=== PATIENT | female | born 1950 ===

== ENCOUNTER 2022-05-21 11:36 | Outpatient (REF) | payer MEDICARE, MEDICAID, SELFPAY ==
[2022-05-21 13:59] LABS: Hematocrit 40.6 % (37.0-47.0); Hemoglobin 12.7 g/dl (12.0-16.0); Mean Corpuscular HGB Conc 31.3 g/dl (31.0-35.0); Mean Corpuscular Hemoglobin 27.7 pg (27.0-33.0); Mean Corpuscular Volume 88.6 fL (80.0-98.0); Mean Platelet Volume 10.8 fL (9.4-12.3); Platelet Count 347 X10*3/uL (160-400); Red Blood Count 4.58 X10*6/uL (4.20-5.50); Red Cell Distribution Width 13.6 % (11.0-16.0); White Blood Count 7.1 X10*3/uL (4.8-10.8)
[2022-05-21 14:21] LABS: Alanine Aminotransferase 19 U/L (0-31); Albumin Level 4.3 g/dL (3.5-5.0); Alkaline Phosphatase 106 U/L (39-117); Anion Gap 14 (12-20); Aspartate Amino Transferase 17 U/L (5-31); Bilirubin Total 0.2 mg/dL (0.0-1.0); Blood Urea Nitrogen 18 mg/dL (9-16); Calcium 9.8 mg/dL (8.4-10.2); Carbon Dioxide 28 mmol/L (22-29); Chloride 101 mmol/L (96-108); Cholesterol 122 mg/dL; Estimated Glomerular Filt Rate > 60; Glucose Random 153 mg/dL (60-115); HDL Cholesterol 39 mg/dL; LDL Cholesterol Calculated 63 mg/dl; Potassium 4.6 mmol/L (3.3-5.1); Sodium 138 mmol/L (135-145); Total Protein 7.4 g/dL (6.5-8.0); Triglycerides 100 mg/dL
[2022-05-21 14:43] LABS: TSH reflex Free T4 3.26 uIU/mL (0.32-4.0)
== END 2022-05-21 11:37 | disposition home or self-care (01) ==
LOC: HO.WFDLDS 11:36
PROVIDERS: Visit Provider Hospitalist
DX: Z00.00 Encounter for general adult medical examination without abnormal findings (principal)
CPT/HCPCS: 36415; 80053; 80061; 84443; 85027

== ENCOUNTER 2022-10-10 23:08 | Emergency (ER) | payer MEDICARE, MEDICAID, SELFPAY ==
[2022-10-10 23:18] VITALS: BP 128/55; PULSE 103; RESP 20; TEMP 36.4; O2SAT 99; BMI 58.5
[2022-10-11 03:41] VITALS: BP 138/79; PULSE 100; RESP 16; TEMP 36.6; O2SAT 95
--- NOTE | 2022-10-11 03:42 | ED_ITS ---
HPI - Skin/Abscess/Foreign Bdy General Chief complaint: Skin/Abscess/Foreign Body Stated complaint: lump on vaginal area Time Seen by Provider: 10/11/22 02:49 Source: patient and family (Daughter) Mode of arrival: ambulatory History of Present Illness HPI narrative: 72-year-old female who is a diabetic and is brought in by her daughter for worsening abscess noted at left inner thigh, it is draining although the daughter has noted increased redness around the area and was concerned given her mother's underlying diabetes. She denies any associated fever or chills. Related Data Previous Rx's Medication Instructions Recorded albuterol sulfate 90 mcg/actuation 2 puff inhalation Q4-6H PRN 05/21/22 aerosol inhaler shortness of breath or wheezing #8.5 grams amlodipine 10 mg tablet 10 mg PO DAILY #90 tabs 07/16/22 aripiprazole 20 mg tablet 20 mg PO BEDTIME #90 tabs 07/16/22 ferrous sulfate 325 mg (65 mg 325 mg PO DAILY #90 tabs 07/16/22 iron) tablet insulin glargine 100 unit/mL (3 50 unit (0.5 mL) subcut DAILY 3 07/16/22 mL) subcutaneous pen (agl months #45 mL KwikPen U-100 Insulin) lisinopril 40 mg tablet 40 mg PO DAILY 3 months #90 tabs 07/16/22 metformin 500 mg tablet 500 mg PO BID 3 months #180 tabs 07/16/22 montelukast 10 mg tablet 10 mg PO DAILY #90 tabs 07/16/22 nitroglycerin 0.4 mg sublingual 0.4 mg sublingual Q5M PRN chest 07/16/22 tablet pain 3 months #20 tabs paroxetine HCl 40 mg tablet 40 mg PO DAILY #90 tabs 07/16/22 sennosides 8.6 mg capsule (senna) 8.6 mg PO DAILY #90 caps 07/16/22 topiramate 100 mg tablet 100 mg PO DAILY #90 tabs 07/16/22 topiramate 50 mg tablet 50 mg PO DAILY #90 tabs 07/16/22 trazodone 50 mg tablet 50 mg PO BEDTIME 3 months #90 tabs 07/16/22 cephalexin 500 mg capsule 500 mg PO BID 5 days #10 caps 10/11/22 doxycycline hyclate 100 mg capsule 100 mg PO BID 5 days #10 caps 10/11/22 Allergies Allergy/AdvReac Type Severity Reaction Status Date / Time No Known Allergies Allergy Verified 10/10/22 23:23 Review of Systems Review of Systems: Pertinent positives and negatives as stated in [facility] Past Medical History Source: nursing notes reviewed Medical History Arthritis Asthma Diabetes High blood pressure High cholesterol Social History Social History Housing: Apartment Patient Tobacco Use Status: Never used Tobacco e-Cigarette/Vaping Use: Never Used Second Hand Smoke Exposure: No Advance Directives: No Advance Directives Information Provided: Yes service: No Current occupational status: disabled Current occupational exposures/hazards: No Physical Exam Vital Signs: Vital Signs: Last Vital Signs Temp 97.9 F 10/11/22 03:41 Pulse 100 10/11/22 03:41 Resp 16 10/11/22 03:41 BP 138/79 10/11/22 03:41 Pulse Ox 95 10/11/22 03:41 O2 Del Method 10/11/22 03:41 BMI result Body Mass Index 58.5 VITAL SIGNS: Reviewed. GENERAL: Elderly, elevated BMI,, in no acute distress. HEAD: Normocephalic/atraumatic EYES: PERRLA, EOMI EARS: Ext canals without abnormality OROPHARYNX: no oral lesions noted, posterior pharynx clear LUNGS: Normal breath sounds. No adventitious sounds or accessory muscle use. SpO2<95> CARDIOVASCULAR: Regular rate and rhythm without noted murmurs ABDOMEN: Soft, non-tender, non-distended with bowel sounds. LEFT LOWER EXTREMITY: There is a noted 3.5 cm abscess with some superficial fluctuance as well as a small area above NEUROLOGIC: Alert and oriented x 4. Strength and sensation to light touch were grossly intact x 4. Medical Decision Making Medical Decision Making MDM Narrative: 72-year-old female with minor abscess, incision was made after lidocaine was placed minimal amounts of material were expressed, may need more time for additional development, irrigated extensively. Patient will be placed on antibiotics given underlying diabetes, there are no systemic symptoms at this time, a referral to follow-up with general surgery has also been provided. The patient is otherwise stable for discharge after receiving initial antibiotics here in the emergency room. Differential Diagnosis Differential Diagnoses: The differential diagnosis associated with the presentation includes Please see the discussion above Chronic Conditions Patient?s care impacted by: Diabetes Procedures Abscess I/D Site: lower extremity Side (if applicable): left Local Anesthetic: lidocaine 1% Amount of anesthesia used (mL): 5 Technique: incised with blade Amount of fluid expressed (mL): 2 Sent for culture/gram staining?: No Irrigation: Yes Packing used?: none Complications: pain Discharge Plan Discharge Clinical Impression: Abscess of skin or subcutaneous tissue, Cellulitis, Diabetes Patient Disposition: Home, Self-Care Instructions: Cellulitis (ED), Abscess (ED), Diabetes and Your Skin (ED), Warm Compress or Soak (ED) Additional Instructions: 1. Complete todo el ciclo de antibi?ticos seg?n lo indicado. 2. Contin?e con compresas tibias, 2 a 3 veces al d?a. 3. Se le george proporcionado saji derivaci?n para cirug?a general si el drenaje no contin?a mejorando. 4. Paula un seguimiento con el proveedor de atenci?n primaria. Regrese a la cameron de emergencias si los s?ntomas empeoran. 1. Complete the entire course of antibiotics as ordered. 2. Continue with warm compresses, 2 to 3 times a day. 3. A referral for General surgery has been provided to you if the drainage does not continue to improve. 4. Please follow-up with primary care provider. Return to the ER for any worsening symptoms. Prescriptions: New doxycycline hyclate 100 mg capsule 100 mg PO BID 5 Days Qty: 10 0RF cephalexin 500 mg capsule 500 mg PO BID 5 Days Qty: 10 0RF No Action amlodipine 10 mg tablet 10 mg PO DAILY Qty: 90 3RF aripiprazole 20 mg tablet 20 mg PO BEDTIME Qty: 90 3RF ferrous sulfate 325 mg (65 mg iron) tablet 325 mg PO DAILY Qty: 90 3RF insulin glargine [Basaglar KwikPen U-100 Insulin] 100 unit/mL (3 mL) insulin pen 50 unit subcut DAILY 90 Days Qty: 45 3RF lisinopril 40 mg tablet 40 mg PO DAILY 90 Days Qty: 90 3RF metformin 500 mg tablet 500 mg PO BID 90 Days Qty: 180 3RF montelukast 10 mg tablet 10 mg PO DAILY Qty: 90 3RF nitroglycerin 0.4 mg tablet, sublingual 0.4 mg sublingual Q5M PRN (Reason: chest pain) 90 Days Qty: 20 3RF Rx Instructions: do not exceed 3 doses per episode paroxetine HCl 40 mg tablet 40 mg PO DAILY Qty: 90 3RF senna 8.6 mg capsule 8.6 mg PO DAILY Qty: 90 3RF topiramate 100 mg tablet 100 mg PO DAILY Qty: 90 3RF topiramate 50 mg tablet 50 mg PO DAILY Qty: 90 3RF trazodone 50 mg tablet 50 mg PO BEDTIME 90 Days Qty: 90 3RF albuterol sulfate 90 mcg/actuation HFA aerosol inhaler 2 puff inhalation Q4-6H PRN (Reason: shortness of breath or wheezing) Qty: 8.5 0RF Referrals: Consuelo Iniguez NP [Primary Care Provider] - Olaf Brand MD [Physician] - Print Language: [place]
[2022-10-11] MEDS: Doxycycline Monohydrate 100 MG CAPSULE PO (03:52)
[2022-10-11] MEDS: cephALEXin 500 MG CAPSULE PO (03:52)
[2022-10-11] MEDS: Lidocaine HCl 1 % 20 ML VIAL INFILTRATI (04:02)
== END 2022-10-11 04:04 | disposition home or self-care (01) ==
PROVIDERS: Emergency Provider Student in an Organized Health Care Education/Training Program; PCP Hospitalist
DX: L02.416 Cutaneous abscess of left lower limb (principal); L03.116 Cellulitis of left lower limb; E11.9 Type 2 diabetes mellitus without complications; Z79.899 Other long term (current) drug therapy
CPT/HCPCS: 10060; 99284

== ENCOUNTER 2022-10-21 12:17 | Outpatient (REF) | payer MEDICARE, MEDICAID, SELFPAY ==
[2022-10-21 14:14] LABS: Appearance Urine Clear; Color Urine Yellow; Glucose Urine UA Negative (Negative); Leukocyte Esterase Urine Negative (Negative); Nitrite Urine Negative (Negative); PH 6.5 (5.0-9.0); Urine Blood Negative (Negative); Urine Ketones Negative (Negative); Urine Protein Negative (Neg-Trace)
[2022-10-21 14:40] LABS: Erythrocyte Sedimentation Rate 29 MM/HR (0-20)
[2022-10-22 13:18] LABS: CRP High Sensitivity 3.9 mg/L
== END 2022-10-21 12:18 | disposition home or self-care (01) ==
LOC: HO.WFDLDS 12:17
PROVIDERS: Visit Provider Hospitalist
DX: M19.90 Unspecified osteoarthritis, unspecified site (principal); R32 Unspecified urinary incontinence
CPT/HCPCS: 36415; 81003; 85652; 86141

== ENCOUNTER → 2022-10-23 15:35 | Outpatient (BNVA) | payer MEDICARE, MEDICAID, SELFPAY | PROVIDERS: PCP Hospitalist; Visit Provider Surgery | DX: L02.416 Cutaneous abscess of left lower limb (principal); G89.29 Other chronic pain; M25.559 Pain in unspecified hip; E66.01 Morbid (severe) obesity due to excess calories; Z68.43 Body mass index [BMI] 50.0-59.9, adult; Z99.3 Dependence on wheelchair | CPT/HCPCS: 99202 ==

== ENCOUNTER → 2022-11-13 11:42 | Outpatient (BNVA) | payer MEDICARE, MEDICAID, SELFPAY | PROVIDERS: PCP Hospitalist; Visit Provider Surgery | DX: L02.416 Cutaneous abscess of left lower limb (principal) | CPT/HCPCS: 99212 ==

== ENCOUNTER → 2022-11-27 11:10 | Outpatient (BNVA) | payer MEDICARE, MEDICAID, SELFPAY | PROVIDERS: PCP Hospitalist; Visit Provider Urology | DX: R32 Unspecified urinary incontinence (principal); E11.9 Type 2 diabetes mellitus without complications; E66.01 Morbid (severe) obesity due to excess calories | CPT/HCPCS: 51798; 99202 ==

== ENCOUNTER 2022-12-20 10:41 | Outpatient (REF) | payer MEDICARE, MEDICAID, SELFPAY ==
--- NOTE | ~2022-12-20 | US_ITS ---
EXAMINATION: US RETROPERITONEAL LIMITED (RENAL ONLY) CLINICAL INFORMATION: Unspecified urinary incontinence. COMPARISON: None available. TECHNIQUE: Real-time imaging of the kidneys. Technically limited study secondary to body habitus. FINDINGS: RIGHT KIDNEY: 10.4 x 4.9 x 4.7 cm (SAG x AP x TRV). The kidney is normal in size, contour, and echogenicity. Renal cortical thickness is normal. No calculi or focal parenchymal lesions. No hydronephrosis. LEFT KIDNEY: 11.2 x 5.5 x 4.2 cm (SAG x AP x TRV). The kidney is normal in size, contour, and echogenicity. Renal cortical thickness is normal. No calculi or focal parenchymal lesions. No hydronephrosis. US/US renal BI IMPRESSION: Unremarkable examination.
== END 2022-12-20 10:42 | disposition home or self-care (01) ==
LOC: HO.US 10:41
PROVIDERS: PCP Hospitalist; Visit Provider Nurse Practitioner Family
DX: R32 Unspecified urinary incontinence (principal)
CPT/HCPCS: 76775

== ENCOUNTER 2022-12-30 08:27 | Outpatient (REF) | payer MEDICARE, MEDICAID, SELFPAY ==
--- NOTE | ~2022-12-30 | XR_ITS ---
EXAMINATION: XR PELVIS CLINICAL INFORMATION: Pain. COMPARISON: None available. TECHNIQUE: AP view of the pelvis. FINDINGS: There is a normal bilateral hip joint space. No bony erosive changes. No fracture or dislocation. SI joints are symmetrical. No acute fracture or dislocation seen. XR/XR pelvis 1-2V IMPRESSION: Unremarkable AP pelvis exam.
== END 2022-12-30 08:28 | disposition home or self-care (01) ==
LOC: HO.HOSX 08:27
PROVIDERS: Visit Provider Orthopaedic Surgery
DX: M25.552 Pain in left hip (principal); R20.0 Anesthesia of skin; E11.9 Type 2 diabetes mellitus without complications; E66.01 Morbid (severe) obesity due to excess calories
CPT/HCPCS: 72170; 99202

== ENCOUNTER 2023-01-07 10:42 | Outpatient (REF) | payer MEDICARE, MEDICAID, SELFPAY ==
[2023-01-07 13:16] LABS: Alanine Aminotransferase 15 U/L (0-31); Albumin Level 4.2 g/dL (3.5-5.0); Alkaline Phosphatase 85 U/L (39-117); Aspartate Amino Transferase 12 U/L (5-31); Bilirubin Direct < 0.2 mg/dL (0.0-0.5); Bilirubin Total 0.2 mg/dL (0.0-1.0); Lipase 27 U/L (8-78); Total Protein 7.3 g/dL (6.5-8.0)
[2023-01-07 13:44] LABS: Folate 5.2 ng/mL (> or = 4.0); TSH reflex Free T4 4.11 uIU/mL (0.32-4.0); Vitamin B12 528 pg/mL (200-900)
[2023-01-07 14:30] LABS: Free T4 (Free Thyroxine) 0.85 ng/dL (0.71-1.85)
[2023-01-12 15:43] LABS: Vitamin D 25-OH, D2 <4 ng/mL; Vitamin D 25-OH, D3 37 ng/mL; Vitamin D 25-OH, Total 37 ng/mL (30-100)
== END 2023-01-07 10:43 | disposition home or self-care (01) ==
LOC: HO.LAB 10:42
PROVIDERS: PCP Hospitalist; Visit Provider Nurse Practitioner Family
DX: R10.9 Unspecified abdominal pain (principal); K59.00 Constipation, unspecified; R19.7 Diarrhea, unspecified; E55.9 Vitamin D deficiency, unspecified
CPT/HCPCS: 36415; 80076; 82306; 82607; 82746; 83690; 84439; 84443; 99202

== ENCOUNTER 2023-02-28 06:04 | Inpatient (IN) | payer MEDICARE, MEDICAID, SELFPAY ==
[2023-02-28] VITALS (10 sets, daily range): BP systolic 90–127; BP diastolic 45–88; PULSE 91–110; RESP 17–28; TEMP 37–38.2; O2SAT 94–98; BMI 44.0; BMI 44.9
--- NOTE | ~2023-02-28 | CT_ITS ---
EXAMINATION: CT CHEST, ABDOMEN AND PELVIS WITHOUT CONTRAST CLINICAL INFORMATION: Status post fall. COMPARISON: None. TECHNIQUE: Multidetector volumetric imaging was performed of the chest, abdomen and pelvis without oral or intravenous contrast. Sagittal and coronal reformatted images were obtained on the technologist's workstation. This CT examination was performed using dose optimization techniques as appropriate, variously including the following: *Automated exposure control *Adjustment of mA and/or kV according to patient size (this includes techniques or standardized protocols for targeted exams where dose is matched to indication/reason for exam; i.e. extremities or head) *Use of iterative reconstruction technique DLP: 2770 mGy-cm FINDINGS: Motion artifact technically degrades image quality. CHEST: CHEST WALL: No acute abnormality. MEDIASTINUM: Few subcentimeter mediastinal lymph nodes are appreciated. Great vessels are of normal caliber. Heart is enlarged. Trace pericardial effusion. CORONARY ARTERY CALCIFICATION: Mild. PLEURA: No pleural effusion. LUNGS: No suspicious pulmonary nodule. No focal consolidation. Central airways are patent. ABDOMEN AND PELVIS: ABDOMINAL AND PELVIC WALL: No acute abnormality. LIVER AND BILIARY TREE: The noncontrast liver is normal in contour. No biliary ductal dilatation. GALLBLADDER: Unremarkable. PANCREAS: Unremarkable. SPLEEN: Unremarkable. ADRENAL GLANDS: Unremarkable. KIDNEYS AND URETERS: Symmetric in size. Nonspecific perinephric stranding. 4 mm nonobstructing calculus lower pole left kidney. GASTROINTESTINAL TRACT: Small and large bowel loops are of normal caliber. No small bowel obstruction. Appendix is within normal limits. VASCULAR: Normal caliber abdominal aorta. LYMPH NODES: No bulky abdominal or pelvic lymphadenopathy. FREE FLUID: No free fluid. BLADDER: Unremarkable. PELVIC VISCERA: Unremarkable. OSSEOUS STRUCTURES: Severe osteoarthritis of bilateral shoulders. No displaced rib fractures. CT/CT abdomen pelvis wo IV con IMPRESSION: Limited by motion artifact and noncontrast technique. No acute abnormality in the chest, abdomen or pelvis. Nonspecific bilateral perinephric stranding. 4 mm nonobstructing left renal calculus.
--- NOTE | ~2023-02-28 | CT_ITS ---
EXAMINATION: CT HEAD W/O IV CONTRAST CT CERVICAL SPINE W/O IV CONTRAST CLINICAL INFORMATION: History of fall. COMPARISON: None TECHNIQUE: Head - Contiguous axial imaging of the head was performed from the skull base to the vertex without the administration of intravenous contrast, and axial images are reconstructed at 2 mm and 5 mm slice thickness. Cervical spine - A volumetric, helical CT acquisition of the cervical spine was obtained without contrast; in addition to the standard set of axial images, multiplanar reformatted images were provided in the coronal and sagittal imaging planes. This CT examination was performed using dose optimization techniques as appropriate, variously including the following: *Automated exposure control *Adjustment of mA and/or kV according to patient size (this includes techniques or standardized protocols for targeted exams where dose is matched to indication/reason for exam; i.e. extremities or head) *Use of iterative reconstruction technique DLP: 619.7 mGy-cm for the head and 571.8 mGy-cm for the cervical spine FINDINGS: HEAD: No acute intracranial findings. Gilbert to white matter differentiation is preserved. No evidence of intracranial hemorrhage, major vascular territory infarction, focal mass effect or midline shift. The ventricles have normal size and configuration. No hydrocephalus or extra-axial fluid collections. The calvarium is intact. Incidentally noted is mild mucosal thickening of the superolateral wall of the right maxillary sinus; no air-fluid levels within paranasal sinuses. There is opacification of some of the bilateral mastoid air cells. The temporomandibular joints are intact. The orbits and globes are unremarkable. CERVICAL SPINE: The craniocervical junction is normal. The occipital condyles, dens and atlantodental articulation are intact. There is calcium deposition (likely calcium pyrophosphate dihydrate crystal deposition) along the transverse ligament posterior to the dens. The vertebral body heights and alignment are maintained. No fractures in the anterior or posterior elements. No prevertebral soft tissue edema or paraspinal hematoma. Mild discovertebral degenerative changes at C4-C5, C5-C6 and C6-C7. No stenosis of the central spinal canal. Thyroid gland is normal. Incidentally noted are emphysematous changes at visualized lung apices. No apical pneumothorax. CT/CT cervical spine wo IV con IMPRESSION: * No acute intracranial pathology. * No fracture or malalignment in the mildly degenerated cervical spine.
--- NOTE | 2023-02-28 06:21 | ECG_ITS ---
Test Reason : FALL Blood Pressure : / mmHG Vent. Rate : 105 BPM Atrial Rate : 105 BPM P-R Int : 198 ms QRS Dur : 122 ms QT Int : 340 ms P-R-T Axes : 055 -30 077 degrees QTc Int : 449 ms Sinus tachycardia Left axis deviation Minimal voltage criteria for LVH, may be normal variant ( Ramsey product ) Anterior infarct , age undetermined Abnormal ECG No previous ECGs available Referred By: Generic ED Physician Electronically Signed By:FABRICIO ANGEL
[2023-02-28 06:22] LABS: Glucose, Whole Blood 145 mg/dL (60-115)
[2023-02-28 06:52] LABS: Hematocrit 30.6 % (37.0-47.0); Hemoglobin 9.9 g/dl (12.0-16.0); Mean Corpuscular HGB Conc 32.4 g/dl (31.0-35.0); Mean Corpuscular Volume 86.7 fL (80.0-98.0); Mean Platelet Volume 11.8 fL (9.4-12.3); Platelet Count 181 X10*3/uL (160-400); Red Blood Count 3.53 X10*6/uL (4.20-5.50); Red Cell Distribution Width 13.8 % (11.0-16.0); White Blood Count 19.2 X10*3/uL (4.8-10.8)
[2023-02-28 06:57] LABS: INTERNATIONAL NORM RATIO 1.1 (0.9-1.1); Prothrombin Time 12.9 SEC (10.0-13.1)
[2023-02-28 07:00] LABS: Partial Thromboplastin Time 31.1 SEC (26.0-36.4)
[2023-02-28] MEDS: Albuterol/Iprat 2.5/0.5MG 3 ML AMPUL.NEB INHALE (07:02)
[2023-02-28 07:11] LABS: Lactic Acid 1.4 mmol/L (0.5-2.0)
[2023-02-28 07:18] LABS: Band Neutrophils Percent 9 % (3-5); Basophils Abs Manual 0.2 X10*3/uL (0.0-0.2); Basophils Percent Manual 1 % (0-2); Eosinophils Absolute Manual 0.2 X10*3/uL (0.0-0.4); Eosinophils Percent Manual 1 % (0-4); Lymphocytes Absolute Manual 1.5 X10*3/uL (1.2-4.9); Lymphocytes Percent Manual 8 % (20-40); Monocytes Percent Manual 5 % (2-11); Neutrophils Absolute Manual 16.3 X10*3/uL (2.0-8.3); Neutrophils Percent Manual 76 % (45-73)
[2023-02-28 07:20] LABS: B Type Natriuretic Peptide 47 pg/mL (<100)
--- NOTE | 2023-02-28 07:21 | ED.GENADULT ---
HPI - General Adult General Chief complaint: Fall Stated complaint: fall Time Seen by Provider: 02/28/23 06:30 Source: patient Mode of arrival: ambulatory Limitations: no limitations History of Present Illness HPI narrative: 72-year-old female with past medical history diabetes, hypertension, and asthma brought to the ED for 2 episodes of fall and 1 episode of hypoxemia. For the past 2 days patient has been coughing, fever and feeling weak. Daughter states patient lives alone and saw on the Camera patient fell twice off the bed. EMS found patient O2 sat on room air 88%. Patient is not oxygen dependent. Patient was placed on 2 L cannula. Patient states she had pneumonia last year. Patient never intubated for asthma. Related Data Home Medications Medication Instructions Recorded Confirmed insulin glargine 100 unit/mL (3 30 unit subcut DAILY 02/28/23 02/28/23 mL) subcutaneous pen (Basaglar KwikPen U-100 Insulin) Previous Rx's Medication Instructions Recorded albuterol sulfate 90 mcg/actuation 2 puff inhalation Q4-6H PRN 05/21/22 aerosol inhaler shortness of breath or wheezing #8.5 grams amlodipine 10 mg tablet 10 mg PO DAILY #90 tabs 07/16/22 aripiprazole 20 mg tablet 20 mg PO BEDTIME #90 tabs 07/16/22 ferrous sulfate 325 mg (65 mg 325 mg PO DAILY #90 tabs 07/16/22 iron) tablet lisinopril 40 mg tablet 40 mg PO DAILY 3 months #90 tabs 07/16/22 metformin 500 mg tablet 500 mg PO BID 3 months #180 tabs 07/16/22 montelukast 10 mg tablet 10 mg PO DAILY #90 tabs 07/16/22 paroxetine HCl 40 mg tablet 40 mg PO DAILY #90 tabs 07/16/22 topiramate 100 mg tablet 100 mg PO DAILY #90 tabs 07/16/22 topiramate 50 mg tablet 50 mg PO DAILY #90 tabs 07/16/22 trazodone 50 mg tablet 50 mg PO BEDTIME 3 months #90 tabs 07/16/22 ibuprofen 600 mg tablet 600 mg PO Q8H PRN pain #90 tabs 10/23/22 miscellaneous medical supply #2 ea 10/24/22 miscellaneous medical supply #270 ea 10/24/22 miscellaneous medical supply #4 ea 10/24/22 oxybutynin chloride 10 mg 10 mg PO DAILY #90 tabs 11/27/22 tablet,extended release 24 hr FreeStyle Lite Strips (blood sugar #100 ea 12/16/22 diagnostic) blood-glucose meter (FreeStyle #1 ea 12/16/22 Lite Meter kit) lancets 28 gauge (FreeStyle #100 ea 12/16/22 Lancets) sennosides 8.6 mg capsule (senna) 17.2 mg PO DAILY #180 caps 01/07/23 Allergies Allergy/AdvReac Type Severity Reaction Status Date / Time No Known Allergies Allergy Verified 01/07/23 11:05 Review of Systems Review of Systems: Cough, weakness, fever, 2 episodes of fall Yes all other systems are reviewed and are negative [facility] Past Medical History Medical History Abscess of left thigh Arthritis Asthma Diabetes High blood pressure High cholesterol Morbid obesity Social History Social History Housing: Apartment Patient Tobacco Use Status: Former Tobacco user e-Cigarette/Vaping Use: Never Used Second Hand Smoke Exposure: No Advance Directives: No Advance Directives Information Provided: Yes service: No Current occupational status: disabled Current occupational exposures/hazards: No Cognitive needs: No Hearing needs: No Vision needs: Yes Physical Exam ED Vital Signs: Vital Signs - 24 hr 02/28/23 06:12 02/28/23 07:03 02/28/23 07:31 Temperature 100.8 F H Pulse Rate 110 H 103 H 101 H Respiratory Rate 28 H 20 17 Blood Pressure 113/55 L 97/45 L Pulse Oximetry 97 97 Oxygen Delivery Method Nasal Cannula Room Air Oxygen Flow Rate 02/28/23 10:16 02/28/23 10:23 02/28/23 10:53 Temperature Pulse Rate 96 93 Respiratory Rate 23 H 21 H Blood Pressure 90/47 L 96/46 L 105/45 L Pulse Oximetry 95 98 Oxygen Delivery Method Nasal Cannula Nasal Cannula Oxygen Flow Rate 2 1.5 02/28/23 11:57 02/28/23 11:41 Temperature Pulse Rate 93 91 Respiratory Rate 21 H 20 Blood Pressure 115/78 107/51 L Pulse Oximetry 94 95 Oxygen Delivery Method Nasal Cannula Nasal Cannula Oxygen Flow Rate 2 2 BMI result Body Mass Index 44.0 Const General: cooperative, healthy appearing, comfortable, no acute distress, well developed, alert, awake and Physically active Orientation/consciousness: oriented to person and oriented to place [facility] Head: Yes normal to inspection, Yes No palpable skull fracture present, Yes normocephalic, Yes atraumatic and No abrasion Eyes General: appearance normal, both eyes and all related structures Neck Neck: Yes normal visual inspection, Yes full ROM, Yes no lymphadenopathy, Yes no meningeal signs, Yes trachea midline, Yes supple, No anterior neck swelling and No tender Chest Chest palpation & inspection: normal inspection of the chest and normal palpation of entire chest wall Resp Effort & Inspection: normal respiratory effort and able to speak in complete sentences Auscultation: diminished lung sounds Cardio Jugular venous distension: no JVD Heart sounds: S1 normal heart sound present and S2 normal heart sound present GI Inspection: Yes normal to inspection and No abdominal wall ecchymosis Palpation (GI): Soft to palpation, not firm, nontender, no guarding and not rigid General: No CVA tenderness and Yes no CVA tenderness Back/Spine/Pelvis Back: no CVA tenderness, No CVA tenderness and No back tenderness Skin General skin exam: no rashes or lesions noted and elasticity normal Neuro Other: Patient answering questions. Patient lethargic. Patient usually walks on her own but due to fever lethargy to fatigue to walk. General: oriented to person, oriented to place, tone normal, moves all extremities, Normal light touch and pain sensation, no meningeal signs, no focal motor deficits and CN's II-XI intact bilaterally Extrem General: Yes normal to inspection and Yes full ROM Psych Appearance: grossly normal, well kempt and not disheveled Course Reevaluation(s) Reevaluation #1: Patient having labs drawn by nurse. Lactic blood culture was added. Antibiotics ordered. Fluids ordered. Nebulizer and steroids ordered. Patient will be treated as pneumonia. Lungs positive for diminished sounds. No neuro deficits. No tenderness or ecchymosis on evaluation of all body. EKG shows sinus tach. Time: 06:30 Reevaluation #2: Lactic acid negative. White count 42529. Images of chest abdomen or dry due to kidney function not yet being available. Head CT cervical spine CT ordered due to fall. UA pending. Time: 19:32 Reevaluation #3: Patient head CT cervical spine CT chest CT abdominal CT came back normal. Chest CT negative for pneumonia. Abdominal CT scan shows bilateral perinephric stranding is left renal calculus. Patient given UA to check for UTI. Patient is in a KI Time: 09:00 Medications Administered Discontinued Medications Generic Name Dose Route Start Last Admin Trade Name Freq PRN Reason Stop Dose Admin Acetaminophen 975 mg 02/28/23 06:37 02/28/23 07:36 Acetaminophen 325 Mg Tablet PO 02/28/23 06:38 975 mg ONCE ONE Administration Albuterol/Ipratropium 3 ml 02/28/23 06:39 02/28/23 07:02 Albuterol/Iprat 2.5/0.5mg 3 Ml Ampul.Neb INHALE 02/28/23 06:40 3 ml ONCE ONE Administration Ceftriaxone Sodium 1 gm/ 50 mls @ 100 mls/hr 02/28/23 06:38 02/28/23 09:46 Sodium Chloride IV 02/28/23 07:07 Infused ONCE ONE Infusion Azithromycin 500 mg/ Sodium 250 mls @ 125 mls/hr 02/28/23 06:38 02/28/23 10:07 Chloride IV 02/28/23 08:37 Infused ONCE ONE Infusion Sodium Chloride 1,000 mls @ 999 mls/hr 02/28/23 06:38 02/28/23 10:06 Ns IV 02/28/23 07:38 Infused .Q1H1M STA Infusion Sodium Chloride 1,000 mls @ 999 mls/hr 02/28/23 08:07 02/28/23 10:47 Ns IV 02/28/23 09:07 Infused .Q1H1M STA Infusion Sodium Chloride 1,000 mls @ 999 mls/hr 02/28/23 08:41 02/28/23 10:47 Ns IV 02/28/23 09:41 Infused .Q1H1M STA Infusion Sodium Chloride 1,000 mls @ 999 mls/hr 02/28/23 10:24 02/28/23 11:55 Ns IV 02/28/23 11:24 Infused .Q1H1M STA Infusion Methylprednisolone Sodium Succinate 125 mg 02/28/23 06:56 02/28/23 07:37 Methylprednisolone Sod Succ 125 Mg/2 Ml Vial IVPUSH 02/28/23 06:57 125 mg ONCE ONE Administration Medical Decision Making Medical Decision Making MDM Narrative: 72 yold female with history of asthma, diabetes, obesity, presents to ED for fall, hypoxia, fever, and generalized weakness. Initial presentation was of pneumonia patient treated as pneumonia. Patient was given antibiotics. Patient placed on 2 L nasal cannula. Patient was febrile tachycardic during ED visit. Lactic acid negative. Trauma scan negative for any injuries. Negative for pneumonia on chest CT. UA shows UTI. Blood pressure improved after fluids. Patient on blood thinner. Differential Diagnosis Differential Diagnoses: The differential diagnosis associated with the presentation includes (Brain bleed, cervical spine fracture, pneumothorax, hemothorax, pneumonia, hip dislocation, hip fracture, UTI, sepsis) Admission/Observation Consideration of admission/observation: Escalation of care including admission/observation considered Consult Healthcare Provider Management of the patient was discussed with: Hospitalist Ean) Lab Data [facility] Lab Attestation statement: I reviewed the patient's lab results. 02/28/23 06:44 02/28/23 06:44 Labs: Lab Results 02/28/23 02/28/23 02/28/23 Range/Units 06:18 06:36 06:44 WBC 19.2 H (4.8-10.8) X10*3/uL RBC 3.53 L D (4.20-5.50) X10*6/uL Hgb 9.9 L D (12.0-16.0) g/dl Hct 30.6 L D (37.0-47.0) % MCV 86.7 (80.0-98.0) fL MCH 28.0 (27.0-33.0) pg MCHC 32.4 (31.0-35.0) g/dl RDW 13.8 (11.0-16.0) % Plt Count 181 D (160-400) X10*3/uL MPV 11.8 (9.4-12.3) fL Immature Gran % (Auto) Cancelled Neut % (Auto) Cancelled Lymph % (Auto) Cancelled [place] % (Auto) Cancelled Eos % (Auto) Cancelled Baso % (Auto) Cancelled Lymph # (Auto) Cancelled [place] # (Auto) Cancelled Eos # (Auto) Cancelled Baso # (Auto) Cancelled Abs Immat Gran (auto) Cancelled Absolute Neuts (auto) Cancelled Absolute Nucleated RBC 0.000 (0.0-0.012) X10*3/uL Nucleated RBC % (auto) 0.0 (0.0-0.2) /100WBC Neutrophils % (Manual) 76 H (45-73) % Band Neutrophils % 9 H (3-5) % Lymphocytes % (Manual) 8 L (20-40) % Monocytes % (Manual) 5 (2-11) % Eosinophils % (Manual) 1 (0-4) % Basophils % (Manual) 1 (0-2) % Abs Neuts (Manual) 16.3 H (2.0-8.3) X10*3/uL Lymphocytes # (Manual) 1.5 (1.2-4.9) X10*3/uL Monocytes # (Manual) 1.0 (0.1-1.2) X10*3/uL Eosinophils # (Manual) 0.2 (0.0-0.4) X10*3/uL Basophils # (Manual) 0.2 (0.0-0.2) X10*3/uL Platelet Estimate NORMAL (NORMAL) Plt Morphology Comment NORMAL RBC Morphology NORMAL PT (10.0-13.1) SEC INR (0.9-1.1) APTT (26.0-36.4) SEC Sodium (135-145) mmol/L Potassium (3.3-5.1) mmol/L Chloride (96-108) mmol/L Carbon Dioxide (22-29) mmol/L Anion Gap (12-20) BUN (9-16) mg/dL Creatinine (0.5-1.4) mg/dL Estim Creat Clear Calc Estimated GFR POC Glucose 145 H (60-115) mg/dL Random Glucose (60-115) mg/dL Lactic Acid (0.5-2.0) mmol/L Calcium (8.4-10.2) mg/dL Total Bilirubin (0.0-1.0) mg/dL AST (5-31) U/L ALT (0-31) U/L Alkaline Phosphatase (39-117) U/L Troponin I High Sens (<3.5-17.0) ng/L B-Natriuretic Peptide (<100) pg/mL Total Protein (6.5-8.0) g/dL Albumin (3.5-5.0) g/dL Urine Color Urine Appearance Urine pH (5.0-9.0) Ur Specific [place] (1.005-1.025) Urine Protein (Neg-Trace) mg/dL Urine Glucose (UA) (Negative) mg/dL Urine Ketones (Negative) mg/dL Urine Blood (Negative) Urine Nitrite (Negative) Ur Leukocyte Esterase (Negative) Urine RBC (0-2) /HPF Urine WBC (0-5) /HPF Ur Squamous Epith Cells (0-2) /HPF Urine Bacteria (None Seen) Hyaline Casts (0-2) /LPF COVID-19 (LEONARDO) Negative (Negative) COVID-19 Clin Com See Note Influenza Type A (PCR) (Negative) Influenza Type B (PCR) (Negative) RSV RNA Qual (PCR) (Negative) SARS-CoV-2 RNA (RT-PCR) (Negative) 02/28/23 02/28/23 02/28/23 Range/Units 06:44 06:44 06:44 WBC (4.8-10.8) X10*3/uL RBC (4.20-5.50) X10*6/uL Hgb (12.0-16.0) g/dl Hct (37.0-47.0) % MCV (80.0-98.0) fL MCH (27.0-33.0) pg MCHC (31.0-35.0) g/dl RDW (11.0-16.0) % Plt Count (160-400) X10*3/uL MPV (9.4-12.3) fL Immature Gran % (Auto) Neut % (Auto) Lymph % (Auto) [place] % (Auto) Eos % (Auto) Baso % (Auto) Lymph # (Auto) [place] # (Auto) Eos # (Auto) Baso # (Auto) Abs Immat Gran (auto) Absolute Neuts (auto) Absolute Nucleated RBC (0.0-0.012) X10*3/uL Nucleated RBC % (auto) (0.0-0.2) /100WBC Neutrophils % (Manual) (45-73) % Band Neutrophils % (3-5) % Lymphocytes % (Manual) (20-40) % Monocytes % (Manual) (2-11) % Eosinophils % (Manual) (0-4) % Basophils % (Manual) (0-2) % Abs Neuts (Manual) (2.0-8.3) X10*3/uL Lymphocytes # (Manual) (1.2-4.9) X10*3/uL Monocytes # (Manual) (0.1-1.2) X10*3/uL Eosinophils # (Manual) (0.0-0.4) X10*3/uL Basophils # (Manual) (0.0-0.2) X10*3/uL Platelet Estimate (NORMAL) Plt Morphology Comment RBC Morphology PT 12.9 (10.0-13.1) SEC INR 1.1 (0.9-1.1) APTT 31.1 (26.0-36.4) SEC Sodium (135-145) mmol/L Potassium (3.3-5.1) mmol/L Chloride (96-108) mmol/L Carbon Dioxide (22-29) mmol/L Anion Gap (12-20) BUN (9-16) mg/dL Creatinine (0.5-1.4) mg/dL Estim Creat Clear Calc Estimated GFR POC Glucose (60-115) mg/dL Random Glucose (60-115) mg/dL Lactic Acid 1.4 (0.5-2.0) mmol/L Calcium (8.4-10.2) mg/dL Total Bilirubin (0.0-1.0) mg/dL AST (5-31) U/L ALT (0-31) U/L Alkaline Phosphatase (39-117) U/L Troponin I High Sens (<3.5-17.0) ng/L B-Natriuretic Peptide 47 (<100) pg/mL Total Protein (6.5-8.0) g/dL Albumin (3.5-5.0) g/dL Urine Color Urine Appearance Urine pH (5.0-9.0) Ur Specific [place] (1.005-1.025) Urine Protein (Neg-Trace) mg/dL Urine Glucose (UA) (Negative) mg/dL Urine Ketones (Negative) mg/dL Urine Blood (Negative) Urine Nitrite (Negative) Ur Leukocyte Esterase (Negative) Urine RBC (0-2) /HPF Urine WBC (0-5) /HPF Ur Squamous Epith Cells (0-2) /HPF Urine Bacteria (None Seen) Hyaline Casts (0-2) /LPF COVID-19 (LEONARDO) (Negative) COVID-19 Clin Com Influenza Type A (PCR) (Negative) Influenza Type B (PCR) (Negative) RSV RNA Qual (PCR) (Negative) SARS-CoV-2 RNA (RT-PCR) (Negative) 02/28/23 02/28/23 02/28/23 Range/Units 06:51 07:29 07:29 WBC (4.8-10.8) X10*3/uL RBC (4.20-5.50) X10*6/uL Hgb (12.0-16.0) g/dl Hct (37.0-47.0) % MCV (80.0-98.0) fL MCH (27.0-33.0) pg MCHC (31.0-35.0) g/dl RDW (11.0-16.0) % Plt Count (160-400) X10*3/uL MPV (9.4-12.3) fL Immature Gran % (Auto) Neut % (Auto) Lymph % (Auto) [place] % (Auto) Eos % (Auto) Baso % (Auto) Lymph # (Auto) [place] # (Auto) Eos # (Auto) Baso # (Auto) Abs Immat Gran (auto) Absolute Neuts (auto) Absolute Nucleated RBC (0.0-0.012) X10*3/uL Nucleated RBC % (auto) (0.0-0.2) /100WBC Neutrophils % (Manual) (45-73) % Band Neutrophils % (3-5) % Lymphocytes % (Manual) (20-40) % Monocytes % (Manual) (2-11) % Eosinophils % (Manual) (0-4) % Basophils % (Manual) (0-2) % Abs Neuts (Manual) (2.0-8.3) X10*3/uL Lymphocytes # (Manual) (1.2-4.9) X10*3/uL Monocytes # (Manual) (0.1-1.2) X10*3/uL Eosinophils # (Manual) (0.0-0.4) X10*3/uL Basophils # (Manual) (0.0-0.2) X10*3/uL Platelet Estimate (NORMAL) Plt Morphology Comment RBC Morphology PT (10.0-13.1) SEC INR (0.9-1.1) APTT (26.0-36.4) SEC Sodium 136 (135-145) mmol/L Potassium 3.7 (3.3-5.1) mmol/L Chloride 101 (96-108) mmol/L Carbon Dioxide 23 (22-29) mmol/L Anion Gap 16 (12-20) BUN 51 H (9-16) mg/dL Creatinine 3.16 H (0.5-1.4) mg/dL Estim Creat Clear Calc 15.6 Estimated GFR 14 POC Glucose (60-115) mg/dL Random Glucose 141 H (60-115) mg/dL Lactic Acid (0.5-2.0) mmol/L Calcium 8.8 D (8.4-10.2) mg/dL Total Bilirubin 0.7 (0.0-1.0) mg/dL AST 16 (5-31) U/L ALT 15 (0-31) U/L Alkaline Phosphatase 124 H (39-117) U/L Troponin I High Sens 11.8 (<3.5-17.0) ng/L B-Natriuretic Peptide (<100) pg/mL Total Protein 6.4 L (6.5-8.0) g/dL Albumin 3.0 L (3.5-5.0) g/dL Urine Color Urine Appearance Urine pH (5.0-9.0) Ur Specific [place] (1.005-1.025) Urine Protein (Neg-Trace) mg/dL Urine Glucose (UA) (Negative) mg/dL Urine Ketones (Negative) mg/dL Urine Blood (Negative) Urine Nitrite (Negative) Ur Leukocyte Esterase (Negative) Urine RBC (0-2) /HPF Urine WBC (0-5) /HPF Ur Squamous Epith Cells (0-2) /HPF Urine Bacteria (None Seen) Hyaline Casts (0-2) /LPF COVID-19 (LEONARDO) (Negative) COVID-19 Clin Com Influenza Type A (PCR) NEGATIVE (Negative) Influenza Type B (PCR) NEGATIVE (Negative) RSV RNA Qual (PCR) NEGATIVE (Negative) SARS-CoV-2 RNA (RT-PCR) NEGATIVE (Negative) 02/28/23 Range/Units 09:48 WBC (4.8-10.8) X10*3/uL RBC (4.20-5.50) X10*6/uL Hgb (12.0-16.0) g/dl Hct (37.0-47.0) % MCV (80.0-98.0) fL MCH (27.0-33.0) pg MCHC (31.0-35.0) g/dl RDW (11.0-16.0) % Plt Count (160-400) X10*3/uL MPV (9.4-12.3) fL Immature Gran % (Auto) Neut % (Auto) Lymph % (Auto) [place] % (Auto) Eos % (Auto) Baso % (Auto) Lymph # (Auto) [place] # (Auto) Eos # (Auto) Baso # (Auto) Abs Immat Gran (auto) Absolute Neuts (auto) Absolute Nucleated RBC (0.0-0.012) X10*3/uL Nucleated RBC % (auto) (0.0-0.2) /100WBC Neutrophils % (Manual) (45-73) % Band Neutrophils % (3-5) % Lymphocytes % (Manual) (20-40) % Monocytes % (Manual) (2-11) % Eosinophils % (Manual) (0-4) % Basophils % (Manual) (0-2) % Abs Neuts (Manual) (2.0-8.3) X10*3/uL Lymphocytes # (Manual) (1.2-4.9) X10*3/uL Monocytes # (Manual) (0.1-1.2) X10*3/uL Eosinophils # (Manual) (0.0-0.4) X10*3/uL Basophils # (Manual) (0.0-0.2) X10*3/uL Platelet Estimate (NORMAL) Plt Morphology Comment RBC Morphology PT (10.0-13.1) SEC INR (0.9-1.1) APTT (26.0-36.4) SEC Sodium (135-145) mmol/L Potassium (3.3-5.1) mmol/L Chloride (96-108) mmol/L Carbon Dioxide (22-29) mmol/L Anion Gap (12-20) BUN (9-16) mg/dL Creatinine (0.5-1.4) mg/dL Estim Creat Clear Calc Estimated GFR POC Glucose (60-115) mg/dL Random Glucose (60-115) mg/dL Lactic Acid (0.5-2.0) mmol/L Calcium (8.4-10.2) mg/dL Total Bilirubin (0.0-1.0) mg/dL AST (5-31) U/L ALT (0-31) U/L Alkaline Phosphatase (39-117) U/L Troponin I High Sens (<3.5-17.0) ng/L B-Natriuretic Peptide (<100) pg/mL Total Protein (6.5-8.0) g/dL Albumin (3.5-5.0) g/dL Urine Color Dark Yellow Urine Appearance Turbid Urine pH 5.5 (5.0-9.0) Ur Specific [place] 1.015 (1.005-1.025) Urine Protein 300 (3+) H (Neg-Trace) mg/dL Urine Glucose (UA) Negative (Negative) mg/dL Urine Ketones Trace (Negative) mg/dL Urine Blood Moderate (2+) H (Negative) Urine Nitrite Positive H (Negative) Ur Leukocyte Esterase Large (3+) H (Negative) Urine RBC 6-10 H (0-2) /HPF Urine WBC >50 H (0-5) /HPF Ur Squamous Epith Cells >20 (0-2) /HPF Urine Bacteria 4+ (None Seen) Hyaline Casts 3-5 (0-2) /LPF COVID-19 (LEONARDO) (Negative) COVID-19 Clin Com Influenza Type A (PCR) (Negative) Influenza Type B (PCR) (Negative) RSV RNA Qual (PCR) (Negative) SARS-CoV-2 RNA (RT-PCR) (Negative) Independent Interpretation I performed an independent interpretation of an: EKG (Sinus tachycardia. Retrograde wanted 2. MN interval 198. QRS 122. QTC 449. Negative strep) and CT Scan Radiology Impression Discussion of test interpretation with radiology: I have reviewed the radiologist's reading. Independent Historian Clinical information obtained from an independent historian. History obtained from or confirmed by: EMS and Other (Daughter) Critical Care Time Critical Care Time Critical Care Time: Yes Total Critical Care Time: 60 Attestation: Patient given fluids. Antibiotic started. Patient given Tylenol. Lactate blood culture ordered. Discharge Plan Discharge Clinical Impression: Acute UTI, KESHIA (acute kidney injury) Patient Disposition: Admitted As Inpatient
[2023-02-28] MEDS: 0.9 % Sodium Chloride 1,000 ML 999 ML IV ×4 (07:22→11:03)
[2023-02-28 07:26] LABS: Platelet Estimate NORMAL (NORMAL); Platelet Morphology Comment NORMAL; RBC Morphology NORMAL
[2023-02-28] MEDS: Acetaminophen 325 MG TABLET 975 MG PO (07:36)
[2023-02-28] MEDS: methylPREDNISolone Sod Succ 125 MG/2 ML VIAL IVPUSH (07:37)
[2023-02-28] MEDS: cefTRIAXone sodium 1 GM in 0.9 % Sodium Chloride 50 ML IV (07:37)
[2023-02-28] MEDS: Azithromycin 500 MG in 0.9 % Sodium Chloride 250 ML 125 MG IV (07:50)
[2023-02-28 07:55] LABS: Alanine Aminotransferase 15 U/L (0-31); Alkaline Phosphatase 124 U/L (39-117); Anion Gap 16 (12-20); Aspartate Amino Transferase 16 U/L (5-31); Bilirubin Total 0.7 mg/dL (0.0-1.0); Blood Urea Nitrogen 51 mg/dL (9-16); Calcium 8.8 mg/dL (8.4-10.2); Carbon Dioxide 23 mmol/L (22-29); Chloride 101 mmol/L (96-108); Creatinine Clr Calc Pharmacy 15.6; Estimated Glomerular Filt Rate 14; Glucose Random 141 mg/dL (60-115); Potassium 3.7 mmol/L (3.3-5.1); Sodium 136 mmol/L (135-145); Total Protein 6.4 g/dL (6.5-8.0)
[2023-02-28 08:02] LABS: Troponin-I High Sensitivity 11.8 ng/L (<3.5-17.0)
[2023-02-28 09:09] LABS: COVID-19 Test Negative (Negative); IDNOW Serial# 6674DD1D
[2023-02-28 09:32] LABS: Influenza A PCR NEGATIVE (Negative); Influenza B PCR NEGATIVE (Negative); Resp Syncy Virus RNA Qual PCR NEGATIVE (Negative); SARS COV2 PCR INHOUSE NEGATIVE (Negative)
[2023-02-28 10:00] LABS: Appearance Urine Turbid; Color Urine Dark Yellow; Glucose Urine UA Negative (Negative); Leukocyte Esterase Urine Large (3+) (Negative); Nitrite Urine Positive (Negative); PH 5.5 (5.0-9.0); Specific Gravity - Urine 1.015 (1.005-1.025); UMIC TRIGGER UACC YES; Urine Blood Moderate (2+) (Negative); Urine Ketones Trace mg/dL (Negative); Urine Protein 300 (3+) mg/dL (Neg-Trace)
[2023-02-28 10:13] LABS: Bacteria Urine 4+ (None Seen); Squamous Epithelial Cell Urine >20 /HPF (0-2); UACC Culture Trigger YES; WBC Urine >50 /HPF (0-5)
--- NOTE | 2023-02-28 13:07 | PHA.MEDREC ---
Pharmacy Consult ? Medication Reconciliation Pharmacy has completed the medication reconciliation. Patient gets [facility] from [facility]. Confirmed insulin dose with patient's daughter. Patient suppose to be getting 50 units of lantus but they have been giving her 30 units because of low blood sugars. Kelsey Orozco, PharmD
--- NOTE | 2023-02-28 16:23 | PM.IMHP ---
History of Present Illness Date of Service: 02/28/23 Chief Complaint: falls 72-year-old female with past medical history diabetes, hypertension, and asthma brought to the ED for 2 episodes of fall and 1 episode of hypoxemia.? For the past 2 days patient has been coughing, fever and feeling weak.? Daughter states patient lives alone and saw on the Camera patient fell twice off the bed.? EMS found patient O2 sat on room air 88%.? Patient is not oxygen dependent.? Patient was placed on 2 L cannula.? Patient states she had pneumonia last year.? Patient never intubated for asthma. ER Course Workup in ER consistent with UTI. Patient started on antibiotics and will be admitted for same Review of Systems Review of Systems: Denies chest pain Denies shortness of breath Denies nausea vomiting diarrhea Denies fever chills PMF Medical History Abscess of left thigh Arthritis Asthma Diabetes High blood pressure High cholesterol Morbid obesity Social History Housing: Apartment Patient Tobacco Use Status: Former Tobacco user e-Cigarette/Vaping Use: Never Used Second Hand Smoke Exposure: No Advance Directives: No Advance Directives Information Provided: Yes service: No Current occupational status: disabled Current occupational exposures/hazards: No Cognitive needs: No Hearing needs: No Vision needs: Yes Meds Allergies Allergy/AdvReac Type Severity Reaction Status Date / Time No Known Allergies Allergy Verified 01/07/23 11:05 Active Medications: Current Medications Albuterol Sulfate (Albuterol Sulfate 90 Mcg 8 Gm Inhaler) 2 puff INHALE Q4-6H PRN PRN Reason: shortness of breath or wheezing Amlodipine Besylate (Amlodipine Besylate 10 Mg Tablet) 10 mg PO DAILY [facility]; Protocol Aripiprazole (Aripiprazole 20 Mg Tablet) 20 mg PO BEDTIME [facility] Dextrose (Dextrose 50 % 25 Gm/50 Ml Syringe) 25 gm IVPUSH Q15M PRN; Protocol PRN Reason: per Hypoglycemia Standing Ord. Glucose (Glucose Gel 15 Gm Gel..Gram.) 15 gm PO Q15M PRN; Protocol PRN Reason: per Hypoglycemia Standing Ord. Heparin Sodium (Porcine) (Heparin Sodium,Porcine 5,000 Unit/Ml Vial) 5,000 unit SUBCUT Q12H [facility] Ceftriaxone Sodium 1 gm/ (Sodium Chloride) 50 mls @ 100 mls/hr IV Q12H [facility] Insulin Human Lispro (Insulin Lispro 100 Unit/Ml 3 Ml Vial) 0 unit SUBCUT QIDACHS [facility]; Protocol Lisinopril (Lisinopril 40 Mg Tablet) 40 mg PO DAILY [facility]; Protocol Metformin HCl (Metformin Hcl 500 Mg Tablet) 500 mg PO BID [facility] Montelukast Sodium (Montelukast Sodium 10 Mg Tablet) 10 mg PO DAILY [facility] Oxybutynin Chloride (Oxybutynin Chloride Er 5 Mg Tab.Er.24) 10 mg PO DAILY [facility] Paroxetine HCl (Paroxetine Hcl 40 Mg Tablet) 40 mg PO DAILY [facility] Pharmacy Consult (Consult Rx Perform Med Rec) 1 each MISCELLANE ONCE PRN PRN Reason: Consult order Sodium Chloride (0.9 % Sodium Chloride Flush 3 Ml Syringe) 3 ml IVFLUSH QSHIFT [facility] Topiramate (Topiramate 25 Mg Tablet) 50 mg PO DAILY [facility] Topiramate (Topiramate 100 Mg Tablet) 100 mg PO DAILY [facility] Trazodone HCl (Trazodone Hcl 50 Mg Tablet) 50 mg PO BEDTIME [facility] Home Medications Medication Instructions Recorded Confirmed Last Taken Type insulin glargine 100 unit/mL (3 30 unit subcut DAILY 02/28/23 02/28/23 Unknown History mL) subcutaneous pen (Basaglar KwikPen U-100 Insulin) Physical Exam Vital Signs and Narrative: Vital Signs: Last Vital Signs Temp 98.6 F 02/28/23 15:24 Pulse 92 02/28/23 15:24 Resp 24 H 02/28/23 15:24 BP 114/57 L 02/28/23 15:24 Pulse Ox 95 02/28/23 15:24 O2 Del Method Room Air 02/28/23 15:24 O2 Flow Rate 2 02/28/23 11:57 Oxygen Flow Rate 2 02/28/23 06:12 BMI result Body Mass Index 44.0 Const: Other: Awake alert no acute distress Resp: Other: Clear to auscultation bilaterally no rales rhonchi or wheezes Cardio: Other: No S4; positive S1-S2; no S3 murmurs rubs or gallops GI: Other: Soft nontender nondistended normoactive bowel sounds Extrem: Other: Bilateral edema Results Labs 02/28/23 06:44 02/28/23 07:29 Labs: Laboratory Results - last 24 hr 02/28/23 02/28/23 02/28/23 06:18 06:36 06:44 MCV 86.7 MCH 28.0 MCHC 32.4 RDW 13.8 Plt Count 181 D MPV 11.8 Immature Gran % (Auto) Cancelled Neut % (Auto) Cancelled Lymph % (Auto) Cancelled [place] % (Auto) Cancelled Eos % (Auto) Cancelled Baso % (Auto) Cancelled Lymph # (Auto) Cancelled [place] # (Auto) Cancelled Eos # (Auto) Cancelled Baso # (Auto) Cancelled Abs Immat Gran (auto) Cancelled Absolute Neuts (auto) Cancelled Absolute Nucleated RBC 0.000 Nucleated RBC % (auto) 0.0 Neutrophils % (Manual) 76 H Band Neutrophils % 9 H Lymphocytes % (Manual) 8 L Monocytes % (Manual) 5 Eosinophils % (Manual) 1 Basophils % (Manual) 1 Abs Neuts (Manual) 16.3 H Lymphocytes # (Manual) 1.5 Monocytes # (Manual) 1.0 Eosinophils # (Manual) 0.2 Basophils # (Manual) 0.2 Platelet Estimate NORMAL Plt Morphology Comment NORMAL RBC Morphology NORMAL PT INR APTT Anion Gap Estim Creat Clear Calc Estimated GFR POC Glucose 145 H Random Glucose Lactic Acid Calcium Total Bilirubin AST ALT Alkaline Phosphatase Troponin I High Sens B-Natriuretic Peptide Total Protein Albumin Urine Color Urine Appearance Urine pH Ur Specific [place] Urine Protein Urine Glucose (UA) Urine Ketones Urine Blood Urine Nitrite Ur Leukocyte Esterase Urine RBC Urine WBC Ur Squamous Epith Cells Urine Bacteria Hyaline Casts COVID-19 ([facility]) Negative COVID-19 Clin Com See Note Influenza Type A (PCR) Influenza Type B (PCR) RSV RNA Qual (PCR) SARS-CoV-2 RNA (RT-PCR) 02/28/23 02/28/23 02/28/23 06:44 06:44 06:44 MCV MCH MCHC RDW Plt Count MPV Immature Gran % (Auto) Neut % (Auto) Lymph % (Auto) [place] % (Auto) Eos % (Auto) Baso % (Auto) Lymph # (Auto) [place] # (Auto) Eos # (Auto) Baso # (Auto) Abs Immat Gran (auto) Absolute Neuts (auto) Absolute Nucleated RBC Nucleated RBC % (auto) Neutrophils % (Manual) Band Neutrophils % Lymphocytes % (Manual) Monocytes % (Manual) Eosinophils % (Manual) Basophils % (Manual) Abs Neuts (Manual) Lymphocytes # (Manual) Monocytes # (Manual) Eosinophils # (Manual) Basophils # (Manual) Platelet Estimate Plt Morphology Comment RBC Morphology PT 12.9 INR 1.1 APTT 31.1 Anion Gap Estim Creat Clear Calc Estimated GFR POC Glucose Random Glucose Lactic Acid 1.4 Calcium Total Bilirubin AST ALT Alkaline Phosphatase Troponin I High Sens B-Natriuretic Peptide 47 Total Protein Albumin Urine Color Urine Appearance Urine pH Ur Specific [place] Urine Protein Urine Glucose (UA) Urine Ketones Urine Blood Urine Nitrite Ur Leukocyte Esterase Urine RBC Urine WBC Ur Squamous Epith Cells Urine Bacteria Hyaline Casts COVID-19 ([facility]) COVID-19 Clin Com Influenza Type A (PCR) Influenza Type B (PCR) RSV RNA Qual (PCR) SARS-CoV-2 RNA (RT-PCR) 02/28/23 02/28/23 02/28/23 06:51 07:29 07:29 MCV MCH MCHC RDW Plt Count MPV Immature Gran % (Auto) Neut % (Auto) Lymph % (Auto) [place] % (Auto) Eos % (Auto) Baso % (Auto) Lymph # (Auto) [place] # (Auto) Eos # (Auto) Baso # (Auto) Abs Immat Gran (auto) Absolute Neuts (auto) Absolute Nucleated RBC Nucleated RBC % (auto) Neutrophils % (Manual) Band Neutrophils % Lymphocytes % (Manual) Monocytes % (Manual) Eosinophils % (Manual) Basophils % (Manual) Abs Neuts (Manual) Lymphocytes # (Manual) Monocytes # (Manual) Eosinophils # (Manual) Basophils # (Manual) Platelet Estimate Plt Morphology Comment RBC Morphology PT INR APTT Anion Gap 16 Estim Creat Clear Calc 15.6 Estimated GFR 14 POC Glucose Random Glucose 141 H Lactic Acid Calcium 8.8 D Total Bilirubin 0.7 AST 16 ALT 15 Alkaline Phosphatase 124 H Troponin I High Sens 11.8 B-Natriuretic Peptide Total Protein 6.4 L Albumin 3.0 L Urine Color Urine Appearance Urine pH Ur Specific [place] Urine Protein Urine Glucose (UA) Urine Ketones Urine Blood Urine Nitrite Ur Leukocyte Esterase Urine RBC Urine WBC Ur Squamous Epith Cells Urine Bacteria Hyaline Casts COVID-19 ([facility]) COVID-19 Clin Com Influenza Type A (PCR) NEGATIVE Influenza Type B (PCR) NEGATIVE RSV RNA Qual (PCR) NEGATIVE SARS-CoV-2 RNA (RT-PCR) NEGATIVE 02/28/23 09:48 MCV MCH MCHC RDW Plt Count MPV Immature Gran % (Auto) Neut % (Auto) Lymph % (Auto) [place] % (Auto) Eos % (Auto) Baso % (Auto) Lymph # (Auto) [place] # (Auto) Eos # (Auto) Baso # (Auto) Abs Immat Gran (auto) Absolute Neuts (auto) Absolute Nucleated RBC Nucleated RBC % (auto) Neutrophils % (Manual) Band Neutrophils % Lymphocytes % (Manual) Monocytes % (Manual) Eosinophils % (Manual) Basophils % (Manual) Abs Neuts (Manual) Lymphocytes # (Manual) Monocytes # (Manual) Eosinophils # (Manual) Basophils # (Manual) Platelet Estimate Plt Morphology Comment RBC Morphology PT INR APTT Anion Gap Estim Creat Clear Calc Estimated GFR POC Glucose Random Glucose Lactic Acid Calcium Total Bilirubin AST ALT Alkaline Phosphatase Troponin I High Sens B-Natriuretic Peptide Total Protein Albumin Urine Color Dark Yellow Urine Appearance Turbid Urine pH 5.5 Ur Specific [place] 1.015 Urine Protein 300 (3+) H Urine Glucose (UA) Negative Urine Ketones Trace Urine Blood Moderate (2+) H Urine Nitrite Positive H Ur Leukocyte Esterase Large (3+) H Urine RBC 6-10 H Urine WBC >50 H Ur Squamous Epith Cells >20 Urine Bacteria 4+ Hyaline Casts 3-5 COVID-19 ([facility]) COVID-19 Clin Com Influenza Type A (PCR) Influenza Type B (PCR) RSV RNA Qual (PCR) SARS-CoV-2 RNA (RT-PCR) Imaging Radiologist's Impressions: Impressions Abdomen/Pelvis CT 02/28/23 08:03 IMPRESSION: Limited by motion artifact and noncontrast technique. No acute abnormality in the chest, abdomen or pelvis. Nonspecific bilateral perinephric stranding. 4 mm nonobstructing left renal calculus. Cervical Spine CT 02/28/23 08:03 IMPRESSION: * No acute intracranial pathology. * No fracture or malalignment in the mildly degenerated cervical spine. Chest CT 02/28/23 08:03 IMPRESSION: Limited by motion artifact and noncontrast technique. No acute abnormality in the chest, abdomen or pelvis. Nonspecific bilateral perinephric stranding. 4 mm nonobstructing left renal calculus. Head CT 02/28/23 08:03 IMPRESSION: * No acute intracranial pathology. * No fracture or malalignment in the mildly degenerated cervical spine. Assessment and Plan (1) Acute UTI: Status: Acute (2) KESHIA (acute kidney injury): Status: Acute (3) Asthma: Status: Acute (4) Diabetes type 2, controlled: Status: Acute Plan 72-year-old female with a history of diabetes asthma hypertension was found on the floor by daughter. Was noted to have an O2 requirement although not on O2 at home. In the emergency room, workup consistent with active urine sediment suggestive of UTI. CT of chest negative; question desats secondary to asthma exacerbation 1. Acute UTI -ceftriaxone(1) -adjust as per culture 2. KESHIA(last creatinine 05/30 normal) -received a total of 4 L of saline in the ER. . . -follow renals/divalents renal consult 3. Asthma with likely exacerbation -DuoNebs q.4 hours p.r.n. while awake -pulse dose steroids 4.DMII -continue outpatient therapies -add back basal insulin -lispro correctional scale -hold metformin Heparin Full code Will require at least 2 nights inpatient stay going forward for IV antibiotics to treat urinary tract infection. This cannot be achieved a lesser acute setting Time Spent With Patient Time: Total time managing care of this patient today ____ minutes. Quality Stroke Does the patient have a stroke diagnosis?: No VTE Prior VTE?: No VTE Risk Level:: Medical - moderate - high VTE Device Contraindication: Treatment Not Indicated VTE Drug Contraindication: N/A - Med Ordered
[2023-02-28 16:37] LABS: Glucose, Whole Blood 328 mg/dL (60-115)
[2023-02-28] MEDS: 0.9 % Sodium Chloride Flush 3 ML SYRINGE IVFLUSH (20:00)
[2023-02-28] MEDS: methylPREDNISolone Sod Succ 125 MG/2 ML VIAL 60 MG IVPUSH (20:00)
[2023-02-28] MEDS: Heparin Sodium,Porcine 5,000 UNIT/ML VIAL 5000 UNIT SUBCUT (20:00)
[2023-02-28 20:35] LABS: Glucose, Whole Blood 359 mg/dL (60-115)
[2023-02-28] MEDS: traZODone HCL 50 MG TABLET PO (20:54)
[2023-02-28] MEDS: ARIPiprazole 20 MG TABLET PO (20:54)
[2023-02-28] MEDS: Insulin Lispro 100 UNIT/ML 3 ML VIAL SUBCUT (20:54)
[2023-03-01] MEDS: methylPREDNISolone Sod Succ 125 MG/2 ML VIAL 60 MG IVPUSH ×4 (01:35→21:30)
[2023-03-01 02:50] VITALS: BP 137/65; PULSE 73; RESP 17; TEMP 36.2; O2SAT 97
[2023-03-01 06:30] LABS: Hematocrit 30.8 % (37.0-47.0); Hemoglobin 10.1 g/dl (12.0-16.0); Mean Corpuscular HGB Conc 32.8 g/dl (31.0-35.0); Mean Corpuscular Hemoglobin 28.5 pg (27.0-33.0); Mean Platelet Volume 12.7 fL (9.4-12.3); Platelet Count 204 X10*3/uL (160-400); Red Blood Count 3.54 X10*6/uL (4.20-5.50); Red Cell Distribution Width 14.5 % (11.0-16.0)
[2023-03-01 06:34] LABS: WBC ABN SCTR FOR CBC 1; White Blood Count 22.8 X10*3/uL (4.8-10.8)
[2023-03-01 06:39] LABS: Alanine Aminotransferase 17 U/L (0-31); Albumin Level 3.1 g/dL (3.5-5.0); Alkaline Phosphatase 160 U/L (39-117); Anion Gap 16 (12-20); Aspartate Amino Transferase 16 U/L (5-31); Bilirubin Total 0.3 mg/dL (0.0-1.0); Blood Urea Nitrogen 59 mg/dL (9-16); Calcium 8.9 mg/dL (8.4-10.2); Carbon Dioxide 19 mmol/L (22-29); Chloride 107 mmol/L (96-108); Creatinine Clr Calc Pharmacy 19.3; Estimated Glomerular Filt Rate 18; Glucose Fasting 274 mg/dL (60-99); Potassium 4.2 mmol/L (3.3-5.1); Sodium 138 mmol/L (135-145); Total Protein 6.9 g/dL (6.5-8.0)
[2023-03-01 07:40] LABS: Band Neutrophils Percent 8 % (3-5); Lymphocytes Absolute Manual 0.2 X10*3/uL (1.2-4.9); Lymphocytes Percent Manual 1 % (20-40); Monocytes Absolute Manual 0.7 X10*3/uL (0.1-1.2); Monocytes Percent Manual 3 % (2-11); Neutrophils Absolute Manual 21.9 X10*3/uL (2.0-8.3); Neutrophils Percent Manual 88 % (45-73)
[2023-03-01 07:42] LABS: Burr Cells 3+ (>5) /OIF; Hypochromasia 1+ (5-14) /OIF; Platelet Estimate NORMAL (NORMAL); Platelet Morphology Comment NORMAL; Polychromasia 1+ (0-2) /OIF; RBC Morphology NOTED
[2023-03-01 07:43] LABS: Glucose, Whole Blood 238 mg/dL (60-115)
[2023-03-01 08:00] VITALS: BP 127/60; PULSE 86; RESP 17; TEMP 36.4; O2SAT 98
[2023-03-01] MEDS: Insulin Lispro 100 UNIT/ML 3 ML VIAL SUBCUT ×4 (08:45→21:27)
[2023-03-01] MEDS: Topiramate 25 MG TABLET 50 MG PO (08:46)
[2023-03-01] MEDS: amLODIPine Besylate 10 MG TABLET PO (08:46)
[2023-03-01] MEDS: Montelukast Sodium 10 MG TABLET PO (08:46)
[2023-03-01] MEDS: Topiramate 100 MG TABLET PO (08:46)
[2023-03-01] MEDS: lisinopriL 40 MG TABLET PO (08:46)
[2023-03-01] MEDS: PARoxetine HCL 40 MG TABLET PO (08:46)
[2023-03-01] MEDS: oxyBUTYnin chloride ER 5 MG TAB.ER.24 10 MG PO (08:46)
[2023-03-01] MEDS: 0.9 % Sodium Chloride Flush 3 ML SYRINGE IVFLUSH ×3 (08:47→21:24)
[2023-03-01] MEDS: Heparin Sodium,Porcine 5,000 UNIT/ML VIAL 5000 UNIT SUBCUT ×2 (08:56→21:28)
--- NOTE | 2023-03-01 10:39 | HO.PM.IMPN ---
Subjective Subjective Date of Service: 03/01/23 Interval History: Much brighter this a.m. daughter states more talkative Review of Systems Denies chest pain Denies shortness of breath Denies nausea vomiting diarrhea Denies fever chills Physical Exam Vital Signs: Vital Signs: Last Vital Signs Temp 97.5 F 03/01/23 08:00 Pulse 86 03/01/23 08:00 Resp 17 03/01/23 08:00 BP 127/60 03/01/23 08:00 Pulse Ox 98 03/01/23 08:00 O2 Del Method Nasal Cannula 03/01/23 08:00 O2 Flow Rate 2.0 03/01/23 08:00 Oxygen Flow Rate 2 02/28/23 06:12 BMI result Body Mass Index 44.9 Const: Other: Awake alert no acute distress Resp: Other: Clear to auscultation bilaterally no rales rhonchi or wheezes Cardio: Other: No S4; positive S1-S2; no S3 murmurs rubs or gallops GI: Other: Soft nontender nondistended normoactive bowel sounds Extrem: Other: Bilateral edema Objective Data Active Medications Albuterol Sulfate (Albuterol Sulfate 90 Mcg 8 Gm Inhaler) 2 puff INHALE Q4H PRN PRN Reason: shortness of breath or wheezing Albuterol/Ipratropium (Albuterol/Iprat 2.5/0.5mg 3 Ml Ampul.Neb) 3 ml INHALE RQ6H WHILE AWAKE PRN PRN Reason: wheezing Amlodipine Besylate (Amlodipine Besylate 10 Mg Tablet) 10 mg PO DAILY [facility]; Protocol Last Admin: 03/01/23 08:46 Dose: 10 mg Documented By: RADHA Aripiprazole (Aripiprazole 20 Mg Tablet) 20 mg PO BEDTIME [facility] Last Admin: 02/28/23 20:54 Dose: 20 mg Documented By: JENNIFER Dextrose (Dextrose 50 % 25 Gm/50 Ml Syringe) 25 gm IVPUSH Q15M PRN; Protocol PRN Reason: per Hypoglycemia Standing Ord. Glucose (Glucose Gel 15 Gm Gel..Gram.) 15 gm PO Q15M PRN; Protocol PRN Reason: per Hypoglycemia Standing Ord. Heparin Sodium (Porcine) (Heparin Sodium,Porcine 5,000 Unit/Ml Vial) 5,000 unit SUBCUT Q12H [facility] Last Admin: 03/01/23 08:56 Dose: 5,000 unit Documented By: RADHA Meropenem 500 mg/ Sodium (Chloride) 50 mls @ 100 mls/hr IV Q12H [facility] Last Admin: 03/01/23 09:46 Dose: 100 mls/hr Documented By: RADHA Insulin Human Lispro (Insulin Lispro 100 Unit/Ml 3 Ml Vial) 0 unit SUBCUT QIDACHS [facility]; Protocol Last Admin: 03/01/23 08:45 Dose: 4 unit Documented By: RADHA Lisinopril (Lisinopril 40 Mg Tablet) 40 mg PO DAILY [facility]; Protocol Last Admin: 03/01/23 08:46 Dose: 40 mg Documented By: RADHA Methylprednisolone Sodium Succinate (Methylprednisolone Sod Succ 125 Mg/2 Ml Vial) 60 mg IVPUSH Q6H [facility] Last Admin: 03/01/23 08:47 Dose: 60 mg Documented By: RADHA Montelukast Sodium (Montelukast Sodium 10 Mg Tablet) 10 mg PO DAILY [facility] Last Admin: 03/01/23 08:46 Dose: 10 mg Documented By: RADHA Oxybutynin Chloride (Oxybutynin Chloride Er 5 Mg Tab.Er.24) 10 mg PO DAILY [facility] Last Admin: 03/01/23 08:46 Dose: 10 mg Documented By: RADHA Paroxetine HCl (Paroxetine Hcl 40 Mg Tablet) 40 mg PO DAILY [facility] Last Admin: 03/01/23 08:46 Dose: 40 mg Documented By: RADHA Pharmacy Consult (Consult Rx Perform Med Rec) 1 each MISCELLANE ONCE PRN PRN Reason: Consult order Sodium Chloride (0.9 % Sodium Chloride Flush 3 Ml Syringe) 3 ml IVFLUSH QSHIFT [facility] Last Admin: 03/01/23 08:47 Dose: 3 ml Documented By: RADHA Topiramate (Topiramate 25 Mg Tablet) 50 mg PO DAILY [facility] Last Admin: 03/01/23 08:46 Dose: 50 mg Documented By: RADHA Topiramate (Topiramate 100 Mg Tablet) 100 mg PO DAILY [facility] Last Admin: 03/01/23 08:46 Dose: 100 mg Documented By: RADHA Trazodone HCl (Trazodone Hcl 50 Mg Tablet) 50 mg PO BEDTIME [facility] Last Admin: 02/28/23 20:54 Dose: 50 mg Documented By: JENNIFER Labs 03/01/23 05:35 03/01/23 05:35 Labs: Laboratory Results - last 24 hr 02/28/23 02/28/23 03/01/23 16:31 20:24 05:35 MCV 87.0 MCH 28.5 MCHC 32.8 RDW 14.5 Plt Count 204 MPV 12.7 H Immature Gran % (Auto) Cancelled Neut % (Auto) Cancelled Lymph % (Auto) Cancelled [place] % (Auto) Cancelled Eos % (Auto) Cancelled Baso % (Auto) Cancelled Lymph # (Auto) Cancelled [place] # (Auto) Cancelled Eos # (Auto) Cancelled Baso # (Auto) Cancelled Abs Immat Gran (auto) Cancelled Absolute Neuts (auto) Cancelled Absolute Nucleated RBC 0.000 Nucleated RBC % (auto) 0.0 Neutrophils % (Manual) 88 H Band Neutrophils % 8 H Lymphocytes % (Manual) 1 L Monocytes % (Manual) 3 Abs Neuts (Manual) 21.9 H Lymphocytes # (Manual) 0.2 L Monocytes # (Manual) 0.7 Platelet Estimate NORMAL Plt Morphology Comment NORMAL RBC Morphology NOTED Polychromasia 1+ (0-2) Hypochromasia 1+ (5-14) Sarthak Cells 3+ (>5) Anion Gap Estim Creat Clear Calc Estimated GFR POC Glucose 328 H 359 H* Fasting Glucose Calcium Total Bilirubin AST ALT Alkaline Phosphatase Total Protein Albumin 03/01/23 03/01/23 05:35 07:33 MCV MCH MCHC RDW Plt Count MPV Immature Gran % (Auto) Neut % (Auto) Lymph % (Auto) [place] % (Auto) Eos % (Auto) Baso % (Auto) Lymph # (Auto) [place] # (Auto) Eos # (Auto) Baso # (Auto) Abs Immat Gran (auto) Absolute Neuts (auto) Absolute Nucleated RBC Nucleated RBC % (auto) Neutrophils % (Manual) Band Neutrophils % Lymphocytes % (Manual) Monocytes % (Manual) Abs Neuts (Manual) Lymphocytes # (Manual) Monocytes # (Manual) Platelet Estimate Plt Morphology Comment RBC Morphology Polychromasia Hypochromasia Sarthak Cells Anion Gap 16 Estim Creat Clear Calc 19.3 Estimated GFR 18 POC Glucose 238 H Fasting Glucose 274 H Calcium 8.9 Total Bilirubin 0.3 AST 16 ALT 17 Alkaline Phosphatase 160 H Total Protein 6.9 Albumin 3.1 L Microbiology Microbiology Results: Microbiology 02/28/23 06:51 Blood Culture - Preliminary Blood - Venous Gram negative jose 02/28/23 06:44 Blood Culture - Preliminary Blood - Venous Gram negative jose Assessment and Plan (1) Acute UTI: Status: Acute (2) Bacteremia: Status: Acute (3) KESHIA (acute kidney injury): Status: Acute Plan 72-year-old female with a history of diabetes asthma hypertension was found on the floor by daughter. Was noted to have an O2 requirement although not on O2 at home. In the emergency room, workup consistent with active urine sediment suggestive of UTI. CT of chest negative; question desats secondary to asthma exacerbation 1. Acute UTI with GNR bacteremia. White count increasing despite ceftriaxone -switch to meropenem 1 g q.12 hours awaiting culture -adjust as per culture 2. KESHIA(last creatinine 05/30 normal) -improved with volume -follow renals/divalents renal consult 3. Asthma with likely exacerbation -DuoNebs q.4 hours p.r.n. while awake -pulse dose steroids 4.DMII -continue outpatient therapies -add back basal insulin -lispro correctional scale -hold metformin Heparin Full code Will need ongoing hospitalization for IV antibiotics to identify organism responsible for bacteremia Time Spent With Patient Time: Total time managing care of this patient today ____ minutes. Quality Stroke Does the patient have a stroke diagnosis?: No VTE Prior VTE?: No VTE Risk Level:: Medical - moderate - high VTE Device Contraindication: Treatment Not Indicated VTE Drug Contraindication: N/A - Med Ordered
--- NOTE | 2023-03-01 11:17 | MHC.CM.PN ---
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
[2023-03-01 11:21] LABS: Glucose, Whole Blood 275 mg/dL (60-115)
--- NOTE | 2023-03-01 13:29 | W.PM.IDCN ---
History of Present Illness Data of Consult Service Date: 03/01/23 Requesting physician: Lj Bianchi Primary Care Provider: Consuelo Iniguez NP HPI Reason for consult: sepsis,bacteremia gram negative jose She presents after fall at home and weakness for two days. She has oxygen saturation on 88% at home. She had reported pneumonia last year. She has pyuria. She has gram negative rods in blood. WBC increased from 19,000 to 22,000. She has diabetes,hypertension and asthma. Review of Systems Review of Systems: Yes Unobtainable due to mental condition and Unobtainable due to mental status [facility] Past Medical History Medical History (Updated 03/01/23 @ 13:32 by Monica Burt MD) Abscess of left thigh Arthritis Asthma Diabetes High blood pressure High cholesterol Morbid obesity Sepsis Family History Family history: reviewed and not pertinent Social History Social History Household Members: None Household Members Other:: 0 Housing: Apartment Do you presently have visiting nurse or other home services: Yes Patient Tobacco Use Status: Former Tobacco user Quit Date: a few years ago Tobacco use type: Cigarette Cigarettes Per Day: 10 Years Smoked: 4 e-Cigarette/Vaping Use: Never Used Second Hand Smoke Exposure: No service: No Current occupational status: disabled Current occupational exposures/hazards: No Cognitive needs: No Hearing needs: No Vision needs: Yes Meds Allergies Allergy/AdvReac Type Severity Reaction Status Date / Time No Known Allergies Allergy Verified 01/07/23 11:05 Active Medications: Current Medications Albuterol Sulfate (Albuterol Sulfate 90 Mcg 8 Gm Inhaler) 2 puff INHALE Q4H PRN PRN Reason: shortness of breath or wheezing Albuterol/Ipratropium (Albuterol/Iprat 2.5/0.5mg 3 Ml Ampul.Neb) 3 ml INHALE RQ6H WHILE AWAKE PRN PRN Reason: wheezing Amlodipine Besylate (Amlodipine Besylate 10 Mg Tablet) 10 mg PO DAILY [facility]; Protocol Last Admin: 03/01/23 08:46 Dose: 10 mg Aripiprazole (Aripiprazole 20 Mg Tablet) 20 mg PO BEDTIME [facility] Last Admin: 02/28/23 20:54 Dose: 20 mg Dextrose (Dextrose 50 % 25 Gm/50 Ml Syringe) 25 gm IVPUSH Q15M PRN; Protocol PRN Reason: per Hypoglycemia Standing Ord. Glucose (Glucose Gel 15 Gm Gel..Gram.) 15 gm PO Q15M PRN; Protocol PRN Reason: per Hypoglycemia Standing Ord. Heparin Sodium (Porcine) (Heparin Sodium,Porcine 5,000 Unit/Ml Vial) 5,000 unit SUBCUT Q12H [facility] Last Admin: 03/01/23 08:56 Dose: 5,000 unit Meropenem 500 mg/ Sodium (Chloride) 50 mls @ 100 mls/hr IV Q12H [facility] Last Infusion: 03/01/23 10:44 Dose: Infused Insulin Human Lispro (Insulin Lispro 100 Unit/Ml 3 Ml Vial) 0 unit SUBCUT QIDACHS [facility]; Protocol Last Admin: 03/01/23 12:01 Dose: 6 unit Lisinopril (Lisinopril 40 Mg Tablet) 40 mg PO DAILY [facility]; Protocol Last Admin: 03/01/23 08:46 Dose: 40 mg Methylprednisolone Sodium Succinate (Methylprednisolone Sod Succ 125 Mg/2 Ml Vial) 60 mg IVPUSH Q6H [facility] Last Admin: 03/01/23 08:47 Dose: 60 mg Montelukast Sodium (Montelukast Sodium 10 Mg Tablet) 10 mg PO DAILY [facility] Last Admin: 03/01/23 08:46 Dose: 10 mg Oxybutynin Chloride (Oxybutynin Chloride Er 5 Mg Tab.Er.24) 10 mg PO DAILY [facility] Last Admin: 03/01/23 08:46 Dose: 10 mg Paroxetine HCl (Paroxetine Hcl 40 Mg Tablet) 40 mg PO DAILY [facility] Last Admin: 03/01/23 08:46 Dose: 40 mg Pharmacy Consult (Consult Rx Perform Med Rec) 1 each MISCELLANE ONCE PRN PRN Reason: Consult order Sodium Chloride (0.9 % Sodium Chloride Flush 3 Ml Syringe) 3 ml IVFLUSH QSHIFT [facility] Last Admin: 03/01/23 08:47 Dose: 3 ml Topiramate (Topiramate 25 Mg Tablet) 50 mg PO DAILY [facility] Last Admin: 03/01/23 08:46 Dose: 50 mg Topiramate (Topiramate 100 Mg Tablet) 100 mg PO DAILY [facility] Last Admin: 03/01/23 08:46 Dose: 100 mg Trazodone HCl (Trazodone Hcl 50 Mg Tablet) 50 mg PO BEDTIME [facility] Last Admin: 02/28/23 20:54 Dose: 50 mg Home Medications Medication Instructions Recorded Confirmed Last Taken Type insulin glargine 100 unit/mL (3 30 unit subcut DAILY 02/28/23 02/28/23 Unknown History mL) subcutaneous pen (Basaglar KwikPen U-100 Insulin) Physical Exam Vital Signs: Vital Signs: Last Vital Signs Temp 97.5 F 03/01/23 08:00 Pulse 86 03/01/23 08:00 Resp 17 03/01/23 08:00 BP 127/60 03/01/23 08:00 Pulse Ox 98 03/01/23 08:00 O2 Del Method Nasal Cannula 03/01/23 08:00 O2 Flow Rate 2.0 03/01/23 08:00 Oxygen Flow Rate 2 02/28/23 06:12 BMI result Body Mass Index 44.9 Const: General: cooperative HEENT: Head: Yes normal to inspection Face and sinus: Yes normal facial exam Mouth: Normal oral and palatal mucosa present Teeth and gingiva: dentition normal Eyes: General: appearance normal, both eyes and all related structures Pupils: Equal, round and reactive pupils present Resp: Effort & Inspection: normal respiratory effort Cardio: Rate: regular rate Rhythm: regular rhythm GI: Palpation (GI): Soft to palpation and nontender : General: Yes no CVA tenderness Back/Spine/Pelvis: Back: no CVA tenderness Skin: General skin exam: no rashes or lesions noted Neuro: General: moves all extremities Cranial nerves: Yes Equal, round and reactive pupils present Extrem: General: Yes normal to inspection Psych: Other: not clear historian Results Labs 03/01/23 05:35 03/01/23 05:35 Labs: Short CBC 03/01/23 Range/Units 05:35 WBC 22.8 H (4.8-10.8) X10*3/uL Hgb 10.1 L (12.0-16.0) g/dl Hct 30.8 L (37.0-47.0) % Plt Count 204 (160-400) X10*3/uL BMP 03/01/23 05:35 Sodium 138 Potassium 4.2 Chloride 107 Carbon Dioxide 19 L BUN 59 H Creatinine 2.60 H Calcium 8.9 Liver Function 03/01/23 Range/Units 05:35 Total Bilirubin 0.3 (0.0-1.0) mg/dL AST 16 (5-31) U/L ALT 17 (0-31) U/L Alkaline Phosphatase 160 H (39-117) U/L Albumin 3.1 L (3.5-5.0) g/dL Microbiology Microbiology Results: Microbiology 02/28/23 Unknown Urine clean catch - Urine harris top Urine Culture - Preliminary Gram negative jose 02/28/23 06:51 Blood - Venous Blood Culture - Preliminary Gram negative jose 02/28/23 06:44 Blood - Venous Blood Culture - Preliminary Gram negative jose Assessment and Plan (1) Bacteremia: Status: Acute (2) Diabetes type 2, controlled: Status: Acute (3) Acute UTI: Status: Acute (4) Sepsis: Status: Acute She has sepsis with gram negative bacteria with enteric organism likely from urine such as E coli or Klebsiella. She has possible resistant organisms causing increased leukocytosis but stress leukemoid response,steroids received yesterday also could cause this. There is no obstruction mentioned in CT abdomen, just bilateral perinephric stranding. Plan Would agree change to Merem in case resistant organism. Would switch back to Ceftriaxone if sensitive. Hopefully po course to complete 14 days when better. Time Spent With Patient Time: Total time managing care of this patient today ____ minutes.
[2023-03-01 15:28] VITALS: BP 112/53; PULSE 89; RESP 18; TEMP 36.3; O2SAT 95
[2023-03-01 16:33] LABS: Glucose, Whole Blood 317 mg/dL (60-115)
[2023-03-01 19:40] VITALS: BP 143/63; PULSE 99; RESP 17; TEMP 36.4; O2SAT 96
[2023-03-01 21:02] LABS: Glucose, Whole Blood 363 mg/dL (60-115)
[2023-03-01] MEDS: ARIPiprazole 20 MG TABLET PO (21:22)
[2023-03-01] MEDS: traZODone HCL 50 MG TABLET PO (21:22)
[2023-03-02] MEDS: methylPREDNISolone Sod Succ 125 MG/2 ML VIAL 60 MG IVPUSH ×4 (02:17→21:04)
[2023-03-02 02:49] VITALS: BP 145/69; PULSE 80; RESP 17; TEMP 36.3; O2SAT 98
[2023-03-02] MEDS: Acetaminophen 325 MG TABLET 650 MG PO (06:05)
[2023-03-02 06:24] LABS: MANUAL DIFF FLAG NO
[2023-03-02 06:26] LABS: Basophils Absolute Auto 0.1 X10*3/uL (0.0-0.2); Basophils Percent Auto 0.4 % (0-2); Eosinophils Percent Auto 0.1 % (0-4); Hemoglobin 10.4 g/dl (12.0-16.0); Imm Gran Abs Auto 0.82 X10*3/uL (0.00-0.03); Imm Gran Pct Auto 3.8 % (0.0-0.4); Lymphocytes Absolute Auto 0.9 X10*3/uL (1.2-4.9); Lymphocytes Percent Auto 4.2 % (20-40); Mean Corpuscular HGB Conc 32.5 g/dl (31.0-35.0); Mean Corpuscular Hemoglobin 27.9 pg (27.0-33.0); Mean Corpuscular Volume 85.8 fL (80.0-98.0); Mean Platelet Volume 11.9 fL (9.4-12.3); Monocytes Absolute Auto 0.9 X10*3/uL (0.1-1.2); Neutrophils Absolute Auto 18.8 x10*3/uL (2.0-8.3); Neutrophils Percent Auto 87.5 % (45-73); Platelet Count 218 X10*3/uL (160-400); Red Blood Count 3.73 X10*6/uL (4.20-5.50); Red Cell Distribution Width 14.5 % (11.0-16.0); White Blood Count 21.5 X10*3/uL (4.8-10.8)
[2023-03-02 06:46] LABS: Alanine Aminotransferase 17 U/L (0-31); Albumin Level 3.2 g/dL (3.5-5.0); Alkaline Phosphatase 139 U/L (39-117); Anion Gap 13 (12-20); Aspartate Amino Transferase 10 U/L (5-31); Bilirubin Total 0.2 mg/dL (0.0-1.0); Blood Urea Nitrogen 68 mg/dL (9-16); Calcium 9.1 mg/dL (8.4-10.2); Carbon Dioxide 23 mmol/L (22-29); Chloride 107 mmol/L (96-108); Estimated Glomerular Filt Rate 23; Glucose Fasting 323 mg/dL (60-99); Potassium 4.2 mmol/L (3.3-5.1); Sodium 139 mmol/L (135-145)
[2023-03-02 07:34] LABS: Glucose, Whole Blood 316 mg/dL (60-115)
[2023-03-02 07:36] VITALS: BP 132/63; PULSE 77; RESP 18; TEMP 36.1; O2SAT 96
[2023-03-02] MEDS: Insulin Lispro 100 UNIT/ML 3 ML VIAL SUBCUT ×4 (07:50→21:05)
[2023-03-02] MEDS: 0.9 % Sodium Chloride Flush 3 ML SYRINGE IVFLUSH ×3 (07:51→21:06)
[2023-03-02] MEDS: Heparin Sodium,Porcine 5,000 UNIT/ML VIAL 5000 UNIT SUBCUT ×2 (07:58→21:04)
[2023-03-02] MEDS: oxyBUTYnin chloride ER 5 MG TAB.ER.24 10 MG PO (08:06)
[2023-03-02] MEDS: Topiramate 25 MG TABLET 50 MG PO (08:06)
[2023-03-02] MEDS: Montelukast Sodium 10 MG TABLET PO (08:06)
[2023-03-02] MEDS: Topiramate 100 MG TABLET PO (08:07)
[2023-03-02] MEDS: PARoxetine HCL 40 MG TABLET PO (08:07)
[2023-03-02] MEDS: amLODIPine Besylate 10 MG TABLET PO (08:07)
[2023-03-02] MEDS: lisinopriL 40 MG TABLET PO (08:07)
[2023-03-02] MEDS: cefTRIAXone sodium 2 GM in 0.9 % Sodium Chloride 50 ML IV (10:11)
[2023-03-02 11:11] LABS: Creatinine Urine 72.12 mg/dL; Sodium Urine Random < 20.0 mmol/L; Total Protein Urine Random 16 mg/dL (<12)
[2023-03-02 11:21] LABS: Glucose, Whole Blood 247 mg/dL (60-115)
--- NOTE | 2023-03-02 11:22 | HO.PM.IMPN ---
Subjective Subjective Date of Service: 03/02/23 Interval History: No acute issues overnight Review of Systems Denies chest pain Denies shortness of breath Denies nausea vomiting diarrhea Denies fever chills Physical Exam Vital Signs: Vital Signs: Last Vital Signs Temp 97.0 F 03/02/23 07:36 Pulse 77 03/02/23 07:36 Resp 18 03/02/23 07:36 BP 132/63 03/02/23 07:36 Pulse Ox 96 03/02/23 07:36 O2 Del Method Nasal Cannula 03/02/23 07:36 O2 Flow Rate 2.0 03/02/23 07:36 Oxygen Flow Rate 2 02/28/23 06:12 BMI result Body Mass Index 44.9 Const: Other: Awake alert no acute distress Resp: Other: Clear to auscultation bilaterally no rales rhonchi or wheezes Cardio: Other: No S4; positive S1-S2; no S3 murmurs rubs or gallops GI: Other: Soft nontender nondistended normoactive bowel sounds Extrem: Other: Bilateral edema Objective Data Active Medications Acetaminophen (Acetaminophen 325 Mg Tablet) 650 mg PO Q6H PRN PRN Reason: Pain, Mild (Pain Scale 1-3) Last Admin: 03/02/23 06:05 Dose: 650 mg Documented By: RAHEL Albuterol Sulfate (Albuterol Sulfate 90 Mcg 8 Gm Inhaler) 2 puff INHALE Q4H PRN PRN Reason: shortness of breath or wheezing Albuterol/Ipratropium (Albuterol/Iprat 2.5/0.5mg 3 Ml Ampul.Neb) 3 ml INHALE RQ6H WHILE AWAKE PRN PRN Reason: wheezing Amlodipine Besylate (Amlodipine Besylate 10 Mg Tablet) 10 mg PO DAILY [facility]; Protocol Last Admin: 03/02/23 08:07 Dose: 10 mg Documented By: RADHA Aripiprazole (Aripiprazole 20 Mg Tablet) 20 mg PO BEDTIME [facility] Last Admin: 03/01/23 21:22 Dose: 20 mg Documented By: RAHEL Dextrose (Dextrose 50 % 25 Gm/50 Ml Syringe) 25 gm IVPUSH Q15M PRN; Protocol PRN Reason: per Hypoglycemia Standing Ord. Glucose (Glucose Gel 15 Gm Gel..Gram.) 15 gm PO Q15M PRN; Protocol PRN Reason: per Hypoglycemia Standing Ord. Heparin Sodium (Porcine) (Heparin Sodium,Porcine 5,000 Unit/Ml Vial) 5,000 unit SUBCUT Q12H [facility] Last Admin: 03/02/23 07:58 Dose: 5,000 unit Documented By: RADHA Ceftriaxone Sodium 2 gm/ (Sodium Chloride) 50 mls @ 100 mls/hr IV Q24H [facility] Last Infusion: 03/02/23 11:03 Dose: 0 mls/hr Documented By: RADHA Insulin Human Lispro (Insulin Lispro 100 Unit/Ml 3 Ml Vial) 0 unit SUBCUT QIDACHS [facility]; Protocol Last Admin: 03/02/23 07:50 Dose: 8 unit Documented By: RADHA Lisinopril (Lisinopril 40 Mg Tablet) 40 mg PO DAILY [facility]; Protocol Last Admin: 03/02/23 08:07 Dose: 40 mg Documented By: RADHA Methylprednisolone Sodium Succinate (Methylprednisolone Sod Succ 125 Mg/2 Ml Vial) 60 mg IVPUSH Q6H [facility] Last Admin: 03/02/23 07:53 Dose: 60 mg Documented By: RADHA Montelukast Sodium (Montelukast Sodium 10 Mg Tablet) 10 mg PO DAILY [facility] Last Admin: 03/02/23 08:06 Dose: 10 mg Documented By: RADHA Oxybutynin Chloride (Oxybutynin Chloride Er 5 Mg Tab.Er.24) 10 mg PO DAILY [facility] Last Admin: 03/02/23 08:06 Dose: 10 mg Documented By: RADHA Paroxetine HCl (Paroxetine Hcl 40 Mg Tablet) 40 mg PO DAILY [facility] Last Admin: 03/02/23 08:07 Dose: 40 mg Documented By: RADHA Pharmacy Consult (Consult Rx Perform Med Rec) 1 each MISCELLANE ONCE PRN PRN Reason: Consult order Sodium Chloride (0.9 % Sodium Chloride Flush 3 Ml Syringe) 3 ml IVFLUSH QSHIFT [facility] Last Admin: 03/02/23 07:51 Dose: 3 ml Documented By: RADHA Topiramate (Topiramate 25 Mg Tablet) 50 mg PO DAILY [facility] Last Admin: 03/02/23 08:06 Dose: 50 mg Documented By: RADHA Topiramate (Topiramate 100 Mg Tablet) 100 mg PO DAILY [facility] Last Admin: 03/02/23 08:07 Dose: 100 mg Documented By: RADHA Trazodone HCl (Trazodone Hcl 50 Mg Tablet) 50 mg PO BEDTIME [facility] Last Admin: 03/01/23 21:22 Dose: 50 mg Documented By: RAHEL Labs 03/02/23 06:18 03/02/23 06:18 Labs: Laboratory Results - last 24 hr 03/01/23 03/01/23 03/02/23 16:28 20:51 06:18 MCV 85.8 MCH 27.9 MCHC 32.5 RDW 14.5 Plt Count 218 MPV 11.9 Immature Gran % (Auto) 3.8 H Neut % (Auto) 87.5 H Lymph % (Auto) 4.2 L [place] % (Auto) 4.0 Eos % (Auto) 0.1 Baso % (Auto) 0.4 Lymph # (Auto) 0.9 L [place] # (Auto) 0.9 Eos # (Auto) 0.0 Baso # (Auto) 0.1 Abs Immat Gran (auto) 0.82 H Absolute Neuts (auto) 18.8 H Absolute Nucleated RBC 0.000 Nucleated RBC % (auto) 0.0 Anion Gap Estim Creat Clear Calc Estimated GFR POC Glucose 317 H 363 H* Fasting Glucose Calcium Total Bilirubin AST ALT Alkaline Phosphatase Total Protein Albumin U Random Total Protein Ur Random Sodium Urine Creatinine 03/02/23 03/02/23 03/02/23 06:18 07:29 10:28 MCV MCH MCHC RDW Plt Count MPV Immature Gran % (Auto) Neut % (Auto) Lymph % (Auto) [place] % (Auto) Eos % (Auto) Baso % (Auto) Lymph # (Auto) [place] # (Auto) Eos # (Auto) Baso # (Auto) Abs Immat Gran (auto) Absolute Neuts (auto) Absolute Nucleated RBC Nucleated RBC % (auto) Anion Gap 13 Estim Creat Clear Calc 24.0 Estimated GFR 23 POC Glucose 316 H Fasting Glucose 323 H Calcium 9.1 Total Bilirubin 0.2 AST 10 ALT 17 Alkaline Phosphatase 139 H Total Protein 7.0 Albumin 3.2 L U Random Total Protein 16 H Ur Random Sodium < 20.0 Urine Creatinine 72.12 03/02/23 11:11 MCV MCH MCHC RDW Plt Count MPV Immature Gran % (Auto) Neut % (Auto) Lymph % (Auto) [place] % (Auto) Eos % (Auto) Baso % (Auto) Lymph # (Auto) [place] # (Auto) Eos # (Auto) Baso # (Auto) Abs Immat Gran (auto) Absolute Neuts (auto) Absolute Nucleated RBC Nucleated RBC % (auto) Anion Gap Estim Creat Clear Calc Estimated GFR POC Glucose 247 H Fasting Glucose Calcium Total Bilirubin AST ALT Alkaline Phosphatase Total Protein Albumin U Random Total Protein Ur Random Sodium Urine Creatinine Microbiology Microbiology Results: Microbiology 02/28/23 06:51 Blood Culture - Final Blood - Venous Escherichia coli 02/28/23 06:44 Blood Culture - Final Blood - Venous Escherichia coli 02/28/23 Unknown Urine Culture - Final Urine clean catch - Urine harris top Escherichia coli Assessment and Plan (1) Sepsis: Status: Acute (2) Acute UTI: Status: Acute (3) Bacteremia: Status: Acute (4) Diabetes type 2, controlled: Status: Acute Plan 72-year-old female with a history of diabetes asthma hypertension was found on the floor by daughter. Was noted to have an O2 requirement although not on O2 at home. In the emergency room, workup consistent with active urine sediment suggestive of UTI. CT of chest negative; question desats secondary to asthma exacerbation 1. Acute UTI with GNR bacteremia. -E coli sensitive to ceftriaxone -switch to Ceftin upon discharge 2. KESHIA(last creatinine 05/30 normal) -improved with volume -follow renals/divalents renal consult 3. Asthma with likely exacerbation -DuoNebs q.4 hours p.r.n. while awake -pulse dose steroids 4.DMII -continue outpatient therapies -add back basal insulin -lispro correctional scale -hold metformin Heparin Full code Will need ongoing hospitalization for IV antibiotics to identify organism responsible for bacteremia. Daughter requesting short-term rehab; will obtain PT consult in a.m. Time Spent With Patient Time: Total time managing care of this patient today ____ minutes. Quality Stroke Does the patient have a stroke diagnosis?: No VTE Prior VTE?: No VTE Risk Level:: Medical - moderate - high VTE Device Contraindication: Treatment Not Indicated VTE Drug Contraindication: N/A - Med Ordered
[2023-03-02 15:54] VITALS: BP 126/59; PULSE 88; RESP 17; TEMP 36.6; O2SAT 94
[2023-03-02 16:26] LABS: Glucose, Whole Blood 362 mg/dL (60-115)
--- NOTE | 2023-03-02 17:49 | PM.PNNEP ---
Subjective Subjective Date of Service: 03/02/23 Interval history: Seen and examied, events noted Physical Exam Vital Signs: Vital Signs: Last Vital Signs Temp 97.9 F 03/02/23 15:54 Pulse 88 03/02/23 15:54 Resp 17 03/02/23 15:54 BP 126/59 L 03/02/23 15:54 Pulse Ox 94 03/02/23 15:54 O2 Del Method Nasal Cannula 03/02/23 15:54 O2 Flow Rate 1.0 03/02/23 15:54 Oxygen Flow Rate 2 02/28/23 06:12 BMI result Body Mass Index 44.9 Const: Other: Awake alert no acute distress General: cooperative, healthy appearing, comfortable, no acute distress, well developed, alert, awake and Physically active Orientation/consciousness: oriented to person and oriented to place HEENT: Head: Yes normal to inspection, Yes No palpable skull fracture present, Yes normocephalic, Yes atraumatic and No abrasion Face and sinus: Yes normal facial exam Mouth: Normal oral and palatal mucosa present Teeth and gingiva: dentition normal Eyes: General: appearance normal, both eyes and all related structures Pupils: Equal, round and reactive pupils present Neck: Neck: Yes normal visual inspection, Yes full ROM, Yes no lymphadenopathy, Yes no meningeal signs, Yes trachea midline, Yes supple, No anterior neck swelling and No tender Chest: Chest palpation & inspection: normal inspection of the chest and normal palpation of entire chest wall Resp: Other: Clear to auscultation bilaterally no rales rhonchi or wheezes Effort & Inspection: normal respiratory effort and able to speak in complete sentences Auscultation: diminished lung sounds Cardio: Other: No S4; positive S1-S2; no S3 murmurs rubs or gallops Jugular venous distension: no JVD Rate: regular rate Rhythm: regular rhythm Heart sounds: S1 normal heart sound present and S2 normal heart sound present GI: Other: Soft nontender nondistended normoactive bowel sounds Inspection: Yes normal to inspection and No abdominal wall ecchymosis Palpation (GI): Soft to palpation, not firm, nontender, no guarding and not rigid : General: No CVA tenderness and Yes no CVA tenderness Back/Spine/Pelvis: Back: no CVA tenderness, No CVA tenderness and No back tenderness Skin: General skin exam: no rashes or lesions noted and elasticity normal Neuro: Other: Patient answering questions. Patient lethargic. Patient usually walks on her own but due to fever lethargy to fatigue to walk. General: oriented to person, oriented to place, tone normal, moves all extremities, Normal light touch and pain sensation, no meningeal signs, no focal motor deficits and CN's II-XI intact bilaterally Cranial nerves: Yes Equal, round and reactive pupils present Extrem: Other: Bilateral edema General: Yes normal to inspection and Yes full ROM Psych: Other: not clear historian Appearance: grossly normal, well kempt and not disheveled Objective Data Labs 03/02/23 06:18 03/02/23 06:18 Labs: Laboratory Results - last 24 hr 03/01/23 03/02/23 03/02/23 20:51 06:18 06:18 WBC 21.5 H RBC 3.73 L Hgb 10.4 L Hct 32.0 L MCV 85.8 MCH 27.9 MCHC 32.5 RDW 14.5 Plt Count 218 MPV 11.9 Immature Gran % (Auto) 3.8 H Neut % (Auto) 87.5 H Lymph % (Auto) 4.2 L [place] % (Auto) 4.0 Eos % (Auto) 0.1 Baso % (Auto) 0.4 Lymph # (Auto) 0.9 L [place] # (Auto) 0.9 Eos # (Auto) 0.0 Baso # (Auto) 0.1 Abs Immat Gran (auto) 0.82 H Absolute Neuts (auto) 18.8 H Absolute Nucleated RBC 0.000 Nucleated RBC % (auto) 0.0 Sodium 139 Potassium 4.2 Chloride 107 Carbon Dioxide 23 Anion Gap 13 BUN 68 H Creatinine 2.09 H Estim Creat Clear Calc 24.0 Estimated GFR 23 POC Glucose 363 H* Fasting Glucose 323 H Calcium 9.1 Total Bilirubin 0.2 AST 10 ALT 17 Alkaline Phosphatase 139 H Total Protein 7.0 Albumin 3.2 L U Random Total Protein Ur Random Sodium Urine Creatinine 03/02/23 03/02/23 03/02/23 07:29 10:28 11:11 WBC RBC Hgb Hct MCV MCH MCHC RDW Plt Count MPV Immature Gran % (Auto) Neut % (Auto) Lymph % (Auto) [place] % (Auto) Eos % (Auto) Baso % (Auto) Lymph # (Auto) [place] # (Auto) Eos # (Auto) Baso # (Auto) Abs Immat Gran (auto) Absolute Neuts (auto) Absolute Nucleated RBC Nucleated RBC % (auto) Sodium Potassium Chloride Carbon Dioxide Anion Gap BUN Creatinine Estim Creat Clear Calc Estimated GFR POC Glucose 316 H 247 H Fasting Glucose Calcium Total Bilirubin AST ALT Alkaline Phosphatase Total Protein Albumin U Random Total Protein 16 H Ur Random Sodium < 20.0 Urine Creatinine 72.12 03/02/23 16:22 WBC RBC Hgb Hct MCV MCH MCHC RDW Plt Count MPV Immature Gran % (Auto) Neut % (Auto) Lymph % (Auto) [place] % (Auto) Eos % (Auto) Baso % (Auto) Lymph # (Auto) [place] # (Auto) Eos # (Auto) Baso # (Auto) Abs Immat Gran (auto) Absolute Neuts (auto) Absolute Nucleated RBC Nucleated RBC % (auto) Sodium Potassium Chloride Carbon Dioxide Anion Gap BUN Creatinine Estim Creat Clear Calc Estimated GFR POC Glucose 362 H* Fasting Glucose Calcium Total Bilirubin AST ALT Alkaline Phosphatase Total Protein Albumin U Random Total Protein Ur Random Sodium Urine Creatinine Microbiology Microbiology Results: Microbiology 02/28/23 06:51 Blood - Venous Blood Culture - Final Escherichia coli 02/28/23 06:44 Blood - Venous Blood Culture - Final Escherichia coli 02/28/23 Unknown Urine clean catch - Urine harris top Urine Culture - Final Escherichia coli Procedures Date of Service Date of Service: 03/02/23 Assessment & Plan Assessment and plan (1) Sepsis: Status: Acute (2) Acute UTI: Status: Acute (3) Bacteremia: Status: Acute (4) Diabetes type 2, controlled: Status: Acute Plan 1. KESHIA: grad improving c/w combo of royal=bular injury ( Sepsis) and decr IV vol ( Low FENa); good news SCr rad decr REC: cont to track UOP/renal func; avoid NSAIDs Time Spent With Patient Time: Total time managing care of this patient today ____ minutes. Progress Note: Quality Stroke Does the patient have a stroke diagnosis?: No
[2023-03-02 19:56] VITALS: BP 156/73; PULSE 84; RESP 18; TEMP 36.5; O2SAT 95
[2023-03-02 20:36] LABS: Glucose, Whole Blood 304 mg/dL (60-115)
[2023-03-02] MEDS: ARIPiprazole 20 MG TABLET PO (21:05)
[2023-03-02] MEDS: traZODone HCL 50 MG TABLET PO (21:05)
[2023-03-03] MEDS: methylPREDNISolone Sod Succ 125 MG/2 ML VIAL 60 MG IVPUSH ×2 (01:59→08:02)
[2023-03-03 03:48] VITALS: BP 143/79; PULSE 88; RESP 18; TEMP 36.6; O2SAT 96
[2023-03-03 07:02] LABS: Hematocrit 33.2 % (37.0-47.0); Mean Corpuscular HGB Conc 33.1 g/dl (31.0-35.0); Mean Corpuscular Volume 84.5 fL (80.0-98.0); Mean Platelet Volume 12.2 fL (9.4-12.3); Platelet Count 276 X10*3/uL (160-400); Red Blood Count 3.93 X10*6/uL (4.20-5.50); Red Cell Distribution Width 14.4 % (11.0-16.0); White Blood Count 16.7 X10*3/uL (4.8-10.8)
[2023-03-03 07:18] LABS: Alanine Aminotransferase 17 U/L (0-31); Albumin Level 3.1 g/dL (3.5-5.0); Alkaline Phosphatase 124 U/L (39-117); Anion Gap 14 (12-20); Aspartate Amino Transferase 10 U/L (5-31); Bilirubin Total 0.3 mg/dL (0.0-1.0); Blood Urea Nitrogen 61 mg/dL (9-16); Carbon Dioxide 24 mmol/L (22-29); Chloride 106 mmol/L (96-108); Creatinine Clr Calc Pharmacy 30.9; Estimated Glomerular Filt Rate 31; Glucose Fasting 339 mg/dL (60-99); Potassium 4.5 mmol/L (3.3-5.1); Sodium 139 mmol/L (135-145); Total Protein 6.6 g/dL (6.5-8.0)
[2023-03-03 07:23] VITALS: BP 128/59; PULSE 74; RESP 18; TEMP 37.2; O2SAT 95
[2023-03-03 07:24] LABS: Glucose, Whole Blood 309 mg/dL (60-115)
[2023-03-03 07:39] LABS: Atypical Lymph Absolute Manual 0.2 x10*3/uL; Atypical Lymphs Percent Manual 1 % (0-6); Band Neutrophils Percent 4 % (3-5); Eosinophils Absolute Manual 0.2 X10*3/uL (0.0-0.4); Eosinophils Percent Manual 1 % (0-4); Lymphocytes Absolute Manual 1.2 X10*3/uL (1.2-4.9); Lymphocytes Percent Manual 7 % (20-40); Metamyelocytes Absolute 0.7 X10*3/uL; Metamyelocytes Percent 4 %; Monocytes Absolute Manual 0.3 X10*3/uL (0.1-1.2); Monocytes Percent Manual 2 % (2-11); Neutrophils Absolute Manual 14.2 X10*3/uL (2.0-8.3); Neutrophils Percent Manual 81 % (45-73)
[2023-03-03 07:41] LABS: Platelet Estimate NORMAL (NORMAL); Platelet Morphology Comment NORMAL; RBC Morphology NORMAL
--- NOTE | 2023-03-03 07:59 | CONS_ITS ---
DATE OF SERVICE: 03/01/2023 REASON FOR CONSULTATION: I was asked to see patient to assist in evaluation and management of patient's acute kidney injury as reflected by a creatinine of 3.16 on admission yesterday, whereas back in May, creatinine was 0.8. HISTORY OF PRESENT ILLNESS: In summary, the patient is a 72-year-old with a history of diabetes, hypertension, asthma, who was brought to emergency room with falling episodes x2, was noted to be hypoxemic. She has a several-day history of cough, fever, and generalized weakness. The patient is a poor historian. Information was obtained from electronic medical record. PAST MEDICAL HISTORY: As noted above. Diabetes, degenerative joint disease, asthma, high blood pressure, morbid obesity are all listed. MEDICATIONS: Medications on admission are noted in the admitting notes. Current medications are in the MAR. ALLERGIES: SHE HAS NO KNOWN DRUG ALLERGIES. SOCIAL HISTORY: Nonsmoker. Nondrinker. No illicit drug use. REVIEW OF SYSTEMS: As noted above. FAMILY HISTORY: Noncontributory. PHYSICAL EXAMINATION: VITAL SIGNS: Blood pressure 140/60 with heart rate in the 90s. She is afebrile. HEENT: Head is atraumatic and normocephalic. Mucous membranes are dry. There is no JVD. LUNGS: Breath sounds bilaterally. CARDIAC: Regular rate and rhythm. ABDOMEN: Soft, obese, and nontender. No CVA tenderness. EXTREMITIES: Show trace edema. LABORATORY DATA: Showed hemoglobin 10.1, hematocrit 30.8, white blood cell count 22.8, but she is on steroids. Sodium 138, potassium 4.2, chloride 107, bicarb 19, BUN 59, creatinine 2.6. As mentioned on admission, creatinine was 3.1 and back in May, creatinine was 0.8. Calcium 8.9, albumin 3.1. Urine showed 3+ protein. Red cells and white cells noted in the urine as well. IMPRESSION: ACUTE KIDNEY INJURY IN HYPERTENSIVE, OBESE PATIENT, DIABETIC WITH HYPOXEMIA AND FALLING EPISODES. 1. Acute kidney injury. Renal function is improving with IV fluids and holding her NAINA inhibitor. We need to obtain some urine studies. She is to get sodium consistent with renal hypoperfusion. Her urinalysis is quite abnormal and depending on clinical course, she may need further evaluation for possible acute interstitial nephritis or acute glomerulonephritis. 2. Falling episodes. 3. Hypoxemia, presumably chronic obstructive pulmonary disease exacerbation, now on steroids. RECOMMENDATIONS: At this time include, 1. Obtain spot urine studies to calculate fractional excretion of sodium. 2. Continue to hold on her NAINA inhibitor. Check renal function and urine output. Depending on her clinical course, she may need further renal evaluation. I have taken liberty of ordering some additional serologies as we evaluate her acute kidney injury. We will follow the patient with the team. MD BRIANDA Guerrero/NOREEN / [id number]
[2023-03-03] MEDS: cefTRIAXone sodium 2 GM in 0.9 % Sodium Chloride 50 ML IV (08:00)
[2023-03-03] MEDS: Topiramate 25 MG TABLET 50 MG PO (08:01)
[2023-03-03] MEDS: oxyBUTYnin chloride ER 5 MG TAB.ER.24 10 MG PO (08:01)
[2023-03-03] MEDS: Topiramate 100 MG TABLET PO (08:01)
[2023-03-03] MEDS: amLODIPine Besylate 10 MG TABLET PO (08:01)
[2023-03-03] MEDS: PARoxetine HCL 40 MG TABLET PO (08:01)
[2023-03-03] MEDS: Montelukast Sodium 10 MG TABLET PO (08:01)
[2023-03-03] MEDS: lisinopriL 40 MG TABLET PO (08:02)
[2023-03-03] MEDS: Heparin Sodium,Porcine 5,000 UNIT/ML VIAL 5000 UNIT SUBCUT ×2 (08:02→19:59)
[2023-03-03] MEDS: Insulin Lispro 100 UNIT/ML 3 ML VIAL SUBCUT ×4 (08:02→22:20)
[2023-03-03] MEDS: 0.9 % Sodium Chloride Flush 3 ML SYRINGE IVFLUSH ×3 (08:02→19:58)
[2023-03-03 08:07] LABS: Baso%MD 0.3 %; IG%MD 5.5 %; Lymph%MD 5.6 %; Mono%MD 3.6 %
[2023-03-03] MEDS: Insulin Glargine,Hum.rec.anlog 100 UNIT/ML 10 ML VIAL 20 UNIT SUBCUT (08:53)
--- NOTE | 2023-03-03 11:20 | P.PNNP_ITS ---
Subjective Subjective Date of Service: 03/04/23 Interval history: Seen and examied, events noted Feeling better. Serum creatinine Physical Exam Vital Signs: Vital Signs: Last Vital Signs Temp 98.9 F 03/03/23 07:23 Pulse 74 03/03/23 07:23 Resp 18 03/03/23 07:23 BP 128/59 L 03/03/23 07:23 Pulse Ox 95 03/03/23 07:23 O2 Del Method Nasal Cannula 03/03/23 07:23 O2 Flow Rate 2.0 03/03/23 07:23 Oxygen Flow Rate 2 02/28/23 06:12 BMI result Body Mass Index 44.9 Comfortable Neck is supple Lung: Air entry equal Heart: S1,S2, normal. No rub Abd: Soft. BS + NS : Alert.No asterexis Ext: No edema Objective Data Labs 03/03/23 06:07 03/03/23 06:07 Labs: Laboratory Results - last 24 hr 03/02/23 03/02/23 03/02/23 11:11 16:22 20:32 WBC RBC Hgb Hct MCV MCH MCHC RDW Plt Count MPV Immature Gran % (Auto) Neut % (Auto) Lymph % (Auto) [place] % (Auto) Eos % (Auto) Baso % (Auto) Lymph # (Auto) [place] # (Auto) Eos # (Auto) Baso # (Auto) Abs Immat Gran (auto) Absolute Neuts (auto) Absolute Nucleated RBC Nucleated RBC % (auto) Neutrophils % (Manual) Band Neutrophils % Lymphocytes % (Manual) Atypical Lymphs % (Man) Monocytes % (Manual) Eosinophils % (Manual) Metamyelocytes % Abs Neuts (Manual) Lymphocytes # (Manual) Atyp Lymphs # (Manual) Monocytes # (Manual) Eosinophils # (Manual) Metamyelocytes # Platelet Estimate Plt Morphology Comment RBC Morphology Sodium Potassium Chloride Carbon Dioxide Anion Gap BUN Creatinine Estim Creat Clear Calc Estimated GFR POC Glucose 247 H 362 H* 304 H Fasting Glucose Calcium Total Bilirubin AST ALT Alkaline Phosphatase Total Protein Albumin 03/03/23 03/03/23 03/03/23 06:07 06:07 07:10 WBC 16.7 H RBC 3.93 L Hgb 11.0 L Hct 33.2 L MCV 84.5 MCH 28.0 MCHC 33.1 RDW 14.4 Plt Count 276 D MPV 12.2 Immature Gran % (Auto) Cancelled Neut % (Auto) Cancelled Lymph % (Auto) Cancelled [place] % (Auto) Cancelled Eos % (Auto) Cancelled Baso % (Auto) Cancelled Lymph # (Auto) Cancelled [place] # (Auto) Cancelled Eos # (Auto) Cancelled Baso # (Auto) Cancelled Abs Immat Gran (auto) Cancelled Absolute Neuts (auto) Cancelled Absolute Nucleated RBC 0.000 Nucleated RBC % (auto) 0.0 Neutrophils % (Manual) 81 H Band Neutrophils % 4 Lymphocytes % (Manual) 7 L Atypical Lymphs % (Man) 1 Monocytes % (Manual) 2 Eosinophils % (Manual) 1 Metamyelocytes % 4 Abs Neuts (Manual) 14.2 H Lymphocytes # (Manual) 1.2 Atyp Lymphs # (Manual) 0.2 Monocytes # (Manual) 0.3 Eosinophils # (Manual) 0.2 Metamyelocytes # 0.7 Platelet Estimate NORMAL Plt Morphology Comment NORMAL RBC Morphology NORMAL Sodium 139 Potassium 4.5 Chloride 106 Carbon Dioxide 24 Anion Gap 14 BUN 61 H Creatinine 1.62 H Estim Creat Clear Calc 30.9 Estimated GFR 31 POC Glucose 309 H Fasting Glucose 339 H Calcium 9.0 Total Bilirubin 0.3 AST 10 ALT 17 Alkaline Phosphatase 124 H Total Protein 6.6 Albumin 3.1 L Microbiology Microbiology Results: Microbiology 02/28/23 06:51 Blood - Venous Blood Culture - Final Escherichia coli 02/28/23 06:44 Blood - Venous Blood Culture - Final Escherichia coli 02/28/23 Unknown Urine clean catch - Urine harris top Urine Culture - Final Escherichia coli Procedures Date of Service Date of Service: 03/04/23 Assessment & Plan Assessment and plan (1) RYLAND (acute kidney injury): Status: Acute Plan Ryland due to hypoperfusion/tubular injury. Renal function is improving. Keep intake more than the output. Continue to avoid nephrotoxic agents. She needs outpatient follow-up when discharged. She has significant proteinuria. Mostly due to diabetic kidney disease. She needs NAINA inhibitor when renal function stabilizes. He would also benefit from Farxiga and this can be started as an outpatient. Anemia. Multifactorial. Time Spent With Patient Time: Total time managing care of this patient today ____ minutes. Progress Note: Quality Stroke Does the patient have a stroke diagnosis?: No
[2023-03-03 11:24] LABS: Glucose, Whole Blood 328 mg/dL (60-115)
--- NOTE | 2023-03-03 12:02 | P.PNIM_ITS ---
Subjective Subjective Date of Service: 03/03/23 Interval History: breathing improved though still wheezing weaned off O2 no fever Cr improving This history was taken in [place] from the patient. Review of Systems Review of Systems: Yes all other systems are reviewed and are negative Physical Exam Vital Signs: Vital Signs: Last Vital Signs Temp 98.9 F 03/03/23 07:23 Pulse 74 03/03/23 07:23 Resp 18 03/03/23 07:23 BP 128/59 L 03/03/23 07:23 Pulse Ox 95 03/03/23 07:23 O2 Del Method Nasal Cannula 03/03/23 07:23 O2 Flow Rate 2.0 03/03/23 07:23 Oxygen Flow Rate 2 02/28/23 06:12 BMI result Body Mass Index 44.9 Gen: in no acute distress HEENT: sclera anicteric, moist mucus membranes Neck: supple Lungs: scattered exp wheezing Heart: regular rate and rhythm, no murmurs Abd: soft, non-tender, non-distended, morbidly obese Ext: no edema Skin: warm/well-perfused Neuro: alert and oriented x3, no focal findings Psych: appropriate affect Objective Data Active Medications Acetaminophen (Acetaminophen 325 Mg Tablet) 650 mg PO Q6H PRN PRN Reason: Pain, Mild (Pain Scale 1-3) Last Admin: 03/02/23 06:05 Dose: 650 mg Documented By: RAHEL Albuterol Sulfate (Albuterol Sulfate 90 Mcg 8 Gm Inhaler) 2 puff INHALE Q4H PRN PRN Reason: shortness of breath or wheezing Albuterol/Ipratropium (Albuterol/Iprat 2.5/0.5mg 3 Ml Ampul.Neb) 3 ml INHALE RQ6H WHILE AWAKE PRN PRN Reason: wheezing Amlodipine Besylate (Amlodipine Besylate 10 Mg Tablet) 10 mg PO DAILY BELKIS; Protocol Last Admin: 03/03/23 08:01 Dose: 10 mg Documented By: MIS Aripiprazole (Aripiprazole 20 Mg Tablet) 20 mg PO BEDTIME BELKIS Last Admin: 03/02/23 21:05 Dose: 20 mg Documented By: FRANCISCO Dextrose (Dextrose 50 % 25 Gm/50 Ml Syringe) 25 gm IVPUSH Q15M PRN; Protocol PRN Reason: per Hypoglycemia Standing Ord. Glucose (Glucose Gel 15 Gm Gel..Gram.) 15 gm PO Q15M PRN; Protocol PRN Reason: per Hypoglycemia Standing Ord. Heparin Sodium (Porcine) (Heparin Sodium,Porcine 5,000 Unit/Ml Vial) 5,000 unit SUBCUT Q12H [facility] Last Admin: 03/03/23 08:02 Dose: 5,000 unit Documented By: MIS Ceftriaxone Sodium 2 gm/ (Sodium Chloride) 50 mls @ 100 mls/hr IV Q24H [facility] Last Infusion: 03/03/23 08:54 Dose: 0 mls/hr Documented By: MIS Insulin Glargine (Insulin Glargine,Hum.Rec.Anlog 100 Unit/Ml 10 Ml Vial) 20 unit SUBCUT DAILY [facility] Last Admin: 03/03/23 08:53 Dose: 20 unit Documented By: MIS Insulin Human Lispro (Insulin Lispro 100 Unit/Ml 3 Ml Vial) 0 unit SUBCUT QIDACHS [facility]; Protocol Last Admin: 03/03/23 11:46 Dose: 8 unit Documented By: MIS Lisinopril (Lisinopril 40 Mg Tablet) 40 mg PO DAILY [facility]; Protocol Last Admin: 03/03/23 08:02 Dose: 40 mg Documented By: MIS Methylprednisolone Sodium Succinate (Methylprednisolone Sod Succ 125 Mg/2 Ml Vial) 40 mg IVPUSH Q12H [facility] Last Admin: 03/03/23 08:31 Dose: Not Given Documented By: MIS Non-Admin Reason: Previously Administered Montelukast Sodium (Montelukast Sodium 10 Mg Tablet) 10 mg PO DAILY [facility] Last Admin: 03/03/23 08:01 Dose: 10 mg Documented By: MIS Oxybutynin Chloride (Oxybutynin Chloride Er 5 Mg Tab.Er.24) 10 mg PO DAILY [facility] Last Admin: 03/03/23 08:01 Dose: 10 mg Documented By: MIS Paroxetine HCl (Paroxetine Hcl 40 Mg Tablet) 40 mg PO DAILY [facility] Last Admin: 03/03/23 08:01 Dose: 40 mg Documented By: MIS Pharmacy Consult (Consult Rx Perform Med Rec) 1 each MISCELLANE ONCE PRN PRN Reason: Consult order Sodium Chloride (0.9 % Sodium Chloride Flush 3 Ml Syringe) 3 ml IVFLUSH QSHIFT [facility] Last Admin: 03/03/23 08:02 Dose: 3 ml Documented By: MIS Topiramate (Topiramate 25 Mg Tablet) 50 mg PO DAILY [facility] Last Admin: 03/03/23 08:01 Dose: 50 mg Documented By: MIS Topiramate (Topiramate 100 Mg Tablet) 100 mg PO DAILY [facility] Last Admin: 03/03/23 08:01 Dose: 100 mg Documented By: MIS Trazodone HCl (Trazodone Hcl 50 Mg Tablet) 50 mg PO BEDTIME [facility] Last Admin: 03/02/23 21:05 Dose: 50 mg Documented By: FRANCISCO Labs 03/03/23 06:07 03/03/23 06:07 Labs: Laboratory Results - last 24 hr 03/02/23 03/02/23 03/03/23 16:22 20:32 06:07 MCV 84.5 MCH 28.0 MCHC 33.1 RDW 14.4 Plt Count 276 D MPV 12.2 Immature Gran % (Auto) Cancelled Neut % (Auto) Cancelled Lymph % (Auto) Cancelled [place] % (Auto) Cancelled Eos % (Auto) Cancelled Baso % (Auto) Cancelled Lymph # (Auto) Cancelled [place] # (Auto) Cancelled Eos # (Auto) Cancelled Baso # (Auto) Cancelled Abs Immat Gran (auto) Cancelled Absolute Neuts (auto) Cancelled Absolute Nucleated RBC 0.000 Nucleated RBC % (auto) 0.0 Neutrophils % (Manual) 81 H Band Neutrophils % 4 Lymphocytes % (Manual) 7 L Atypical Lymphs % (Man) 1 Monocytes % (Manual) 2 Eosinophils % (Manual) 1 Metamyelocytes % 4 Abs Neuts (Manual) 14.2 H Lymphocytes # (Manual) 1.2 Atyp Lymphs # (Manual) 0.2 Monocytes # (Manual) 0.3 Eosinophils # (Manual) 0.2 Metamyelocytes # 0.7 Platelet Estimate NORMAL Plt Morphology Comment NORMAL RBC Morphology NORMAL Anion Gap Estim Creat Clear Calc Estimated GFR POC Glucose 362 H* 304 H Fasting Glucose Calcium Total Bilirubin AST ALT Alkaline Phosphatase Total Protein Albumin 03/03/23 03/03/23 03/03/23 06:07 07:10 11:20 MCV MCH MCHC RDW Plt Count MPV Immature Gran % (Auto) Neut % (Auto) Lymph % (Auto) [place] % (Auto) Eos % (Auto) Baso % (Auto) Lymph # (Auto) [place] # (Auto) Eos # (Auto) Baso # (Auto) Abs Immat Gran (auto) Absolute Neuts (auto) Absolute Nucleated RBC Nucleated RBC % (auto) Neutrophils % (Manual) Band Neutrophils % Lymphocytes % (Manual) Atypical Lymphs % (Man) Monocytes % (Manual) Eosinophils % (Manual) Metamyelocytes % Abs Neuts (Manual) Lymphocytes # (Manual) Atyp Lymphs # (Manual) Monocytes # (Manual) Eosinophils # (Manual) Metamyelocytes # Platelet Estimate Plt Morphology Comment RBC Morphology Anion Gap 14 Estim Creat Clear Calc 30.9 Estimated GFR 31 POC Glucose 309 H 328 H Fasting Glucose 339 H Calcium 9.0 Total Bilirubin 0.3 AST 10 ALT 17 Alkaline Phosphatase 124 H Total Protein 6.6 Albumin 3.1 L Microbiology Microbiology Results: Microbiology 02/28/23 06:51 Blood Culture - Final Blood - Venous Escherichia coli 02/28/23 06:44 Blood Culture - Final Blood - Venous Escherichia coli Assessment and Plan (1) Sepsis: Status: Acute (2) Acute UTI: Status: Acute (3) Bacteremia: Status: Acute (4) Diabetes type 2, controlled: Status: Acute Plan d#4 72yo F with DM2, HTN, asthma Found down on floor by daughter Hypoxic upon presentation, urinary findings concerning for UTI Found to be bacteremic # E coli bacteremia/UTI - ceftriaxone d#10/22, change to cefuroxime upon discharge, ID consulted # KESHIA - resolving with volume repletion, NAINA-I continued # asthma exacerbation - taper steroids, continue neb treatments + montelukast # acute hypoxic resp failure - resolved # DM2 - resume basal insulin, continue correction-dose prandial insulin # HTN - continue amlodipine, lisinopril # mood disorder - continue aripiprazole, paroxetine, trazodone, topiramate # morbid obesity - diet/exercise counseling # VTE ppx: LMWH # dispo: STR planned In my clinical judgment, the patient requires continued inpatient hospitalization for the following reasons: IV ABX, placement Time Spent With Patient Time: Total time managing care of this patient today ___40_ minutes. Quality Stroke Does the patient have a stroke diagnosis?: No VTE Prior VTE?: No VTE Risk Level:: Medical - moderate - high VTE Device Contraindication: Treatment Not Indicated VTE Drug Contraindication: N/A - Med Ordered
--- NOTE | 2023-03-03 13:59 | MHC.CM.PN ---
Deborah [facility] UPLOADED TO SNF REFERRALS. POSSIBLE DC FRIDAY [facility] ([facility]ILY CHO[facility]) ARE FOLLOWING
--- NOTE | 2023-03-03 14:34 | P.CDIM_ITS ---
PROVIDER RESPONSE TEXT: To clarify, the appropriate diagnosis supported by the clinical indicators: Clinically unable to determine (explain): unknown history QUERY TEXT: PHYSICIAN'S DOCUMENTATION REQUEST Date of Query: 03/03/2023 01:25 PM EDT Patient Name: Margy Haney Admit Date: 02/28/2023 Dear Dell Brown, A review of the medical record indicates additional documentation may be needed. Please review below and update the documentation accordingly. The diagnosis of asthma was documented in the record on 03/03/23. Additional clinical indicators from the record include: asthma exacerbation - taper steroids, continue neb treatments + Montelukast Based on the above, please clarify in the Progress Notes further specificity regarding the type and a cuity of the asthma: Mild intermittent Please specify if with or without acute exacerbation or status asthmaticus Mild persistent Please specify if with or without acute exacerbation or status asthmaticus Moderate persistent Please specify if with or without acute exacerbation or status asthmaticus Severe persistent Please specify if with or without acute exacerbation or status asthmaticus Exercise induced Please specify if with or without acute exacerbation or status asthmaticus Chronic obstructive asthma and indicate if with acute lower respiratory infection Please specify if with or without acute exacerbation or status asthmaticus Asthma with underlying COPD and indicate if with acute lower respiratory infection Please specify if with or without acute exacerbation or status asthmaticus Other (explain)Clinically unable to determine (explain)Thank you, Libra Stovall RN Use of terms such as suspected, likely, concern for, or probable (associated with a specific diagnosi s that is being evaluated, monitored, or treated as if it exists) are acceptable and can be coded in the inpatient se tting, when documented at the time of discharge. Please use your independent medical judgment in providing your response. THIS QUERY IS PART OF THE PERMANENT MEDICAL RECORD
--- NOTE | 2023-03-03 14:34 | P.CDIM_ITS ---
PROVIDER RESPONSE TEXT: To clarify, the appropriate diagnosis supported by the clinical indicators: Sepsis is/was present on admission and is a clinical diagnosis based on QUERY TEXT: PHYSICIAN'S DOCUMENTATION REQUEST Date of Query: 03/03/2023 01:15 PM EDT Patient Name: Margy Haney Admit Date: 02/28/2023 Dear Dell Brown, A review of the medical record indicates additional documentation may be needed. Please review below and update the documentation accordingly. Documentation on progress note dated 03/01/23 by Infectious Disease included the diagnosis of Sepsis. The patient's infectious clinical indicators include: WBC 19.2 Temperature 100.8 Heart rate 110 Based on the above information and the recognized standard for sepsis, could you please clarify if th is diagnoses is still accurate and reflective of the patient's condition to ensure quality of the medical record. Sepsis is/was present on admission and is a clinical diagnosis based on After study Sepsis has been ruled out Other (explain)Clinically unable to determine (explain)Thank you, Libra Stovall RN Use of terms such as suspected, likely, concern for, or probable (associated with a specific diagnosi s that is being evaluated, monitored, or treated as if it exists) are acceptable and can be coded in the inpatient se tting, when documented at the time of discharge. Please use your independent medical judgment in providing your response. THIS QUERY IS PART OF THE PERMANENT MEDICAL RECORD
[2023-03-03 16:00] VITALS: BP 153/69; PULSE 84; RESP 20; TEMP 36.6; O2SAT 97
[2023-03-03 16:22] LABS: Glucose, Whole Blood 354 mg/dL (60-115)
[2023-03-03] MEDS: polyethylene glycoL 3350 17 GM POWD.PACK PO (16:40)
[2023-03-03] MEDS: Sennosides/Docusate Sodium TABLET 2 TAB PO ×2 (16:40→20:00)
[2023-03-03] MEDS: methylPREDNISolone Sod Succ 125 MG/2 ML VIAL 40 MG IVPUSH (19:59)
[2023-03-03 20:00] VITALS: BP 162/70; PULSE 80; RESP 20; TEMP 36; O2SAT 98
[2023-03-03] MEDS: traZODone HCL 50 MG TABLET PO (20:00)
[2023-03-03] MEDS: ARIPiprazole 20 MG TABLET PO (20:00)
[2023-03-03 21:07] LABS: Glucose, Whole Blood 244 mg/dL (60-115)
[2023-03-04 03:20] VITALS: BP 160/63; PULSE 88; RESP 20; TEMP 36.4; O2SAT 98
[2023-03-04] MEDS: Acetaminophen 325 MG TABLET 650 MG PO (06:05)
[2023-03-04 06:15] LABS: Hemoglobin 11.7 g/dl (12.0-16.0); Mean Corpuscular HGB Conc 32.5 g/dl (31.0-35.0); Mean Corpuscular Hemoglobin 27.9 pg (27.0-33.0); Mean Corpuscular Volume 85.7 fL (80.0-98.0); Mean Platelet Volume 12.1 fL (9.4-12.3); Platelet Count 289 X10*3/uL (160-400); Red Cell Distribution Width 14.4 % (11.0-16.0); White Blood Count 18.7 X10*3/uL (4.8-10.8)
[2023-03-04 06:32] LABS: Anion Gap 14 (12-20); Blood Urea Nitrogen 51 mg/dL (9-16); Carbon Dioxide 23 mmol/L (22-29); Chloride 107 mmol/L (96-108); Creatinine Clr Calc Pharmacy 32.8; Estimated Glomerular Filt Rate 33; Glucose Random 275 mg/dL (60-115); Potassium 5.4 mmol/L (3.3-5.1); Sodium 139 mmol/L (135-145)
[2023-03-04 07:01] VITALS: BP 150/71; PULSE 79; RESP 20; TEMP 36.4; O2SAT 98
[2023-03-04 07:24] LABS: Glucose, Whole Blood 251 mg/dL (60-115)
[2023-03-04] MEDS: Heparin Sodium,Porcine 5,000 UNIT/ML VIAL 5000 UNIT SUBCUT ×2 (08:18→21:45)
[2023-03-04] MEDS: 0.9 % Sodium Chloride Flush 3 ML SYRINGE IVFLUSH ×3 (08:18→21:51)
[2023-03-04] MEDS: cefTRIAXone sodium 2 GM in 0.9 % Sodium Chloride 50 ML IV (08:18)
[2023-03-04] MEDS: polyethylene glycoL 3350 17 GM POWD.PACK PO (08:18)
[2023-03-04] MEDS: methylPREDNISolone Sod Succ 125 MG/2 ML VIAL 40 MG IVPUSH ×2 (08:18→21:44)
[2023-03-04] MEDS: Insulin Glargine,Hum.rec.anlog 100 UNIT/ML 10 ML VIAL 20 UNIT SUBCUT (08:19)
[2023-03-04] MEDS: amLODIPine Besylate 10 MG TABLET PO (08:19)
[2023-03-04] MEDS: oxyBUTYnin chloride ER 5 MG TAB.ER.24 10 MG PO (08:19)
[2023-03-04] MEDS: Insulin Lispro 100 UNIT/ML 3 ML VIAL SUBCUT ×4 (08:19→21:45)
[2023-03-04] MEDS: Topiramate 100 MG TABLET PO (08:20)
[2023-03-04] MEDS: Montelukast Sodium 10 MG TABLET PO (08:20)
[2023-03-04] MEDS: Topiramate 25 MG TABLET 50 MG PO (08:20)
[2023-03-04] MEDS: Sennosides/Docusate Sodium TABLET 2 TAB PO ×2 (08:20→21:45)
[2023-03-04] MEDS: PARoxetine HCL 40 MG TABLET PO (08:20)
[2023-03-04] MEDS: lisinopriL 40 MG TABLET PO (08:20)
[2023-03-04] MEDS: Sodium Zirconium Cyclosilicate 10 GM POWD.PACK PO (08:32)
--- NOTE | 2023-03-04 09:57 | PM.PNNEP ---
Subjective Subjective Date of Service: 03/05/23 Physical Exam Vital Signs: Vital Signs: Last Vital Signs Temp 97.6 F 03/04/23 07:01 Pulse 79 03/04/23 07:01 Resp 20 03/04/23 07:01 BP 150/71 H 03/04/23 07:01 Pulse Ox 98 03/04/23 07:01 O2 Del Method Nasal Cannula 03/04/23 07:01 O2 Flow Rate 2 03/04/23 07:01 Oxygen Flow Rate 2 02/28/23 06:12 BMI result Body Mass Index 44.9 No headache. No nausea vomiting. No abdominal pain. No cough. No dysuria urgency or hematuria. No edema. No rash. Objective Data Labs 03/04/23 05:32 03/04/23 05:32 Labs: Laboratory Results - last 24 hr 03/03/23 03/03/23 03/03/23 11:20 16:18 21:02 WBC RBC Hgb Hct MCV MCH MCHC RDW Plt Count MPV Absolute Nucleated RBC Nucleated RBC % (auto) Sodium Potassium Chloride Carbon Dioxide Anion Gap BUN Creatinine Estim Creat Clear Calc Estimated GFR POC Glucose 328 H 354 H* 244 H Random Glucose Calcium 03/04/23 03/04/23 03/04/23 05:32 05:32 07:03 WBC 18.7 H RBC 4.20 Hgb 11.7 L Hct 36.0 L MCV 85.7 MCH 27.9 MCHC 32.5 RDW 14.4 Plt Count 289 MPV 12.1 Absolute Nucleated RBC 0.000 Nucleated RBC % (auto) 0.0 Sodium 139 Potassium 5.4 H Chloride 107 Carbon Dioxide 23 Anion Gap 14 BUN 51 H Creatinine 1.53 H Estim Creat Clear Calc 32.8 Estimated GFR 33 POC Glucose 251 H Random Glucose 275 H Calcium 9.0 Microbiology Microbiology Results: Microbiology 02/28/23 06:51 Blood - Venous Blood Culture - Final Escherichia coli 02/28/23 06:44 Blood - Venous Blood Culture - Final Escherichia coli 02/28/23 Unknown Urine clean catch - Urine harris top Urine Culture - Final Escherichia coli Procedures Date of Service Date of Service: 03/05/23 Assessment & Plan Assessment and plan (1) RYLAND (acute kidney injury): Status: Acute Plan Ryland due to hypoperfusion/tubular injury. Renal function is improving. Keep intake more than the output. Continue to avoid nephrotoxic agents. She needs outpatient follow-up when discharged. She has significant proteinuria. Mostly due to diabetic kidney disease. She needs NAINA inhibitor when renal function stabilizes. He would also benefit from Farxiga and this can be started as an outpatient. Anemia. Multifactorial. Hyperkalemia. Keep on low-potassium diet. Hold NAINA inhibitors. Giuseppe murry. Time Spent With Patient Time: Total time managing care of this patient today ____ minutes. Progress Note: Quality Stroke Does the patient have a stroke diagnosis?: No
--- NOTE | 2023-03-04 10:15 | HO.PM.IMPN ---
Subjective Subjective Date of Service: 03/04/23 Interval History: This history was taken in Bulgarian from the patient. Dyspnea improved, still wheezing a little Afebrile Review of Systems Review of Systems: Yes all other systems are reviewed and are negative Physical Exam Vital Signs: Vital Signs: Last Vital Signs Temp 97.6 F 03/04/23 07:01 Pulse 79 03/04/23 07:01 Resp 20 03/04/23 07:01 BP 150/71 H 03/04/23 07:01 Pulse Ox 98 03/04/23 07:01 O2 Del Method Nasal Cannula 03/04/23 07:01 O2 Flow Rate 2 03/04/23 07:01 Oxygen Flow Rate 2 02/28/23 06:12 BMI result Body Mass Index 44.9 Gen: in no acute distress HEENT: sclera anicteric, moist mucus membranes Neck: supple Lungs: scattered exp wheezing Heart: regular rate and rhythm, no murmurs Abd: soft, non-tender, non-distended, morbidly obese Ext: no edema Skin: warm/well-perfused Neuro: alert and oriented x3, no focal findings Psych: appropriate affect Objective Data Active Medications Acetaminophen (Acetaminophen 325 Mg Tablet) 650 mg PO Q6H PRN PRN Reason: Pain, Mild (Pain Scale 1-3) Last Admin: 03/04/23 06:05 Dose: 650 mg Documented By: FRANCISCO Albuterol Sulfate (Albuterol Sulfate 90 Mcg 8 Gm Inhaler) 2 puff INHALE Q4H PRN PRN Reason: shortness of breath or wheezing Albuterol/Ipratropium (Albuterol/Iprat 2.5/0.5mg 3 Ml Ampul.Neb) 3 ml INHALE RQ6H WHILE AWAKE PRN PRN Reason: wheezing Amlodipine Besylate (Amlodipine Besylate 10 Mg Tablet) 10 mg PO DAILY BELKIS; Protocol Last Admin: 03/04/23 08:19 Dose: 10 mg Documented By: MIS Aripiprazole (Aripiprazole 20 Mg Tablet) 20 mg PO BEDTIME [facility] [place] Last Admin: 03/03/23 20:00 Dose: 20 mg Documented By: FRANCISCO Dextrose (Dextrose 50 % 25 Gm/50 Ml Syringe) 25 gm IVPUSH Q15M PRN; Protocol PRN Reason: per Hypoglycemia Standing Ord. Glucose (Glucose Gel 15 Gm Gel..Gram.) 15 gm PO Q15M PRN; Protocol PRN Reason: per Hypoglycemia Standing Ord. Heparin Sodium (Porcine) (Heparin Sodium,Porcine 5,000 Unit/Ml Vial) 5,000 unit SUBCUT Q12H [facility] [place] Last Admin: 03/04/23 08:18 Dose: 5,000 unit Documented By: MIS Ceftriaxone Sodium 2 gm/ (Sodium Chloride) 50 mls @ 100 mls/hr IV Q24H [facility] [place] Last Infusion: 03/04/23 08:53 Dose: 0 mls/hr Documented By: MIS Insulin Glargine (Insulin Glargine,Hum.Rec.Anlog 100 Unit/Ml 10 Ml Vial) 20 unit SUBCUT DAILY [facility] [place] Last Admin: 03/04/23 08:19 Dose: 20 unit Documented By: MIS Insulin Human Lispro (Insulin Lispro 100 Unit/Ml 3 Ml Vial) 0 unit SUBCUT QIDACHS [facility] [place]; Protocol Last Admin: 03/04/23 08:19 Dose: 6 unit Documented By: MIS Lisinopril (Lisinopril 40 Mg Tablet) 40 mg PO DAILY [facility] [place]; Protocol Last Admin: 03/04/23 08:20 Dose: 40 mg Documented By: MIS Methylprednisolone Sodium Succinate (Methylprednisolone Sod Succ 125 Mg/2 Ml Vial) 40 mg IVPUSH Q12H [facility] [place] Last Admin: 03/04/23 08:18 Dose: 40 mg Documented By: MIS Montelukast Sodium (Montelukast Sodium 10 Mg Tablet) 10 mg PO DAILY [facility] [place] Last Admin: 03/04/23 08:20 Dose: 10 mg Documented By: MIS Oxybutynin Chloride (Oxybutynin Chloride Er 5 Mg Tab.Er.24) 10 mg PO DAILY [facility] [place] Last Admin: 03/04/23 08:19 Dose: 10 mg Documented By: MIS Paroxetine HCl (Paroxetine Hcl 40 Mg Tablet) 40 mg PO DAILY [facility] [place] Last Admin: 03/04/23 08:20 Dose: 40 mg Documented By: MIS Pharmacy Consult (Consult Rx Perform Med Rec) 1 each MISCELLANE ONCE PRN PRN Reason: Consult order Polyethylene Glycol (Polyethylene Glycol 3350 17 Gm Powd.Pack) 17 gm PO DAILY [facility] [place] Last Admin: 03/04/23 08:18 Dose: 17 gm Documented By: HO.PRESTOS Senna/Docusate Sodium (Sennosides/Docusate Sodium Tablet) 2 tab PO BID [facility] [place] Last Admin: 03/04/23 08:20 Dose: 2 tab Documented By: MIS Sodium Chloride (0.9 % Sodium Chloride Flush 3 Ml Syringe) 3 ml IVFLUSH QSHIFT [facility] [place] Last Admin: 03/04/23 08:18 Dose: 3 ml Documented By: MIS Topiramate (Topiramate 25 Mg Tablet) 50 mg PO DAILY [facility] [place] Last Admin: 03/04/23 08:20 Dose: 50 mg Documented By: MIS Topiramate (Topiramate 100 Mg Tablet) 100 mg PO DAILY [facility] [place] Last Admin: 03/04/23 08:20 Dose: 100 mg Documented By: MIS Trazodone HCl (Trazodone Hcl 50 Mg Tablet) 50 mg PO BEDTIME [facility] [place] Last Admin: 03/03/23 20:00 Dose: 50 mg Documented By: MARIJAG Labs 03/04/23 05:32 03/04/23 05:32 Labs: Laboratory Results - last 24 hr 03/03/23 03/03/23 03/03/23 11:20 16:18 21:02 MCV MCH MCHC RDW Plt Count MPV Absolute Nucleated RBC Nucleated RBC % (auto) Anion Gap Estim Creat Clear Calc Estimated GFR POC Glucose 328 H 354 H* 244 H Random Glucose Calcium 03/04/23 03/04/23 03/04/23 05:32 05:32 07:03 MCV 85.7 MCH 27.9 MCHC 32.5 RDW 14.4 Plt Count 289 MPV 12.1 Absolute Nucleated RBC 0.000 Nucleated RBC % (auto) 0.0 Anion Gap 14 Estim Creat Clear Calc 32.8 Estimated GFR 33 POC Glucose 251 H Random Glucose 275 H Calcium 9.0 Assessment and Plan (1) Sepsis: Status: Acute (2) Acute UTI: Status: Acute (3) Bacteremia: Status: Acute (4) Diabetes type 2, controlled: Status: Acute Plan d#5 72yo F with DM2, HTN, asthma Found down on floor by daughter Hypoxic upon presentation, urinary findings concerning for UTI Found to be bacteremic # E coli bacteremia/UTI - ceftriaxone d32/14, change to cefuroxime upon discharge, ID consulted # KESHIA - resolving with volume repletion, NAINA-I never discontinued so continue for now # hyperK, mild - 1 dose SZC, recheck BMP in AM, if persists will hold NAINA-I # asthma exacerbation - taper steroids, continue neb treatments + montelukast # acute hypoxic resp failure - resolved # DM2 - resume basal insulin, continue correction-dose prandial insulin # HTN - continue amlodipine, lisinopril # mood disorder - continue aripiprazole, paroxetine, trazodone, topiramate # morbid obesity - diet/exercise counseling # VTE ppx: LMWH # dispo: STR planned In my clinical judgment, the patient requires continued inpatient hospitalization for the following reasons: IV ABX, placement Time Spent With Patient Time: Total time managing care of this patient today __35__ minutes. Quality Stroke Does the patient have a stroke diagnosis?: No VTE Prior VTE?: No VTE Risk Level:: Medical - moderate - high VTE Device Contraindication: Treatment Not Indicated VTE Drug Contraindication: N/A - Med Ordered
[2023-03-04 11:17] LABS: Glucose, Whole Blood 262 mg/dL (60-115)
[2023-03-04 14:19] VITALS: RESP 18; O2SAT 96
[2023-03-04 16:00] VITALS: BP 158/70; PULSE 87; RESP 20; TEMP 36.5; O2SAT 92
[2023-03-04 16:26] LABS: Glucose, Whole Blood 296 mg/dL (60-115)
[2023-03-04 19:59] VITALS: BP 154/65; PULSE 86; RESP 20; TEMP 36.8; O2SAT 96
[2023-03-04 20:51] LABS: Glucose, Whole Blood 209 mg/dL (60-115)
[2023-03-04] MEDS: traZODone HCL 50 MG TABLET PO (21:45)
[2023-03-04] MEDS: ARIPiprazole 20 MG TABLET PO (21:45)
[2023-03-05 04:00] VITALS: BP 144/69; PULSE 77; RESP 16; TEMP 36.5; O2SAT 96
[2023-03-05 06:44] LABS: Hematocrit 34.7 % (37.0-47.0); Hemoglobin 11.4 g/dl (12.0-16.0); Mean Corpuscular HGB Conc 32.9 g/dl (31.0-35.0); Mean Corpuscular Hemoglobin 28.4 pg (27.0-33.0); Mean Corpuscular Volume 86.3 fL (80.0-98.0); Mean Platelet Volume 11.5 fL (9.4-12.3); Platelet Count 332 X10*3/uL (160-400); Red Blood Count 4.02 X10*6/uL (4.20-5.50); Red Cell Distribution Width 14.2 % (11.0-16.0); White Blood Count 19.7 X10*3/uL (4.8-10.8)
[2023-03-05 07:03] LABS: Anion Gap 14 (12-20); Blood Urea Nitrogen 42 mg/dL (9-16); Calcium 9.3 mg/dL (8.4-10.2); Carbon Dioxide 25 mmol/L (22-29); Chloride 107 mmol/L (96-108); Creatinine Clr Calc Pharmacy 37.1; Estimated Glomerular Filt Rate 38; Glucose Random 241 mg/dL (60-115); Potassium 4.9 mmol/L (3.3-5.1); Sodium 141 mmol/L (135-145)
[2023-03-05 07:25] LABS: Glucose, Whole Blood 226 mg/dL (60-115)
[2023-03-05 07:33] VITALS: BP 153/76; PULSE 105; RESP 18; TEMP 37.1; O2SAT 98
[2023-03-05] MEDS: Insulin Glargine,Hum.rec.anlog 100 UNIT/ML 10 ML VIAL 20 UNIT SUBCUT (09:16)
[2023-03-05] MEDS: Heparin Sodium,Porcine 5,000 UNIT/ML VIAL 5000 UNIT SUBCUT (09:17)
[2023-03-05] MEDS: Topiramate 25 MG TABLET 50 MG PO (09:18)
[2023-03-05] MEDS: Montelukast Sodium 10 MG TABLET PO (09:19)
[2023-03-05] MEDS: PARoxetine HCL 40 MG TABLET PO (09:19)
[2023-03-05] MEDS: lisinopriL 40 MG TABLET PO (09:19)
[2023-03-05] MEDS: Topiramate 100 MG TABLET PO (09:19)
[2023-03-05] MEDS: Sennosides/Docusate Sodium TABLET 2 TAB PO (09:19)
[2023-03-05] MEDS: amLODIPine Besylate 10 MG TABLET PO (09:19)
[2023-03-05] MEDS: oxyBUTYnin chloride ER 5 MG TAB.ER.24 10 MG PO (09:19)
[2023-03-05] MEDS: 0.9 % Sodium Chloride Flush 3 ML SYRINGE IVFLUSH (09:20)
[2023-03-05] MEDS: polyethylene glycoL 3350 17 GM POWD.PACK PO (09:20)
[2023-03-05] MEDS: cefTRIAXone sodium 2 GM in 0.9 % Sodium Chloride 50 ML IV (09:23)
[2023-03-05] MEDS: Insulin Lispro 100 UNIT/ML 3 ML VIAL SUBCUT ×2 (09:28→12:11)
[2023-03-05] MEDS: methylPREDNISolone Sod Succ 125 MG/2 ML VIAL 40 MG IVPUSH (09:31)
--- NOTE | 2023-03-05 10:56 | PM.PNNEP ---
Subjective Subjective Date of Service: 03/05/23 Interval history: Events noted. No new complaints today. Physical Exam Vital Signs: Vital Signs: Last Vital Signs Temp 98.7 F 03/05/23 07:33 Pulse 105 H 03/05/23 07:33 Resp 18 03/05/23 07:33 BP 153/76 H 03/05/23 07:33 Pulse Ox 98 03/05/23 07:33 O2 Del Method Nasal Cannula 03/05/23 07:33 O2 Flow Rate 2.0 03/05/23 07:33 Oxygen Flow Rate 2 02/28/23 06:12 BMI result Body Mass Index 44.9 No headache. No nausea vomiting. No abdominal pain. No shortness of breath. No cough. No dysuria urgency or hematuria. No edema. No rash. Objective Data Labs 03/05/23 05:19 03/05/23 05:19 Labs: Laboratory Results - last 24 hr 03/04/23 03/04/23 03/04/23 11:04 16:22 20:47 WBC RBC Hgb Hct MCV MCH MCHC RDW Plt Count MPV Absolute Nucleated RBC Nucleated RBC % (auto) Sodium Potassium Chloride Carbon Dioxide Anion Gap BUN Creatinine Estim Creat Clear Calc Estimated GFR POC Glucose 262 H 296 H 209 H Random Glucose Calcium 03/05/23 03/05/23 03/05/23 05:19 05:19 07:09 WBC 19.7 H RBC 4.02 L Hgb 11.4 L Hct 34.7 L MCV 86.3 MCH 28.4 MCHC 32.9 RDW 14.2 Plt Count 332 MPV 11.5 Absolute Nucleated RBC 0.000 Nucleated RBC % (auto) 0.0 Sodium 141 Potassium 4.9 Chloride 107 Carbon Dioxide 25 Anion Gap 14 BUN 42 H Creatinine 1.35 Estim Creat Clear Calc 37.1 Estimated GFR 38 POC Glucose 226 H Random Glucose 241 H Calcium 9.3 Microbiology Microbiology Results: Microbiology 02/28/23 06:51 Blood - Venous Blood Culture - Final Escherichia coli 02/28/23 06:44 Blood - Venous Blood Culture - Final Escherichia coli 02/28/23 Unknown Urine clean catch - Urine harris top Urine Culture - Final Escherichia coli Procedures Date of Service Date of Service: 03/05/23 Assessment & Plan Assessment and plan (1) RYLAND (acute kidney injury): Status: Acute Plan Ryland due to hypoperfusion/tubular injury. Renal function is improving. Keep intake more than the output. Continue to avoid nephrotoxic agents. She needs outpatient follow-up when discharged. She has significant proteinuria. Mostly due to diabetic kidney disease. She needs NAINA inhibitor when renal function stabilizes. He would also benefit from Farxiga and this can be started as an outpatient. Anemia. Multifactorial. Hyperkalemia. Keep on low-potassium diet. Hold NAINA inhibitors. Giuseppe murry. Time Spent With Patient Time: Total time managing care of this patient today ____ minutes. Progress Note: Quality Stroke Does the patient have a stroke diagnosis?: No
[2023-03-05 11:20] LABS: Glucose, Whole Blood 228 mg/dL (60-115)
--- NOTE | 2023-03-05 13:00 | MHC.CM.PN ---
DAUGHTER (IN ROOM) AGREES TO [facility] (PRIVATE ROOM) IMM 03/04 IN CHART 3-4 PM TRANSPORT TO BE ARRANGED
--- NOTE | 2023-03-05 13:39 | PM.DS ---
DS: Providers Provider Date of Service: 03/05/23 Date of admission: 02/28/23 12:02 Date of discharge: 03/05/23 Primary care physician: Consuelo Iniguez NP Consults: 02/28/23 12:05 Consult to Nephrology Routine Consulting Provider: Sawyer Cervantes Reason for consultation: TODD Has provider been notified: No 03/01/23 07:52 Consult to Infectious Diseases Routine Consulting Provider: Mnoica Burt Reason for consultation: GNR bacteremia Has provider been notified: Yes DS: Diagnosis Discharge Diagnosis (1) KESHIA (acute kidney injury): Status: Acute (2) Sepsis: Status: Acute (3) Bacteremia: Status: Acute (4) Asthma exacerbation: Status: Acute (5) Acute respiratory failure with hypoxia: Status: Acute (6) Morbid obesity: Status: Acute DS: Summary Hospital Course Hospital Course: from admission H+P by hospitalist Lj Bianchi DO, 02/28/23: 72-year-old female with past medical history diabetes, hypertension, and asthma brought to the ED for 2 episodes of fall and 1 episode of hypoxemia.? For the past 2 days patient has been coughing, fever and feeling weak.? Daughter states patient lives alone and saw on the Camera patient fell twice off the bed.? EMS found patient O2 sat on room air 88%.? Patient is not oxygen dependent.? Patient was placed on 2 L cannula.? Patient states she had pneumonia last year.? Patient never intubated for asthma. ER Course Workup in ER consistent with UTI.? Patient started on antibiotics and will be admitted for same 72yo F with DM2, HTN, and asthma who was found down on floor by daughter. She was hypoxic upon presentation to the ED, and had urinary findings concerning for UTI. She was admitted to the medical-surgical floor and actually found to be bacteremic. She also had prerenal KESHIA. Hospital course by problem: # E coli bacteremia/UTI - ID consulted. Treated with ceftriaxone for 4 days and changed to cefuroxime for 10 days upon discharge. # KESHIA - Resolving with volume repletion. NAINA-I never discontinued and creatinine improved. Avoid NSAIDs. # acute hypoxic resp failure due to asthma exacerbation - Treated with steroid taper and nebulized bronchodilators. - Weaned off oxygen. She was discharged to [facility] for short-term rehabilitation. Time Spent with Patient Time attestation: Total time managing care of this patient today ____45 minutes. Discharge coordination time: Greater than 30 minutes Quality: Safe Use of Opioids Does Pt have an Active Cancer Diagnosis on the Problem List?: No Quality: Stroke Does the patient have a stroke diagnosis?: No Physical Exam Vital Signs: Vital Signs: Last Vital Signs Temp 98.7 F 03/05/23 07:33 Pulse 105 H 03/05/23 07:33 Resp 18 03/05/23 07:33 BP 153/76 H 03/05/23 07:33 Pulse Ox 98 03/05/23 07:33 O2 Del Method Nasal Cannula 03/05/23 07:33 O2 Flow Rate 2.0 03/05/23 07:33 Oxygen Flow Rate 2 02/28/23 06:12 BMI result Body Mass Index 44.9 Gen: in no acute distress HEENT: sclera anicteric, moist mucus membranes Neck: supple Lungs: clear to auscultation bilaterally Heart: regular rate and rhythm, no murmurs Abd: soft, non-tender, non-distended, morbid obesity Ext: no edema Skin: warm/well-perfused Neuro: alert and oriented x3, no focal findings Psych: appropriate affect DS: Data Data Completed and Pending Completed studies during hospitalization [Text1]: Laboratory Results WBC 19.7 X10*3/uL (4.8-10.8) H 03/05/23 05:19 RBC 4.02 X10*6/uL (4.20-5.50) L 03/05/23 05:19 Hgb 11.4 g/dl (12.0-16.0) L 03/05/23 05:19 Hct 34.7 % (37.0-47.0) L 03/05/23 05:19 MCV 86.3 fL (80.0-98.0) 03/05/23 05:19 MCH 28.4 pg (27.0-33.0) 03/05/23 05:19 MCHC 32.9 g/dl (31.0-35.0) 03/05/23 05:19 RDW 14.2 % (11.0-16.0) 03/05/23 05:19 Plt Count 332 X10*3/uL (160-400) 03/05/23 05:19 MPV 11.5 fL (9.4-12.3) 03/05/23 05:19 Immature Gran % (Auto) Cancelled 03/03/23 06:07 Neut % (Auto) Cancelled 03/03/23 06:07 Lymph % (Auto) Cancelled 03/03/23 06:07 Laurens % (Auto) Cancelled 03/03/23 06:07 Eos % (Auto) Cancelled 03/03/23 06:07 Baso % (Auto) Cancelled 03/03/23 06:07 Lymph # (Auto) Cancelled 03/03/23 06:07 Laurens # (Auto) Cancelled 03/03/23 06:07 Eos # (Auto) Cancelled 03/03/23 06:07 Baso # (Auto) Cancelled 03/03/23 06:07 Abs Immat Gran (auto) Cancelled 03/03/23 06:07 Absolute Neuts (auto) Cancelled 03/03/23 06:07 Absolute Nucleated RBC 0.000 X10*3/uL (0.0-0.012) 03/05/23 05:19 Nucleated RBC % (auto) 0.0 /100WBC (0.0-0.2) 03/05/23 05:19 Neutrophils % (Manual) 81 % (45-73) H 03/03/23 06:07 Band Neutrophils % 4 % (3-5) 03/03/23 06:07 Lymphocytes % (Manual) 7 % (20-40) L 03/03/23 06:07 Atypical Lymphs % (Man) 1 % (0-6) 03/03/23 06:07 Monocytes % (Manual) 2 % (2-11) 03/03/23 06:07 Eosinophils % (Manual) 1 % (0-4) 03/03/23 06:07 Basophils % (Manual) 1 % (0-2) 02/28/23 06:44 Metamyelocytes % 4 % 03/03/23 06:07 Abs Neuts (Manual) 14.2 X10*3/uL (2.0-8.3) H 03/03/23 06:07 Lymphocytes # (Manual) 1.2 X10*3/uL (1.2-4.9) 03/03/23 06:07 Atyp Lymphs # (Manual) 0.2 x10*3/uL 03/03/23 06:07 Monocytes # (Manual) 0.3 X10*3/uL (0.1-1.2) 03/03/23 06:07 Eosinophils # (Manual) 0.2 X10*3/uL (0.0-0.4) 03/03/23 06:07 Basophils # (Manual) 0.2 X10*3/uL (0.0-0.2) 02/28/23 06:44 Metamyelocytes # 0.7 X10*3/uL 03/03/23 06:07 Platelet Estimate NORMAL (NORMAL) 03/03/23 06:07 Plt Morphology Comment NORMAL 03/03/23 06:07 RBC Morphology NORMAL 03/03/23 06:07 Polychromasia 1+ (0-2) /OIF 03/01/23 05:35 Hypochromasia 1+ (5-14) /OIF 03/01/23 05:35 [place] Cells 3+ (>5) /OIF 03/01/23 05:35 PT 12.9 SEC (10.0-13.1) 02/28/23 06:44 INR 1.1 (0.9-1.1) 02/28/23 06:44 APTT 31.1 SEC (26.0-36.4) 02/28/23 06:44 Sodium 141 mmol/L (135-145) 03/05/23 05:19 Potassium 4.9 mmol/L (3.3-5.1) 03/05/23 05:19 Chloride 107 mmol/L (96-108) 03/05/23 05:19 Carbon Dioxide 25 mmol/L (22-29) 03/05/23 05:19 Anion Gap 14 (12-20) 03/05/23 05:19 BUN 42 mg/dL (9-16) H 03/05/23 05:19 Creatinine 1.35 mg/dL (0.5-1.4) 03/05/23 05:19 Estim Creat Clear Calc 37.1 03/05/23 05:19 Estimated GFR 38 03/05/23 05:19 POC Glucose 228 mg/dL (60-115) H 03/05/23 11:15 Random Glucose 241 mg/dL (60-115) H 03/05/23 05:19 Fasting Glucose 339 mg/dL (60-99) H 03/03/23 06:07 Lactic Acid 1.4 mmol/L (0.5-2.0) 02/28/23 06:44 Calcium 9.3 mg/dL (8.4-10.2) 03/05/23 05:19 Total Bilirubin 0.3 mg/dL (0.0-1.0) 03/03/23 06:07 AST 10 U/L (5-31) 03/03/23 06:07 ALT 17 U/L (0-31) 03/03/23 06:07 Alkaline Phosphatase 124 U/L (39-117) H 03/03/23 06:07 Troponin I High Sens 11.8 ng/L (<3.5-17.0) 02/28/23 07:29 B-Natriuretic Peptide 47 pg/mL (<100) 02/28/23 06:44 Total Protein 6.6 g/dL (6.5-8.0) 03/03/23 06:07 Albumin 3.1 g/dL (3.5-5.0) L 03/03/23 06:07 Urine Color Dark Yellow 02/28/23 09:48 Urine Appearance Turbid 02/28/23 09:48 Urine pH 5.5 (5.0-9.0) 02/28/23 09:48 Ur Specific Jakin 1.015 (1.005-1.025) 02/28/23 09:48 Urine Protein 300 (3+) mg/dL (Neg-Trace) H 02/28/23 09:48 Urine Glucose (UA) Negative mg/dL (Negative) 02/28/23 09:48 Urine Ketones Trace mg/dL (Negative) 02/28/23 09:48 Urine Blood Moderate (2+) (Negative) H 02/28/23 09:48 Urine Nitrite Positive (Negative) H 02/28/23 09:48 Ur Leukocyte Esterase Large (3+) (Negative) H 02/28/23 09:48 Urine RBC 6-10 /HPF (0-2) H 02/28/23 09:48 Urine WBC >50 /HPF (0-5) H 02/28/23 09:48 Ur Squamous Epith Cells >20 /HPF (0-2) 02/28/23 09:48 Urine Bacteria 4+ (None Seen) 02/28/23 09:48 Hyaline Casts 3-5 /LPF (0-2) 02/28/23 09:48 U Random Total Protein 16 mg/dL (<12) H 03/02/23 10:28 Ur Random Sodium < 20.0 mmol/L 03/02/23 10:28 Urine Creatinine 72.12 mg/dL 03/02/23 10:28 COVID-19 (LEONARDO) Negative (Negative) 02/28/23 06:36 COVID-19 Clin Com See Note 02/28/23 06:36 Influenza Type A (PCR) NEGATIVE (Negative) 02/28/23 06:51 Influenza Type B (PCR) NEGATIVE (Negative) 02/28/23 06:51 RSV RNA Qual (PCR) NEGATIVE (Negative) 02/28/23 06:51 SARS-CoV-2 RNA (RT-PCR) NEGATIVE (Negative) 02/28/23 06:51 Impressions Abdomen/Pelvis CT 02/28/23 08:03 IMPRESSION: Limited by motion artifact and noncontrast technique. No acute abnormality in the chest, abdomen or pelvis. Nonspecific bilateral perinephric stranding. 4 mm nonobstructing left renal calculus. Cervical Spine CT 02/28/23 08:03 IMPRESSION: * No acute intracranial pathology. * No fracture or malalignment in the mildly degenerated cervical spine. Chest CT 02/28/23 08:03 IMPRESSION: Limited by motion artifact and noncontrast technique. No acute abnormality in the chest, abdomen or pelvis. Nonspecific bilateral perinephric stranding. 4 mm nonobstructing left renal calculus. Head CT 02/28/23 08:03 IMPRESSION: * No acute intracranial pathology. * No fracture or malalignment in the mildly degenerated cervical spine. Discharge Plan Discharge Anticipated Discharge Date/Time: 03/01/23 10:42 Patient Disposition: [facility] Discharge Diagnosis: sepsis due to E coli bacteremia/UTI acute kidney injury asthma exacerbation Referrals: Consuelo Iniguez NP [Primary Care Provider] - 1 Week Discharge Medications: New cefuroxime axetil 500 mg tablet 500 mg PO BID Qty: 20 0RF prednisone 10 mg tablet 10 mg PO DIRECTED Qty: 30 0RF Rx Instructions: 40 mg daily x 3 days, then 30 mg daily x 3 days, then 20 mg daily x 3 days, then 10 mg daily x 3 days, then stop Continued amlodipine 10 mg tablet 10 mg PO DAILY Qty: 90 3RF aripiprazole 20 mg tablet 20 mg PO BEDTIME Qty: 90 3RF ferrous sulfate 325 mg (65 mg iron) tablet 325 mg PO DAILY Qty: 90 3RF lisinopril 40 mg tablet 40 mg PO DAILY 90 Days Qty: 90 3RF metformin 500 mg tablet 500 mg PO BID 90 Days Qty: 180 3RF montelukast 10 mg tablet 10 mg PO DAILY Qty: 90 3RF paroxetine HCl 40 mg tablet 40 mg PO DAILY Qty: 90 3RF topiramate 100 mg tablet 100 mg PO DAILY Qty: 90 3RF topiramate 50 mg tablet 50 mg PO DAILY Qty: 90 3RF trazodone 50 mg tablet 50 mg PO BEDTIME 90 Days Qty: 90 3RF (DME) [facility] See [facility] Instructions .ROUTE .MEDSUPPLY Qty: 270 3RF Rx Instructions: Pampers Adult Diapers XL, 3 times a day, As directed, 90 days (DME) [facility] See Rx Instructions .ROUTE .MEDSUPPLY Qty: 2 3RF Rx Instructions: Nitrile Gloves, Medium, 2 boxes per month, As directed, 30 days (DME) [place]ellaneous [place] [facility] [place] Instructions .ROUTE .MEDSUPPLY Qty: 4 3RF Rx Instructions: Sanitary Wipes, As directed, 30 days insulin glargine [Basaglar KwikPen U-100 Insulin] 100 unit/mL (3 mL) insulin pen 30 unit subcut DAILY albuterol sulfate 90 mcg/actuation HFA aerosol inhaler 2 puff inhalation Q4-6H PRN (Reason: shortness of breath or wheezing) Qty: 8.5 0RF (DME) blood-glucose meter [FreeStyle Lite Meter] Kit See Rx Instructions .ROUTE .MEDSUPPLY Qty: 1 0RF Rx Instructions: As directed (DME) FreeStyle Lite Strips Strip See Rx Instructions .ROUTE .MEDSUPPLY Qty: 100 12RF Rx Instructions: As directed 2-3 times daily (DME) lancets [FreeStyle Lancets] 28 gauge misc See Rx Instructions .ROUTE .MEDSUPPLY Qty: 100 12RF Rx Instructions: As directed bs checks 2-3 times daily oxybutynin chloride 10 mg tablet extended release 24hr 10 mg PO DAILY Qty: 90 1RF senna 8.6 mg capsule 17.2 mg PO DAILY Qty: 180 3RF Discontinued ibuprofen 600 mg tablet 600 mg PO Q8H PRN (Reason: pain) Qty: 90 2RF Discharge Orders: Discharge Order (Routine); Ordered 03/05/23 Ordered By: Dell Brown Diet: Advance to usual diet Activity on Discharge: As tolerated Stand Alone Forms: Patient Portal Discharge page Care Plan Goals: cure of infection renal health pulmonary health Health Concerns: sepsis due to E coli bacteremia/UTI acute kidney injury asthma exacerbation Plan of Treatment: SNF for short-term rehab cefuroxime 500 mg 2x a day x 10 days prednisone taper: 40 mg daily x 3 days, then 30 mg daily x 3 days, then 20 mg daily x 3 days, then 10 mg daily x 3 days avoid nSAIDs Please follow up with your primary care doctor within 1 week of discharge from SNF. Return to the hospital if you experience recurrent or worsening symptoms. Assessment: See Discharge Summary.
--- NOTE | 2023-03-05 14:06 | MHC.CM.PN ---
PATIENT TO TRANSFER TO [facility] FOR [facility]. RN AND UNIT AWARE OF PLAN
[2023-03-05 16:00] VITALS: BP 154/60; PULSE 85; RESP 20; TEMP 36.6; O2SAT 96
== END 2023-03-05 17:15 | disposition skilled nursing facility (03) | DRG 871 ==
LOC: HO.ED 08:21 → HO.EDOVER 12:30 → HO.S3 17:28
PROVIDERS: Internal Medicine Nephrology; Physician Assistant; Admitting Provider Hospitalist; Emergency Provider Emergency Medicine; PCP Hospitalist; Visit Provider Family Medicine
DX: A41.9 Sepsis, unspecified organism (principal); N17.0 Acute kidney failure with tubular necrosis; N39.0 Urinary tract infection, site not specified; Z68.41 Body mass index [BMI] 40.0-44.9, adult; J45.901 Unspecified asthma with (acute) exacerbation; E11.9 Type 2 diabetes mellitus without complications; E78.00 Pure hypercholesterolemia, unspecified; E66.01 Morbid (severe) obesity due to excess calories; R29.6 Repeated falls; Z91.81 History of falling; E87.5 Hyperkalemia; D64.9 Anemia, unspecified; B96.20 Unspecified Escherichia coli [E. coli] as the cause of diseases classified elsewhere; Z20.822 Contact with and (suspected) exposure to COVID-19; Z87.891 Personal history of nicotine dependence; Z79.4 Long term (current) use of insulin; Z79.84 Long term (current) use of oral hypoglycemic drugs; Z79.899 Other long term (current) drug therapy
CPT/HCPCS: 0241U; 36415; 70450; 71250; 72125; 74176; 80048; 80053; 81001; 82947; 83605; 83880; 84156; 84300; 84484; 85007; 85025; 85027; 85610; 85730; 87040; 87077; 87086; 87088; 87186; 87205; 87635; 93005; 94640; 97162; 97530; 99285; J0456; J0696; J1643; J2185; J2930

== ENCOUNTER 2023-04-10 14:37 | Outpatient (AMB) | payer MEDICARE, MEDICAID, SELFPAY ==
--- NOTE | 2023-04-10 14:40 | A.OFFPC_ITS ---
Vital Signs 04/10/23 14:51 04/10/23 15:21 BMI Reason not done Patient refused/unable BP 140/78 H 138/80 Blood Pressure Location Lt brachial Lt brachial Position Sitting Sitting Pulse 107 H 96 Pulse Source Pulse Oximeter Palpation Pulse Oximetry (%) 99 Intake Visit Reasons: 03/31 [facility], UTI with bacteria Intake Note: pt is here for f/u from [facility] due to having UTI Commodity Director Required: No Accompanied by: Self / Same As Patient Allergies No Known Allergies Allergy (Verified 04/10/23 14:41) Tobacco use date assessed: 12/16/22 Fall risk assessment: 1 Fall in past year Last assessed Fall Risk: 04/10/23 Dental Screening Dental Screen Date: 04/10/23 Did you have a dental visit in the last 12 months?: No Did you have a dental problem in the last 6 months where you did not have access to dental care?: No Was dental information given to patient?: Yes HPI HPI Comments History of Present Illness Details 72-year-old female presents for a follow-up visit. Her daughter notes that the pt received a month of PT at [facility] after a fall. No injury. She was found to have UTI the day she was discharged on 03/31/2023. She was prescribed antibiotics which she notes she took as prescribed and completed the course. She reports moderate swelling to both lower legs and feet for the past 3 days. No pain or discomfort. She reports chronic pain to her shoulders and knees. She has been taking Tylenol with minimal improvement. Her sister notes that the patient has recently been consuming significant amount of rice, bread, pasta, and potatoes. Her sister states that a nurse goes to the patient home and monitors her blood pressure. [facility] Medical History Abscess of left thigh Arthritis Asthma Diabetes High blood pressure High cholesterol Morbid obesity Sepsis Social History Household Members: None Household Members Other:: 0 Housing: Apartment Do you presently have visiting nurse or other home services: Yes Patient Tobacco Use Status: Former Tobacco user Quit Date: a few years ago Tobacco use type: Cigarette Cigarettes Per Day: 10 Years Smoked: 4 e-Cigarette/Vaping Use: Never Used Second Hand Smoke Exposure: No service: No Current occupational status: disabled Current occupational exposures/hazards: No Cognitive needs: No Hearing needs: No Vision needs: Yes Questionnaire Thrive Questionnaire Date Thrive assessed: 03/01/23 Review of Systems Const Details: Const Denies chills, Denies fatigue, Denies fever(s), Denies headache(s) and Denies weakness ENT Denies dizziness and Denies headache(s) Card Denies chest pain, Denies lightheadedness, Denies dyspnea and Denies other (Palpitations) Resp Denies cough, Denies dyspnea, Denies wheezing and Denies other ( shortness of breath) GI Denies abdominal pain, Denies melena, Denies hematochezia, Denies change in bowel habits, Denies dyspepsia and Denies nausea Denies hematuria and Denies dysuria Musc Reports chronic shoulders and bilateral knee pain, reports bilateral lower extremity edema, Denies abnormal gait, Denies numbness and Denies tingling Skin/Breast Denies rash, Denies unusual bruising and Denies wounds Neuro Denies abnormal gait, Denies dizziness, Denies headache(s), Denies memory loss, Denies numbness, Denies Sensory deficit (Neuro), Denies tingling and Denies weakness Psych Denies anxiety and Denies depression Endo Denies fatigue Aller/Immun Denies wheezing Physical exam (Primary Care) Vital Signs: Last Vital Signs Pulse 96 04/10/23 15:21 BP 138/80 04/10/23 15:21 Pulse Ox 99 04/10/23 14:51 Tobacco/Smoking Status: Tobacco use Status Tobacco use date assessed 12/16/22 04/10/23 14:44 Patient Tobacco Use Status Former Tobacco user 04/10/23 14:44 Tobacco use type Cigarette 04/10/23 14:44 e-Cigarette/Vaping Use Never Used 04/10/23 14:44 Thrive Assessment: Date of Thrive Assessment Date Thrive assessed 03/01/23 04/10/23 14:44 Const Other: General: no acute distress and well developed Nutritional Appearance: well nourished Orientation/consciousness: patient oriented x3 HENMT Head: Yes normocephalic and Yes atraumatic Eyes General: appearance normal, both eyes and all related structures Pupils: Equal, round and reactive pupils present EOM: EOMs intact bilaterally Resp Effort & Inspection: normal respiratory effort Auscultation: clear to auscultation bilaterally Cardio Rate: regular rate Rhythm: regular rhythm Heart sounds: S1 normal heart sound present, S2 normal heart sound present, no gallops, no murmurs and no rubs GI Palpation (GI): No Abdominal aortic bruit present, Soft to palpation, nontender, No hepatosplenomegaly present and No Rebound tenderness present Auscultation: normal bowel sounds General: Yes no CVA tenderness Back/Spine/Pelvis Back: no CVA tenderness Cervical Spine: cervical ROM normal and No Cervical spine tenderness Thoracic/Lumbar Spine: thoraco-lumbar ROM normal, No pain with thoraco-lumbar ROM, No thoracic spinal tenderness and No lumbar spinal tenderness Extrem General: Yes normal to inspection, No calf tenderness Moderate nonpitting edema to bilateral lower legs and feet. No edema or overt injury or trauma noted Limited ROM of both shoulders Skin General: warm and dry. Normal skin color. Normal skin turgor Lesions: no lesions Rashes: no rashes Trauma: no lacerations or abrasions Wounds: no wounds Nails: normal Neuro General: patient oriented x3, gait normal and no focal neuro deficit Cranial nerves: Yes Equal, round and reactive pupils present Cognition (Neuro): normal cognition Gait exam (Neuro): Normal gait present Motor exam (neuro): 5/5 motor strength present throughout Sensory Exam: No Sensory deficit (Neuro) Psych Affect: normal affect Results AMB Hemoglobin A1c AMB Hemoglobin A1c 8.5 % Last Edit by Krzysztof Penaloza CMA on 04/10/23 15: 40 Results Reviewed Results Reviewed: Laboratory Last Values Hgb A1c (Clinic) 8.5 % (4.0-6.0) H 04/10/23 15:39 Assessment and Plan Assessment & Plan (1) Iron deficiency anemia: Code(s): D50.9 - Iron deficiency anemia, unspecified Plan: Recent blood work reviewed with the patient RBC was low, 3.42, H&H was low, 9.5/31.1 Continue to take ferrous sulfate as prescribed Will repeat CBC Will check iron profile and ferritin level Encouraged to get blood work done Follow-up with concerns or symptoms Verbalized understanding and agreed with treatment plan. (2) Type 2 diabetes mellitus: Code(s): E11.9 - Type 2 diabetes mellitus without complications Plan: A1c today is 8.5%, above goal of less than 7.0% Previous A1c on 10/2022 was 7.0% Metformin and glargine as prescribed ADA diet encouraged. Advised to avoid rice, pasta, bread, and potato Will check lipid level. Will also check TSH/T4 level due to history of elevated TSH Follow-up with PCP in 2 months or return sooner with concerns or symptoms Verbalized understanding and agreed with treatment plan. (3) High blood pressure: Code(s): I10 - Essential (primary) hypertension Plan: Blood pressure is elevated, 138/80, above goal of less than 130/80 Amlodipine discontinued due to possible adverse reaction of bilateral lower extremity edema Metoprolol ordered. Take as prescribed Continue take amlodipine as prescribed Low-sodium diet encouraged Advised to have the nurse monitor her BP frequently and report BP consistently above 140/90 Follow-up with PCP in 2 months Verbalized understanding and agreed with treatment plan. (4) Bilateral lower extremity edema: Code(s): R60.0 - Localized edema Plan: Moderate nonpitting edema to bilateral lower legs and feet. No edema or overt injury or trauma noted Likely due to adverse reaction of amlodipine Amlodipine discontinued Elevated bilateral lower extremity with sitting or lying Follow-up with worsening or new signs and symptoms Verbalized understanding and agreed with treatment plan. (5) Pain in joints: Code(s): M25.50 - Pain in unspecified joint Plan: She reports chronic pain to her shoulders and knees Limited ROM of both shoulders Likely arthritis May take ibuprofen or Tylenol for pain or discomfort Warm/cold compresses encouraged Follow-up with worsening or new symptoms Verbalized understanding and agreed with treatment plan. Orders: Orders Basic Metabolic Panel Today D50.9 - Iron deficiency anemia, unspecified Ferritin Today D50.9 - Iron deficiency anemia, unspecified IRON PROFILE Today D50.9 - Iron deficiency anemia, unspecified Complete Blood Count no Diff Today D50.9 - Iron deficiency anemia, unspecified Lipid Panel Today E11.9 - Type 2 diabetes mellitus without complications Microalbumin, Random (w Creat) Today E11.9 - Type 2 diabetes mellitus without complications TSH reflex Free T4 Today E11.9 - Type 2 diabetes mellitus without complications AMB Hemoglobin A1c Today E11.9 - Type 2 diabetes mellitus without complications Medications: New metoprolol tartrate 50 mg PO DAILY 30 days 30 tabs 2RF pen needle, diabetic (BD Ultra-Fine Micro Pen Needle) Use with glargine pen 100 ea 4RF Discontinued insulin glargine 50 units (0.5 mL) subcut DAILY 3 months 45 mL 3RF E11.9 - Type 2 diabetes mellitus without complications amlodipine Discontinued Reason: Doctor's Order 10 mg PO DAILY 90 tabs 3RF Coding Level of Care Code Est Pt Level 4 (88504) Diagnoses Iron deficiency anemia D50.9 Type 2 diabetes mellitus E11.9 High blood pressure I10 Bilateral lower extremity edema R60.0 Pain in joints M25.50 Time Spent (min) 35
[2023-04-10 14:51] VITALS: BP 140/78; PULSE 107; O2SAT 99
[2023-04-10 15:21] VITALS: BP 138/80; PULSE 96
== END 2023-04-10 15:51 | disposition home or self-care (01) ==
PROVIDERS: PCP Hospitalist; Visit Provider Nurse Practitioner Family
DX: D50.9 Iron deficiency anemia, unspecified (principal); E11.9 Type 2 diabetes mellitus without complications; I10 Essential (primary) hypertension; R60.0 Localized edema; M25.50 Pain in unspecified joint
CPT/HCPCS: 83036; 99214

== ENCOUNTER 2023-04-10 16:21 | Outpatient (REF) | payer MEDICARE, MEDICAID, SELFPAY ==
[2023-04-10 17:33] LABS: Anion Gap 15 (12-20); Blood Urea Nitrogen 16 mg/dL (9-16); Calcium 9.8 mg/dL (8.4-10.2); Carbon Dioxide 24 mmol/L (22-29); Chloride 105 mmol/L (96-108); Cholesterol 214 mg/dL; Estimated Glomerular Filt Rate 55; Glucose Random 159 mg/dL (60-115); HDL Cholesterol 38 mg/dL; Iron 53 mcg/dL (30-160); LDL Cholesterol Calculated 132 mg/dl; Percent Iron Saturation 22 % (15-50); Potassium 4.2 mmol/L (3.3-5.1); Sodium 140 mmol/L (135-145); Total Iron Binding Capacity 240 mcg/dL (228-428); Triglycerides 220 mg/dL; Unsaturated Iron Binding 187 ug/dL
[2023-04-10 17:48] LABS: Ferritin 121 ng/mL (10-250); TSH reflex Free T4 3.44 uIU/mL (0.32-4.0)
[2023-04-10 18:59] LABS: Microalbum/Creatinine Ratio Ur 29.6 ug/mg cr
== END 2023-04-10 16:22 | disposition home or self-care (01) ==
LOC: HO.LAB 16:21
PROVIDERS: Visit Provider Nurse Practitioner Family
DX: D50.9 Iron deficiency anemia, unspecified (principal); E11.9 Type 2 diabetes mellitus without complications
CPT/HCPCS: 36415; 80048; 80061; 82043; 82728; 83540; 84443

== ENCOUNTER 2023-04-29 11:18 | Outpatient (AMB) | payer MEDICARE, MEDICAID, SELFPAY ==
--- NOTE | 2023-04-29 11:22 | MHC.OFFVIS ---
Intake Vital Signs 04/29/23 11:27 BMI Reason not done Patient refused/unable Intake Visit Reasons: 3 month follow up Intake Note: Iris presents in the office as a 3 month follow up. CC: Pains in the stomach, diarrhea, she also states that she is having acid reflux. She thinks she may have issues with hemmorhoids again. She states that she had surgery for them 30 years ago. It Infrastructure Manager Required: Yes It Infrastructure Manager Name: Jarrod [email or web address] Allergies No Known Allergies Allergy (Verified 04/29/23 11:26) HPI 3 month follow up HPI Details LAST VISIT (1) Chronic GERD: ?Code(s): K21.9 - Gastro-esophageal reflux disease without esophagitis ?Plan: Patient reports occasional epigastric discomfort with occasional dyspepsia without dysphagia or odynophagia.? Patient is not moving her bowels well discussed with her also eating habits.? Eating smaller meals and more often.? Patient needs to move her bowels better.? Her symptoms are only occasional.? Patient was encouraged not to lay down after meals for minimum 3 hours. (2) IBS (irritable bowel syndrome): ?Code(s): K58.9 - Irritable bowel syndrome without diarrhea ?Qualifiers: ?Irritable bowel syndrome type:?with both diarrhea and constipation? Qualified Code(s):?K58.2 - Mixed irritable bowel syndrome ?Plan: Postprandial abdominal bloating occasional loose stools, however patient reports that for the most part she is constipated.? Patient is currently on senna hour 1 tablet every evening.? I will start patient on Citrucel in the morning with full glass of water to help her both her stools.? I will increase her Senokot to 2 tablets in the evening to help her evacuate better.? Low FODMAP diet discussed with patient.? List of food recommended as well as list of food to avoid given to patient.? Patient was encouraged to avoid? food that makes her bloated.? Discussed with patient to try to increase activity to promote better bowel motility.? Will check vitamin B12, folate, lipase, liver panel, thyroid study, vitamin-D.? I will see her in 3 months, sooner on as needed basis.? Patient is agreeable to this plan and verbalizes understanding of instructions.? She was given the opportunity to ask questions and all questions answered. TODAY'S VISIT Patient is here today for follow-up. Patient is accompanied by her daughter this time. Patient's daughter reports that her CASSANDRA CONSULTANT no longer works for the [employer]. They are in the process of looking for 1. Patient continues to have occasional loose stools. States that she takes 2 Senokot every evening and [facility] [id number] will send refill. Patient reports epigastric discomfort postprandially. Postprandial abdominal bloating. Patient's daughter reports that patient eats food that is fried. Patient tends to eat large meals. Patient denies any nausea or vomiting reports dyspepsia without dysphagia or odynophagia. Patient's daughter reports that when patient has multiple loose stools she has blood when she wipes. History of hemorrhoid surgery over 30 years ago. Patient is mostly wheelchair bound and is sitting a lot. Will discuss sitting on a donut pillow to help with the discomfort. [facility] Medical History Abscess of left thigh Arthritis Asthma Diabetes High blood pressure High cholesterol Morbid obesity Sepsis Surgical History (Updated 04/29/23 @ 11:26 by RAJI Nickerson) Hx of colonoscopy Social History Household Members: None Household Members Other:: 0 Housing: Apartment Do you presently have visiting nurse or other home services: Yes Patient Tobacco Use Status: Former Tobacco user Quit Date: a few years ago Tobacco use type: Cigarette Cigarettes Per Day: 10 Years Smoked: 4 e-Cigarette/Vaping Use: Never Used Second Hand Smoke Exposure: No service: No Current occupational status: disabled Current occupational exposures/hazards: No Cognitive needs: No Hearing needs: No Vision needs: Yes Results Reviewed Results Reviewed: Laboratory Tests 04/10/23 15:39 Hgb A1c (Clinic) 8.5 H Assessment & Plan Assessment & Plan (1) Chronic GERD: Code(s): K21.9 - Gastro-esophageal reflux disease without esophagitis Plan: Start patient on pantoprazole. Discussed with patient avoiding dietary triggers and late night snacking. Staying upright for minimal 3 hours after meals discussed with patient. 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 Patient is mostly in the wheelchair. Discussed with patient avoiding dietary triggers. Stressed the importance of low FODMAP diet. Avoid food that is fried, greasy and spicy. I will see patient in 2 months, sooner on as needed basis. Both patient and her daughter are agreeable to plan of care and verbalizes understanding of instructions. They were given the opportunity to ask questions and all questions answered. Thank you for allowing me to participate in her care Medications: New docusate sodium 100 mg PO BEDTIME 90 caps 3RF K59.00 - Constipation, unspecified pantoprazole robert saji tableta media hora antes del desayuno 40 mg PO DAILY 30 tabs 2RF K21.9 - Gastro-esophageal reflux disease without esophagitis Discontinued insulin glargine 50 units (0.5 mL) subcut DAILY 3 months 45 mL 3RF E11.9 - Type 2 diabetes mellitus without complications Coding Level of Care Code Est Pt Level 4 (38431) Diagnoses Chronic GERD K21.9 IBS (irritable bowel syndrome) K58.2 Irritable bowel syndrome type: with both diarrhea and constipation Time Spent (min) 35 Comment 20 minutes spent with patient and additional 15 minutes spent reviewing her records
== END 2023-04-29 11:51 | disposition home or self-care (01) ==
PROVIDERS: PCP Hospitalist; Visit Provider Nurse Practitioner Family
DX: K21.9 Gastro-esophageal reflux disease without esophagitis (principal); K58.2 Mixed irritable bowel syndrome
CPT/HCPCS: 99214

== ENCOUNTER → 2023-04-29 11:18 | Outpatient (BNVA) | payer MEDICARE, MEDICAID, SELFPAY | PROVIDERS: PCP Hospitalist; Visit Provider Nurse Practitioner Family | DX: K21.9 Gastro-esophageal reflux disease without esophagitis (principal); K58.2 Mixed irritable bowel syndrome | CPT/HCPCS: 99212 ==

== ENCOUNTER 2023-06-02 09:38 | Emergency (ER) | payer MEDICARE, MEDICAID, SELFPAY ==
--- NOTE | ~2023-06-02 | XR_ITS ---
EXAMINATION: XR CHEST CLINICAL INFORMATION: Altered mental status. COMPARISON: None available. TECHNIQUE: AP view of the chest was obtained. FINDINGS: Prominent cardiomediastinal silhouette. Central vasculature engorgement and mild interstitial prominence. No discrete consolidation. No significant pleural effusion. No pneumothorax. Advanced degenerative changes in both shoulders. No acute displaced rib fractures. XR/XR chest 1V IMPRESSION: Prominent cardiomediastinal silhouette with central vasculature engorgement and interstitial prominence raising the possibility of pulmonary edema. However, an atypical infectious process is difficult to exclude in the appropriate clinical context.
--- NOTE | ~2023-06-02 | CT_ITS ---
EXAMINATION: CT HEAD WITHOUT CONTRAST CT CERVICAL SPINE WITHOUT CONTRAST CLINICAL INFORMATION: Fall out of bed. Altered mental status. COMPARISON: CT head and cervical spine 02/28/2023. TECHNIQUE: CT of the head and cervical spine were performed without intravenous contrast. Multiplanar reformats were rendered and reviewed. This CT examination was performed using dose optimization techniques as appropriate, variously including the following: *Automated exposure control *Adjustment of mA and/or kV according to patient size (this includes techniques or standardized protocols for targeted exams where dose is matched to indication/reason for exam; i.e. extremities or head) *Use of iterative reconstruction technique DLP: 1428 mGy-cm. FINDINGS: CT head: There is no intracranial hemorrhage, extra-axial collection, mass effect, or territorial infarction. Patchy hypoattenuation is seen within the white matter, typical of chronic microangiopathy. The calvarium is intact. The extracranial structures are unremarkable. CT cervical spine: The cervical vertebral bodies maintain normal height and alignment. No fracture is seen. Mild degenerative changes are seen at the atlantodental articulation. There is mild disc height loss at C5-C6. There is no high-grade narrowing of the spinal canal. There is multilevel neural foraminal stenosis related to uncovertebral hypertrophy. There is emphysema within the visualized upper lungs. No significant cervical soft tissue abnormality is seen. There is retropharyngeal course of the carotid arteries. Atheromatous changes are seen within the major neck arteries. CT/CT cervical spine wo IV con IMPRESSION: CT HEAD: No acute intracranial abnormality. CT CERVICAL SPINE: No cervical spine fracture or traumatic malalignment.
--- NOTE | ~2023-06-02 | CT_ITS ---
EXAMINATION: CT HEAD WITHOUT CONTRAST CT CERVICAL SPINE WITHOUT CONTRAST CLINICAL INFORMATION: Fall out of bed. Altered mental status. COMPARISON: CT head and cervical spine 02/28/2023. TECHNIQUE: CT of the head and cervical spine were performed without intravenous contrast. Multiplanar reformats were rendered and reviewed. This CT examination was performed using dose optimization techniques as appropriate, variously including the following: *Automated exposure control *Adjustment of mA and/or kV according to patient size (this includes techniques or standardized protocols for targeted exams where dose is matched to indication/reason for exam; i.e. extremities or head) *Use of iterative reconstruction technique DLP: 1428 mGy-cm. FINDINGS: CT head: There is no intracranial hemorrhage, extra-axial collection, mass effect, or territorial infarction. Patchy hypoattenuation is seen within the white matter, typical of chronic microangiopathy. The calvarium is intact. The extracranial structures are unremarkable. CT cervical spine: The cervical vertebral bodies maintain normal height and alignment. No fracture is seen. Mild degenerative changes are seen at the atlantodental articulation. There is mild disc height loss at C5-C6. There is no high-grade narrowing of the spinal canal. There is multilevel neural foraminal stenosis related to uncovertebral hypertrophy. There is emphysema within the visualized upper lungs. No significant cervical soft tissue abnormality is seen. There is retropharyngeal course of the carotid arteries. Atheromatous changes are seen within the major neck arteries. CT/CT head/brain wo IV con IMPRESSION: CT HEAD: No acute intracranial abnormality. CT CERVICAL SPINE: No cervical spine fracture or traumatic malalignment.
--- NOTE | 2023-06-02 09:45 | ED.GENADULT ---
HPI - General Adult General Chief complaint: Altered Mental Status Stated complaint: AMS,HALLUCINATIONS,HIGH BP 200/110 PER EMS Time Seen by Provider: 06/02/23 09:45 Source: patient, EMS, RN notes reviewed and old records reviewed History of Present Illness HPI narrative: 72-year-old female with a past medical history of diabetes, HTN, asthma, presenting to ED via EMS complaining of slip and fall out of bed last night, with visual hallucinations/AMS per daughter. Daughter states she was at patient's house last night, put her back into bed after fall, & went back this morning and patient noted to have continued hallucinations/confusion. Patient was yelling at people in the home that were not there. Unknown head trauma or LOC. Daughter admits patient is currently on Bactrim for UTI, last doses will be today. Denies known fever, abdominal pain, nausea/ vomiting. Of note recently discharged from our facility on 03/05 for bacteremia secondary to UTI, KESHIA, and respiratory failure with hypoxia. Related Data Home Medications Medication Instructions Recorded Confirmed insulin glargine 100 unit/mL (3 50 unit subcut DAILY 02/28/23 06/03/23 mL) subcutaneous pen (Basaglar KwikPen U-100 Insulin) metoprolol tartrate 50 mg tablet 50 mg PO BEDTIME 06/03/23 06/03/23 topiramate 100 mg tablet 100 mg PO BEDTIME 06/03/23 06/03/23 topiramate 50 mg tablet 50 mg PO BEDTIME 06/03/23 06/03/23 Previous Rx's Medication Instructions Recorded albuterol sulfate 90 mcg/actuation 2 puff inhalation Q4-6H PRN 05/21/22 aerosol inhaler shortness of breath or wheezing #8.5 grams aripiprazole 20 mg tablet 20 mg PO BEDTIME #90 tabs 07/16/22 ferrous sulfate 325 mg (65 mg 325 mg PO DAILY #90 tabs 07/16/22 iron) tablet lisinopril 40 mg tablet 40 mg PO DAILY 3 months #90 tabs 07/16/22 metformin 500 mg tablet 500 mg PO BID 3 months #180 tabs 07/16/22 montelukast 10 mg tablet 10 mg PO DAILY #90 tabs 07/16/22 paroxetine HCl 40 mg tablet 40 mg PO DAILY #90 tabs 07/16/22 trazodone 50 mg tablet 50 mg PO BEDTIME 3 months #90 tabs 07/16/22 miscellaneous medical supply #2 ea 10/24/22 miscellaneous medical supply #270 ea 10/24/22 miscellaneous medical supply #4 ea 10/24/22 FreeStyle Lite Strips (blood sugar #100 ea 12/16/22 diagnostic) blood-glucose meter (FreeStyle #1 ea 12/16/22 Lite Meter kit) lancets 28 gauge (FreeStyle #100 ea 12/16/22 Lancets) sennosides 8.6 mg capsule (senna) 17.2 mg (2 x 8.6 mg) PO DAILY #180 01/07/23 caps pen needle, diabetic 32 gauge x #100 ea 04/10/2309/11 (BD Ultra-Fine Micro Pen Needle) docusate sodium 100 mg capsule 100 mg PO BEDTIME #90 caps 04/29/23 pantoprazole 40 mg tablet,delayed 40 mg PO DAILY #30 tabs 04/29/23 release oxybutynin chloride 10 mg 10 mg PO QAM #90 tabs 05/17/23 tablet,extended release 24 hr sulfamethoxazole 800 1 tab PO Q12H 5 days #10 tabs 05/30/23 mg-trimethoprim 160 mg tablet (Bactrim DS) Allergies Allergy/AdvReac Type Severity Reaction Status Date / Time No Known Allergies Allergy Verified 04/29/23 11:26 Review of Systems Review of Systems: Constitutional: No Fever, No Chills, No Fatigue, No Malaise ENT/Mouth: No Ear Pain, No Nasal Congestion, No sore throat, No Rhinorrhea, No Swallowing Difficulty Eyes: No Eye Pain, No Swelling, No Redness, No Vision Changes Cardiovascular: No Chest Pain, No SOB, No Edema, No Palpitations Respiratory: No Cough, No Sputum, No Dyspnea Gastrointestinal: No Nausea, No Vomiting, No Diarrhea, No Constipation, No Abdominal pain Genitourinary: No Dysuria, NNo Flank Pain Musculoskeletal: No joint pain, No Myalgias, No Joint Swelling Skin: No Skin Lesions, No rash Neuro: +AMS/confusion, No Weakness, No Headache Psych: No Anxiety/Panic, No Depression, No SI/HI/AH, +VH, No Social Issues Yes all other systems are reviewed and are negative Constitutional: Constitutional: Reports as per HPI Neurologic: Denies Abnormal speech present [facility] Past Medical History Attestation statement: The following information was validated with the patient. Source: old records reviewed Medical History Sepsis Morbid obesity Abscess of left thigh Arthritis High cholesterol High blood pressure Asthma Diabetes Surgical History Hx of colonoscopy Social History Social History Household Members: None Household Members Other:: 0 Housing: Apartment Do you presently have visiting nurse or other home services: Yes Alcohol intake: unknown Patient Tobacco Use Status: Former Tobacco user Quit Date: a few years ago Tobacco use type: Cigarette Cigarettes Per Day: 10 Years Smoked: 4 Smoked in Last 30 Days: No e-Cigarette/Vaping Use: Never Used Second Hand Smoke Exposure: No Use of substances other than those prescribed or required for medical reasons: No Advance Directives: Yes Advance Directives on File: Yes Advance Directives Date on File: 04/29/23 service: No Current occupational status: disabled Current occupational exposures/hazards: No Cognitive needs: No Hearing needs: No Vision needs: Yes Physical Exam ED Vital Signs: Vital Signs - 24 hr 06/03/23 08:31 06/03/23 11:36 06/03/23 17:51 Temperature Pulse Rate 109 H 97 89 Respiratory Rate 14 20 Blood Pressure 164/72 H 164/83 H 154/59 H Pulse Oximetry 93 94 96 Oxygen Delivery Method Room Air Room Air 06/03/23 21:57 06/03/23 23:30 06/04/23 05:07 Temperature 98.3 F Pulse Rate 119 H 101 H 87 Respiratory Rate 18 18 20 Blood Pressure 158/65 H 135/70 182/77 H Pulse Oximetry 94 95 95 Oxygen Delivery Method Room Air Room Air Room Air 06/04/23 07:10 Temperature 99.5 F Pulse Rate 79 Respiratory Rate 18 Blood Pressure 153/67 H Pulse Oximetry 92 Oxygen Delivery Method Room Air BMI result Body Mass Index 37.4 Const General: cooperative and no acute distress Orientation/consciousness: oriented to person and oriented to place HENMI Head: Yes normal to inspection and Yes atraumatic Ears: hearing grossly normal bilaterally General nose exam: Normal external nose present Face and sinus: Yes normal facial exam Eyes General: appearance normal, both eyes and all related structures EOM: EOMs intact bilaterally Neck Neck: Yes normal visual inspection and Yes no meningeal signs Resp Effort & Inspection: normal respiratory effort and no respiratory distress Auscultation: clear to auscultation bilaterally and no wheezes Cardio Rate: regular rate Heart sounds: S1 normal heart sound present and S2 normal heart sound present GI Inspection: Yes normal to inspection Palpation (GI): Soft to palpation, nontender, no guarding and not rigid General: Yes no CVA tenderness Back/Spine/Pelvis Other: No midline cervical/thoracic/lumbar spinous tenderness/step-off or deformity Back: no CVA tenderness Skin Rashes: no rashes Wounds: no wounds Neuro General: oriented to person, oriented to place, tone normal, moves all extremities, no meningeal signs, no focal motor deficits and CN's II-XI intact bilaterally Cranial nerves: Yes CN's II-XII intact bilaterally and Yes Bilaterally intact EOM present Speech: No Abnormal speech present Motor exam (neuro): 5/5 motor strength present throughout and Pronator motor function not present Extrem General: Yes normal to inspection Course Course Course Narrative: -1121-- no leukocytosis. H&H stable. mild KESHIA with creatinine of 1.42 > will give gentle IVF -initial troponin 9.2 > will obtain 3hr repeat -1449-- UA not infected CT head/brain wo IV con/CT cervical spine wo IV con IMPRESSION: CT HEAD: No acute intracranial abnormality. CT CERVICAL SPINE: No cervical spine fracture or traumatic malalignment. XR chest 1V IMPRESSION: Prominent cardiomediastinal silhouette with central vasculature engorgement and interstitial prominence raising the possibility of pulmonary edema. However, an atypical infectious process is difficult to exclude in the appropriate clinical context. > no evidence of fluid overload on exam or CHF. >upon further discussion with daughter, she reports patient has history of hallucinations / paranoia, patient recently moved from [place] as and son recently passed. Daughter reports possible history of dementia although not officially diagnosed. Patient lives home alone has [employer] for only a few hours, daughter looking for increased care in the home. 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 Plan will be for PT/case management -1550-- ammonia WNL. KESHIA resolved after IVF. -1630-- ED care transferred to [facility] pending repeat troponin, BNP, psych consult, PT and Case Management 06/03/23--728--physician observation continued. Patient mildly tachycardic earlier this morning, will continue to monitor. Lab/imaging reviewed. Pending psychiatry consult, PT and case management Reevaluation(s) Reevaluation #1: Received in sign-out at 10 at shift pending remainder of workup, case management follow-up. The patient's BNP came back elevated to 223. Her chest x-ray shows concern for mild pulmonary edema. Repeat also negative. However given the x-ray findings and elevated BNP will not give 3 days worth of Lasix. The patient does not have any hypoxia or the kidney at this time. Time: 19:40 Reevaluation #2: Physician observation continued. Patient has been on a pureed diet but getting pills with water, speech evaluation has been ordered. PT saw the patient - recommending home with 24 hour care vs short term rehab. Patient is pending psychiatry evaluation at this time. Unclear why patient is on Bactrim, UA negative, no active infection. will stop abx and monitor. Time: 08:09 Medications Administered Generic Name Dose Route Start Last Admin Trade Name Freq PRN Reason Stop Dose Admin Aripiprazole 20 mg 06/03/23 21:00 06/03/23 23:04 Aripiprazole 20 Mg Tablet PO 20 mg BEDTIME BELKIS Administration Docusate Sodium 100 mg 06/03/23 21:00 06/03/23 23:01 Docusate Sodium 100 Mg Capsule PO 100 mg BEDTIME BELKIS Administration Furosemide 20 mg 06/02/23 19:45 06/03/23 10:38 Furosemide 20 Mg Tablet PO 06/04/23 09:01 20 mg DAILY BELKIS Administration Protocol Insulin Glargine 30 unit 06/03/23 10:00 06/03/23 10:39 Insulin Glargine,Hum.Rec.Anlog 100 Unit/Ml 10 Ml Vial SUBCUT 30 unit DAILY BELKIS Administration Lisinopril 40 mg 06/03/23 10:00 06/03/23 10:38 Lisinopril 40 Mg Tablet PO 40 mg DAILY BELKIS Administration Protocol Metformin HCl 500 mg 06/03/23 10:00 06/03/23 23:01 Metformin Hcl 500 Mg Tablet PO 500 mg BID BELKIS Administration Metoprolol Tartrate 50 mg 06/03/23 10:00 06/03/23 23:01 Metoprolol Tartrate 50 Mg Tablet PO 50 mg BEDTIME BELKIS Administration Protocol Montelukast Sodium 10 mg 06/03/23 10:00 06/03/23 10:39 Montelukast Sodium 10 Mg Tablet PO 10 mg DAILY BELKIS Administration Oxybutynin Chloride 10 mg 06/03/23 10:00 06/03/23 10:38 Oxybutynin Chloride Er 5 Mg Tab.Er.24 PO 10 mg DAILY BELKIS Administration Paroxetine HCl 40 mg 06/03/23 10:00 06/03/23 10:38 Paroxetine Hcl 40 Mg Tablet PO 40 mg DAILY BELKIS Administration Topiramate 50 mg 06/03/23 21:00 06/03/23 23:01 Topiramate 25 Mg Tablet PO 50 mg BEDTIME BELKIS Administration Topiramate 100 mg 06/03/23 21:00 06/03/23 23:01 Topiramate 100 Mg Tablet PO 100 mg BEDTIME BELKIS Administration Trazodone HCl 50 mg 06/03/23 21:00 06/03/23 23:01 Trazodone Hcl 50 Mg Tablet PO 50 mg BEDTIME BELKIS Administration Trimethoprim/Sulfamethoxazole 1 tab 06/03/23 10:00 06/03/23 23:01 Sulfamethox/Trimeth 800/160 Tablet PO 06/05/23 09:59 1 tab Q12H BELKIS Administration Discontinued Medications Generic Name Dose Route Start Last Admin Trade Name Freq PRN Reason Stop Dose Admin Sodium Chloride 500 mls @ 999 mls/hr 06/02/23 11:30 06/02/23 14:01 Ns IV 06/02/23 12:00 Infused .Q31M BELKIS Infusion Medical Decision Making Medical Decision Making MDM Narrative: 72-year-old female with a past medical history of diabetes, HTN, asthma, presenting to ED via EMS complaining of slip and fall out of bed last night, with visual hallucinations/AMS per daughter. On exam vital signs stable/ hypertensive, NAD, A&Ox2, pleasantly confused, no focal neuro deficits, lungs CTA, abdomen soft/ nontender. Daughter admits patient currently on Bactrim for UTI, finishes today, reports similar symptoms with UTIs/ infections in the past. Concern for infectious/ metabolic etiologies vs ICH vs ? psych component. rule out rhabdomyolysis. lower suspicion for ACS, CHF, intrathoracic or intra-abdominal injury plan: EKG, labs, UA, CXR, head/C-spine CT, reassess Please refer to course for remaining clinical decision making, interpretation of labs/imaging results, and discussions with consultants and/or family members. Differential Diagnosis Differential Diagnoses: The differential diagnosis associated with the presentation includes As above Admission/Observation Consideration of admission/observation: Escalation of care including admission/observation considered Lab Data MDM Lab Attestation statement: I reviewed the patient's lab results. 06/02/23 10:25 06/02/23 15:18 Labs: Lab Results 06/02/23 06/02/23 06/02/23 Range/Units 10:12 10:24 10:25 WBC 7.1 (4.8-10.8) X10*3/uL RBC 4.05 L (4.20-5.50) X10*6/uL Hgb 11.5 L D (12.0-16.0) g/dl Hct 35.8 L (37.0-47.0) % MCV 88.4 (80.0-98.0) fL MCH 28.4 (27.0-33.0) pg MCHC 32.1 (31.0-35.0) g/dl RDW 13.4 (11.0-16.0) % Plt Count 254 (160-400) X10*3/uL MPV 11.2 (9.4-12.3) fL Immature Gran % (Auto) 0.1 (0.0-0.4) % Neut % (Auto) 64.7 (45-73) % Lymph % (Auto) 22.6 (20-40) % [place] % (Auto) 7.9 (2-11) % Eos % (Auto) 4.0 (0-4) % Baso % (Auto) 0.7 (0-2) % Lymph # (Auto) 1.6 (1.2-4.9) X10*3/uL [place] # (Auto) 0.6 (0.1-1.2) X10*3/uL Eos # (Auto) 0.3 (0.0-0.4) X10*3/uL Baso # (Auto) 0.1 (0.0-0.2) X10*3/uL Abs Immat Gran (auto) 0.01 (0.00-0.03) X10*3/uL Absolute Neuts (auto) 4.6 (2.0-8.3) x10*3/uL Absolute Nucleated RBC 0.000 (0.0-0.012) X10*3/uL Nucleated RBC % (auto) 0.0 (0.0-0.2) /100WBC PT 11.4 (11.1-13.3) SEC INR 0.9 (0.9-1.1) Sodium (135-145) mmol/L Potassium (3.3-5.1) mmol/L Chloride (96-108) mmol/L Carbon Dioxide (22-29) mmol/L Anion Gap (12-20) BUN (9-16) mg/dL Creatinine (0.5-1.4) mg/dL Estim Creat Clear Calc Estimated GFR POC Glucose (60-115) mg/dL Random Glucose (60-115) mg/dL Calcium (8.4-10.2) mg/dL Magnesium (1.6-2.6) mg/dL Total Bilirubin (0.0-1.0) mg/dL Direct Bilirubin (0.0-0.5) mg/dL AST (5-31) U/L ALT (0-31) U/L Alkaline Phosphatase (39-117) U/L Ammonia (13-55) umol/L Total Creatine Kinase (26-140) U/L Troponin I High Sens 9.2 (<3.5-17.0) ng/L B-Natriuretic Peptide (<100) pg/mL Total Protein (6.5-8.0) g/dL Albumin (3.5-5.0) g/dL Lipase (8-78) U/L Urine Color Urine Appearance Urine pH (5.0-9.0) Ur Specific [place] (1.005-1.025) Urine Protein (Neg-Trace) mg/dL Urine Glucose (UA) (Negative) mg/dL Urine Ketones (Negative) mg/dL Urine Blood (Negative) Urine Nitrite (Negative) Ur Leukocyte Esterase (Negative) Urine RBC (0-2) /HPF Urine WBC (0-5) /HPF Ur Squamous Epith Cells (0-2) /HPF Urine Bacteria (None Seen) Hyaline Casts (0-2) /LPF COVID-19 (LEONARDO) Negative (Negative) COVID-19 Clin Com See Note 06/02/23 06/02/23 06/02/23 Range/Units 10:26 11:04 13:54 WBC (4.8-10.8) X10*3/uL RBC (4.20-5.50) X10*6/uL Hgb (12.0-16.0) g/dl Hct (37.0-47.0) % MCV (80.0-98.0) fL MCH (27.0-33.0) pg MCHC (31.0-35.0) g/dl RDW (11.0-16.0) % Plt Count (160-400) X10*3/uL MPV (9.4-12.3) fL Immature Gran % (Auto) (0.0-0.4) % Neut % (Auto) (45-73) % Lymph % (Auto) (20-40) % [place] % (Auto) (2-11) % Eos % (Auto) (0-4) % Baso % (Auto) (0-2) % Lymph # (Auto) (1.2-4.9) X10*3/uL [place] # (Auto) (0.1-1.2) X10*3/uL Eos # (Auto) (0.0-0.4) X10*3/uL Baso # (Auto) (0.0-0.2) X10*3/uL Abs Immat Gran (auto) (0.00-0.03) X10*3/uL Absolute Neuts (auto) (2.0-8.3) x10*3/uL Absolute Nucleated RBC (0.0-0.012) X10*3/uL Nucleated RBC % (auto) (0.0-0.2) /100WBC PT (11.1-13.3) SEC INR (0.9-1.1) Sodium 138 (135-145) mmol/L Potassium 3.9 (3.3-5.1) mmol/L Chloride 110 H (96-108) mmol/L Carbon Dioxide 19 L (22-29) mmol/L Anion Gap 13 (12-20) BUN 15 (9-16) mg/dL Creatinine 1.42 H (0.5-1.4) mg/dL Estim Creat Clear Calc 34.5 Estimated GFR 36 POC Glucose (60-115) mg/dL Random Glucose 139 H (60-115) mg/dL Calcium 9.9 (8.4-10.2) mg/dL Magnesium 1.7 (1.6-2.6) mg/dL Total Bilirubin 0.3 (0.0-1.0) mg/dL Direct Bilirubin 0.1 (0.0-0.5) mg/dL AST 14 (5-31) U/L ALT 10 (0-31) U/L Alkaline Phosphatase 74 (39-117) U/L Ammonia (13-55) umol/L Total Creatine Kinase 78 (26-140) U/L Troponin I High Sens 13.2 (<3.5-17.0) ng/L B-Natriuretic Peptide (<100) pg/mL Total Protein 7.7 (6.5-8.0) g/dL Albumin 4.0 (3.5-5.0) g/dL Lipase 46 (8-78) U/L Urine Color Yellow Urine Appearance Clear Urine pH 6.5 (5.0-9.0) Ur Specific [place] 1.015 (1.005-1.025) Urine Protein Negative (Neg-Trace) mg/dL Urine Glucose (UA) Negative (Negative) mg/dL Urine Ketones Negative (Negative) mg/dL Urine Blood Negative (Negative) Urine Nitrite Negative (Negative) Ur Leukocyte Esterase Small (1+) H (Negative) Urine RBC 0-2 (0-2) /HPF Urine WBC 0-5 (0-5) /HPF Ur Squamous Epith Cells 0-2 (0-2) /HPF Urine Bacteria None Seen (None Seen) Hyaline Casts 0-2 (0-2) /LPF COVID-19 (LEONARDO) (Negative) COVID-19 Clin Com 06/02/23 06/02/23 06/02/23 Range/Units 15:18 16:10 16:11 WBC (4.8-10.8) X10*3/uL RBC (4.20-5.50) X10*6/uL Hgb (12.0-16.0) g/dl Hct (37.0-47.0) % MCV (80.0-98.0) fL MCH (27.0-33.0) pg MCHC (31.0-35.0) g/dl RDW (11.0-16.0) % Plt Count (160-400) X10*3/uL MPV (9.4-12.3) fL Immature Gran % (Auto) (0.0-0.4) % Neut % (Auto) (45-73) % Lymph % (Auto) (20-40) % [place] % (Auto) (2-11) % Eos % (Auto) (0-4) % Baso % (Auto) (0-2) % Lymph # (Auto) (1.2-4.9) X10*3/uL [place] # (Auto) (0.1-1.2) X10*3/uL Eos # (Auto) (0.0-0.4) X10*3/uL Baso # (Auto) (0.0-0.2) X10*3/uL Abs Immat Gran (auto) (0.00-0.03) X10*3/uL Absolute Neuts (auto) (2.0-8.3) x10*3/uL Absolute Nucleated RBC (0.0-0.012) X10*3/uL Nucleated RBC % (auto) (0.0-0.2) /100WBC PT (11.1-13.3) SEC INR (0.9-1.1) Sodium 140 (135-145) mmol/L Potassium 3.5 (3.3-5.1) mmol/L Chloride 109 H (96-108) mmol/L Carbon Dioxide 22 (22-29) mmol/L Anion Gap 13 (12-20) BUN 14 (9-16) mg/dL Creatinine 1.28 (0.5-1.4) mg/dL Estim Creat Clear Calc 38.3 Estimated GFR 41 POC Glucose (60-115) mg/dL Random Glucose 113 (60-115) mg/dL Calcium 9.3 D (8.4-10.2) mg/dL Magnesium (1.6-2.6) mg/dL Total Bilirubin (0.0-1.0) mg/dL Direct Bilirubin (0.0-0.5) mg/dL AST (5-31) U/L ALT (0-31) U/L Alkaline Phosphatase (39-117) U/L Ammonia 19 (13-55) umol/L Total Creatine Kinase (26-140) U/L Troponin I High Sens 12.1 (<3.5-17.0) ng/L B-Natriuretic Peptide 227 H (<100) pg/mL Total Protein (6.5-8.0) g/dL Albumin (3.5-5.0) g/dL Lipase (8-78) U/L Urine Color Urine Appearance Urine pH (5.0-9.0) Ur Specific [place] (1.005-1.025) Urine Protein (Neg-Trace) mg/dL Urine Glucose (UA) (Negative) mg/dL Urine Ketones (Negative) mg/dL Urine Blood (Negative) Urine Nitrite (Negative) Ur Leukocyte Esterase (Negative) Urine RBC (0-2) /HPF Urine WBC (0-5) /HPF Ur Squamous Epith Cells (0-2) /HPF Urine Bacteria (None Seen) Hyaline Casts (0-2) /LPF COVID-19 (LEONARDO) (Negative) COVID-19 Clin Com 06/03/23 06/03/23 06/03/23 Range/Units 07:56 11:39 21:55 WBC (4.8-10.8) X10*3/uL RBC (4.20-5.50) X10*6/uL Hgb (12.0-16.0) g/dl Hct (37.0-47.0) % MCV (80.0-98.0) fL MCH (27.0-33.0) pg MCHC (31.0-35.0) g/dl RDW (11.0-16.0) % Plt Count (160-400) X10*3/uL MPV (9.4-12.3) fL Immature Gran % (Auto) (0.0-0.4) % Neut % (Auto) (45-73) % Lymph % (Auto) (20-40) % [place] % (Auto) (2-11) % Eos % (Auto) (0-4) % Baso % (Auto) (0-2) % Lymph # (Auto) (1.2-4.9) X10*3/uL [place] # (Auto) (0.1-1.2) X10*3/uL Eos # (Auto) (0.0-0.4) X10*3/uL Baso # (Auto) (0.0-0.2) X10*3/uL Abs Immat Gran (auto) (0.00-0.03) X10*3/uL Absolute Neuts (auto) (2.0-8.3) x10*3/uL Absolute Nucleated RBC (0.0-0.012) X10*3/uL Nucleated RBC % (auto) (0.0-0.2) /100WBC PT (11.1-13.3) SEC INR (0.9-1.1) Sodium (135-145) mmol/L Potassium (3.3-5.1) mmol/L Chloride (96-108) mmol/L Carbon Dioxide (22-29) mmol/L Anion Gap (12-20) BUN (9-16) mg/dL Creatinine (0.5-1.4) mg/dL Estim Creat Clear Calc Estimated GFR POC Glucose 187 H 164 H 161 H (60-115) mg/dL Random Glucose (60-115) mg/dL Calcium (8.4-10.2) mg/dL Magnesium (1.6-2.6) mg/dL Total Bilirubin (0.0-1.0) mg/dL Direct Bilirubin (0.0-0.5) mg/dL AST (5-31) U/L ALT (0-31) U/L Alkaline Phosphatase (39-117) U/L Ammonia (13-55) umol/L Total Creatine Kinase (26-140) U/L Troponin I High Sens (<3.5-17.0) ng/L B-Natriuretic Peptide (<100) pg/mL Total Protein (6.5-8.0) g/dL Albumin (3.5-5.0) g/dL Lipase (8-78) U/L Urine Color Urine Appearance Urine pH (5.0-9.0) Ur Specific [place] (1.005-1.025) Urine Protein (Neg-Trace) mg/dL Urine Glucose (UA) (Negative) mg/dL Urine Ketones (Negative) mg/dL Urine Blood (Negative) Urine Nitrite (Negative) Ur Leukocyte Esterase (Negative) Urine RBC (0-2) /HPF Urine WBC (0-5) /HPF Ur Squamous Epith Cells (0-2) /HPF Urine Bacteria (None Seen) Hyaline Casts (0-2) /LPF COVID-19 (LEONARDO) (Negative) COVID-19 Clin Com Independent Interpretation I performed an independent interpretation of an: EKG ( my interpretation EKG is normal sinus rhythm at a rate of 78. QRS 118. QTC 474. No significant change when compared to prior. No STEMI) Radiology Impression Discussion of test interpretation with radiology: I have reviewed the radiologist's reading. Independent Historian Clinical information obtained from an independent historian. History obtained from or confirmed by: Other (daughter) External Record Review External record reviewed: Inpatient record, Office record, Outpatient record, Prior outpatient labs, Prior outpatient radiology, Primary care record and Outside ED record Tests considered The following testing was considered but not selected: As above Chronic Conditions Patient?s care impacted by: Diabetes and Hypertension Discharge Plan Discharge Clinical Impression: Hallucinations, Fall Patient Disposition: Still a Patient Prescriptions: No Action aripiprazole 20 mg tablet 20 mg PO BEDTIME Qty: 90 3RF ferrous sulfate 325 mg (65 mg iron) tablet 325 mg PO DAILY Qty: 90 3RF lisinopril 40 mg tablet 40 mg PO DAILY 90 Days Qty: 90 3RF metformin 500 mg tablet 500 mg PO BID 90 Days Qty: 180 3RF montelukast 10 mg tablet 10 mg PO DAILY Qty: 90 3RF paroxetine HCl 40 mg tablet 40 mg PO DAILY Qty: 90 3RF trazodone 50 mg tablet 50 mg PO BEDTIME 90 Days Qty: 90 3RF (DME) miscellaneous medical supply Misc See Rx Instructions .ROUTE .MEDSUPPLY Qty: 270 3RF Rx Instructions: Pampers Adult Diapers XL, 3 times a day, As directed, 90 days (DME) miscellaneous medical supply Misc See Rx Instructions .ROUTE .MEDSUPPLY Qty: 2 3RF Rx Instructions: Nitrile Gloves, Medium, 2 boxes per month, As directed, 30 days (DME) miscellaneous medical supply Misc See Rx Instructions .ROUTE .MEDSUPPLY Qty: 4 3RF Rx Instructions: Sanitary Wipes, As directed, 30 days oxybutynin chloride 10 mg tablet extended release 24hr 10 mg PO QAM Qty: 90 1RF sulfamethoxazole-trimethoprim [Bactrim DS] 800-160 mg tablet 1 tab PO Q12H 5 Days Qty: 10 0RF insulin glargine [Basaglar KwikPen U-100 Insulin] 100 unit/mL (3 mL) insulin pen 50 unit subcut DAILY topiramate 100 mg tablet 100 mg PO BEDTIME topiramate 50 mg tablet 50 mg PO BEDTIME metoprolol tartrate 50 mg tablet 50 mg PO BEDTIME albuterol sulfate 90 mcg/actuation HFA aerosol inhaler 2 puff inhalation Q4-6H PRN (Reason: shortness of breath or wheezing) Qty: 8.5 0RF (DME) pen needle, diabetic [BD Ultra-Fine Micro Pen Needle] 32 gauge x 1/4 needle See Rx Instructions .MEDSUPPLY Qty: 100 4RF Rx Instructions: Use with glargine pen (DME) blood-glucose meter [FreeStyle Lite Meter] Kit See Rx Instructions .ROUTE .MEDSUPPLY Qty: 1 0RF Rx Instructions: As directed (DME) FreeStyle Lite Strips Strip See Rx Instructions .ROUTE .MEDSUPPLY Qty: 100 12RF Rx Instructions: As directed 2-3 times daily (DME) lancets [FreeStyle Lancets] 28 gauge misc See Rx Instructions .ROUTE .MEDSUPPLY Qty: 100 12RF Rx Instructions: As directed bs checks 2-3 times daily docusate sodium 100 mg capsule 100 mg PO BEDTIME Qty: 90 3RF pantoprazole 40 mg tablet,delayed release (DR/EC) 40 mg PO DAILY Qty: 30 2RF Rx Instructions: robert saji tableta media hora antes del desayuno senna 8.6 mg capsule 17.2 mg PO DAILY Qty: 180 3RF
--- NOTE | 2023-06-02 09:55 | ECG_ITS ---
Test Reason : AMS Blood Pressure : / mmHG Vent. Rate : 078 BPM Atrial Rate : 078 BPM P-R Int : 202 ms QRS Dur : 118 ms QT Int : 416 ms P-R-T Axes : 061 -30 040 degrees QTc Int : 474 ms Normal sinus rhythm Left axis deviation Minimal voltage criteria for LVH, may be normal variant ( [place] product ) Possible Anterior infarct (cited on or before 28-FEB-2023) Abnormal ECG When compared with ECG of 28-FEB-2023 06:17, No significant change was found Referred By: Kiera Solis Electronically Signed By:ANNABELLA DOMINIQUE
[2023-06-02 09:57] VITALS: BP 197/76; PULSE 88; RESP 18; TEMP 37.3; O2SAT 93; BMI 37.4
[2023-06-02 10:30] LABS: MANUAL DIFF FLAG NO
[2023-06-02 10:32] LABS: Basophils Absolute Auto 0.1 X10*3/uL (0.0-0.2); Basophils Percent Auto 0.7 % (0-2); Eosinophils Absolute Auto 0.3 X10*3/uL (0.0-0.4); Hematocrit 35.8 % (37.0-47.0); Hemoglobin 11.5 g/dl (12.0-16.0); Imm Gran Abs Auto 0.01 X10*3/uL (0.00-0.03); Imm Gran Pct Auto 0.1 % (0.0-0.4); Lymphocytes Absolute Auto 1.6 X10*3/uL (1.2-4.9); Lymphocytes Percent Auto 22.6 % (20-40); Mean Corpuscular HGB Conc 32.1 g/dl (31.0-35.0); Mean Corpuscular Hemoglobin 28.4 pg (27.0-33.0); Mean Corpuscular Volume 88.4 fL (80.0-98.0); Mean Platelet Volume 11.2 fL (9.4-12.3); Monocytes Absolute Auto 0.6 X10*3/uL (0.1-1.2); Monocytes Percent Auto 7.9 % (2-11); Neutrophils Absolute Auto 4.6 x10*3/uL (2.0-8.3); Neutrophils Percent Auto 64.7 % (45-73); Platelet Count 254 X10*3/uL (160-400); Red Blood Count 4.05 X10*6/uL (4.20-5.50); Red Cell Distribution Width 13.4 % (11.0-16.0); White Blood Count 7.1 X10*3/uL (4.8-10.8)
[2023-06-02 10:39] LABS: INTERNATIONAL NORM RATIO 0.9 (0.9-1.1); Prothrombin Time 11.4 SEC (11.1-13.3)
[2023-06-02 10:45] LABS: IDNOW Serial# BCCEAD1C
[2023-06-02 10:46] LABS: COVID-19 Test Negative (Negative)
[2023-06-02 10:48] LABS: Alanine Aminotransferase 10 U/L (0-31); Alkaline Phosphatase 74 U/L (39-117); Anion Gap 13 (12-20); Aspartate Amino Transferase 14 U/L (5-31); Bilirubin Direct 0.1 mg/dL (0.0-0.5); Bilirubin Total 0.3 mg/dL (0.0-1.0); Blood Urea Nitrogen 15 mg/dL (9-16); Calcium 9.9 mg/dL (8.4-10.2); Carbon Dioxide 19 mmol/L (22-29); Chloride 110 mmol/L (96-108); Creatinine Clr Calc Pharmacy 34.5; Estimated Glomerular Filt Rate 36; Glucose Random 139 mg/dL (60-115); Lipase 46 U/L (8-78); Magnesium 1.7 mg/dL (1.6-2.6); Potassium 3.9 mmol/L (3.3-5.1); Sodium 138 mmol/L (135-145); Total Protein 7.7 g/dL (6.5-8.0)
[2023-06-02 10:54] LABS: Troponin-I High Sensitivity 9.2 ng/L (<3.5-17.0)
[2023-06-02 11:17] LABS: Appearance Urine Clear; Color Urine Yellow; Glucose Urine UA Negative (Negative); Leukocyte Esterase Urine Small (1+) (Negative); Nitrite Urine Negative (Negative); PH 6.5 (5.0-9.0); Specific Gravity - Urine 1.015 (1.005-1.025); UMIC TRIGGER UACC YES; Urine Blood Negative (Negative); Urine Ketones Negative (Negative); Urine Protein Negative (Neg-Trace)
[2023-06-02 11:27] LABS: Bacteria Urine None Seen (None Seen); Hyaline Casts Urine 0-2 /LPF (0-2); RBC Urine 0-2 /HPF (0-2); Squamous Epithelial Cell Urine 0-2 /HPF (0-2); UACC Culture Trigger YES; WBC Urine 0-5 /HPF (0-5)
[2023-06-02] MEDS: 0.9 % Sodium Chloride 500 ML 999 ML IV (12:32)
[2023-06-02 14:22] LABS: Troponin-I High Sensitivity 13.2 ng/L (<3.5-17.0)
--- NOTE | 2023-06-02 14:44 | PC.NURSE ---
patient has been using the bed yo to void daughter has been at bedside involved with care.
[2023-06-02 14:54] VITALS: BP 198/77; PULSE 79; RESP 16; TEMP 37; O2SAT 95
[2023-06-02 15:37] LABS: Ammonia 19 umol/L (13-55)
[2023-06-02 15:43] LABS: Anion Gap 13 (12-20); Blood Urea Nitrogen 14 mg/dL (9-16); Calcium 9.3 mg/dL (8.4-10.2); Carbon Dioxide 22 mmol/L (22-29); Chloride 109 mmol/L (96-108); Creatinine Clr Calc Pharmacy 38.3; Estimated Glomerular Filt Rate 41; Glucose Random 113 mg/dL (60-115); Potassium 3.5 mmol/L (3.3-5.1); Sodium 140 mmol/L (135-145)
[2023-06-02 16:38] LABS: Troponin-I High Sensitivity 12.1 ng/L (<3.5-17.0)
[2023-06-02 16:40] LABS: B Type Natriuretic Peptide 227 pg/mL (<100)
--- NOTE | 2023-06-02 18:21 | PC.NURSE ---
pt has dementia has periods of confusion at times, Romansh speaking only. PT/CM
[2023-06-02 20:39] VITALS: BP 175/32; PULSE 77; RESP 18; TEMP 36.8; O2SAT 96
[2023-06-02] MEDS: Furosemide 20 MG TABLET PO (20:41)
--- NOTE | 2023-06-02 23:00 | PC.NURSE ---
Assumed care of pt at 1900. VSS, pt daughter at bedside asking what plan of care is. Informed her pt/case management is the plan. Assisted in repositioning pt. Call hernandez within reach
[2023-06-03] VITALS (8 sets, daily range): BP systolic 135–164; BP diastolic 59–85; PULSE 89–119; RESP 14–20; TEMP 36.8–37.6; O2SAT 93–96
--- NOTE | 2023-06-03 01:02 | PC.NURSE ---
This RN, and PA, Jung, repositioned pt. Call hernandez within reach
--- NOTE | 2023-06-03 04:30 | PC.NURSE ---
Repositioned PT with solvent station attendantAudra Zaomrano. PT continues to be awake. Plan of care ongoing. Call hernandez within reach
[2023-06-03 08:00] LABS: Glucose, Whole Blood 187 mg/dL (60-115)
--- NOTE | 2023-06-03 09:49 | PC.NURSE ---
completed pts med rec based on pts medical record
--- NOTE | 2023-06-03 10:08 | PHA.MEDREC ---
Pharmacy Consult ? Medication Reconciliation Pharmacy has REVIEWED the medication reconciliation.
--- NOTE | 2023-06-03 10:19 | PC.NURSE ---
PT at bedside with assist from this RN. pt uses rolaider at home typically sitting on it. pt with limited ROM. unable to sit independently. unable to stand. this RN placed pt on a periwick
[2023-06-03] MEDS: Furosemide 20 MG TABLET PO (10:38)
[2023-06-03] MEDS: oxyBUTYnin chloride ER 5 MG TAB.ER.24 10 MG PO (10:38)
[2023-06-03] MEDS: Metoprolol Tartrate 50 MG TABLET PO ×2 (10:38→23:01)
[2023-06-03] MEDS: metFORMIN HCl 500 MG TABLET PO ×2 (10:38→23:01)
[2023-06-03] MEDS: lisinopriL 40 MG TABLET PO (10:38)
[2023-06-03] MEDS: PARoxetine HCL 40 MG TABLET PO (10:38)
[2023-06-03] MEDS: Sulfamethox/Trimeth 800/160 TABLET 1 TAB PO ×2 (10:39→23:01)
[2023-06-03] MEDS: Insulin Glargine,Hum.rec.anlog 100 UNIT/ML 10 ML VIAL 30 UNIT SUBCUT (10:39)
[2023-06-03] MEDS: Montelukast Sodium 10 MG TABLET PO (10:39)
[2023-06-03 11:43] LABS: Glucose, Whole Blood 164 mg/dL (60-115)
--- NOTE | 2023-06-03 13:46 | MHC.CM.ED ---
Received case management consult. George came to the ER due to AMS and hallucinations. Physical therapy eval completed. STR vs 31/03 home care is recommended. Psych consult is pending at this time. Unable to determine appropriate d/c plan at this time. Continue to monitor for d/c needs.
--- NOTE | 2023-06-03 13:59 | MHC.EDTECH ---
PT family at bedside. PT family helping feed. PT in upright position in bed due to aspiration precautions. PT has pureed food. Tech will be in and out of room during this time.
--- NOTE | 2023-06-03 14:36 | PC.NURSE ---
pt eating lunch, family at bedside. this RN gave ppts family update on pt status
--- NOTE | 2023-06-03 20:02 | PC.NURSE ---
This RN assumed care at 1915. Patient calm and cooperative, in bed, able to make needs known.
[2023-06-03 22:05] LABS: Glucose, Whole Blood 161 mg/dL (60-115)
[2023-06-03] MEDS: Topiramate 25 MG TABLET 50 MG PO (23:01)
[2023-06-03] MEDS: Topiramate 100 MG TABLET PO (23:01)
[2023-06-03] MEDS: traZODone HCL 50 MG TABLET PO (23:01)
[2023-06-03] MEDS: Docusate Sodium 100 MG CAPSULE PO (23:01)
[2023-06-03] MEDS: ARIPiprazole 20 MG TABLET PO (23:04)
[2023-06-04 05:07] VITALS: BP 182/77; PULSE 87; RESP 20; O2SAT 95
[2023-06-04 07:10] VITALS: BP 153/67; PULSE 79; RESP 18; TEMP 37.5; O2SAT 92
--- NOTE | 2023-06-04 07:19 | PC.NURSE ---
Addendum entered by Helen Summers 06/04/23 09:19: pt has all over body temers noted. Original Note: this Rn assumed care. pocket operator at bedside. pt states she is at the hospital, unable to state what year and unable to state who the president is. lung sounds clear bilaterally, respirations even and unlabored, pt sating between 91-93% room air. abdomen soft non tender to touch with active bowel sounds in all 4 quadrants. pt normal sinus on tele between 78-80. Bed linens changed at this time, purewick placed.
[2023-06-04 08:31] LABS: Glucose, Whole Blood 162 mg/dL (60-115)
[2023-06-04] MEDS: PARoxetine HCL 40 MG TABLET PO (09:12)
[2023-06-04] MEDS: Montelukast Sodium 10 MG TABLET PO (09:12)
[2023-06-04] MEDS: Furosemide 20 MG TABLET PO (09:13)
[2023-06-04] MEDS: metFORMIN HCl 500 MG TABLET PO ×2 (09:13→22:13)
[2023-06-04] MEDS: Ferrous Sulfate 324 MG TABLET.DR PO (09:13)
[2023-06-04] MEDS: Sennosides 8.6 MG TABLET 17.2 MG PO (09:14)
[2023-06-04] MEDS: oxyBUTYnin chloride ER 5 MG TAB.ER.24 10 MG PO (09:14)
[2023-06-04] MEDS: Sulfamethox/Trimeth 800/160 TABLET 1 TAB PO ×2 (09:15→22:13)
[2023-06-04] MEDS: Omeprazole 20 MG CAPSULE.DR PO (09:16)
[2023-06-04] MEDS: lisinopriL 40 MG TABLET PO (09:16)
[2023-06-04] MEDS: Insulin Glargine,Hum.rec.anlog 100 UNIT/ML 10 ML VIAL 50 UNIT SUBCUT (09:17)
--- NOTE | 2023-06-04 09:20 | PC.NURSE ---
pt medicated per mar, takes medications well with pudding.
[2023-06-04 09:21] VITALS: BP 128/67; PULSE 72; O2SAT 93
--- NOTE | 2023-06-04 11:15 | P.CNPS_ITS ---
History of Present Illness Date of Service: 06/04/2023 Chief Complaint: AMS,HALLUCINATIONS,HIGH BP 200/110 PER EMS Reason for Consult: confusion, VH Requesting physician: Kiera Solis Discussed with referring provider: Yes Sources of Information: patient interviewed, chart reviewed and crisis/core team assessment reviewed Additional Sources of Information: Noreen Yates- [phone] HPI Narrative: Mrs. Elam is a 72 year-old woman who was brought by daughter after she had fall and was reporting seeing visual hallucinations of animals and people who were not there. Collateral information from the daughter who reports pt has been reporting for several months seeing either animals or people mostly at night but increasing in frequency and now also at times during. Daughter reports that she has noticed decline in memory and at times lying (appears pt confabulates due to poor memory as not characteristic of pt) for about one year now. Daughter reports pt had hx of depression but no psychosis. In the ED medical work up include: CBC w/ normocytic anemia, CMP BUN 14, Cr 1.28 creatinine clearance 38.3, BNP 227. UA with small leukocytes- culture not completed but pt currently on Bactrim. Head CT showed chronic microangiopathy. EKG LVH, Qtc 474ms. Pt seen in ED. She is able to tell me that she is in the hospital she is not aware of month or year and does not know why she is here. She thinks due to abdominal pain but yesterday told daughter she was awaiting surgery. She denies any pain. She does not appear internally preoccupied. She denies SI/HI. No overt delusional content but noted to be confabulating. Past Psychiatric History: Hx of OP psych tx for depression. She is on paxil, abilify 20mg Medical Evaluation Reviewed: Yes [facility] Medical History Sepsis Morbid obesity Abscess of left thigh Arthritis High cholesterol High blood pressure Asthma Diabetes Surgical History Hx of colonoscopy Diagnostics Vital Signs (24Hr): Vital Signs - 24 hr 06/03/23 11:36 06/03/23 17:51 06/03/23 21:57 Temperature 98.3 F Pulse Rate 97 89 119 H Respiratory Rate 14 20 18 Blood Pressure 164/83 H 154/59 H 158/65 H Pulse Oximetry 94 96 94 Oxygen Delivery Method Room Air Room Air Room Air 06/03/23 23:30 06/04/23 05:07 06/04/23 07:10 Temperature 99.5 F Pulse Rate 101 H 87 79 Respiratory Rate 18 20 18 Blood Pressure 135/70 182/77 H 153/67 H Pulse Oximetry 95 95 92 Oxygen Delivery Method Room Air Room Air Room Air 06/04/23 09:21 Temperature Pulse Rate 72 Respiratory Rate Blood Pressure 128/67 Pulse Oximetry 93 Oxygen Delivery Method Room Air BMI result Body Mass Index 37.4 Labs 06/02/23 10:25 06/02/23 15:18 Labs: Laboratory Results - last 48 hr 06/02/23 06/02/23 06/02/23 11:04 13:54 15:18 Sodium 140 Potassium 3.5 Chloride 109 H Carbon Dioxide 22 Anion Gap 13 BUN 14 Creatinine 1.28 Estim Creat Clear Calc 38.3 Estimated GFR 41 POC Glucose Random Glucose 113 Calcium 9.3 D Ammonia 19 Troponin I High Sens 13.2 B-Natriuretic Peptide Urine Color Yellow Urine Appearance Clear Urine pH 6.5 Ur Specific Wilmer 1.015 Urine Protein Negative Urine Glucose (UA) Negative Urine Ketones Negative Urine Blood Negative Urine Nitrite Negative Ur Leukocyte Esterase Small (1+) H Urine RBC 0-2 Urine WBC 0-5 Ur Squamous Epith Cells 0-2 Urine Bacteria None Seen Hyaline Casts 0-2 06/02/23 06/02/23 06/03/23 16:10 16:11 07:56 Sodium Potassium Chloride Carbon Dioxide Anion Gap BUN Creatinine Estim Creat Clear Calc Estimated GFR POC Glucose 187 H Random Glucose Calcium Ammonia Troponin I High Sens 12.1 B-Natriuretic Peptide 227 H Urine Color Urine Appearance Urine pH Ur Specific Wilmer Urine Protein Urine Glucose (UA) Urine Ketones Urine Blood Urine Nitrite Ur Leukocyte Esterase Urine RBC Urine WBC Ur Squamous Epith Cells Urine Bacteria Hyaline Casts 06/03/23 06/03/23 06/04/23 11:39 21:55 08:26 Sodium Potassium Chloride Carbon Dioxide Anion Gap BUN Creatinine Estim Creat Clear Calc Estimated GFR POC Glucose 164 H 161 H 162 H Random Glucose Calcium Ammonia Troponin I High Sens B-Natriuretic Peptide Urine Color Urine Appearance Urine pH Ur Specific Wilmer Urine Protein Urine Glucose (UA) Urine Ketones Urine Blood Urine Nitrite Ur Leukocyte Esterase Urine RBC Urine WBC Ur Squamous Epith Cells Urine Bacteria Hyaline Casts Imaging Radiology Impressions: ITS Impressions Chest X-Ray 06/02/23 11:27 IMPRESSION: Prominent cardiomediastinal silhouette with central vasculature engorgement and interstitial prominence raising the possibility of pulmonary edema. However, an atypical infectious process is difficult to exclude in the appropriate clinical context. Cervical Spine CT 06/02/23 11:46 IMPRESSION: CT HEAD: No acute intracranial abnormality. CT CERVICAL SPINE: No cervical spine fracture or traumatic malalignment. Head CT 06/02/23 11:46 IMPRESSION: CT HEAD: No acute intracranial abnormality. CT CERVICAL SPINE: No cervical spine fracture or traumatic malalignment. Mental Status Exam Mental Status Exam Narrative: Appearance: MO, fair hygiene, in NAD behavior: cooperative Psychomotor: no agitation or retardation noted Speech: clear, normal rate/rhythm/ spontaneous TP: mostly linear TC: feeling better, not sure why she is here Mood: okay Affect: congruent SI: denies HI:denies VH/AH: no overt psychosis at this time but it does appear intermittent visual hallucinations of animals and people Delusions: no overt delusional content noted or reported but confabulation present Insight/judgment: impaired x 2. Memory/cog: alert, not oriented to place, situation month or year. Appears significantly impaired. MOCA not completed- recommend OP. Medications Medications Current Medications Albuterol Sulfate (Albuterol Sulfate 90 Mcg 8 Gm Inhaler) 2 puff INHALE RQ4H PRN PRN Reason: shortness of breath or wheezing Aripiprazole (Aripiprazole 20 Mg Tablet) 20 mg PO BEDTIME [facility] Last Admin: 06/03/23 23:04 Dose: 20 mg Docusate Sodium (Docusate Sodium 100 Mg Capsule) 100 mg PO BEDTIME [facility] Last Admin: 06/03/23 23:01 Dose: 100 mg Ferrous Sulfate (Ferrous Sulfate 324 Mg Tablet.Dr) 324 mg PO DAILY [facility] Last Admin: 06/04/23 09:13 Dose: 324 mg Insulin Glargine (Insulin Glargine,Hum.Rec.Anlog 100 Unit/Ml 10 Ml Vial) 50 unit SUBCUT DAILY [facility] Last Admin: 06/04/23 09:17 Dose: 50 unit Lisinopril (Lisinopril 40 Mg Tablet) 40 mg PO DAILY [facility]; Protocol Last Admin: 06/04/23 09:16 Dose: 40 mg Metformin HCl (Metformin Hcl 500 Mg Tablet) 500 mg PO BID [facility] Last Admin: 06/04/23 09:13 Dose: 500 mg Metoprolol Tartrate (Metoprolol Tartrate 50 Mg Tablet) 50 mg PO BEDTIME [facility]; Protocol Last Admin: 06/03/23 23:01 Dose: 50 mg Montelukast Sodium (Montelukast Sodium 10 Mg Tablet) 10 mg PO DAILY [facility] Last Admin: 06/04/23 09:12 Dose: 10 mg Omeprazole (Omeprazole 20 Mg Capsule.Dr) 20 mg PO DAILY [facility] Last Admin: 06/04/23 09:16 Dose: 20 mg Oxybutynin Chloride (Oxybutynin Chloride Er 5 Mg Tab.Er.24) 10 mg PO DAILY [facility] Last Admin: 06/04/23 09:14 Dose: 10 mg Paroxetine HCl (Paroxetine Hcl 40 Mg Tablet) 40 mg PO DAILY [facility] Last Admin: 06/04/23 09:12 Dose: 40 mg Senna (Sennosides 8.6 Mg Tablet) 17.2 mg PO DAILY [facility] Last Admin: 06/04/23 09:14 Dose: 17.2 mg Topiramate (Topiramate 25 Mg Tablet) 50 mg PO BEDTIME [facility] Last Admin: 06/03/23 23:01 Dose: 50 mg Topiramate (Topiramate 100 Mg Tablet) 100 mg PO BEDTIME [facility] Last Admin: 06/03/23 23:01 Dose: 100 mg Trazodone HCl (Trazodone Hcl 50 Mg Tablet) 50 mg PO BEDTIME [facility] Last Admin: 06/03/23 23:01 Dose: 50 mg Trimethoprim/Sulfamethoxazole (Sulfamethox/Trimeth 800/160 Tablet) 1 tab PO Q12H [facility] Stop: 06/05/23 09:59 Last Admin: 06/04/23 09:15 Dose: 1 tab Allergies Allergies Allergy/AdvReac Type Severity Reaction Status Date / Time No Known Allergies Allergy Verified 04/29/23 11:26 Assessment & Plan Assessment & Plan (1) Major neurocognitive disorder: Status: Acute Code(s): F03.90 - Unspecified dementia, unspecified severity, without behavioral disturbance, psychotic disturbance, mood disturbance, and anxiety Plan Mrs. Elam is a 72 year-old woman who was brought by daughter due to increase visual hallucinations as well confusion. Per daughter significant cognitive and memory decline for at least one year. She has been been having visual hallucinations of animals and at times people mostly at night but daughter reports she is seeing increase in frequency and now during the day. Pt's attention seems fairly intact. No overt signs of delirium at this time but do suspect underlying major neurcognitive disorder of mixed etiology, possibly with some components of LBD. This ad copy writer spoke with with daughter provided information/education on dementia. Daughter wants to bring pt back home with services. One recommendation- if topamax not for seizure or migraines (if prescribed for weight loss), may want to d/c as it has significant effects on cognition that can worsened underlying dementia. PLAN 1. Follow up with PCP for dementia care- may need referral for psych or neurology for dementia management. May consider namenda 5mg po BID. 2. No need for inpatient psych for stabilization at this point- no imminent danger and can be done outpatient 3. Pt does NOT have capacity to make medical decisions and HCP should be invoked. HCP on file. Total time managing care of this patient today ____ minutes.
--- NOTE | 2023-06-04 12:54 | MHC.SL.SWA ---
Addendum entered and electronically signed by TIMMY Powell 06/05/23 13:44: Patient seen for swallow tx/re-assessment of swallow. Patient was awake and alert, appearing somewhat anxious at times and mildly confused. Patient had c/o stomach pain, again reported that she finds at times food gets stuck when she eats (patient was communicated with in Armenian). However on query patient reported diet that was mostly soft, rice based, with meats (i.e. chicken) and soft vegetables. However she reported some things disagree with her i.e. beans are ok, but pigeon peas (gandules) are not. Patient was observed taking sips of thin liquid by straw (present at bedside), with patient producing timely oral and pharyngeal phase on swallow, laryngeal elevation WFL, no clinical signs of aspiration. Patient was also observed taking tsps of pudding again, timely oral and pharyngeal phase noted, laryngeal elevation wfl, no clinical signs of aspiration. Patient was given soft cracker in pudding, with patient producing a mildly slow chewing and mashing pattern (patient is missing several teeth), followed by a timely swallow, no clinical signs of aspiration. Recommend UPGRADE diet to Ground Mechanical/Altered NDD2, with Thin liquids, pills whole or crushed in puree (per patient preference). MD, RD, RN notified by secure text. Original Note: Speech Pathologist Impression: Oralpharyngeal Dysphagia Risk of Aspiration Due to: History of Pneumonia Reduced Cognition Weak Voice Dysphasia Diet Status: No change Liquid Consistency and Strategies for Safe Swallow: Liquid Intake Recommendation: Thin Liquid Intake Strategies: Small Sips Solid Food Consistency: Dietary Recommendations: Pureed (NDD1) Oral Medication Intake: Whole with Puree Please contact the pharmacy regarding appropriate crushable or liquid drug formulations that are available whenever modified delivery is recommended. Compensatory Strategies and Precautions to be Taken for Safe Swallow: Sitting Upright (90 deg) Small Bites and Sips Alternate Liquids/Solids Supervision While Eating and Drinking for Safe Swallow: Intermittent Supervision Swallowing Recommended Treatments: Compens. Strategy Educat. Recommendation for Speech: Further Testing Needed Outpatient Speech Therapy Inpatient Speech Therapy Modified Barium Swallow Study - Inpatient Modified Barium Swallow Study - Outpatient Comment: Recommend patient continue w/ PUREE solids and THIN liquids. RN reports patient tolerating pills whole w/ puree, recommend to continue. Patient reporting difficulty swallowing, burning sensation, and globus sensation across all consistencies/textures of food/liquid. If difficulty persists, patient may benefit from MBS (inpatient vs. outpatient). RN and PA notified in ED, also provided w/ update via [place]. FORM SETTER [employer]MS to continue to follow. For more details, see full note under patient care. Ict Business Analyst Clinican/Clinical Fellow: No Supervisory Statement: I have reviewed and agree with the student/clinical fellow's documentation: No Speech Language Pathologist: Lisa Cervantes M.A., CCC-FORM [employer]
[2023-06-04 12:55] LABS: Glucose, Whole Blood 90 mg/dL (60-115)
--- NOTE | 2023-06-04 14:45 | PC.NURSE ---
pt daughter at bedside helping feed pt lunch. pt had large bowel movement, linens changed and new purewick placed.
[2023-06-04 15:13] VITALS: BP 122/63; PULSE 78; RESP 18; O2SAT 96
[2023-06-04 17:00] LABS: Glucose, Whole Blood 104 mg/dL (60-115)
[2023-06-04 18:53] VITALS: BP 143/63; PULSE 79; RESP 18; O2SAT 95
--- NOTE | 2023-06-04 19:47 | PC.NURSE ---
Pt was sleeping and her 02 decreased to 86 on RA, placed pt on 2L and O2 increased to 96 . Provider made aware
[2023-06-04] MEDS: traZODone HCL 50 MG TABLET PO (22:12)
[2023-06-04] MEDS: Topiramate 100 MG TABLET PO (22:12)
[2023-06-04] MEDS: Docusate Sodium 100 MG CAPSULE PO (22:12)
[2023-06-04] MEDS: Topiramate 25 MG TABLET 50 MG PO (22:12)
[2023-06-04] MEDS: ARIPiprazole 20 MG TABLET PO (22:13)
[2023-06-04] MEDS: Metoprolol Tartrate 50 MG TABLET PO (22:13)
[2023-06-04 22:14] VITALS: BP 113/59; PULSE 84; RESP 21; TEMP 36.6; O2SAT 94
--- NOTE | 2023-06-04 22:27 | PC.NURSE ---
medicated Pt with applesauce
[2023-06-04 22:40] LABS: Glucose, Whole Blood 131 mg/dL (60-115)
[2023-06-05] VITALS (8 sets, daily range): BP systolic 99–147; BP diastolic 48–74; PULSE 60–147; RESP 15–22; TEMP 36.3–36.7; O2SAT 95–98
--- NOTE | 2023-06-05 07:20 | PC.NURSE ---
patient currently awake/alert, pure wick intact/draining, group product manager intact nsr/sb 60s, vss, pt speaking in full sentences, lungs clear/diminished, no sob noted- per report pt desat during the night and is on 2L O2 nc due to this, will attempt to titrate off O2 today, denies pain/discomfort, call hernandez within reach,will continue to monitor.
--- NOTE | 2023-06-05 07:22 | PC.NURSE ---
pt currently 98% on 2L nc, pt has been titrated down to 1L NC, will re-assess shortly
[2023-06-05 08:27] LABS: Glucose, Whole Blood 46 mg/dL (60-115)
[2023-06-05] MEDS: lisinopriL 40 MG TABLET PO (08:28)
[2023-06-05] MEDS: Ferrous Sulfate 324 MG TABLET.DR PO (08:28)
[2023-06-05] MEDS: Sennosides 8.6 MG TABLET 17.2 MG PO (08:29)
[2023-06-05] MEDS: Omeprazole 20 MG CAPSULE.DR PO (08:29)
[2023-06-05] MEDS: oxyBUTYnin chloride ER 5 MG TAB.ER.24 10 MG PO (08:29)
[2023-06-05] MEDS: PARoxetine HCL 40 MG TABLET PO (08:29)
[2023-06-05] MEDS: Montelukast Sodium 10 MG TABLET PO (08:29)
--- NOTE | 2023-06-05 08:36 | PC.NURSE ---
pt poc was obtained, pt poc noted to be in the 40s, this nurse held pts metformin and am lantus, notified provider and is feeding the patient breakfast, patient is alert to her baseline despite the hypoglycemia. quality assurance monitor chassis sinus demetrius, o2 sat 94. pt ate entire breakfast tray with assistance and a poc will be rechecked shortly.
[2023-06-05 09:28] LABS: Glucose, Whole Blood 65 mg/dL (60-115)
--- NOTE | 2023-06-05 09:45 | MHC.CM.ED ---
Late entry from 06/04/2023 at 16:30: Patient remains in ER. Physical therapy recommends STR vs 31/03 care at home. Psych consult completed. Patient's symptoms are felt to be related to dementia. HCP invoked by Dr Baxter. Met with patient, daughter, Trudy and aerial photograph interpreter in regards to discharge planning. 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 PCP verified. Copy of HCP verified to be on file. Patient and Trudy plan on patient going to STR so that patient can get stronger and more help can be arranged in the home. Patient has been to [facility] in the past and that is 1st choice. Trudy aware referral will have to be broadcasted if [facility] unable to offer a bed. Trudy verbalizes understanding. Continue to monitor for d/c needs.
--- NOTE | 2023-06-05 11:11 | PC.NURSE ---
assumed care of pt at 1100, pt resting quietly, pending STR placement, denies any pain at this time, vss, am insulin held due to hypoglycemia, following POCs WNL. no new order at this time.
[2023-06-05 11:34] LABS: Glucose, Whole Blood 93 mg/dL (60-115)
--- NOTE | 2023-06-05 13:05 | PC.NURSE ---
pt assisted in eating small amount of lunch, pt reporting increased abd/lower back pain. PT at bedside for shanda holliday director weights and measures.
--- NOTE | 2023-06-05 15:39 | PC.NURSE ---
RN-RN report called into overflow.
--- NOTE | 2023-06-05 16:32 | MHC.CM.ED ---
[facility]. Patient and daughter, Trudy accept. Patient will leave ER tomorrow 06/06 at 10am. Geoff ROBERSON booked. [facility] with chart. Patient, Yamilex Yates RN and Kendra MERAZ aware. Continue to monitor for d/c needs.
[2023-06-05 16:55] LABS: Glucose, Whole Blood 160 mg/dL (60-115)
--- NOTE | 2023-06-05 17:57 | PC.NURSE ---
Pt arrive from ED. Slid into bed. Pt incontinent or urine harleen care provided, purewick placed. Pt with dementia at baseline, bed alarm on
[2023-06-05] MEDS: Docusate Sodium 100 MG CAPSULE PO (21:36)
[2023-06-05] MEDS: ARIPiprazole 20 MG TABLET PO (21:36)
[2023-06-05] MEDS: metFORMIN HCl 500 MG TABLET PO (21:36)
[2023-06-05] MEDS: traZODone HCL 50 MG TABLET PO (21:37)
[2023-06-05] MEDS: Metoprolol Tartrate 50 MG TABLET PO (21:38)
[2023-06-05] MEDS: Topiramate 25 MG TABLET 50 MG PO (21:41)
[2023-06-05 22:09] LABS: Glucose, Whole Blood 160 mg/dL (60-115)
[2023-06-05] MEDS: Topiramate 100 MG TABLET PO (23:23)
--- NOTE | 2023-06-06 07:07 | PC.NURSE ---
Assumed care of patient at this time.
[2023-06-06 07:30] VITALS: BP 106/53; PULSE 70; RESP 18; TEMP 36.5; O2SAT 98
[2023-06-06 08:46] VITALS: BP 103/48; PULSE 66; RESP 14; O2SAT 95
[2023-06-06] MEDS: Sennosides 8.6 MG TABLET 17.2 MG PO (08:47)
[2023-06-06] MEDS: Ferrous Sulfate 324 MG TABLET.DR PO (08:47)
[2023-06-06] MEDS: Omeprazole 20 MG CAPSULE.DR PO (08:47)
[2023-06-06] MEDS: oxyBUTYnin chloride ER 5 MG TAB.ER.24 10 MG PO (08:47)
[2023-06-06] MEDS: Montelukast Sodium 10 MG TABLET PO (08:47)
[2023-06-06] MEDS: metFORMIN HCl 500 MG TABLET PO (08:48)
[2023-06-06] MEDS: Insulin Glargine,Hum.rec.anlog 100 UNIT/ML 10 ML VIAL 50 UNIT SUBCUT (08:48)
[2023-06-06 11:30] LABS: Glucose, Whole Blood 137 mg/dL (60-115)
== END 2023-06-06 10:34 | disposition skilled nursing facility (03) ==
PROVIDERS: Physician Assistant; Emergency Provider Emergency Medicine; PCP Nurse Practitioner Family
DX: R44.1 Visual hallucinations (principal); Z91.81 History of falling; Z20.822 Contact with and (suspected) exposure to COVID-19; R60.0 Localized edema; F03.90 Unspecified dementia, unspecified severity, without behavioral disturbance, psychotic disturbance, mood disturbance, and anxiety; J96.01 Acute respiratory failure with hypoxia; E11.9 Type 2 diabetes mellitus without complications; I10 Essential (primary) hypertension; D50.9 Iron deficiency anemia, unspecified; J45.909 Unspecified asthma, uncomplicated; E66.9 Obesity, unspecified; Z68.37 Body mass index [BMI] 37.0-37.9, adult; Z79.4 Long term (current) use of insulin; Z79.899 Other long term (current) drug therapy; Z87.891 Personal history of nicotine dependence; Z87.01 Personal history of pneumonia (recurrent)
CPT/HCPCS: 36415; 70450; 71045; 72125; 80048; 80076; 81001; 82140; 82550; 82947; 83690; 83735; 83880; 84484; 85025; 85610; 87086; 87635; 93005; 96360; 97110; 97162; 99285

== ENCOUNTER → 2023-06-02 10:02 | Outpatient (BNV) | payer MEDICARE, MEDICAID, SELFPAY | PROVIDERS: Emergency Provider Emergency Medicine; PCP Nurse Practitioner Family; Visit Provider Social Worker | DX: F03.90 Unspecified dementia, unspecified severity, without behavioral disturbance, psychotic disturbance, mood disturbance, and anxiety (principal) | CPT/HCPCS: 99285 ==

== ENCOUNTER 2023-06-24 11:14 | Outpatient (AMB) | payer MEDICARE, MEDICAID, SELFPAY ==
--- NOTE | 2023-06-24 11:37 | MHC.OFFVIS ---
Intake Vital Signs 06/24/23 11:45 Height 4 ft 11 in Weight 181 lb BMI 36.6 BP 191/74 H Blood Pressure Location Lt brachial Position Sitting Pulse 70 Intake Visit Reasons: 2 month follow up Intake Note: Patient follow up diarrhea and constipation Patient cc: abdominal pain on and off, acid reflex, and between diarrhea/constipation. Denies any other GI issues. Apple Thinner Required: No Accompanied by: Self / Same As Patient Allergies No Known Allergies Allergy (Verified 06/27/23 15:06) HPI 2 month follow up HPI Details LAST VISIT: Chronic GERD Start patient on pantoprazole. Discussed with patient avoiding dietary triggers and late night snacking. Staying upright for minimal 3 hours after meals discussed with patient. IBS (irritable bowel syndrome) Patient's daughter reports to me that patient currently does not have a RETAIL KEY HOLDER and they would like to wait to send her for colonoscopy as will be hard for patient to go to the bathroom. Patient is mostly in the wheelchair. Discussed with patient avoiding dietary triggers. Stressed the importance of low FODMAP diet. Avoid food that is fried, greasy and spicy. I will see patient in 2 months, sooner on as needed basis. Both patient and her daughter are agreeable to plan of care and verbalizes understanding of instructions. They were given the opportunity to ask questions and all questions answered. TODAY'S VISIT Patient is here today for follow-up. Patient would like to have Cologuard instead of colonoscopy. Patient is wheelchair bound for the most part and unable to use the bathroom well. Patient denies any melena, hematochezia, unintentional weight loss or ribbon like stools. Patient reports occasional epigastric discomfort and dyspepsia without dysphagia or odynophagia. Patient denies any abdominal pain or discomfort. Denies any nausea or vomiting. She reports to have good appetite. Occasional postprandial abdominal bloating. Patient does admit to eating rice and beans every day ? [facility] Medical History Sepsis Morbid obesity Abscess of left thigh Arthritis High cholesterol High blood pressure Asthma Diabetes Surgical History Hx of colonoscopy Social History Household Members: None Household Members Other:: 0 Housing: Apartment Do you presently have visiting nurse or other home services: Yes Alcohol intake: unknown Patient Tobacco Use Status: Former Tobacco user Quit Date: a few years ago Tobacco use type: Cigarette Cigarettes Per Day: 10 Years Smoked: 4 e-Cigarette/Vaping Use: Never Used Second Hand Smoke Exposure: No Advance Directives Date on File: 04/29/23 service: No Current occupational status: disabled Current occupational exposures/hazards: No Cognitive needs: No Hearing needs: No Vision needs: Yes Review of Systems Const Denies weight gain and Denies weight loss ENT Reports no additional complaints, Denies dysphagia and Denies odynophagia Card Reports no additional complaints Resp Reports no additional complaints GI Reports abdominal pain (Epigastric), Denies belching, Denies melena, Reports bloating, Denies change in bowel habits, Denies dysphagia, Denies excessive flatus, Denies dyspepsia, Reports heartburn, Denies diarrhea, Denies loose stools, Denies nausea, Denies odynophagia and Denies vomiting Musc Reports no additional complaints Neuro Reports no additional complaints Psych Reports no additional complaints Endo Reports no additional complaints Physical Exam Vital Signs: Last Vital Signs Pulse 70 06/24/23 11:45 BP 191/74 H 06/24/23 11:45 BMI result Body Mass Index 36.6 Const Other: In the wheelchair General: healthy appearing, no acute distress and well developed Nutritional Appearance: obese Orientation/consciousness: patient oriented x3 HEENT Head: Yes normal to inspection, Yes normocephalic and Yes atraumatic Face and sinus: Yes normal facial exam Mouth: Normal oral and palatal mucosa present Throat: Yes posterior oropharynx normal, Yes tonsils normal and Yes uvula midline Eyes General: appearance normal, both eyes and all related structures Neck Neck: Yes normal visual inspection, Yes full ROM and Yes trachea midline Thyroid: Thyroid normal Resp Effort & Inspection: normal respiratory effort, able to speak in complete sentences, no tracheal deviation and symmetric chest movement Auscultation: clear to auscultation bilaterally Cardio Rate: regular rate Heart sounds: S1 normal heart sound present and S2 normal heart sound present GI Inspection: Yes normal to inspection, No distended and Yes obesity Palpation (GI): Soft to palpation, not firm, nontender and No hepatosplenomegaly present Auscultation: normal bowel sounds General: Yes no CVA tenderness Back/Spine/Pelvis Back: no CVA tenderness Skin General skin exam: elasticity normal, turgor normal and dry skin Neuro General: patient oriented x3 Psych Appearance: grossly normal Mental Status: other (Neuro cognitive disorder) Assessment & Plan Assessment & Plan (1) Chronic GERD: Code(s): K21.9 - Gastro-esophageal reflux disease without esophagitis (2) IBS (irritable bowel syndrome): Code(s): K58.9 - Irritable bowel syndrome without diarrhea Qualifiers: Irritable bowel syndrome type: without diarrhea Qualified Code(s): K58.9 - Irritable bowel syndrome without diarrhea Plan Will send patient to do Cologuard instead. Patient does have a history of hypoxia with respiratory failure. She is at risk. Patient with prefer that for now. Discussed with patient avoiding dietary triggers. Patient will continue taking pantoprazole in the morning. Patient will continue taking Colace at nighttime to help her move her bowels better. Patient was encouraged to avoid dietary triggers. Eating smaller meals and more often. Cut down on the amount of beans that she's eating. I will see her in 4 months, sooner on as needed basis. Patient is agreeable to this plan and verbalizes understanding of instructions. She was given the opportunity to ask questions and all questions answered. Thank you for allowing me to participate in her care Coding Level of Care Code Est Pt Level 3 (15681) Diagnoses Chronic GERD K21.9 Irritable bowel syndrome without diarrhea K58.9 Irritable bowel syndrome type: without diarrhea Time Spent (min) 30 Comment 20 minutes spent with patient and additional 10 minutes spent reviewing her records
[2023-06-24 11:45] VITALS: BP 191/74; PULSE 70; BMI 36.6
== END 2023-06-24 12:39 | disposition home or self-care (01) ==
PROVIDERS: PCP Hospitalist; Visit Provider Nurse Practitioner Family
DX: K21.9 Gastro-esophageal reflux disease without esophagitis (principal); K58.9 Irritable bowel syndrome, unspecified
CPT/HCPCS: 99213

== ENCOUNTER → 2023-06-24 11:14 | Outpatient (BNVA) | payer MEDICARE, MEDICAID, SELFPAY | PROVIDERS: PCP Hospitalist; Visit Provider Nurse Practitioner Family | DX: K21.9 Gastro-esophageal reflux disease without esophagitis (principal); K58.9 Irritable bowel syndrome, unspecified; D50.9 Iron deficiency anemia, unspecified; E66.01 Morbid (severe) obesity due to excess calories; Z68.36 Body mass index [BMI] 36.0-36.9, adult | CPT/HCPCS: 99212 ==

== ENCOUNTER 2023-06-27 14:18 | Outpatient (AMB) | payer MEDICARE, MEDICAID, SELFPAY ==
[2023-06-27 14:27] VITALS: BP 164/80; PULSE 78; RESP 12; TEMP 36.3; O2SAT 99; BMI 36.4
--- NOTE | 2023-06-27 14:27 | MHC.PC.OV ---
Vital Signs 06/27/23 14:27 06/27/23 15:18 Height 4 ft 11 in Weight 180 lb 6 oz BMI 36.4 BP 164/80 H 160/80 H Blood Pressure Location Lt brachial Lt brachial Position Sitting Sitting Respiration 12 Pulse 78 Pulse Source Pulse Oximeter Temp 97.4 F Temp Source Temporal Artery Scan Pulse Oximetry (%) 99 Oxygen Delivery Method Room Air Intake Visit Reasons: Rehab-06/06-06/13-muscle weakness Intake Note: Patient's daughter states that patient has been having alot of hallucinations. For instance the patient had stated that she seen a man in the window of 2 floor apartment. Patient has also stated that there has been objects and people under her bed. Daughter is stating that this has been happening way before her rehab visit. Patient is seeing Psych [facility]. Patient's family is concerned that there is something bigger underlying. Patient has also been having trouble sleeping due to her hallucinations. Daughter is asking if there is anything patient can take at night to help with her sleeping. Patient's daughter also needs a referral to whatever specialist that could help with understanding of why all this is happening. Patient's daughter would also like a referral for podiatry and Eye doctor as well. Auto Radiator Mechanic Required: Yes Auto Radiator Mechanic Name: Jehovah'S Witness friend and Daughter Accompanied by: Self / Same As Patient Allergies No Known Allergies Allergy (Verified 06/27/23 15:06) Medication List - Last Reconciled 06/27/23 by Jason Cooper CNP albuterol sulfate 90 mcg/actuation 2 puffs inhalation Q4-6H PRN aripiprazole 20 mg PO BEDTIME blood-glucose meter (FreeStyle Lite Meter kit) As directed docusate sodium 100 mg PO BEDTIME ferrous sulfate 325 mg PO DAILY FreeStyle Lite Strips (blood sugar diagnostic) As directed 2-3 times daily NS insulin glargine (Basaglar KwikPen U-100 Insulin) 50 units subcut DAILY lancets (FreeStyle Lancets) As directed bs checks 2-3 times daily lisinopril 40 mg PO DAILY 3 months metformin 500 mg PO BID 3 months metoprolol tartrate 50 mg PO BEDTIME miscellaneous medical supply Nitrile Gloves, Medium, 2 boxes per month, As directed, 30 days miscellaneous medical supply Sanitary Wipes, As directed, 30 days miscellaneous medical supply Pampers Adult Diapers XL, 3 times a day, As directed, 90 days montelukast 10 mg PO DAILY oxybutynin chloride ER 10 mg PO QAM pantoprazole 40 mg PO DAILY paroxetine HCl 40 mg PO DAILY pen needle, diabetic (BD Ultra-Fine Micro Pen Needle) Use with glargine pen sennosides (senna) 17.2 mg (2 x 8.6 mg) PO DAILY sulfamethoxazole-trimethoprim 800-160 mg (Bactrim DS) 1 tab PO Q12H 5 days topiramate 100 mg PO BEDTIME topiramate 50 mg PO BEDTIME trazodone 50 mg PO BEDTIME 3 months Tobacco use date assessed: 12/16/22 Dental Screening Dental Screen Date: 06/27/23 Did you have a dental visit in the last 12 months?: No Did you have a dental problem in the last 6 months where you did not have access to dental care?: No Was dental information given to patient?: Patient has dentist HPI HPI Comments History of Present Illness Details 72-year-old Qatari-speaking female, accompanied by her daughter, presents for muscle weakness follow-up. She was evaluated at [facility] [place] 06/02/2023 for complaints of slip and fall out of bed, AMS, and visual hallucinations. Labs, EKG, and head/brain CT were reassuring. She was observed in the ED and transferred to [facility] where she was between 06/06/2023 and 06/13/2023. The patient's daughter notes that the patient continues to experience visual hallucinations which is interfering with her sleep. She notes that the patient had exhibited visual hallucinations the past. She is followed by [facility]. The patient's daughter denies fall after the patient's recent hospital and rehab discharge. She denies abnormal gait. She uses her walker for ambulation and wheelchair for long distances. The patient's daughter states that the patient has been receiving home care services for the past 3 months. She receives physical and occupational therapy twice weekly and skilled nurse visit once a week. Her daughter notes that the patient last eye exam was a year ago. It has been challenging for him to find an tree and shrub technician that can except the patient's health plan. They will continue to search for an tree and shrub technician. She requests podiatry referral for the patient. [facility] Medical History Sepsis Morbid obesity Abscess of left thigh Arthritis High cholesterol High blood pressure Asthma Diabetes Surgical History Hx of colonoscopy Social History Household Members: None Household Members Other:: 0 Housing: Apartment Do you presently have visiting nurse or other home services: Yes Alcohol intake: unknown Patient Tobacco Use Status: Former Tobacco user Quit Date: a few years ago Tobacco use type: Cigarette Cigarettes Per Day: 10 Years Smoked: 4 e-Cigarette/Vaping Use: Never Used Second Hand Smoke Exposure: No Advance Directives Date on File: 04/29/23 service: No Current occupational status: disabled Current occupational exposures/hazards: No Cognitive needs: No Hearing needs: No Vision needs: Yes Questionnaire Thrive Questionnaire Date Thrive assessed: 03/01/23 Review of Systems Const Details: Const Denies chills, Denies fatigue, Denies fever(s), Denies headache(s) and Denies weakness ENT Denies dizziness and Denies headache(s) Card Denies chest pain, Denies lightheadedness, Denies dyspnea and Denies other (Palpitations) Resp Denies cough, Denies dyspnea, Denies wheezing and Denies other ( shortness of breath) GI Denies abdominal pain, Denies melena, Denies hematochezia, Denies change in bowel habits, Denies dyspepsia and Denies nausea Denies hematuria and Denies dysuria Musc Denies abnormal gait, Denies myalgias, Denies arthralgias, Denies numbness and Denies tingling Skin/Breast Denies rash, Denies unusual bruising and Denies wounds Neuro Denies abnormal gait, Denies dizziness, Denies headache(s), Denies memory loss, Denies numbness, Denies Sensory deficit (Neuro), Denies tingling and Denies weakness Psych Denies anxiety, Denies depression, Denies memory loss Endo Denies cold intolerance, Denies fatigue, Denies heat intolerance, Denies polydipsia and Denies polyuria Aller/Immun Denies wheezing Physical exam (Primary Care) Vital Signs: Last Vital Signs Temp 97.4 F 06/27/23 14:27 Pulse 78 06/27/23 14:27 Resp 12 06/27/23 14:27 BP 164/80 H 06/27/23 14:27 Pulse Ox 99 06/27/23 14:27 Oxygen Delivery Method Room Air 06/27/23 14:27 BMI result Body Mass Index 36.4 Tobacco/Smoking Status: Tobacco use Status Tobacco use date assessed 12/16/22 06/27/23 14:46 Patient Tobacco Use Status Former Tobacco user 06/27/23 14:46 Tobacco use type Cigarette 06/27/23 14:46 e-Cigarette/Vaping Use Never Used 06/27/23 14:46 Thrive Assessment: Date of Thrive Assessment Date Thrive assessed 03/01/23 06/27/23 14:46 Const Other: General: no acute distress and well developed Nutritional Appearance: well nourished Orientation/consciousness: patient oriented x3 HENMT Head: Yes normocephalic and Yes atraumatic Eyes General: appearance normal, both eyes and all related structures Pupils: Equal, round and reactive pupils present EOM: EOMs intact bilaterally Resp Effort & Inspection: normal respiratory effort Auscultation: clear to auscultation bilaterally Cardio Rate: regular rate Rhythm: regular rhythm Heart sounds: S1 normal heart sound present, S2 normal heart sound present, no gallops, no murmurs and no rubs GI Palpation (GI): No Abdominal aortic bruit present, Soft to palpation, nontender, No hepatosplenomegaly present and No Rebound tenderness present Auscultation: normal bowel sounds General: Yes no CVA tenderness Back/Spine/Pelvis Back: no CVA tenderness Cervical Spine: cervical ROM normal and No Cervical spine tenderness Thoracic/Lumbar Spine: thoraco-lumbar ROM normal, No pain with thoraco-lumbar ROM, No thoracic spinal tenderness and No lumbar spinal tenderness Extrem General: Yes normal to inspection, No edema and No calf tenderness Skin General: warm and dry. Normal skin color. Normal skin turgor Neuro General: patient oriented x3, gait normal and no focal neuro deficit Cranial nerves: Yes Equal, round and reactive pupils present Cognition (Neuro): normal cognition Gait exam (Neuro): Normal gait present Sensory Exam: No Sensory deficit (Neuro) Psych Appearance: grossly normal Affect: normal affect Attitude: cooperative Thought process: Normal thought process present Assessment and Plan Assessment & Plan (1) High blood pressure: Code(s): I10 - Essential (primary) hypertension Qualifiers: Hypertension type: primary hypertension Qualified Code(s): I10 - Essential (primary) hypertension Plan: Resting blood pressure is 160/80, above goal of less than 130/80 Will increase metoprolol to 50 mg twice daily. Take as prescribed Continue to take lisinopril as prescribed Low-sodium diet encouraged Return for a nurse visit for blood pressure check in 1 week and with PCP in 1 month Return sooner with symptoms or concerns Verbalized understanding and agreed with treatment plan. Encouraged to continue with current home physical therapy, occupational therapy, and skilled nurse services. Podiatry referral made. Interpretation by the patient's daughter per patient's preference. (2) Iron deficiency anemia: Code(s): D50.9 - Iron deficiency anemia, unspecified Plan: Her RBC and H&H continues to improve, recent levels are 4.05/11.5/35.8 respectively Continue to take ferrous sulfate as prescribed Will recheck CBC and will check iron profile and ferritin levels in 1 month. Advised to get blood work done before next visit Follow-up in 1 month Verbalized understanding and agreed with treatment plan. (3) Visual hallucinations: Code(s): R44.1 - Visual hallucinations Plan: The patient's daughter notes that the patient continues to experience visual hallucinations which is interfering with her sleep. She notes that the patient exhibited visual hallucinations the past. She is followed by [facility]. Continue with current psychotropic medication regimen Instructed on sleep hygiene Follow-up with psychiatrist Return with worsening or new symptoms Verbalized understanding and agreed with treatment plan. (4) High cholesterol: Code(s): E78.00 - Pure hypercholesterolemia, unspecified Plan: Her lipid panel levels were checked in April 2023 Triglycerides, total cholesterol, and LDL levels were elevated, to 220, 214, and 138 respectively. HDL level was slightly low, 38 Atorvastatin ordered. Take as prescribed Advised to limit foods high in saturated fat and avoid foods high trans fat Encouraged to expand activities by walking Will recheck lipid level in a month. Advised to fast for 10-12 hours before getting blood work done Follow-up in 1 month Verbalized understanding and agreed with treatment plan. Orders: Orders IRON PROFILE Today D50.9 - Iron deficiency anemia, unspecified Ferritin Today D50.9 - Iron deficiency anemia, unspecified Referrals Podiatry Referral E11.9 - Type 2 diabetes mellitus without complications Medications: New atorvastatin 10 mg PO BEDTIME 90 tabs 1RF 90 days Changed From metoprolol tartrate 50 mg PO BEDTIME To metoprolol tartrate 50 mg PO BEDTIME 30 days 30 tabs 3RF Coding Level of Care Code Est Pt Level 4 (63492) Diagnoses Primary hypertension I10 Hypertension type: primary hypertension Iron deficiency anemia D50.9 Visual hallucinations R44.1 High cholesterol E78.00
[2023-06-27 15:18] VITALS: BP 160/80
== END 2023-06-27 16:10 | disposition home or self-care (01) ==
PROVIDERS: PCP Nurse Practitioner Family; Visit Provider Nurse Practitioner Family
DX: I10 Essential (primary) hypertension (principal); D50.9 Iron deficiency anemia, unspecified; R44.1 Visual hallucinations; E78.00 Pure hypercholesterolemia, unspecified
CPT/HCPCS: 83036; 99214

== ENCOUNTER 2023-07-01 10:37 | Outpatient (REF) | payer MEDICARE, MEDICAID, SELFPAY ==
[2023-07-01 11:11] LABS: Hematocrit 36.4 % (37.0-47.0); Hemoglobin 11.2 g/dl (12.0-16.0); Immature Retic Fraction 8.8 % (3.0-15.9); Mean Corpuscular HGB Conc 30.8 g/dl (31.0-35.0); Mean Corpuscular Hemoglobin 28.3 pg (27.0-33.0); Mean Corpuscular Volume 91.9 fL (80.0-98.0); Mean Platelet Volume 11.2 fL (9.4-12.3); Platelet Count 303 X10*3/uL (160-400); Red Blood Count 3.96 X10*6/uL (4.20-5.50); Red Cell Distribution Width 13.3 % (11.0-16.0); Reticulocytes Absolute 0.081 X10*6/uL (0.026-0.095)
[2023-07-01 12:46] LABS: Iron 63 mcg/dL (30-160); Percent Iron Saturation 28 % (15-50); Total Iron Binding Capacity 228 mcg/dL (228-428); Unsaturated Iron Binding 165 ug/dL
[2023-07-01 12:49] LABS: Ferritin 105 ng/mL (10-250)
== END 2023-07-01 10:38 | disposition home or self-care (01) ==
LOC: HO.LAB 10:37
PROVIDERS: PCP Nurse Practitioner Family; Visit Provider Nurse Practitioner Family
DX: D50.9 Iron deficiency anemia, unspecified (principal)
CPT/HCPCS: 36415; 82728; 83540; 85027; 85045

== ENCOUNTER 2023-07-04 15:28 | Outpatient (REF) | payer MEDICARE, MEDICAID, SELFPAY ==
[2023-07-04 15:35] LABS: Appearance Urine Clear; Color Urine Yellow; Glucose Urine UA Negative (Negative); Leukocyte Esterase Urine Trace (Negative); Nitrite Urine Negative (Negative); PH 6.5 (5.0-9.0); Specific Gravity - Urine <= 1.005 (1.005-1.025); UMIC TRIGGER UA YES; Urine Blood Negative (Negative); Urine Ketones Negative (Negative); Urine Protein Negative (Neg-Trace)
[2023-07-04 15:37] LABS: Bacteria Urine None Seen (None Seen); Hyaline Casts Urine 0-2 /LPF (0-2); RBC Urine 0-2 /HPF (0-2); Squamous Epithelial Cell Urine 0-2 /HPF (0-2); WBC Urine 0-5 /HPF (0-5)
== END 2023-07-04 15:29 | disposition home or self-care (01) ==
LOC: HO.LNP 15:28
PROVIDERS: Visit Provider Family Medicine
DX: R41.82 Altered mental status, unspecified (principal)
CPT/HCPCS: 81001

== ENCOUNTER 2023-07-29 11:15 | Outpatient (AMB) | payer MEDICARE, MEDICAID, SELFPAY ==
--- NOTE | 2023-07-29 11:20 | A.OFFPC_ITS ---
Vital Signs 07/29/23 11:21 Height 4 ft 11 in Weight 175 lb BMI 35.3 BP 130/68 Blood Pressure Location Lt brachial Position Sitting Respiration 13 Pulse 65 Pulse Source Pulse Oximeter Temp 97.5 F Temp Source Temporal Artery Scan Pulse Oximetry (%) 96 Oxygen Delivery Method Room Air Intake Visit Reasons: 1 mth follow up Intake Note: Patient's daughter is requesting papers to be signed to get round the clock care for patient due to ER doctor stating she cant be left alone. Patient has recent ER visit from 07/25/23. patient would like to go over colorguard results. Maths Tutor Required: Yes Maths Tutor Name: Friend Accompanied by: Daughter Allergies No Known Allergies Allergy (Verified 07/29/23 11:35) Tobacco use date assessed: 07/29/23 Fall risk assessment: 2 + Falls in past year Last assessed Fall Risk: 07/29/23 Dental Screening Dental Screen Date: 07/29/23 Did you have a dental visit in the last 12 months?: Yes Did you have a dental problem in the last 6 months where you did not have access to dental care?: No Was dental information given to patient?: Patient has dentist HPI HPI Comments History of Present Illness Details 72-year-old Kis[place]-speaking female, acc ompanied by her daughter, presents for hypertension, iron-deficiency anemia, diabetes, and hypercholesterolemia follow-up. Her blood pressure was elevated at her previous visit, 160/80. Metoprolol was increased to 50 mg twice Daily. She was advised to take metoprolol, amlodipine, and hydrochlorothiazide as prescribed. Her last lipid panel levels was in April 2023. Triglycerides, total cholesterol, and LDL levels were elevated, 220, 214, and 138 respectively. HDL level was slightly low, 38. She was prescribed atorvastatin 10 mg daily. Her recent RBC and H&H levels were low, 3.96, 11.2, and 36.4 respectively. She was advised to take ferrous sulfate as prescribed She admits to taking her medications as prescribed. She denies acute symptoms She notes that her last eye exam was 2 years ago She was evaluated at [facility] ED on 07/22/2023 for complaints of dizziness with associated nausea. EMS was activated and found the patient with systolic blood pressure in the 70s. She was admitted and discharged on 07/25/2023. Hydrochlorothiazide was discontinued. Acute kidney injury and blood pressures improve after fluid resuscitation. She was advised to continue taking amlodipine 10mg daily and metoprolol 50mg twice daily. She was started on laxative for constipation. Abdomen CT revealed the following: Unremarkable CT of the abdomen and pelvis. Specifically, a normal appendix present Large amount of stool within the transverse descending, and sigmoid colon Left sided nephrolithiasis 1.1 cm indeterminate lesion within the r ight kidney 2.2 x 2.1 cm indeterminate low attenuati on lesion within the liver. 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 Personal history of urinary (tract) infections Overactive bladder Hyperlipidemia, unspecified Anemia in chronic kidney disease Hypertensive chronic kidney disease with stage 1 through stage 4 chronic kidney disease, or unspecified chronic kidney disease Major depressive disorder, single episode, in full remission Unspecified dementia, unspecified severity, with mood disturbance Unspecified dementia, unspecified severity, with psychotic disturbance Sepsis Morbid obesity Abscess of left thigh Arthritis High cholesterol High blood pressure Asthma Diabetes Surgical History Hx of colonoscopy Household Members: None Household Members Other:: 0 Housing: Apartment Do you presently have visiting nurse or other home services: Yes Alcohol intake: unknown Patient Tobacco Use Status: Former Tobacco user Quit Date: a few years ago Tobacco use type: Cigarette Cigarettes Per Day: 10 Years Smoked: 4 e-Cigarette/Vaping Use: Never Used Second Hand Smoke Exposure: No Advance Directives Date on File: 04/29/23 service: No Current occupational status: disabled Current occupational exposures/hazards: No Cognitive needs: No Hearing needs: No Vision needs: Yes Questionnaire Thrive Questionnaire Date Thrive assessed: 03/01/23 Physical exam (Primary Care) Vital Signs: Last Vital Signs Temp 97.5 F 07/29/23 11:21 Pulse 65 07/29/23 11:21 Resp 13 07/29/23 11:21 BP 130/68 07/29/23 11:21 Pulse Ox 96 07/29/23 11:21 Oxygen Delivery Method Room Air 07/29/23 11:21 BMI result Body Mass Index 35.3 Tobacco/Smoking Status: Tobacco use Status Tobacco use date assessed 07/29/23 07/29/23 11:50 Patient Tobacco Use Status Former Tobacco user 07/29/23 11:50 Tobacco use type Cigarette 07/29/23 11:50 e-Cigarette/Vaping Use Never Used 07/29/23 11:50 Thrive Assessment: Date of Thrive Assessment Date Thrive assessed 03/01/23 07/29/23 11:50 Results AMB Hemoglobin A1c AMB Hemoglobin A1c 6.9 % Last Edit by Nicole Jackson MA on 07/29/23 12:45 Results Reviewed Results Reviewed: Laboratory Last Values Hgb A1c (Clinic) 6.9 % (4.0-6.0) H 07/29/23 12:44 Assessment and Plan Assessment & Plan (1) Type 2 diabetes mellitus: Code(s): E11.9 - Type 2 diabetes mellitus without complications Plan: A1c today 6.9%, within goal of less than 7.0% Previous A1c was 8.5% Previous LDL was 138, above goal of less than 70. Will recheck lipid levels in 1 month. Advised to fast for 10-12 hours, may drink water, and get blood work done before next visit Recent microalbumin/creatinine ratio is 19.0 Metformin and basaglar as prescribed ADA diet and routine exercise encouraged Referred to Ophthalmology for diabetic retinal exam Will check A1c in 3 months Follow-up in 1 month for an extended physical exam Return sooner with symptoms or concerns Verbalized understanding and agreed with treatment plan Interpretation by the patient's daughter per patient's preference (2) High blood pressure: Code(s): I10 - Essential (primary) hypertension Qualifiers: Hypertension type: primary hypertension Qualified Code(s): I10 - Essential (primary) hypertension Plan: Blood pressure is 130/68, slightly above goal of less than 130/80 Continue to take amlodipine, lisinopril, and metoprolol as prescribed Low-sodium diet encouraged VNA will continue the monitor BP Verbalized understanding and agreed with treatment plan. (3) Iron deficiency anemia: Code(s): D50.9 - Iron deficiency anemia, unspecified Plan: Her recent RBC and H&H levels were low, 3.96, 11.2, and 36.4 respectively Recent iron profile is normal Continue to take ferrous sulfate as prescribed Will recheck CBC in 3 months Verbalized understanding and agreed with treatment plan (4) High cholesterol: Code(s): E78.00 - Pure hypercholesterolemia, unspecified Plan: Last lipid levels were checked in April Triglycerides, total cholesterol, and LDL levels were elevated, 220, 214, and 138 respectively Atorvastatin as prescribed Advised to limit foods high in saturated fat and avoid foods high trans fat Will recheck lipid panel in 1 month. Advised to get fasting blood work done before her next visit Verbalized understanding and agreed with treatment plan (5) Lesion of right [place] kidney: Code(s): N28.9 - Disorder of kidney and ureter, unspecified Plan: Recent abdominal CT scan at [facility] revealed the followin.1 cm indeterminate lesion within the right kidney 2.2 x 2.1 cm indeterminate low attenuation lesion within the liver Recommended right upper quadrant ultrasound as an outpatient for evaluation of this lesion and indeterminate lesion seen within the right kidney Ultrasound of the liver and right kidney ordered (6) Liver lesion: Code(s): K76.9 - Liver disease, unspecified Plan: As above Orders: Orders AMB Hemoglobin A1c Today Z13.9 - Encounter for screening, unspecified Lipid Panel Today E78.00 - Pure hypercholesterolemia, unspecified US abdomen limited Today K76.9 - Liver disease, unspecified, N28.9 - Disorder of kidney and ureter, unspecified Referrals Ophthalmology Referral E11.9 - Type 2 diabetes mellitus without complications Coding Level of Care Code Est Pt Level 4 (02275) Diagnoses Type 2 diabetes mellitus E11.9 Primary hypertension I10 Hypertension type: primary hypertension Iron deficiency anemia D50.9 High cholesterol E78.00 Lesion of right [place] kidney N28.9 Liver lesion K76.9
[2023-07-29 11:21] VITALS: BP 130/68; PULSE 65; RESP 13; TEMP 36.4; O2SAT 96; BMI 35.3
== END 2023-07-29 13:04 | disposition home or self-care (01) ==
PROVIDERS: PCP Hospitalist; Visit Provider Nurse Practitioner Family
DX: E11.40 Type 2 diabetes mellitus with diabetic neuropathy, unspecified (principal); I10 Essential (primary) hypertension; D50.9 Iron deficiency anemia, unspecified; E78.00 Pure hypercholesterolemia, unspecified; N28.9 Disorder of kidney and ureter, unspecified; K76.9 Liver disease, unspecified
CPT/HCPCS: 99214

== ENCOUNTER 2023-08-29 10:18 | Outpatient (REF) | payer MEDICARE, MEDICAID, SELFPAY ==
--- NOTE | ~2023-08-29 | US_ITS ---
EXAMINATION: US ABDOMEN LIMITED CLINICAL INFORMATION: Liver disease, unspecified. COMPARISON: CT abdomen and pelvis 02/28/2023. Renal ultrasound 12/20/2022. TECHNIQUE: Real-time imaging of the right upper quadrant abdominal viscera. FINDINGS: PANCREAS: Limited visualization. LIVER: The liver is normal in size. The liver contour is normal. Parenchymal echogenicity is normal. No focal hepatic lesion. There is no intrahepatic biliary duct dilatation seen. GALLBLADDER: The gallbladder is physiologically distended without evidence of stones, sludge, polyps, wall thickening or pericholecystic fluid. COMMON BILE DUCT: Normal in caliber measuring 0.5 cm in diameter. RIGHT KIDNEY: No hydronephrosis. No renal calculi or focal parenchymal lesions. The kidney measures 9.8 cm in maximum dimension. FREE FLUID: None. US/US abdomen limited IMPRESSION: Unremarkable right upper quadrant ultrasound.
== END 2023-08-29 10:19 | disposition home or self-care (01) ==
LOC: HO.US 10:18
PROVIDERS: PCP Nurse Practitioner Family; Visit Provider Nurse Practitioner Family
DX: K76.9 Liver disease, unspecified (principal); N28.9 Disorder of kidney and ureter, unspecified
CPT/HCPCS: 76705

== ENCOUNTER 2023-10-31 11:14 | Outpatient (AMB) | payer MEDICARE, MEDICAID, SELFPAY ==
--- NOTE | 2023-10-31 11:34 | MHC.PC.OV ---
Vital Signs 10/31/23 11:35 Height 4 ft 11 in Weight 180 lb 2 oz BMI 36.4 BP 116/70 Blood Pressure Location Rt brachial Position Sitting Respiration 14 Pulse 67 Pulse Source Pulse Oximeter Temp 97.5 F Temp Source Temporal Artery Scan Pulse Oximetry (%) 96 Oxygen Delivery Method Room Air Intake Visit Reasons: CPE, HLD Rental Car Porter Required: Yes Rental Car Porter Name: Family Accompanied by: Family/Other Allergies Seasonal Allergies Allergy (Intermediate, Verified 10/31/23 12:05) Itchy Eyes Medication List - Last Reconciled 10/31/23 by Jason Cooper CNP acetaminophen 650 mg (2 x 325 mg) PO Q6H PRN albuterol sulfate 90 mcg/actuation 2 puffs inhalation Q4-6H PRN amlodipine 10 mg PO DAILY 90 days aripiprazole 20 mg PO BEDTIME atorvastatin 10 mg PO BEDTIME 90 days blood-glucose meter (FreeStyle Lite Meter kit) As directed citalopram 20 mg PO DAILY 30 days docusate sodium (Colace) 100 mg PO BEDTIME docusate sodium 100 mg PO BEDTIME ferrous sulfate 325 mg PO DAILY FreeStyle Lite Strips (blood sugar diagnostic) As directed 2-3 times daily NS gabapentin 100 mg PO BID hydrochlorothiazide 25 mg PO DAILY insulin glargine (Basaglar KwikPen U-100 Insulin) 50 units (0.5 mL) subcut DAILY 30 days lancets (FreeStyle Lancets) As directed bs checks 2-3 times daily lisinopril 40 mg PO DAILY 3 months melatonin 6 mg (2 x 3 mg) PO BEDTIME 30 days metformin 500 mg PO BID 3 months metoprolol tartrate 50 mg PO BID miscellaneous medical supply Nitrile Gloves, Medium, 2 boxes per month, As directed, 30 days miscellaneous medical supply Sanitary Wipes, As directed, 30 days miscellaneous medical supply Pampers Adult Diapers XL, 3 times a day, As directed, 90 days montelukast 10 mg PO DAILY pantoprazole 40 mg PO DAILY pen needle, diabetic (BD Ultra-Fine Micro Pen Needle) Use with glargine pen sennosides (senna) 17.2 mg (2 x 8.6 mg) PO DAILY simethicone (Gas Relief 80 (simethicone)) 80 mg PO TID PRN sulfamethoxazole-trimethoprim 800-160 mg (Bactrim DS) 1 tab PO Q12H 5 days topiramate 100 mg PO BEDTIME 30 days trazodone 50 mg PO BID 3 months Tobacco use date assessed: 10/31/23 Fall risk assessment: No Falls in past year Last assessed Fall Risk: 10/31/23 Dental Screening Dental Screen Date: 10/31/23 Did you have a dental visit in the last 12 months?: Yes Did you have a dental problem in the last 6 months where you did not have access to dental care?: No Was dental information given to patient?: Patient has dentist HPI HPI Comments History of Present Illness Details 73-year-old female, accompanied by her daughter and [employer], presents for diabetes, hypertension, and hyperlipidemia follow-up She admits to taking her medications as prescribed without adverse reactions According to her daughter, the patient has not been maintaining a healthy diet. She has been consuming significant carbs. She is in her wheelchair most of the time She reports tingling and numbness to her lower legs and feet Her daughter notes that the patient has had increased depression and anxiety symptoms likely due to dementia. 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 Personal history of urinary (tract) infections Overactive bladder Hyperlipidemia, unspecified Anemia in chronic kidney disease Hypertensive chronic kidney disease with stage 1 through stage 4 chronic kidney disease, or unspecified chronic kidney disease Major depressive disorder, single episode, in full remission Unspecified dementia, unspecified severity, with mood disturbance Unspecified dementia, unspecified severity, with psychotic disturbance Sepsis Morbid obesity Abscess of left thigh Arthritis High cholesterol High blood pressure Asthma Diabetes Surgical History Hx of colonoscopy Social History Household Members: None Household Members Other:: 0 Housing: Apartment Do you presently have visiting nurse or other home services: Yes Alcohol intake: unknown Patient Tobacco Use Status: Former Tobacco user Quit Date: a few years ago Tobacco use type: Cigarette Cigarettes Per Day: 10 Years Smoked: 4 e-Cigarette/Vaping Use: Never Used Second Hand Smoke Exposure: No Advance Directives Date on File: 04/29/23 service: No Current occupational status: disabled Current occupational exposures/hazards: No Cognitive needs: No Hearing needs: No Vision needs: No Questionnaire PHQ-9 Over the last 2 weeks, how often have you been bothered by any of the following problems? 1. Little interest or pleasure in doing things: several days 2. Feeling down, depressed, or hopeless: nearly every day 3. Trouble falling or staying asleep, or sleeping too much: nearly every day 4. Feeling tired or having little energy: nearly every day 5. Poor appetite or overeating: several days 6. Feeling bad about yourself - or that you are a failure or have let yourself or your family down: not at all 7. Trouble concentrating on things, such as reading the newspaper or watching television: several days 8. Moving or speaking so slowly that other people could have noticed. Or the opposite - being so fidgety or restless that you have been moving around a lot more than usual: not at all 9. Thoughts that you would be better off or of hurting yourself in some way: not at all Total score: 12 Depression Screening Interpretation: Positive Depression Screening Follow-up: Existing condition, In treatment and New Medication prescribed Depression Screening Done: Yes 99524 - PHQ-9 Billing: Yes Source: Developed by Drs. Supa Solares, Shaina Simpson, Michele Main and colleagues, with an educational laith from [employer]. Thrive Questionnaire Date Thrive assessed: 10/31/23 I am a: Patient What is your living situation today?: I have a steady place to live Within the past 12 months, did the food you bought not last and you didn't have the money to get more?: Never true Within the past 12 months, did you worry whether your food would run out before you got money to buy more?: Never true Do you have trouble paying for medicines?: No Do you have trouble getting transportation to medical appointments?: No Do you have trouble paying your heating and electricity bill?: No Do you have trouble taking care of your child, family member or friend?: No Do you have trouble with day-to-day activities such as bathing, preparing meals, shopping, managing finances, etc.?: Yes Are you currently unemployed and looking for a job?: No Are you interested in more education?: No Please select the resources that you would like help with: Daily support Currently or been in a relationship where the following occur: no concerns reported THRIVE Score: 0 AUDIT C Alcohol Use Questionnaire (AUDIT-C) 1. How often do you have a drink containing alcohol?: Never 3. How often do you have six or more drinks on one occasion?: Never Total Score: 0 MUSTAPHA-7 AMB Questionnaire MUSTAPHA-7 Date MUSTAPHA - 7 assessed: 10/31/23 Feeling nervous, anxious, or on edge: 3 = Nearly every day Not being able to stop or control worryin = More than half the days Worrying too much about different things: 3 = Nearly every day Trouble relaxin = Nearly every day Being so restless that it is hard to sit still: 3 = Nearly every day Becoming easily annoyed or irritable: 3 = Nearly every day Feeling afraid as if something awful might happen: 1 = Several days Total MUSTAPHA-7 score (0-4 normal; 5-9 mild; 10-14 moderate; 15-21 severe): 18 Source: Developed by Drs. Supa Solares, Shaina Simpson, Michele Main and colleagues, with an educational laith from [employer]. MUSTAPHA-7 Assessment Billing MUSTAPHA-7 Assessment Tool: MUSTAPHA-7 Assessment 43209 ACT Questionnaire In the past 4 weeks, how much of the time did your asthma keep you from getting as much done at work, school or at home?: Some of the time During the past 4 weeks, how often have you had shortness of breath?: 1-2 times a week During the past 4 weeks, how often did your asthma symptoms wake you up at night or earlier than usual in the morning?: Once or twice per week During the past 4 weeks, how often have you had to use your rescue inhaler or nebulizer medication?: 2-3 times a week How would you rate your asthma control during the past 4 weeks?: Well controlled Score: 18 Review of Systems Const Details: Const Denies chills, Denies fatigue, Denies fever(s), Denies headache(s) and Denies weakness ENT Denies dizziness and Denies headache(s) Card Denies chest pain, Denies lightheadedness, Denies dyspnea and Denies other (Palpitations) Resp Denies cough, Denies dyspnea, Denies wheezing and Denies other ( shortness of breath) GI Denies abdominal pain, Denies melena, Denies hematochezia, Denies change in bowel habits, Denies dyspepsia and Denies nausea Denies hematuria and Denies dysuria Musc Denies abnormal gait, Denies myalgias, Denies arthralgias, Denies numbness and Denies tingling Skin/Breast Denies rash, Denies unusual bruising and Denies wounds Neuro Reports abnormal gait, Denies dizziness, Denies headache(s), Denies memory loss, Denies numbness, Denies Sensory deficit (Neuro), Denies tingling and Denies weakness Psych Reports anxiety, Reports depression, Reports memory loss Endo Denies cold intolerance, Denies fatigue, Denies heat intolerance, Denies polydipsia and Denies polyuria Aller/Immun Denies wheezing Physical exam (Primary Care) Vital Signs: Last Vital Signs Temp 97.5 F 10/31/23 11:35 Pulse 67 10/31/23 11:35 Resp 14 10/31/23 11:35 BP 116/70 10/31/23 11:35 Pulse Ox 96 10/31/23 11:35 Oxygen Delivery Method Room Air 10/31/23 11:35 BMI result Body Mass Index 36.4 Tobacco/Smoking Status: Tobacco use Status Tobacco use date assessed 10/31/23 10/31/23 11:56 Patient Tobacco Use Status Former Tobacco user 10/31/23 11:56 Tobacco use type Cigarette 10/31/23 11:56 e-Cigarette/Vaping Use Never Used 10/31/23 11:56 PHQ-9: PHQ-9 Score PHQ-9: Total score 12 10/31/23 12:41 Depression Screening Interpretation: Positive Depression Screening Follow-up: Existing condition, In treatment and New Medication prescribed Thrive Assessment: Date of Thrive Assessment Date Thrive assessed 10/31/23 10/31/23 11:56 Currently or been in a relationship where the following occur: no concerns reported Const Other: General: no acute distress and well developed Nutritional Appearance: well nourished Orientation/consciousness: patient oriented x3 [facility] Head: Yes normocephalic and Yes atraumatic Eyes General: appearance normal, both eyes and all related structures Pupils: Equal, round and reactive pupils present EOM: EOMs intact bilaterally Resp Effort & Inspection: normal respiratory effort Auscultation: clear to auscultation bilaterally Cardio Rate: regular rate Rhythm: regular rhythm Heart sounds: S1 normal heart sound present, S2 normal heart sound present, no gallops, no murmurs and no rubs GI Palpation (GI): No Abdominal aortic bruit present, Soft to palpation, nontender, No hepatosplenomegaly present and No Rebound tenderness present Auscultation: normal bowel sounds General: Yes no CVA tenderness Back/Spine/Pelvis Back: no CVA tenderness Cervical Spine: cervical ROM normal and No Cervical spine tenderness Thoracic/Lumbar Spine: thoraco-lumbar ROM normal, No pain with thoraco-lumbar ROM, No thoracic spinal tenderness and No lumbar spinal tenderness Extrem General: Yes normal to inspection, No edema and No calf tenderness Skin General: warm and dry. Normal skin color. Normal skin turgor Neuro General: patient oriented x3, gait abnormal and no focal neuro deficit Cranial nerves: Yes Equal, round and reactive pupils present Cognition (Neuro): normal cognition Gait exam (Neuro): Normal gait present Sensory Exam: No Sensory deficit (Neuro) Psych Appearance: grossly normal Affect: normal affect Attitude: cooperative Thought process: Normal thought process present Results AMB Hemoglobin A1c AMB Hemoglobin A1c 7.9 % Last Edit by Nicole Jackson MA on 10/31/23 12:09 Results Reviewed Results Reviewed: Laboratory Last Values Hgb A1c (Clinic) 7.9 % (4.0-6.0) H 10/31/23 12:05 Assessment and Plan Assessment & Plan (1) Type 2 diabetes mellitus with diabetic neuropathy: Code(s): E11.40 - Type 2 diabetes mellitus with diabetic neuropathy, unspecified Plan: A1c today 7.9%, above goal of less than 7.0%. Previous A1c was 6.9% She has been consuming foods high in carbs Will increase metformin from 500 mg twice daily to 850 mg twice daily. Take as prescribed Continue to take Basaglar 50 units daily Gabapentin increased to 300 mg twice daily for neuropathy. Advised to take as prescribed ADA diet and routine exercise encouraged Will recheck A1c in 3 months Verbalized understanding and agreed with treatment plan (2) High cholesterol: Code(s): E78.00 - Pure hypercholesterolemia, unspecified Plan: She has not gotten lipid profile blood work done Advised to fast for 10-12 hours, may drink water only, and get blood work done before next visit Verbalized understanding and agreed with the plan (3) High blood pressure: Code(s): I10 - Essential (primary) hypertension Qualifiers: Hypertension type: primary hypertension Qualified Code(s): I10 - Essential (primary) hypertension Plan: Blood pressure is 160/70, within goal of less than 130/80 Continue current treatment regimen Low-sodium diet encouraged Will continue to monitor Verbalized understanding and agreed with the plan (4) Anxiety and depression: Code(s): F41.9 - Anxiety disorder, unspecified; F32.A - Depression, unspecified Plan: Her daughter notes that the patient has increased anxiety and depression MUSTAPHA-7 in PHQ-9 score revealed severe anxiety and moderate depression respectively Continue to take citalopram 20 mg daily and aripiprazole 20 mg at bedtime Buspirone 7.5 mg twice daily ordered. Take as prescribed Routine exercise encouraged Continue follow-up with therapist as planned Follow-up in 2 weeks or return sooner with worsening or new symptoms Verbalized understanding and agreed with treatment plan Orders: Orders AMB Hemoglobin A1c Today E11.9 - Type 2 diabetes mellitus without complications Medications: New albuterol sulfate 2.5 mg (3 mL) inhalation Q4-6H PRN 90 mL 2RF shortness of breath or wheezing metformin 850 mg PO BIDWMEAL 180 tabs 1RF 90 days gabapentin 300 mg PO BID 60 caps 2RF 30 days buspirone 7.5 mg PO BID 60 tabs 2RF 30 days Refilled albuterol sulfate 90 mcg/actuation 2 puffs inhalation Q4-6H PRN 8.5 grams 3RF shortness of breath or wheezing J45.909 - Unspecified asthma, uncomplicated Discontinued metformin Discontinued Reason: Doctor's Order 500 mg PO BID 3 months 180 tabs 0RF Coding Level of Care Code Est Pt Level 4 (07357) Diagnoses Type 2 diabetes mellitus with diabetic neuropathy E11.40 High cholesterol E78.00 Primary hypertension I10 Hypertension type: primary hypertension Anxiety and depression F41.9; F32.A Additional Codes MUSTAPHA-7 Assessment Billing - MUSTAPHA-7 Assessment Tool: MUSTAPHA-7 Assessment 97533 ([id number])
[2023-10-31 11:35] VITALS: BP 116/70; PULSE 67; RESP 14; TEMP 36.4; O2SAT 96; BMI 36.4
== END 2023-10-31 12:33 | disposition home or self-care (01) ==
PROVIDERS: PCP Nurse Practitioner Family; Visit Provider Nurse Practitioner Family
DX: E11.40 Type 2 diabetes mellitus with diabetic neuropathy, unspecified (principal); E78.00 Pure hypercholesterolemia, unspecified; I10 Essential (primary) hypertension; F41.9 Anxiety disorder, unspecified; F32.A Depression, unspecified
CPT/HCPCS: 83036; 96127; 99214

== ENCOUNTER 2023-11-03 09:07 | Outpatient (AMB) | payer MEDICARE, MEDICAID, SELFPAY ==
--- NOTE | 2023-11-03 09:15 | A.OFFVIS_ITS ---
Intake Vital Signs 11/03/23 09:25 Height 4 ft 11 in Weight 180 lb BMI 36.4 BP 167/69 H Blood Pressure Location Rt brachial Position Sitting Pulse 65 Intake Visit Reasons: 6 Month Follow Up r/s 10/24/23 Intake Note: Patient presents to in office visit today in follow up of cologuard. CC: Patient reports occasional diarrhea, constipation, abdominal pain. Denies any other GI issues. Oncology Nurse Required: No Accompanied by: Self / Same As Patient Allergies Seasonal Allergies Allergy (Intermediate, Verified 11/03/23 09:20) Itchy Eyes HPI 6 Month Follow Up r/s 10/24/23 HPI Details LAST VISIT Chronic GERD IBS (irritable bowel syndrome) Plan Will send patient to do Cologuard instead. Patient does have a history of hypoxia with respiratory failure. She is at risk. Patient with prefer that for now. Discussed with patient avoiding dietary triggers. Patient will continue taking pantoprazole in the morning. Patient will continue taking Colace at nighttime to help her move her bowels better. Patient was encouraged to avoid dietary triggers. Eating smaller meals and more often. Cut down on the amount of beans that she's eating. I will see her in 4 months, sooner on as needed basis. Patient is agreeable to this plan and verbalizes understanding of instructions. She was given the opportunity to ask questions and all questions answered. TODAY'S VISIT Patient is here today for follow-up. 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 Patient is in the wheelchair. Patient's daughter is translating for us per patient's request. Patient reports that she has been feeling better since the last time I have seen her. Patient is moving her bowels better now. Takes Colace and is able to have a bowel movement every day. Patient no longer has diarrhea and constipation. Patient's daughter reports that she changed her diet. Patient no longer is eating large meals, eating smaller meals and more often. Patient denies dyspepsia, dysphagia or odynophagia. Patient denies any abdominal pain or discomfort. Denies melena, hematochezia, unintentional weight loss or ribbon like stools. Patient did Cologuard in July and it was negative. 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 Personal history of urinary (tract) infections Overactive bladder Hyperlipidemia, unspecified Anemia in chronic kidney disease Hypertensive chronic kidney disease with stage 1 through stage 4 chronic kidney disease, or unspecified chronic kidney disease Major depressive disorder, single episode, in full remission Unspecified dementia, unspecified severity, with mood disturbance Unspecified dementia, unspecified severity, with psychotic disturbance Sepsis Morbid obesity Abscess of left thigh Arthritis High cholesterol High blood pressure Asthma Diabetes Surgical History Hx of colonoscopy Social History Household Members: None Household Members Other:: 0 Housing: Apartment Do you presently have visiting nurse or other home services: Yes Alcohol intake: unknown Patient Tobacco Use Status: Former Tobacco user Quit Date: a few years ago Tobacco use type: Cigarette Cigarettes Per Day: 10 Years Smoked: 4 e-Cigarette/Vaping Use: Never Used Second Hand Smoke Exposure: No Advance Directives Date on File: 04/29/23 service: No Current occupational status: disabled Current occupational exposures/hazards: No Cognitive needs: No Hearing needs: No Vision needs: No Review of Systems Const Denies weight gain and Denies weight loss ENT Reports no additional complaints, Denies dysphagia and Denies odynophagia Card Reports no additional complaints Resp Reports no additional complaints GI Denies abdominal pain, Denies belching, Denies melena, Denies bloating, Denies change in bowel habits, Denies dysphagia, Denies excessive flatus, Denies dyspepsia, Denies heartburn, Denies diarrhea, Denies loose stools, Denies nausea, Denies odynophagia and Denies vomiting Musc Reports no additional complaints Neuro Reports no additional complaints Psych Reports no additional complaints Endo Reports no additional complaints Physical Exam Vital Signs: Last Vital Signs Pulse 65 11/03/23 09:25 BP 167/69 H 11/03/23 09:25 BMI result Body Mass Index 36.4 Const General: healthy appearing, no acute distress and well developed Nutritional Appearance: well nourished Orientation/consciousness: patient oriented x3 Resp Effort & Inspection: normal respiratory effort, able to speak in complete sentences, no tracheal deviation and symmetric chest movement Auscultation: clear to auscultation bilaterally Cardio Rate: regular rate GI Inspection: Yes normal to inspection and No distended Palpation (GI): Soft to palpation, not firm, nontender and No hepatosplenomegaly present Auscultation: normal bowel sounds General: Yes no CVA tenderness Back/Spine/Pelvis Back: no CVA tenderness Skin General skin exam: elasticity normal, turgor normal and dry skin Neuro General: patient oriented x3 Psych Appearance: grossly normal Mental Status: mental status grossly normal Assessment & Plan Assessment & Plan (1) Chronic GERD: Code(s): K21.9 - Gastro-esophageal reflux disease without esophagitis (2) IBS (irritable bowel syndrome): Code(s): K58.9 - Irritable bowel syndrome without diarrhea Qualifiers: Irritable bowel syndrome type: with both diarrhea and constipation Qualified Code(s): K58.2 - Mixed irritable bowel syndrome Plan Continue low FODMAP diet. Continue eating smaller meals and more often. Patient will continue taking pantoprazole every morning half an hour before breakfast. Discussed with patient avoiding dietary triggers and late night snacking. Staying upright for minimum 3 hours after meals discussed with patient. I will see patient in 3 months, sooner on as needed basis. Both patient and her daughter are agreeable to plan of care and verbalizes understanding of instructions. They were given the opportunity to ask questions and all questions answered. Thank you for allowing me to participate in care Medications: New docusate sodium (Colace) 100 mg PO BEDTIME 90 caps 2RF Refilled pantoprazole robert saji tableta media hora antes del desayuno 40 mg PO DAILY 90 tabs 3RF K21.9 - Gastro-esophageal reflux disease without esophagitis Coding Level of Care Code Est Pt Level 3 (55317) Diagnoses Chronic GERD K21.9 Irritable bowel syndrome with both constipation and diarrhea K58.2 Irritable bowel syndrome type: with both diarrhea and constipation Time Spent (min) 30 Comment 20 minutes spent with patient and additional 10 minutes spent reviewing her records
[2023-11-03 09:25] VITALS: BP 167/69; PULSE 65; BMI 36.4
== END 2023-11-03 09:47 | disposition home or self-care (01) ==
PROVIDERS: PCP Nurse Practitioner Family; Visit Provider Nurse Practitioner Family
DX: K21.9 Gastro-esophageal reflux disease without esophagitis (principal); K58.2 Mixed irritable bowel syndrome
CPT/HCPCS: 99213

== ENCOUNTER → 2023-11-03 09:07 | Outpatient (BNVA) | payer MEDICARE, MEDICAID, SELFPAY | PROVIDERS: PCP Nurse Practitioner Family; Visit Provider Nurse Practitioner Family | DX: K21.9 Gastro-esophageal reflux disease without esophagitis (principal); K58.2 Mixed irritable bowel syndrome | CPT/HCPCS: 99212 ==

== ENCOUNTER 2023-11-14 12:51 | Outpatient (AMB) | payer MEDICARE, MEDICAID, SELFPAY ==
--- NOTE | 2023-11-14 13:25 | MHC.PC.OV ---
Intake Visit Reasons: Weakness in Legs/Frequent Urination Jr. Java Developer Required: Yes Jr. Java Developer Name: Family Accompanied by: Family/Other Allergies Seasonal Allergies Allergy (Intermediate, Verified 11/14/23 13:44) Itchy Eyes Medication List - Last Reconciled 11/14/23 by Jason Cooper CNP acetaminophen 650 mg (2 x 325 mg) PO Q6H PRN albuterol sulfate 90 mcg/actuation 2 puffs inhalation Q4-6H PRN albuterol sulfate 2.5 mg (3 mL) inhalation Q4-6H PRN amlodipine 10 mg PO DAILY 90 days aripiprazole 20 mg PO BEDTIME atorvastatin 10 mg PO BEDTIME 90 days blood-glucose meter (FreeStyle Lite Meter kit) As directed buspirone 7.5 mg PO BID 30 days citalopram 20 mg PO DAILY 30 days docusate sodium (Colace) 100 mg PO BEDTIME ferrous sulfate 325 mg PO DAILY FreeStyle Lite Strips (blood sugar diagnostic) As directed 2-3 times daily NS gabapentin 300 mg PO BID 30 days hydrochlorothiazide 25 mg PO DAILY insulin glargine (Basaglar KwikPen U-100 Insulin) 50 units (0.5 mL) subcut DAILY 30 days lancets (FreeStyle Lancets) As directed bs checks 2-3 times daily lisinopril 40 mg PO DAILY 3 months melatonin 6 mg (2 x 3 mg) PO BEDTIME 30 days metformin 850 mg PO BIDWMEAL 90 days metoprolol tartrate 50 mg PO BID miscellaneous medical supply Nitrile Gloves, Medium, 2 boxes per month, As directed, 30 days miscellaneous medical supply Sanitary Wipes, As directed, 30 days miscellaneous medical supply Pampers Adult Diapers XL, 3 times a day, As directed, 90 days montelukast 10 mg PO DAILY pantoprazole 40 mg PO DAILY pen needle, diabetic (BD Ultra-Fine Micro Pen Needle) Use with glargine pen sennosides (senna) 17.2 mg (2 x 8.6 mg) PO DAILY simethicone (Gas Relief 80 (simethicone)) 80 mg PO TID PRN topiramate 100 mg PO BEDTIME 30 days trazodone 50 mg PO BID 3 months Tobacco use date assessed: 10/31/23 Fall risk assessment: No Falls in past year Last assessed Fall Risk: 11/14/23 Dental Screening Dental Screen Date: 11/14/23 Did you have a dental visit in the last 12 months?: Yes Did you have a dental problem in the last 6 months where you did not have access to dental care?: No Was dental information given to patient?: Patient has dentist HPI HPI Comments History of Present Illness Details 73-year-old Sinhala-speaking female presents complaints of urinary frequency for the past 2 weeks. No pain or discharge with urination. No blood in the urine. No fever, chills, fatigue, or weakness. 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 Personal history of urinary (tract) infections Overactive bladder Hyperlipidemia, unspecified Anemia in chronic kidney disease Hypertensive chronic kidney disease with stage 1 through stage 4 chronic kidney disease, or unspecified chronic kidney disease Major depressive disorder, single episode, in full remission Unspecified dementia, unspecified severity, with mood disturbance Unspecified dementia, unspecified severity, with psychotic disturbance Sepsis Morbid obesity Abscess of left thigh Arthritis High cholesterol High blood pressure Asthma Diabetes Surgical History Hx of colonoscopy Social History Household Members: None Household Members Other:: 0 Housing: Apartment Do you presently have visiting nurse or other home services: Yes Alcohol intake: unknown Patient Tobacco Use Status: Former Tobacco user Quit Date: a few years ago Tobacco use type: Cigarette Cigarettes Per Day: 10 Years Smoked: 4 e-Cigarette/Vaping Use: Never Used Second Hand Smoke Exposure: No Advance Directives Date on File: 04/29/23 service: No Current occupational status: disabled Current occupational exposures/hazards: No Cognitive needs: No Hearing needs: No Vision needs: No Questionnaire Thrive Questionnaire Date Thrive assessed: 10/31/23 MUSTAPHA-7 AMB Questionnaire MUSTAPHA-7 Date MUSTAPHA - 7 assessed: 10/31/23 Source: Developed by Drs. Supa Solares, Shaina Simpson, Michele Main and colleagues, with an educational laith from [employer]. Review of Systems Const Details: Const Denies chills, Denies fatigue, Denies fever(s), Denies headache(s) and Denies weakness ENT Denies dizziness and Denies headache(s) Card Denies chest pain, Denies lightheadedness, Denies dyspnea and Denies other (Palpitations) Resp Denies cough, Denies dyspnea, Denies wheezing and Denies other ( shortness of breath) GI Denies abdominal pain, Denies melena, Denies hematochezia, Denies change in bowel habits, Denies dyspepsia and Denies nausea Denies hematuria and Denies dysuria Musc Denies abnormal gait, Denies myalgias, Denies arthralgias, Denies numbness and Denies tingling Skin/Breast Denies rash, Denies unusual bruising and Denies wounds Neuro Denies abnormal gait, Denies dizziness, Denies headache(s), Denies memory loss, Denies numbness, Denies Sensory deficit (Neuro), Denies tingling and Denies weakness Psych Denies anxiety, Denies depression, Denies memory loss Endo Denies cold intolerance, Denies fatigue, Denies heat intolerance, Denies polydipsia and Denies polyuria Aller/Immun Denies wheezing Physical exam (Primary Care) Tobacco/Smoking Status: Tobacco use Status Tobacco use date assessed 10/31/23 11/14/23 13:28 Patient Tobacco Use Status Former Tobacco user 11/14/23 13:28 Tobacco use type Cigarette 11/14/23 13:28 e-Cigarette/Vaping Use Never Used 11/14/23 13:28 Thrive Assessment: Date of Thrive Assessment Date Thrive assessed 10/31/23 11/14/23 13:28 Const Other: General: no acute distress and well developed Nutritional Appearance: well nourished Orientation/consciousness: patient oriented x3 HENMT Head: Yes normocephalic and Yes atraumatic Eyes General: appearance normal, both eyes and all related structures Pupils: Equal, round and reactive pupils present EOM: EOMs intact bilaterally Resp Effort & Inspection: normal respiratory effort Auscultation: clear to auscultation bilaterally Cardio Rate: regular rate Rhythm: regular rhythm Heart sounds: S1 normal heart sound present, S2 normal heart sound present, no gallops, no murmurs and no rubs GI Palpation (GI): No Abdominal aortic bruit present, Soft to palpation, nontender, No hepatosplenomegaly present and No Rebound tenderness present Auscultation: normal bowel sounds General: Yes no CVA tenderness Back/Spine/Pelvis Back: no CVA tenderness Cervical Spine: cervical ROM normal and No Cervical spine tenderness Thoracic/Lumbar Spine: thoraco-lumbar ROM normal, No pain with thoraco-lumbar ROM, No thoracic spinal tenderness and No lumbar spinal tenderness Extrem General: Yes normal to inspection, No edema and No calf tenderness Skin General: warm and dry. Normal skin color. Normal skin turgor Neuro General: patient oriented x3, gait normal and no focal neuro deficit Cranial nerves: Yes Equal, round and reactive pupils present Cognition (Neuro): normal cognition Gait exam (Neuro): Normal gait present Sensory Exam: No Sensory deficit (Neuro) Psych Appearance: grossly normal Affect: normal affect Attitude: cooperative Thought process: Normal thought process present Results AMB Urinalysis Dipstick UR Leukocytes Negative Last Edit by Nicole Jackson MA on 11/14/23 13:52 UR Nitrite Negative Last Edit by Nicole Jackson MA on 11/14/23 13:52 UR Urobilinogen Normal Last Edit by Nicole Jackson MA on 11/14/23 13:52 UR Protein Negative Last Edit by Nicole Jackson MA on 11/14/23 13:52 UR Ph 6.0 Last Edit by Nicole Jackson MA on 11/14/23 13:52 UR Blood Negative Last Edit by Nicole Jackson MA on 11/14/23 13:52 UR Specific [place] 1.010 Last Edit by Nicole Jackson MA on 11/14/23 13:52 UR Ketone Negative Last Edit by Nicole Jackson MA on 11/14/23 13:52 UR Bilirubin Negative Last Edit by Nicole Jackson MA on 11/14/23 13:52 UR Glucose Negative Last Edit by Nicole Jackson MA on 11/14/23 13:52 Assessment and Plan Assessment & Plan (1) Urinary frequency: Code(s): R35.0 - Frequency of micturition Plan: Reports urinary frequency x2 weeks Admits to drinking plenty of fluids Urine dip is negative is unremarkable Her symptoms may be attributed to adequate hydration Will send urine to the lab for UA/culture and sensitivity Adequate hydration encouraged Follow-up with worsening or new symptoms Encouraged to reschedule her missed visit today for anxiety Verbalized understanding and agreed with treatment plan Orders: Orders UA CC w/rflx Micro + Cult Today N39.0 - Urinary tract infection, site not specified AMB Urinalysis Dipstick Today R35.0 - Frequency of micturition Coding Level of Care Code Est Pt Level 4 (72036) Diagnoses Urinary frequency R35.0
== END 2023-11-14 14:06 | disposition home or self-care (01) ==
PROVIDERS: PCP Nurse Practitioner Family; Visit Provider Nurse Practitioner Family
DX: R35.0 Frequency of micturition (principal)
CPT/HCPCS: 81002; 99214

== ENCOUNTER 2023-11-14 13:36 | Outpatient (REF) | payer MEDICARE, MEDICAID, SELFPAY ==
[2023-11-14 19:19] LABS: Appearance Urine Clear; Color Urine Yellow; Glucose Urine UA Negative (Negative); Leukocyte Esterase Urine Negative (Negative); Nitrite Urine Negative (Negative); PH 6.5 (5.0-9.0); Urine Blood Negative (Negative); Urine Ketones Negative (Negative); Urine Protein Negative (Neg-Trace)
== END 2023-11-14 13:37 | disposition home or self-care (01) ==
LOC: HO.LAB 13:36
PROVIDERS: Visit Provider Nurse Practitioner Family
DX: N39.0 Urinary tract infection, site not specified (principal); R35.0 Frequency of micturition
CPT/HCPCS: 81003

== ENCOUNTER 2024-01-21 09:57 | Outpatient (AMB) | payer OTHER, SELFPAY ==
--- NOTE | 2024-01-21 10:01 | MHC.OFFVIS ---
Vital Signs 01/21/24 10:12 Height 4 ft 11 in Weight 187 lb BMI 37.8 BP not taken reason Medical Reason Respiration 18 Pulse 62 Intake Visit Reasons: 3 month follow up Intake Note: Patient is seen in office for 3 month follow up visit, following on Chronic GERD. Pt c/o: has been following diet plan and taking meds prescribe at last visit with relief, admits to diarrhea after certain meals, lately has been having incontinence Automation Application Engineer Required: No Accompanied by: Family/Other Allergies Seasonal Allergies Allergy (Intermediate, Verified 01/21/24 10:08) Itchy Eyes HPI HPI 3 month follow up: Details: LAST VISIT: Chronic GERD IBS (irritable bowel syndrome) Plan Continue low FODMAP diet. Continue eating smaller meals and more often. Patient will continue taking pantoprazole every morning half an hour before breakfast. Discussed with patient avoiding dietary triggers and late night snacking. Staying upright for minimum 3 hours after meals discussed with patient. I will see patient in 3 months, sooner on as needed basis. Both patient and her daughter are agreeable to plan of care and verbalizes understanding of instructions. They were given the opportunity to ask questions and all questions answered. ? Thank you for allowing me to participate in care Medications New docusate sodium (Colace) 100 mg PO BEDTIME 90 caps 2RF Refilled pantoprazole robert saji tableta media hora antes del desayuno 40 mg PO DAILY 90 tabs 3RF K21.9 TODAY'S VISIT Patient is here today for follow-up accompanied by her daughter and her BLOCKING MACHINE OPERATOR SECOND. Patient is feeling better since the last time I have seen her. Patient's daughter reports that she is can you in to have loose stools occasionally after certain meals. Patient reports occasional acid reflux if she eats large meal. Frequently patient is asking for more food after eating lunch or dinner. Changed some of her diet and what she consumes. Trying to eat healthier less food that is fried or greasy. Patient denies any melena, hematochezia, unintentional weight loss or ribbon like stools. Reports occasional dyspepsia without dysphagia or odynophagia. 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 Personal history of urinary (tract) infections Overactive bladder Hyperlipidemia, unspecified Anemia in chronic kidney disease Hypertensive chronic kidney disease with stage 1 through stage 4 chronic kidney disease, or unspecified chronic kidney disease Major depressive disorder, single episode, in full remission Unspecified dementia, unspecified severity, with mood disturbance Unspecified dementia, unspecified severity, with psychotic disturbance Sepsis Morbid obesity Abscess of left thigh Arthritis High cholesterol High blood pressure Asthma Diabetes Surgical History Hx of colonoscopy Social History Household Members: None Household Members Other:: 0 Housing: Apartment Do you presently have visiting nurse or other home services: Yes Alcohol intake: unknown Patient Tobacco Use Status: Former Tobacco user Quit Date: a few years ago Tobacco use type: Cigarette Cigarettes Per Day: 10 Years Smoked: 4 e-Cigarette/Vaping Use: Never Used Second Hand Smoke Exposure: No Advance Directives Date on File: 04/29/23 service: No Current occupational status: disabled Current occupational exposures/hazards: No Cognitive needs: No Hearing needs: No Vision needs: No Review of Systems Const Denies weight gain and Denies weight loss ENT Reports no additional complaints, Denies dysphagia and Denies odynophagia Card Reports no additional complaints Resp Reports no additional complaints GI Denies abdominal pain, Denies belching, Denies melena, Reports bloating, Denies change in bowel habits, Denies dysphagia, Denies excessive flatus, Denies dyspepsia, Denies heartburn, Denies diarrhea, Reports loose stools, Denies nausea, Denies odynophagia and Denies vomiting Reports no additional complaints Musc Reports no additional complaints Neuro Reports no additional complaints Psych Reports no additional complaints Endo Reports no additional complaints Physical Exam Vital Signs: Last Vital Signs Pulse 62 01/21/24 10:12 Resp 18 01/21/24 10:12 BMI result Body Mass Index 37.8 Const General: healthy appearing and no acute distress Nutritional Appearance: obese Resp Effort & Inspection: normal respiratory effort, able to speak in complete sentences, no tracheal deviation and symmetric chest movement Auscultation: clear to auscultation bilaterally Cardio Rate: regular rate GI Inspection: Yes normal to inspection, No distended and Yes obesity Palpation (GI): Soft to palpation, not firm, nontender and No hepatosplenomegaly present Auscultation: normal bowel sounds General: Yes no CVA tenderness Back/Spine/Pelvis Back: no CVA tenderness Skin General skin exam: elasticity normal, turgor normal and dry skin Psych Appearance: grossly normal Mental Status: mental status grossly normal Assessment & Plan Assessment & Plan (1) Chronic GERD: Code(s): K21.9 - Gastro-esophageal reflux disease without esophagitis Category: Medical (2) Stool incontinence: Code(s): R15.9 - Full incontinence of feces Category: Medical Qualifiers: Fecal incontinence type: fecal urgency Qualified Code(s): R15.9 - Full incontinence of feces; R15.2 - Fecal urgency (3) IBS (irritable bowel syndrome): Code(s): K58.9 - Irritable bowel syndrome without diarrhea Qualifiers: Irritable bowel syndrome type: with both diarrhea and constipation Qualified Code(s): K58.2 - Mixed irritable bowel syndrome (4) GERD (gastroesophageal reflux disease): Code(s): K21.9 - Gastro-esophageal reflux disease without esophagitis Qualifiers: Esophagitis presence: esophagitis presence not specified Qualified Code(s): K21.9 - Gastro-esophageal reflux disease without esophagitis Plan Discussed with patient, her daughter and her BLOCKING MACHINE OPERATOR SECOND to try making smaller meals and more often. Continue avoiding dietary triggers. Low FODMAP diet encouraged. Patient will start fiber to help her bulk stool. Encouraged to increase fluid intake. Continue pantoprazole and avoid dietary triggers. Avoid late night snacking. Staying upright for minimum 3 hours after meals discussed with patient. Patient will return in the office in 3 months, sooner on as needed basis. All this was explained to patient, her daughter and her BLOCKING MACHINE OPERATOR SECOND. They are agreeable to plan of care and verbalizes understanding of instructions. They were given the opportunity to ask questions and all questions answered. Thank you for allowing me to participate in her care Medications: New methylcellulose (laxative) (Citrucel) take it with full glass of water 500 mg PO DAILY 90 tabs 2RF K59.00 - Constipation, unspecified Coding Level of Care Code Est Pt Level 3 (50941) Diagnoses Chronic GERD K21.9 Incontinence of feces with fecal urgency R15.9; R15.2 Fecal incontinence type: fecal urgency Irritable bowel syndrome with both constipation and diarrhea K58.2 Irritable bowel syndrome type: with both diarrhea and constipation Gastroesophageal reflux disease, unspecified whether esophagitis present K21.9 Esophagitis presence: esophagitis presence not specified Time Spent (min) 25 Comment 15 minutes spent with patient and additional 10 minutes spent reviewing her records
[2024-01-21 10:12] VITALS: PULSE 62; RESP 18; BMI 37.8
== END 2024-01-21 10:33 | disposition home or self-care (01) ==
PROVIDERS: PCP Nurse Practitioner Family; Visit Provider Nurse Practitioner Family
DX: K21.9 Gastro-esophageal reflux disease without esophagitis (principal); R15.9 Full incontinence of feces; R15.2 Fecal urgency; K58.2 Mixed irritable bowel syndrome
CPT/HCPCS: 99213

== ENCOUNTER → 2024-01-21 09:57 | Outpatient (BNVA) | payer OTHER, SELFPAY | PROVIDERS: PCP Nurse Practitioner Family; Visit Provider Nurse Practitioner Family | DX: K21.9 Gastro-esophageal reflux disease without esophagitis (principal); K58.2 Mixed irritable bowel syndrome; R15.9 Full incontinence of feces; R15.2 Fecal urgency | CPT/HCPCS: 99212 ==

== ENCOUNTER 2025-04-12 11:46 | Emergency (ER) | payer OTHER, SELFPAY ==
--- NOTE | ~2025-04-12 | CT_ITS ---
EXAMINATION: CT CERVICAL SPINE WITHOUT CONTRAST CLINICAL INFORMATION: Unwitnessed fall COMPARISON: June 02, 2023 TECHNIQUE: Axial imaging was performed from the base of the skull through T2 without IV contrast. Coronal and sagittal reformatted images were generated from the original axial data set. ALARA: The examination used one or more of the following radiation dose reduction techniques: Automated exposure control, iterative reconstruction, and/or adjustment of mA and/or KV. DLP: 1366 mGY*cm FINDINGS: Again seen is moderate centrilobular emphysema in the lung apexes. No fracture lines are evident. No soft tissue abnormality is seen. Again seen is pyrophosphate deposition in the cruciate ligament and in multiple cervical discs and in portions of ligament flavum. Mild disc space narrowing and disc bulges are noted in the mid cervical spine. CT/CT cervical spine wo IV con IMPRESSION: No acute fracture. 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 Electronically signed by: John Reyes MD 04/12/2025 02:49 PM EDT
--- NOTE | ~2025-04-12 | CT_ITS ---
EXAMINATION: CT HEAD WITHOUT CONTRAST CLINICAL INFORMATION: Unwitnessed fall COMPARISON: June 02, 2023 TECHNIQUE: Contiguous axial imaging was performed from the skull base to vertex without intravenous administration of contrast. This CT examination was performed using dose optimization techniques as appropriate, variously including the following: *Automated exposure control *Adjustment of mA and/or kV according to patient size (this includes techniques or standardized protocols for targeted exams where dose is matched to indication/reason for exam; i.e. extremities or head) *Use of iterative reconstruction technique DLP: 1366 mGY*cm FINDINGS: There is no acute ischemic change. Patchy periventricular white matter hypodensity is again seen. There is no intracranial hemorrhage. There is no mass-effect or midline shift. Basal cisterns and ventricles are within normal limits for age/cerebral volume. Orbits are symmetrical and unremarkable. Paranasal sinuses and mastoid air cells are pneumatized. There are no bony abnormalities. CT/CT head/brain wo IV con IMPRESSION: No acute intracranial abnormality. Small vessel disease. Electronically signed by: John Reyes MD 04/12/2025 02:52 PM EDT
--- NOTE | ~2025-04-12 | XR_ITS ---
EXAMINATION: XR HIP 2 OR MORE VIEWS BILATERAL HISTORY: fall, hip pain COMPARISON: There are no prior studies available for comparison. FINDINGS: A single AP view of the pelvis and two views of each hip are submitted. Osseous mineralization is normal. There is no fracture or dislocation. There is narrowing of both hip joints, right greater than left. There are vascular calcifications. XR/XR hip BI w PEL1V IMPRESSION: Narrowing of both hip joints. No evidence of fracture of the bilateral hips. Electronically signed by: Supa Neff MD 04/12/2025 02:39 PM EDT
--- NOTE | ~2025-04-12 | XR_ITS ---
EXAMINATION: XR SHOULDER 2 OR MORE VIEWS LEFT HISTORY: fall L shoulder pain COMPARISON: There are no prior studies available for comparison. FINDINGS: Three views of the left shoulder are submitted. Osseous mineralization is normal. There is no fracture or dislocation. There is severe osteoarthritis of the glenohumeral joint with joint space narrowing and osteophyte formation. There is moderate to severe osteoarthritis of the AC joint. The soft tissues are unremarkable. XR/XR shoulder LT min 2V IMPRESSION: Generative changes of the left shoulder as described. No evidence of fracture. Electronically signed by: Supa Neff MD 04/12/2025 02:40 PM EDT
--- NOTE | ~2025-04-12 | XR_ITS ---
EXAMINATION: XR CHEST 1 VIEW HISTORY: confusion COMPARISON: Comparison is made with the prior examination dated 06/02/2023. FINDINGS: A single AP supine view of the chest performed at 2:10 PM is submitted. The lungs are expanded and clear. There is no pleural effusion, pneumothorax, or pulmonary vascular congestion. The heart is normal in size given technique. The bones are intact. XR/XR chest 1V IMPRESSION: No acute cardiopulmonary abnormality. Electronically signed by: Supa Neff MD 04/12/2025 02:37 PM EDT
[2025-04-12 11:53] VITALS: BP 147/88; PULSE 74; O2SAT 97
--- NOTE | 2025-04-12 11:56 | ED_ITS ---
HPI - Fall General Chief Complaint: Fall Stated Complaint: UNWIT FALL,DOWNTIME <12 HOURS,-THINNER,+CCOLLAR Time Seen by Provider: 04/12/25 11:55 Source: patient, family (daughter), EMS and customs entry writer (brandon quintanilla) Mode of arrival: EMS Limitations: language barrier (estonian) History of Present Illness ED Provider: LIV SOLANO PA-C HPI Narrative: 74 year old female with pmhx significant for dementia, mood disorder, diabetes, asthma, CKD, anemia, toxic metabolic encephalopathy, HLD presents to the ED today via EMS from home for evaluation s/p unwitnessed fall occurring sometime over night. I called and spoke with patient's daughter Emy whom patient lives with. She reports that around 0700 this morning, she heard yelling coming from patient's room. Upon walking into the room, she found the patient lying on the floor next to her bed, yelling to her that there were individuals outside her window trying to get into the room. Daughter could not see anyone outside. Daughter states that patient has a history of hallucinating associated with urinary tract infections. Daughter called EMS for transport to ED. In the ED, patient reports left shoulder pain, right hip pain and headache. She tells me that she saw individuals standing outside her window attempting to get into her room. She attempted to get off her bed to reach her phone to call for help however fell off of the bed. It is unclear how long patient was down for prior to daughter entering her room. Unclear whether or not she struck her head or lost consciousness. She is not on anticoagulation. Patient poor historian secondary to dementia. Related Data Home Medications ?Medication ?Instructions ?Recorded ?Confirmed simethicone 80 mg chewable tablet 80 mg PO TID PRN 12/2911/14/23 (Gas Relief 80 (simethicone)) Previous Rx's ?Medication ?Instructions ?Recorded miscellaneous medical supply #2 ea 10/24/22 miscellaneous medical supply #270 ea 10/24/22 miscellaneous medical supply #4 ea 10/24/22 FreeStyle Lite Strips (blood sugar #100 ea 12/16/22 diagnostic) blood-glucose meter (FreeStyle #1 ea 12/16/22 Lite Meter kit) lancets 28 gauge (FreeStyle #100 ea 12/16/22 Lancets) sennosides 8.6 mg capsule (senna) 17.2 mg (2 x 8.6 mg) PO DAILY #180 01/07/23 caps pen needle, diabetic 32 gauge x #100 ea 04/10/2309/11 (BD Ultra-Fine Micro Pen Needle) ferrous sulfate 325 mg (65 mg 325 mg PO DAILY #90 tabs 07/25/23 iron) tablet lisinopril 40 mg tablet 40 mg PO DAILY 3 months #90 tabs 07/25/23 trazodone 50 mg tablet 50 mg PO BID 3 months #180 t abs 10/17/23 albuterol sulfate 2.5 mg/3 mL 2.5 mg (3 mL) inhalation Q4-6H PRN 10/31/23 (0.083 %) solution for nebulization shortness of breat h or wheezing #90 mL albuterol sulfate 90 mcg/actuation 2 puff inhalation Q 4-6H PRN 10/31/23 aerosol inhaler shortness of breath or wheez ing #8.5 grams metformin 850 mg tablet 850 mg PO BIDWMEAL 90 days # 180 10/31/23 tabs pantoprazole 40 mg tablet,delayed 40 mg PO DAILY #90 t abs 11/03/23 release acetaminophen 325 mg capsule 650 mg (2 x 325 mg) PO Q6 H PRN 11/20/23 pain #60 caps atorvastatin 10 mg tablet 10 mg PO BEDTIME 90 days #90 tabs 12/15/23 buspirone 7.5 mg tablet 7.5 mg PO BID 30 days #60 ta bs 01/07/24 citalopram 20 mg tablet 20 mg PO DAILY 30 days #30 t abs 01/07/24 methylcellulose (laxative) 500 mg 500 mg PO DAILY #90 tabs 01/21/24 tablet (Citrucel) amlodipine 10 mg tablet 10 mg PO DAILY 90 days #90 t abs 02/06/24 aripiprazole 20 mg tablet 20 mg PO BEDTIME #90 tabs metoprolol tartrate 50 mg tablet 50 mg PO BID #60 tabs 03/15/24 gabapentin 300 mg capsule 300 mg PO BID 30 days #60 ca ps 03/16/24 insulin glargine 100 unit/mL (3 50 unit (0.5 mL) subcu t DAILY 30 04/15/24 mL) subcutaneous pen (agl #15 mL KwikPen U-100 Insulin) topiramate 100 mg tablet 100 mg PO BEDTIME 30 days #3 0 tabs 04/15/24 docusate sodium 100 mg capsule 100 mg PO BEDTIME #90 c aps 11/12/24 melatonin 3 mg tablet 6 mg (2 x 3 mg) PO BEDTIME s leep 11/12/24 30 days #60 tabs montelukast 10 mg tablet 10 mg PO DAILY #30 tabs 04/01 cefuroxime axetil 500 mg tablet 500 mg PO BID 7 days # 14 tabs 04/12/25 Allergies Allergy/AdvReac Type Severity Reaction Status Date / Time Seasonal Allergies Allergy Intermediate Itchy Eyes Verified 04/12/25 12:04 Review of Systems 2 Review of Systems: Yes all other systems are reviewed and are negative [facility] Past Medical History Attestation statement: The following information was validated with the patient. 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 (current) use of insulin Personal history of urinary (tract) infections Overactive bladder Hyperlipidemia, unspecified Anemia in chronic kidney disease Hypertensive chronic kidney disease with stage 1 through stage 4 chronic kidney disease, or unspecified chronic kidney disease Major depressive disorder, single episode, in full remission Unspecified dementia, unspecified severity, with mood disturbance Unspecified dementia, unspecified severity, with psychotic disturbance Sepsis Morbid obesity Abscess of left thigh Arthritis High cholesterol High blood pressure Asthma Diabetes Surgical History Hx of colonoscopy Social History Social History Household Members: None Household Members Other:: 0 Housing: Apartment Do you presently have visiting nurse or other home services: Yes Alcohol intake: unknown Patient Tobacco Use Status: Former Tobacco user Tobacco use type: Cigarette Cigarettes Per Day: 10 Years Smoked: 4 e-Cigarette/Vaping Use: Never Used Second Hand Smoke Exposure: No Advance Directives: Yes Advance Directives on File: Yes Advance Directives Date on File: 04/29/23 service: No Current occupational status: disabled Current occupational exposures/hazards: No Cognitive needs: No Hearing needs: No Vision needs: No Physical Exam 2 Vital Signs: Vital Signs: Last Vital Signs Temp 98.4 F 04/12/25 16:54 Pulse 70 04/12/25 16:54 Resp 14 04/12/25 16:54 BP 163/72 H 04/12/25 16:54 Pulse Ox 95 04/12/25 16:54 O2 Del Method Room Air 04/12/25 16:54 BMI result Body Mass Index 44.9 Patient is hypertensive, vitals are otherwise WNL General: NAD Skin: Warm, dry, intact. No rashes or lesions. Head: Normocephalic, atraumatic. EENT: Hearing is intact b/l. Conjunctiva clear. Sclera is anicteric. PERRLA. EOM intact. Moist mucous membranes.? Neck: in cervical collar Cardiac: Chest wall symmetric. RRR Lungs: Normal respiratory effort without accessory muscle use. CTA bilaterally Abdomen: Soft, non-tender, non-distended. No rebound tenderness or guarding. Positive BS x4. Back: No midline spinous or paraspinal tenderness. No step off deformity. Ext: Upper and lower extremities atraumatic, without tenderness, deformity, swelling or erythema Neuro: Alert to person. Cannot tell me the year which is her baseline. Normal speech. Strength 4/5 intact throughout. No saddle anesthesia. Sensation intact to light touch. NV intact distally. Course Course Course Narrative: 1600 -- CBC without leukocytosis or left shift. H&H stable. Chemistry without acute electrolyte abnormality requiring intervention. BUN mildly elevated at 20 with normal creatinine. Liver function WNL. Ammonia WNL. Total CK WNL, rhabdomyolysis unlikely. Troponin WNL at 8.5. BNP WNL. Urine acutely infected. Will start patient on Ceftin for UTI. Likely exacerbating dementia symptoms such as hallucinations. I do not have concern for encephalopathy as she appears to be at her baseline mentation. CT head without bleed or skull fracture. CT cervical spine showing chronic degenerative changes without acute fracture. X- ray left shoulder without fracture dislocation. Chest x-ray without pneumonia. X-ray bilateral hips/ pelvis without fracture or dislocation. > discussed all workup results with patient and daughter at bedside. Plan is to discharge patient home with daughter. Ceftin sent to pharmacy for treatment of UTI. Patient has remained stable throughout ED visit today. Discussed worrisome signs and symptoms and when to return to the ED. All questions answered at this time. Patient and daughter are agreeable with disposition and stable for discharge. Medications Administered Discontinued Medications Generic Name Dose Route Start Last Admin Trade Name Sergey PRN Reason Stop Dose Admin Acetaminophen 975 mg 04/12/25 14:53 04/12/25 15:27 Acetaminophen 325 Mg Tablet PO 04/12/25 14:54 975 mg ONCE ONE Administration Medical Decision Making Medical Decision Making [facility] Narrative: 74 year old female with pmhx significant for dementia, mood disorder, diabetes, asthma, CKD, anemia, toxic metabolic encephalopathy, HLD presents to the ED today via EMS from home for evaluation s/p unwitnessed fall occurring sometime over night. Hypertensive, vitals otherwise WNL. In no acute distress. Differential diagnosis includes anemia, electrolyte abnormality, dehydration, rhabdomyolysis, hypoglycemia, urinary tract infection, pneumonia, metabolic encephalopathy, concussion, headache, ICH, cervical sprain/strain, cervical subluxation versus fracture, left shoulder fracture versus dislocation versus contusion, pelvic fracture, hip fracture versus dislocation versus contusion, ACS, arrhythmia Plan for labs, urinalysis, EKG, imaging, pain control, re-evaluation Differential Diagnosis Differential Diagnoses: The differential diagnosis associated with the presentation includes as above. Admission/Observation not indicated. Lab Data [facility] Lab Attestation statement: I reviewed the patient's lab results. as above. 04/12/25 13:44 04/12/25 13:44 Labs: Lab Results 04/12/25 04/12/25 Range/Units 13:44 15:37 WBC 8.3 (4.8-10.8) X10*3/uL RBC 4.29 (4.20-5.50) X10*6/uL Hgb 11.7 L (12.0-16.0) g/dl Hct 38.2 (37.0-47.0) % MCV 89.0 (80.0-98.0) fL MCH 27.3 (27.0-33.0) pg MCHC 30.6 L (31.0-35.0) g/dl RDW 14.4 (11.0-16.0) % Plt Count 263 (160-400) X10*3/uL MPV 11.1 (9.4-12.3) fL Immature Gran % (Auto) 0.4 (0.0-0.4) % Neut % (Auto) 63.7 (45-73) % Lymph % (Auto) 24.8 (20-40) % [place] % (Auto) 7.6 (2-11) % Eos % (Auto) 2.8 (0-4) % Baso % (Auto) 0.7 (0-2) % Lymph # (Auto) 2.1 (1.2-4.9) X10*3/uL [place] # (Auto) 0.6 (0.1-1.2) X10*3/uL Eos # (Auto) 0.2 (0.0-0.4) X10*3/uL Baso # (Auto) 0.1 (0.0-0.2) X10*3/uL Abs Immat Gran (auto) 0.03 (0.00-0.03) X10*3/uL Absolute Neuts (auto) 5.3 (2.0-8.3) x10*3/uL Absolute Nucleated RBC 0.000 (0.0-0.012) X10*3/uL Nucleated RBC % (auto) 0.0 (0.0-0.2) /100WBC Sodium 143 (135-145) mmol/L Potassium 4.1 (3.3-5.1) mmol/L Chloride 106 (96-108) mmol/L Carbon Dioxide 27 (22-29) mmol/L Anion Gap 14 (12-20) BUN 20 H (9-16) mg/dL Creatinine 0.97 (0.5-1.4) mg/dL Estim Creat Clear Calc 54.6 Estimated GFR 56 Random Glucose 88 (60-115) mg/dL Calcium 9.9 D (8.4-10.2) mg/dL Magnesium 1.7 (1.6-2.6) mg/dL Total Bilirubin 0.3 (0.0-1.0) mg/dL AST 24 (5-31) U/L ALT 20 (0-31) U/L Alkaline Phosphatase 88 (39-117) U/L Ammonia 25 (13-55) umol/L Total Creatine Kinase 69 (26-140) U/L Troponin I High Sens 8.5 (<3.5-17.0) ng/L B-Natriuretic Peptide 98 (<100) pg/mL Total Protein 8.2 H (6.5-8.0) g/dL Albumin 4.7 (3.5-5.0) g/dL TSH 6.02 H (0.32-4.0) uIU/mL Free T4 0.94 (0.71-1.85) ng/dL Urine Color Yellow Urine Appearance Clear Urine pH 7.5 (5.0-9.0) Ur Specific [place] 1.010 (1.005-1.025) Urine Protein Trace (Neg-Trace) mg/dL Urine Glucose (UA) Negative (Negative) mg/dL Urine Ketones Negative (Negative) mg/dL Urine Blood Negative (Negative) Urine Nitrite Positive H (Negative) Ur Leukocyte Esterase Trace H (Negative) Urine RBC 0-2 (0-2) /HPF Urine WBC 11-20 H (0-5) /HPF Ur Squamous Epith Cells 0-2 (0-2) /HPF Urine Bacteria 4+ (None Seen) Hyaline Casts 0-2 (0-2) /LPF Independent Interpretation I performed an independent interpretation of an: EKG, Plain X-Ray and CT Scan Interpretation: ekg showing NSR with rate of 64 bpm, no acute ischemic changes or st elevation CXR without infiltrate or consolidation CT head without bleed CT c spine without fracture XR left shoulder without fracture or dislocation XR b/l hips/ pelvis without fracture or dislocation Radiology Impression Discussion of test interpretation with radiology: I have reviewed the radiologist's reading. Radiologist Impression: Date of Service: 04/12/25 Procedure(s): CT head/brain wo IV con Accession Number(s): [id number] cc: Liv Solano; Jason Cooper [facility]~ Report Number: [id number]: Total DLP = 801.65 mGy-cm EXAMINATION: CT HEAD WITHOUT CONTRAST CLINICAL INFORMATION: Unwitnessed fall COMPARISON: June 02, 2023 TECHNIQUE: Contiguous axial imaging was performed from the skull base to vertex without intravenous administration of contrast. This CT examination was performed using dose optimization techniques as appropriate, variously including the following: *Automated exposure control *Adjustment of mA and/or kV according to patient size (this includes techniques or standardized protocols for targeted exams where dose is matched to indication/reason for exam; i.e. extremities or head) *Use of iterative reconstruction technique DLP: 1366 mGY*cm FINDINGS: There is no acute ischemic change. Patchy periventricular white matter hypodensity is again seen. There is no intracranial hemorrhage. There is no mass-effect or midline shift. Basal cisterns and ventricles are within normal limits for age/cerebral volume. Orbits are symmetrical and unremarkable. Paranasal sinuses and mastoid air cells are pneumatized. There are no bony abnormalities. CT/CT head/brain wo IV con IMPRESSION: No acute intracranial abnormality. Small vessel disease. Electronically signed by: John Reyes MD 04/12/2025 02:52 PM EDT RP Date of Service: 04/12/25 Procedure(s): CT cervical spine wo IV con Accession Number(s): [id number] cc: Liv Solano; Jason Cooper [facility] Report Number: [id number]: Total DLP = 563.89 mGy-cm EXAMINATION: CT CERVICAL SPINE WITHOUT CONTRAST CLINICAL INFORMATION: Unwitnessed fall COMPARISON: June 02, 2023 TECHNIQUE: Axial imaging was performed from the base of the skull through T2 without IV contrast. Coronal and sagittal reformatted images were generated from the original axial data set. ALARA: The examination used one or more of the following radiation dose reduction techniques: Automated exposure control, iterative reconstruction, and/or adjustment of mA and/or KV. DLP: 1366 mGY*cm FINDINGS: Again seen is moderate centrilobular emphysema in the lung apexes. No fracture lines are evident. No soft tissue abnormality is seen. Again seen is pyrophosphate deposition in the cruciate ligament and in multiple cervical discs and in portions of ligament flavum. Mild disc space narrowing and disc bulges are noted in the mid cervical spine. CT/CT cervical spine wo IV con IMPRESSION: No acute fracture. 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 Electronically signed by: John Reyes MD 04/12/2025 02:49 PM EDT RP Date of Service: 04/12/25 Procedure(s): XR chest 1V Accession Number(s): [id number] cc: Liv Solano; Jason Cooper CNP~ EXAMINATION: XR CHEST 1 VIEW HISTORY: confusion COMPARISON: Comparison is made with the prior examination dated 06/02/2023. FINDINGS: A single AP supine view of the chest performed at 2:10 PM is submitted. The lungs are expanded and clear. There is no pleural effusion, pneumothorax, or pulmonary vascular congestion. The heart is normal in size given technique. The bones are intact. XR/XR chest 1V IMPRESSION: No acute cardiopulmonary abnormality. Electronically signed by: Supa Neff MD 04/12/2025 02:37 PM EDT RP Date of Service: 04/12/25 Procedure(s): XR shoulder LT min 2V Accession Number(s): [id number] cc: Liv Solano; Jason Cooper CNP~ EXAMINATION: XR SHOULDER 2 OR MORE VIEWS LEFT HISTORY: fall L shoulder pain COMPARISON: There are no prior studies available for comparison. FINDINGS: Three views of the left shoulder are submitted. Osseous mineralization is normal. There is no fracture or dislocation. There is severe osteoarthritis of the glenohumeral joint with joint space narrowing and osteophyte formation. There is moderate to severe osteoarthritis of the AC joint. The soft tissues are unremarkable. XR/XR shoulder LT min 2V IMPRESSION: Generative changes of the left shoulder as described. No evidence of fracture. Electronically signed by: Supa Neff MD 04/12/2025 02:40 PM EDT RP Date of Service: 04/12/25 Procedure(s): XR hip BI w PEL1V Accession Number(s): [id number] cc: Liv Solano; Jason Cooper CNP~ EXAMINATION: XR HIP 2 OR MORE VIEWS BILATERAL HISTORY: fall, hip pain COMPARISON: There are no prior studies available for comparison. FINDINGS: A single AP view of the pelvis and two views of each hip are submitted. Osseous mineralization is normal. There is no fracture or dislocation. There is narrowing of both hip joints, right greater than left. There are vascular calcifications. XR/XR hip BI w PEL1V IMPRESSION: Narrowing of both hip joints. No evidence of fracture of the bilateral hips. Electronically signed by: Supa Neff MD 04/12/2025 02:39 PM EDT Independent Historian Clinical information obtained from an independent historian. History obtained from or confirmed by: EMS and Other (daughter) External Record Review External record reviewed: Inpatient record Prescription Management I considered prescription management with: Pain Medication and Antibiotic (ceftin) Chronic Conditions Patient?s care impacted by: Other (dementia) Social Determinants Patient?s care significantly limited by Social Determinants of Health including: Other Social Determinant of Health Critical Care Time Critical Care Time Critical Care Time: No Discharge Plan Discharge Clinical Impression: Urinary tract infection, Fall Patient Disposition: Home, Self-Care Instructions: Fall Prevention for Older Adults (ED), Urinary Tract Infection in Older Adults (ED) Additional Instructions: Margy was evaluated in our ED today following a fall. Imaging of her head, neck, left shoulder, chest and pelvis are normal. There are no fractures. No intracranial bleeds. No evidence of pneumonia. Her blood work is reassuring. Her urine is positive for infection. I am sending an antibiotic to the pharmacy for treatment. Please make sure she takes this twice daily for the next 7 days. Follow up with outpatient providers. Return with any new or worsening symptoms. In the case of an emergency call 911. Prescriptions: New cefuroxime axetil 500 mg tablet 500 mg PO BID 7 Days Qty: 14 0RF No Action (DME) [facility] See Rx Instructions .ROUTE .MEDSUPPLY Qty: 270 3RF Rx Instructions: Pampers Adult Diapers XL, 3 times a day, As directed, 90 days (DME) miscellaneous medical supply Misc See Rx Instructions .ROUTE .MEDSUPPLY Qty: 2 3RF Rx Instructions: Nitrile Gloves, Medium, 2 boxes per month, As directed, 30 days (DME) miscellaneous medical supply Misc See Rx Instructions .ROUTE .MEDSUPPLY Qty: 4 3RF Rx Instructions: Sanitary Wipes, As directed, 30 days ferrous sulfate 325 mg (65 mg iron) tablet 325 mg PO DAILY Qty: 90 3RF lisinopril 40 mg tablet 40 mg PO DAILY 90 Days Qty: 90 3RF simethicone [Gas Relief 80 (simethicone)] 80 mg tablet,chewable 80 mg PO TID PRN trazodone 50 mg tablet 50 mg PO BID 90 Days Qty: 180 3RF acetaminophen 325 mg capsule 650 mg PO Q6H PRN (Reason: pain) Qty: 60 1RF atorvastatin 10 mg tablet 10 mg PO BEDTIME 90 Days Qty: 90 1RF buspirone 7.5 mg tablet 7.5 mg PO BID 30 Days Qty: 60 3RF citalopram 20 mg tablet 20 mg PO DAILY 30 Days Qty: 30 3RF aripiprazole 20 mg tablet 20 mg PO BEDTIME Qty: 90 0RF amlodipine 10 mg tablet 10 mg PO DAILY 90 Days Qty: 90 1RF metoprolol tartrate 50 mg tablet 50 mg PO BID Qty: 60 2RF gabapentin 300 mg capsule 300 mg PO BID 30 Days Qty: 60 2RF insulin glargine [Basaglar KwikPen U-100 Insulin] 100 unit/mL (3 mL) insulin pen 50 unit subcut DAILY 30 Days Qty: 15 3RF topiramate 100 mg tablet 100 mg PO BEDTIME 30 Days Qty: 30 3RF docusate sodium 100 mg capsule 100 mg PO BEDTIME Qty: 90 2RF melatonin 3 mg tablet 6 mg PO BEDTIME 30 Days Qty: 60 0RF montelukast 10 mg tablet 10 mg PO DAILY Qty: 30 0RF (DME) pen needle, diabetic [BD Ultra-Fine Micro Pen Needle] 32 gauge x 1/4 needle See Rx Instructions .MEDSUPPLY Qty: 100 4RF Rx Instructions: Use with glargine pen metformin 850 mg tablet 850 mg PO BIDWMEAL 90 Days Qty: 180 1RF albuterol sulfate 90 mcg/actuation HFA aerosol inhaler 2 puff inhalation Q4-6H PRN (Reason: shortness of breath or wheezing) Qty: 8.5 3RF albuterol sulfate 2.5 mg /3 mL (0.083 %) solution for nebulization 2.5 mg inhalation Q4-6H PRN (Reason: shortness of breath or wheezing) Qty: 90 2RF (DME) blood-glucose meter [FreeStyle Lite Meter] Kit See Rx Instructions .ROUTE .MEDSUPPLY Qty: 1 0RF Rx Instructions: As directed (DME) FreeStyle Lite Strips Strip See Rx Instructions .ROUTE .MEDSUPPLY Qty: 100 12RF Rx Instructions: As directed 2-3 times daily (DME) lancets [FreeStyle Lancets] 28 gauge misc See Rx Instructions .ROUTE .MEDSUPPLY Qty: 100 12RF Rx Instructions: As directed bs checks 2-3 times daily pantoprazole 40 mg tablet,delayed release (DR/EC) 40 mg PO DAILY Qty: 90 3RF Rx Instructions: robert saji tableta media hora antes del desayuno Citrucel 500 mg tablet 500 mg PO DAILY Qty: 90 2RF Rx Instructions: take it with full glass of water senna 8.6 mg capsule 17.2 mg PO DAILY Qty: 180 3RF Referrals: Jason Cooper, JAJA [Primary Care Provider, Internal Medicine] Interventions: ED Discharge Assessment Last Done: 04/12/25 16:54 Discharge Date/Time: 04/12/25 16:54 Print Language: German
[2025-04-12 12:00] VITALS: BP 149/60; PULSE 72; RESP 18; TEMP 37.1; O2SAT 95; BMI 44.9
--- NOTE | 2025-04-12 12:19 | ECG_ITS ---
Test Reason : FALL Blood Pressure : */* mmHG Vent. Rate : 64 BPM Atrial Rate : 64 BPM P-R Int : 204 ms QRS Dur : 126 ms QT Int : 438 ms P-R-T Axes : 54 -40 44 degrees QTcB Int : 451 ms Normal sinus rhythm Left axis deviation Non-specific intra-ventricular conduction block Minimal voltage criteria for LVH, may be normal variant ( [place] product ) Cannot rule out Anterior infarct (cited on or before 28-Feb-2023) Abnormal ECG When compared with ECG of 02-Jun-2023 10:42, No significant change was found Referred By: Liv Solano Electronically Signed By: FABRICIO ANGEL
[2025-04-12 13:49] LABS: MANUAL DIFF FLAG NO
[2025-04-12 13:54] LABS: Hematocrit 38.2 % (37.0-47.0); Hemoglobin 11.7 g/dl (12.0-16.0); Imm Gran Abs Auto 0.03 X10*3/uL (0.00-0.03); Imm Gran Pct Auto 0.4 % (0.0-0.4); Lymphocytes Absolute Auto 2.1 X10*3/uL (1.2-4.9); Mean Corpuscular HGB Conc 30.6 g/dl (31.0-35.0); Mean Corpuscular Hemoglobin 27.3 pg (27.0-33.0); Mean Corpuscular Volume 89.0 fL (80.0-98.0); NRBC Abs Auto 0.000 X10*3/uL (0.0-0.012); NRBC Pct Auto 0.0 /100WBC (0.0-0.2); Platelet Count 263 X10*3/uL (160-400); Red Blood Count 4.29 X10*6/uL (4.20-5.50); White Blood Count 8.3 X10*3/uL (4.8-10.8)
--- OUTSIDE RECORDS SUMMARY | 2025-04-12 13:57 | XMS_ITS ---
Author Name [facility] Organization Unknown Encounters Encounter Type Encounter Reason Primary Diagnosis Location Date Ambulatory [facility] 12/30/2022 Care Team Organization Name Specialty Phone Email Start Date End Da te [facility] JEANNE Primary Care 02/2025 [facility] Prompt Panel 11/10/2023 03/08/2024 [facility] INDIRA BURNHAM Primary Care 03/29 [facility] Prompt Panel 07/25/2022 04/26/2024
--- OUTSIDE RECORDS SUMMARY | 2025-04-12 13:57 | XMS_ITS | Encounter Summary ---
Author Organization [facility] Address [address] [place] [address] Care Team Providers Care Lockmaker Name Role Phone MarlenNathan moreno SENIOR NET DEVELOPER ARCHITECT-Izzy Primary Care Provider [phone] Reason for Visit * Reason Comments Prior Authorization Encounter Details Date Type Department Care Team (Late st Contact Info) Description 04/07/2025 Interim Notes [facility] Main [address] [place] [address] Deon Rodriguez [place] [address] [place] [address] Social History Tobacco Use Types Packs/Day Years Used Date Smoking Tobacco: Former Cigarettes 2 004 - 1965 Smokeless Tobacco: Never Alcohol Use Standard Drinks/Week Comments Never 0 (1 standard drink = 0.6 oz pur e alcohol) Social Connections Answer Date Recorded How often do you feel lonely or isolated from th ose around you? 1 05/20/2024 Financial Resource Strain Answer Date R ecorded Hard to pay for: Food 1 05/20/2024 Stress Answer Date Recorded Do you feel these kinds of stress these days? 1 05/20/2024 Physical Activity Answer Date Recorded Physical Activity 0 12/03/2023 Food Insecurity Answer Date Recorded Hard to pay for: Food 1 05/20/2024 Transportation Needs Answer Date Record ed Hard to pay for: Transportation 1 05/20/2024 Housing Stability Answer Date Recorded Hard to pay for: Rent/Mortgage payment 1 05/20/2024 Safety and Environment Answer Date Bunny rded Safety 0 12/03/2023 Utilities Answer Date Recorded Hard to pay for: Utilities 1 05/20 Employment Answer Date Recorded Stress 0 05/20/2024 Comments No Sex and Gender Information Value Date Recorded Sex Assigned at Female 12/03/2023 7:36 AM PDT Legal Sex Female 7:35 AM PDT Gender Identity Female 12/03/2023 7:36 AM PDT Sexual Orientation Straight 12/03/2023 7: 36 AM PDT documented as of this encounter Progress Notes * Deon Hastings [place] - 04/07/2025 2:36 PM EDT [employer] [place] Approved till 03/23/2025 documented in this encounter Plan of Treatment Not on file documented as of this encounter Visit Diagnoses Not on filedocumented in this encounter Additional Health Concerns Assessment Noted Time PHQ-9 Depression Total Score: 7 04/16/20 10:50 AM PDT documented as of this encounter Care Teams Lockmaker Relationship Specialty Start Date End Date Nathan Gee FNP-C [address] [place] [address] PCP - General Internal Medicine 12/03/23 documented as of this encounter
[2025-04-12 14:04] LABS: Ammonia 25 umol/L (13-55)
[2025-04-12 14:11] LABS: Alanine Aminotransferase 20 U/L (0-31); Albumin Level 4.7 g/dL (3.5-5.0); Alkaline Phosphatase 88 U/L (39-117); Anion Gap 14 (12-20); Aspartate Amino Transferase 24 U/L (5-31); Blood Urea Nitrogen 20 mg/dL (9-16); Calcium 9.9 mg/dL (8.4-10.2); Carbon Dioxide 27 mmol/L (22-29); Chloride 106 mmol/L (96-108); Creatinine Clr Calc Pharmacy 54.6; Estimated Glomerular Filt Rate 56; Magnesium 1.7 mg/dL (1.6-2.6); Potassium 4.1 mmol/L (3.3-5.1); Sodium 143 mmol/L (135-145); Total Protein 8.2 g/dL (6.5-8.0)
[2025-04-12 14:15] LABS: B Type Natriuretic Peptide 98 pg/mL (<100)
[2025-04-12 14:19] LABS: Troponin-I High Sensitivity 8.5 ng/L (<3.5-17.0)
[2025-04-12 15:19] LABS: Free T4 (Free Thyroxine) 0.94 ng/dL (0.71-1.85)
[2025-04-12 15:50] LABS: Appearance Urine Clear; Glucose Urine UA Negative (Negative); PH 7.5 (5.0-9.0); Specific Gravity - Urine 1.010 (1.005-1.025); UMIC TRIGGER UACC YES
[2025-04-12 15:55] LABS: UACC Culture Trigger YES
[2025-04-12 16:07] VITALS: BP 163/72; PULSE 70; RESP 14; TEMP 36.9; O2SAT 95
[2025-04-12 16:54] VITALS: BP 163/72; PULSE 70; RESP 14; TEMP 36.9; O2SAT 95
== END 2025-04-12 16:54 | disposition home or self-care (01) ==
PROVIDERS: Physician Assistant Medical; Emergency Provider Emergency Medicine; PCP Nurse Practitioner Family
DX: N39.0 Urinary tract infection, site not specified (principal); R51.9 Headache, unspecified; M25.551 Pain in right hip; M25.512 Pain in left shoulder; W18.30XA Fall on same level, unspecified, initial encounter; Y93.9 Activity, unspecified; Y92.89 Other specified places as the place of occurrence of the external cause; Y99.9 Unspecified external cause status; E11.22 Type 2 diabetes mellitus with diabetic chronic kidney disease; N18.9 Chronic kidney disease, unspecified; F03.90 Unspecified dementia, unspecified severity, without behavioral disturbance, psychotic disturbance, mood disturbance, and anxiety; J45.909 Unspecified asthma, uncomplicated
CPT/HCPCS: 36415; 70450; 71045; 72125; 73030; 73521; 80053; 81001; 82140; 82550; 83735; 83880; 84439; 84443; 84484; 85025; 87086; 87088; 87186; 93005; 99284

== ENCOUNTER → 2025-04-12 12:17 | Outpatient (BNV) | payer OTHER, SELFPAY | PROVIDERS: Emergency Provider Emergency Medicine; PCP Nurse Practitioner Family; Visit Provider Radiology Diagnostic Radiology | DX: M50.321 Other cervical disc degeneration at C4-C5 level (principal); S09.90XA Unspecified injury of head, initial encounter; M16.0 Bilateral primary osteoarthritis of hip; M19.012 Primary osteoarthritis, left shoulder; R41.0 Disorientation, unspecified | CPT/HCPCS: 70450; 71045; 72125; 73030; 73521 ==

== ENCOUNTER → 2025-04-12 12:19 | Outpatient (BNV) | payer OTHER, SELFPAY | PROVIDERS: Emergency Provider Emergency Medicine; PCP Nurse Practitioner Family; Visit Provider Internal Medicine | DX: I45.4 Nonspecific intraventricular block (principal) | CPT/HCPCS: 93010 ==

== ENCOUNTER 2025-08-23 22:54 | Inpatient (IN) | payer OTHER, SELFPAY ==
--- NOTE | 2025-08-23 | ECG_ITS ---
Test Reason : AMS Blood Pressure : */* mmHG Vent. Rate : 76 BPM Atrial Rate : 76 BPM P-R Int : 204 ms QRS Dur : 120 ms QT Int : 402 ms P-R-T Axes : 54 -42 72 degrees QTcB Int : 452 ms Normal sinus rhythm Left axis deviation Minimal voltage criteria for LVH, may be normal variant ( Ramsey product ) Anterior infarct (cited on or before 28-Feb-2023) Abnormal ECG When compared with ECG of 12-Apr-2025 13:08, No significant change was found Referred By: Generic ED Physician Electronically Signed By: Dane Edmonds
--- NOTE | ~2025-08-23 | XR_ITS ---
CLINICAL HISTORY: sob CHEST X-RAY FRONTAL VIEW COMPARISON: 04/12/2025. FINDINGS: A single frontal view of the chest was performed. Lordotic technique is noted. Cardiac silhouette is accentuated by the portable technique. Mild elevation of the right hemidiaphragm is noted. Mild right basilar atelectasis versus infiltrate is questioned. No consolidation or pleural effusion. No pneumothorax. IMPRESSION: 1. Mild right basilar atelectasis versus infiltrate is questioned. This document has been electronically signed by: Joseph Junior M.D. on 08/24/2025 00:29:56
[2025-08-23 23:12] VITALS: BP 147/70; BP 164/90; PULSE 80; PULSE 81; RESP 19; TEMP 37; O2SAT 98; BMI 38.8
--- OUTSIDE RECORDS SUMMARY | 2025-08-23 23:38 | XMS_ITS ---
Author Organization [facility] Care Team Providers Care Plant Reliability Engineer Name Role Phone Timur Valero Unavailable Unavailable Ophelia Goldman Unavailable Unavailable Jenn Bradley Unavailable Unavailable Allergies and adverse reactions No Known Allergies Care Team Name Role Address Phone Organization Dates Jenn Bradley PCP [address] [facility] [address], [place], [address], [facility] (Office): : [facility] 04/12/2024 - 05/14/2024 Timur Valero [address], [address], [place] (Office): : : [facility] 04/12/2024 - 05/14/2024 Opheila Goldman [address] [facility] [address], [place], [address], [facility] (Office): : [facility] 04/12/2024 - 05/14/2024 Immunizations Immunization Status Vaccine Details Vaccine Code CodeSystem Date Notes TB 1 Step Mantoux (PPD) completed tuberculin skin test; unspecified formulation lotNumber: [id number] expiry: 02/05/2027 Mfg: [employer] Given 0.1 ml Left Forearm intradermally 98 CVX created date: 04/19/2024 consent date: 04/19/2024 administer ed date: 04/19/2024 Educated by nurse on 04/19/2024 Mental Status Section Date Assessment Total Score Description 05/14/2024 BIMS 09 moderate cognit elisabeth impairment CAM 0 No delirium ind icated PHQ-9 12 moderate depres obdulia 04/19/2024 BIMS 09 moderate cognit elisabeth impairment CAM 0 No delirium ind icated PHQ-9 16 moderately katja re depression Insurance Providers Coverage Status Coverage Type Relationship to Subscriber Member Identifier Subscriber Identifier Group Identifier Payer Identifier and Other information 2024 Code: 51 Code System OID:[id number] .[id number]. 5 Code System Name: Source of Payment Typology (PHDSC) Display: Managed Care (Private) Translation: Code: HM Code System: OID:[id number] .[id number]. 1336 Code System Name: Insurance Type Code ([id number]) Display Name: Health Maintenance Organization (HMO) Plan Code: SELF Code System Name: HL7 RoleCode Code System OID:[id number] Display Name: Self [id number] Root: [id number] Payer Name: [facility] Address: [address] [facility] City: [place] State: [place] Country: [facility] Code: 2 Code System OID:[id number] .[id number]. 5 Code System Name: Source of Payment Typology (PHDSC) Display: Medicaid Translation: Code: 48 Code System: OID:[id number] .[id number]. 1336 Code System Name: Insurance Type Code ([id number]) Display Name: Medicaid Problems Problem # Description Date of onset Resolved Date Code CodeSystem Concern Status 1 ADULT FAILURE TO THRIVE 04/12/[address] active 2 ESSENTIAL (PRIMARY) HYPERTENSION 04/12/[address] active 3 GASTRO-ESOPHAGEAL REFLUX DISEASE WITHOUT ESOPHAGITIS 04/12/[address] active 4 HYPERLIPIDEMIA, UNSPECIFIED 04/12/[address] active 5 MUSCLE WEAKNESS (GENERALIZED) 04/12/[address] active 6 OVERACTIVE BLADDER 04/12/2024 220313267 SNOMED C T active 7 TACHYCARDIA, UNSPECIFIED 04/12/[address] active 8 TYPE 2 DIABETES MELLITUS WITHOUT COMPLICATIONS 04/12/[address] active 9 UNSPECIFIED DEMENTIA, UNSPECIFIED SEVERITY, WITHOUT BEHAVIORAL DISTURBANCE, PSYCHOTIC DISTURBANCE, MOOD DISTURBANCE, AND ANXIETY 04/12/[address] active 10 UNSPECIFIED FALL, SUBSEQUENT ENCOUNTER 04/12/[address] active 11 UNSPECIFIED MOOD [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 04/12/[address] active 12 UNSTEADINESS ON FEET 04/12/[address] active 13 WEDGE COMPRESSION FRACTURE OF THIRD THORACIC VERTEBRA, SUBSEQUENT ENCOUNTER FOR FRACTURE WITH ROUTINE HEALING 04/12/[address] active Reason for Referral No Reasons for Referral Entered Social History Social History Observation Description Start Date End Date Code Code System Current Smoking Status Tobacco smoking consumption unknown 700448488 SNOMED CT Sex Assigned At Female 1950 [address]-2 [facility] Gender Identity Sexual Orientation Vital Signs Code Code System Vitals Name Values and Units Timing Information 92864-6 LOINC Pain Level Value=0.0 05/14/2024 9279-1 LOINC Respiratory Rate Value=18.0 Units=/m in 05/14/2024 8462-4 LOINC Blood Pressure-Diastolic Value=83 Un its=mmHg 05/14/2024 8480-6 LOINC Blood Pressure-Systolic Mthpo=791 Un its=mmHg 05/14/2024 8310-5 LOINC Body Temperature Value=98.3 Units= F 05/14/2024 8867-4 LOINC Heart rate Value=72.0 Units=/min 02/2024 18866-2 [facility] O2 % BldC Oximetry Value=95.0 Units= % 05/14/2024 2339-0 [facility] Blood Sugar Value=86.0 Units=mg/dL 05/14/2024 57704[facility]4 [facility] Weight Vivoo=352.4 Units=Lbs 09/2023 8302-2 [facility] Height Value=60.0 Units=Inches 04/12/2024
[2025-08-23 23:48] LABS: MANUAL DIFF FLAG NO
[2025-08-23 23:49] LABS: Hematocrit 39.7 % (37.0-47.0); Hemoglobin 12.0 g/dl (12.0-16.0); Imm Gran Abs Auto 0.02 X10*3/uL (0.00-0.03); Imm Gran Pct Auto 0.2 % (0.0-0.4); Lymphocytes Absolute Auto 2.4 X10*3/uL (1.2-4.9); Mean Corpuscular HGB Conc 30.2 g/dl (31.0-35.0); Mean Corpuscular Hemoglobin 27.8 pg (27.0-33.0); Mean Corpuscular Volume 91.9 fL (80.0-98.0); NRBC Abs Auto 0.000 X10*3/uL (0.0-0.012); NRBC Pct Auto 0.0 /100WBC (0.0-0.2); Platelet Count 255 X10*3/uL (160-400); Red Blood Count 4.32 X10*6/uL (4.20-5.50); White Blood Count 8.8 X10*3/uL (4.8-10.8)
[2025-08-23 23:50] VITALS: PULSE 74; RESP 20; TEMP 37.1; O2SAT 95
--- NOTE | 2025-08-23 23:50 | PC.NURSE ---
pt biba from home, a&ox2 at baseline, respirations even and unlabored. pt reports shortness of breath, mild chest pain, body aches, sore throat x3 weeks. pt reports she ran out of inhaler. per ems pt daughter also states pt has been hallucinating but pt denies this. 20g placed in right ac, labs obtained. rectal temp obtained and pt NSR on tele
[2025-08-24] VITALS (15 sets, daily range): BP systolic 135–161; BP diastolic 58–78; PULSE 65–115; RESP 16–22; TEMP 36.8–37.8; O2SAT 95–100
--- NOTE | 2025-08-24 00:12 | ED_ITS ---
HPI - General Adult General Chief complaint: Dyspnea Stated complaint: hx dementia, hallucinating-blood infection cause? Time Seen by Provider: 08/24/25 00:02 History of Present Illness ED Provider: Kenneth ABREU narrative: The patient is a 74-year-old woman who lives at home. She has a history of asthma, type 2 diabetes, high blood pressure, high cholesterol, arthritis, and morbid obesity. She is a former smoker. She has felt short of breath for the last 3 days. She has been coughing. She has not had a fever. An ambulance was called. Paramedics apparently found her with a room air saturation of 78%. She was placed on 6 L nasal cannula with improvement in her oxygenation. She is not on home oxygen. Apparently the family says that she has run out of her asthma medications at home. According to the patient's daughter the patient has been doing poorly for about 4 years after her son . The daughter says the patient has been much less active and has become almost bed ridden over the last few years. 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 The patient lives at the daughter's house. they have a wheelchair and use the wheelchair to help get the patient from the bed to the toilet when they think the patient needs to use the bathroom. Transfers from the bed to the wheelchair and from the wheelchair to the are difficult because of the patient's poor mobility. The patient does not do any independent walking at all at this point. Related Data Home Medications ?Medication ?Instructions ?Recorded ?Confirmed simethicone 80 mg chewable tablet 80 mg PO TID PRN 12/2911/14/23 (Gas Relief 80 (simethicone)) Previous Rx's ?Medication ?Instructions ?Recorded miscellaneous medical supply #2 ea 10/24/22 miscellaneous medical supply #270 ea 10/24/22 miscellaneous medical supply #4 ea 10/24/22 FreeStyle Lite Strips (blood sugar #100 ea 12/16/22 diagnostic) blood-glucose meter (FreeStyle #1 ea 12/16/22 Lite Meter kit) lancets 28 gauge (FreeStyle #100 ea 12/16/22 Lancets) sennosides 8.6 mg capsule (senna) 17.2 mg (2 x 8.6 mg) PO DAILY #180 01/07/23 caps pen needle, diabetic 32 gauge x #100 ea 04/10/2309/11 (BD Ultra-Fine Micro Pen Needle) ferrous sulfate 325 mg (65 mg 325 mg PO DAILY #90 tabs 07/25/23 iron) tablet lisinopril 40 mg tablet 40 mg PO DAILY 3 months #90 tabs 07/25/23 trazodone 50 mg tablet 50 mg PO BID 3 months #180 t abs 10/17/23 albuterol sulfate 2.5 mg/3 mL 2.5 mg (3 mL) inhalation Q4-6H PRN 10/31/23 (0.083 %) solution for nebulization shortness of breat h or wheezing #90 mL albuterol sulfate 90 mcg/actuation 2 puff inhalation Q 4-6H PRN 10/31/23 aerosol inhaler shortness of breath or wheez ing #8.5 grams metformin 850 mg tablet 850 mg PO BIDWMEAL 90 days # 180 10/31/23 tabs pantoprazole 40 mg tablet,delayed 40 mg PO DAILY #90 t abs 11/03/23 release acetaminophen 325 mg capsule 650 mg (2 x 325 mg) PO Q6 H PRN 11/20/23 pain #60 caps atorvastatin 10 mg tablet 10 mg PO BEDTIME 90 days #90 tabs 12/15/23 buspirone 7.5 mg tablet 7.5 mg PO BID 30 days #60 ta bs 01/07/24 citalopram 20 mg tablet 20 mg PO DAILY 30 days #30 t abs 01/07/24 methylcellulose (laxative) 500 mg 500 mg PO DAILY #90 tabs 01/21/24 tablet (Citrucel) amlodipine 10 mg tablet 10 mg PO DAILY 90 days #90 t abs 02/06/24 aripiprazole 20 mg tablet 20 mg PO BEDTIME #90 tabs metoprolol tartrate 50 mg tablet 50 mg PO BID #60 tabs 03/15/24 gabapentin 300 mg capsule 300 mg PO BID 30 days #60 ca ps 03/16/24 insulin glargine 100 unit/mL (3 50 unit (0.5 mL) subcu t DAILY 30 04/15/24 mL) subcutaneous pen (Basagl days #15 mL KwikPen U-100 Insulin) topiramate 100 mg tablet 100 mg PO BEDTIME 30 days #3 0 tabs 04/15/24 melatonin 3 mg tablet 6 mg (2 x 3 mg) PO BEDTIME s leep 11/12/24 30 days #60 tabs montelukast 10 mg tablet 10 mg PO DAILY #30 tabs 04/01 cefuroxime axetil 500 mg tablet 500 mg PO BID 7 days # 14 tabs 04/12/25 docusate sodium 100 mg capsule 100 mg PO BEDTIME #90 c aps 08/09/25 Allergies Allergy/AdvReac Type Severity Reaction Status Date / Time Seasonal Allergies Allergy Intermediate Itchy Eyes Verified 08/23/25 23:21 Review of Systems 2 Review of Systems: Yes all other systems are reviewed and are negative [facility] Past Medical History Medical History Dementia Toxic metabolic encephalopathy Insomnia Mood disorder nursing home (current) use of oral hypoglycemic drugs nursing home (current) use of insulin Personal history of urinary (tract) infections Overactive bladder Hyperlipidemia, unspecified Anemia in chronic kidney disease Hypertensive chronic kidney disease with stage 1 through stage 4 chronic kidney disease, or unspecified chronic kidney disease Major depressive disorder, single episode, in full remission Unspecified dementia, unspecified severity, with mood disturbance Unspecified dementia, unspecified severity, with psychotic disturbance Sepsis Morbid obesity Abscess of left thigh Arthritis High cholesterol High blood pressure Asthma Diabetes Surgical History Hx of colonoscopy Social History Social History Household Members: None Household Members Other:: 0 Housing: Apartment Do you presently have visiting nurse or other home services: Yes Alcohol intake: unknown Patient Tobacco Use Status: Former Tobacco user Tobacco use type: Cigarette Cigarettes Per Day: 10 Years Smoked: 4 Smoked in Last 30 Days: No e-Cigarette/Vaping Use: Never Used Second Hand Smoke Exposure: No Use of substances other than those prescribed or required for medical reasons: No Advance Directives: Yes Advance Directives on File: Yes Advance Directives Date on File: 04/29/23 Do you have a plan to hurt others: No Plan service: No Current occupational status: disabled Current occupational exposures/hazards: No Cognitive needs: No Hearing needs: No Vision needs: No Physical Exam ED Vital Signs: Vital Signs - 24 hr 08/23/25 23:12 08/23/25 23:50 08/24/25 00:43 Temperature 98.6 F 98.8 F Pulse Rate 80 74 65 Respiratory Rate 19 20 17 Blood Pressure 147/70 H Pulse Oximetry 98 95 Oxygen Delivery Method Nasal Cannula Nasal Cannula Oxygen Flow Rate 2 08/24/25 00:44 Temperature Pulse Rate 65 Respiratory Rate 16 Blood Pressure 141/58 H Pulse Oximetry 100 Oxygen Delivery Method Nasal Cannula Oxygen Flow Rate 2 BMI result Body Mass Index 38.8 Const Other: The patient is a chronically ill, obese 74-year-old who is awake and alert. She seems deconditioned. On nasal oxygen she does not exhibit any increased work of breathing. She has a frequent dry cough. HENMT Other: The face is symmetrical. The patient is edentulous. Mucous membranes are moist. Tongue is midline. Eyes General: appearance normal, both eyes and all related structures Neck Neck: Yes no lymphadenopathy and Yes no JVD Resp Other: No juan jose increased work of breathing. The patient had inspiratory and expiratory wheezes bilaterally and symmetrically. Cardio Rate: regular rate Rhythm: regular rhythm Heart sounds: S1 normal heart sound present and S2 normal heart sound present GI Other: Abdomen is soft and nontender Skin Other: Skin is dry and unremarkable Neuro Other: The patient is awake and alert. Pupils are round equal, extraocular movements intact, face is symmetrical, speech seems fairly clear, she seems to have symmetrical tone in her extremities. She seems quite deconditioned. She does not seem to have any lateralizing findings. Extrem Other: The patient has thick lower legs without juan jose edema. No pitting. No asymmetry Medications Administered Generic Name Dose Route Start Last Admin Trade Name Freq PRN Reason Stop Dose Admin Azithromycin 500 mg/ Sodium 250 mls @ 125 mls/hr 08/24/25 00:34 08/24/25 01:42 Chloride IV 08/24/25 02:33 125 mls/hr ONCE ONE Administration Discontinued Medications Generic Name Dose Route Start Last Admin Trade Name Freq PRN Reason Stop Dose Admin Albuterol Sulfate 5 mg/ 0 mg 08/24/25 00:42 08/24/25 00:43 Albuterol/Ipratropium 3 ml INHALE 08/24/25 00:43 7.5 each ONCE ONE Administration Ceftriaxone Sodium 2 gm/ 50 mls @ 100 mls/hr 08/24/25 00:34 08/24/25 01:10 Sodium Chloride IV 08/24/25 01:03 Infused ONCE ONE Infusion Methylprednisolone Sodium Succinate 80 mg 08/24/25 00:12 08/24/25 00:40 Methylprednisolone Sod Succ 125 Mg/2 Ml Vial IVPUSH 08/24/25 00:13 80 mg ONCE ONE Administration Medical Decision Making Medical Decision Making [facility] [place] Narrative: The patient is a 74-year-old woman with asthma who lives at home. She lives at her daughter's home. She is quite deconditioned and according to the last few years. She is nonambulatory. She requires assistance bed to a wheelchair and from the wheelchair to the toilet when she goes to the bathroom. According to the daughter the patient has been coughing more than usual over the last 3 days and producing more phlegm than usual it also the patient has seemed to have increased wheezing. Tonight she seemed frankly short the family called 911. Paramedics 78% on room air. She was wheezing on arrival here dilator treatment as well as steroids and antibiotics. Clinically the patient's presentation seems consistent with a COPD exacerbation. Her chest x-ray was read as showing an area of atelectasis versus infiltrate. I would lean more towards atelectasis than pneumonia. Nevertheless the patient was covered with the antibiotics, ceftriaxone and azithromycin. Her lactate is normal. I do not think she has frankly septic. After bronchodilator treatment her oxygen saturation on room air was around 89- 90%. Given that she seems quite deconditioned at baseline and given that her oxygen saturations are not very good and given that her daughter, her primary clay plant treater, seems exhausted, I think hospitalization for additional treatment for COPD is appropriate. Lab Data 08/23/25 23:44 08/24/25 00:14 Labs: Lab Results 08/23/25 08/24/25 08/24/25 Range/Units 23:44 00:14 01:51 WBC 8.8 (4.8-10.8) X10*3/uL RBC 4.32 (4.20-5.50) X10*6/uL Hgb 12.0 (12.0-16.0) g/dl Hct 39.7 (37.0-47.0) % MCV 91.9 (80.0-98.0) fL MCH 27.8 (27.0-33.0) pg MCHC 30.2 L (31.0-35.0) g/dl RDW 13.5 (11.0-16.0) % Plt Count 255 (160-400) X10*3/uL MPV 10.9 (9.4-12.3) fL Immature Gran % (Auto) 0.2 (0.0-0.4) % Neut % (Auto) 57.4 (45-73) % Lymph % (Auto) 27.5 (20-40) % [place] % (Auto) 7.4 (2-11) % Eos % (Auto) 6.6 H (0-4) % Baso % (Auto) 0.9 (0-2) % Lymph # (Auto) 2.4 (1.2-4.9) X10*3/uL [place] # (Auto) 0.7 (0.1-1.2) X10*3/uL Eos # (Auto) 0.6 H (0.0-0.4) X10*3/uL Baso # (Auto) 0.1 (0.0-0.2) X10*3/uL Abs Immat Gran (auto) 0.02 (0.00-0.03) X10*3/uL Absolute Neuts (auto) 5.1 (2.0-8.3) x10*3/uL Absolute Nucleated RBC 0.000 (0.0-0.012) X10*3/uL Nucleated RBC % (auto) 0.0 (0.0-0.2) /100WBC VBG pH 7.33 (7.32-7.43) VBG pCO2 55 mmHg VBG pO2 68 mmHg VBG HCO3 29 H (22-26) mmol/L VBG O2 Saturation 91.0 % VBG Base Excess 2.6 mmol/L Sodium 140 (135-145) mmol/L Potassium 4.6 (3.3-5.1) mmol/L Chloride 106 (96-108) mmol/L Carbon Dioxide 24 (22-29) mmol/L Anion Gap 15 (12-20) BUN 14 (9-16) mg/dL Creatinine 1.03 (0.5-1.4) mg/dL Estim Creat Clear Calc 47.2 Estimated GFR 52 Random Glucose 160 H (60-115) mg/dL Lactic Acid 1.8 (0.5-2.0) mmol/L Calcium 9.6 (8.4-10.2) mg/dL Total Bilirubin 0.3 (0.0-1.0) mg/dL AST 20 (5-31) U/L ALT 15 (0-31) U/L Alkaline Phosphatase 86 (39-117) U/L Troponin I High Sens 5.2 (<3.5-17.0) ng/L C-Reactive Protein 0.57 H (< or = 0.50) mg/dL Total Protein 7.7 (6.5-8.0) g/dL Albumin 4.5 (3.5-5.0) g/dL Lipase 39 (8-78) U/L Influenza Type A (PCR) NEGATIVE (Negative) Influenza Type B (PCR) NEGATIVE (Negative) RSV RNA Qual (PCR) NEGATIVE (Negative) SARS-CoV-2 RNA (RT-PCR) NEGATIVE (Negative) Independent Interpretation I performed an independent interpretation of an: EKG Interpretation: EKG at 23:22 shows normal sinus rhythm at 76 beats per minute. There is left axis deviation and some other changes but these all seem chronic and similar to previous EKGs. Discharge Plan Discharge Clinical Impression: Acute exacerbation of chronic obstructive pulmonary disease Patient Disposition: Admitted As Inpatient Print Language: Greenlandic
[2025-08-24 00:25] LABS: Resp Syncy Virus RNA Qual PCR NEGATIVE (Negative); SARS COV2 PCR INHOUSE NEGATIVE (Negative)
[2025-08-24 00:35] LABS: Alanine Aminotransferase 15 U/L (0-31); Albumin Level 4.5 g/dL (3.5-5.0); Alkaline Phosphatase 86 U/L (39-117); Anion Gap 15 (12-20); Aspartate Amino Transferase 20 U/L (5-31); Blood Urea Nitrogen 14 mg/dL (9-16); Calcium 9.6 mg/dL (8.4-10.2); Carbon Dioxide 24 mmol/L (22-29); Chloride 106 mmol/L (96-108); Creatinine Clr Calc Pharmacy 47.2; Estimated Glomerular Filt Rate 52; Lipase 39 U/L (8-78); Potassium 4.6 mmol/L (3.3-5.1); Sodium 140 mmol/L (135-145); Total Protein 7.7 g/dL (6.5-8.0)
[2025-08-24 00:43] LABS: Troponin-I High Sensitivity 5.2 ng/L (<3.5-17.0)
[2025-08-24] MEDS: Albuterol Sulfate 5 MG, Albuterol/Iprat 2.5/0.5MG 3 ML 3 ML INHALE (00:43)
[2025-08-24 01:57] LABS: Venous Blood Gas Refer to POC result
[2025-08-24 01:58] LABS: VBG HCO3 29 mmol/L (22-26); VBG O2 % Saturation 91.0 %
--- NOTE | 2025-08-24 02:16 | PM.IMHP ---
History of Present Illness Date of Service: 08/24/25 Chief Complaint: Shortness of breath 74-year-old female with a past medical history of HTN, HLD, dm, obesity, COPD, asthma, chronic pain syndrome, GERD, anemia, anxiety, depression; presented to the hospital today with a chief complaint of shortness of breath. Reportedly patient has been having shortness of breath for about 3 days. Associated cough and sputum production. Denies any sick contacts. Denies any fevers. Denies any GI or symptoms. Review of all other systems is negative except mentioned above ER course: Per ER team, EMS noted that patient was saturating 78%; has diminished breath sounds; given nebulizations; methylprednisone; the ER patient was to be short of breath. Chest x-ray showed no acute cardiopulmonary process. Placed on supplemental oxygen with improvement in oxygenation. Chest x-ray showed atelectasis versus infiltration. [facility] Medical History Dementia Toxic metabolic encephalopathy Insomnia Mood disorder senior living (current) use of oral hypoglycemic drugs senior living (current) use of insulin Personal history of urinary (tract) infections Overactive bladder Hyperlipidemia, unspecified Anemia in chronic kidney disease Hypertensive chronic kidney disease with stage 1 through stage 4 chronic kidney disease, or unspecified chronic kidney disease Major depressive disorder, single episode, in full remission Unspecified dementia, unspecified severity, with mood disturbance Unspecified dementia, unspecified severity, with psychotic disturbance Sepsis Morbid obesity Abscess of left thigh Arthritis High cholesterol High blood pressure Asthma Diabetes Surgical History Hx of colonoscopy Social History Household Members: None Household Members Other:: 0 Housing: Apartment Do you presently have visiting nurse or other home services: Yes Alcohol intake: unknown Patient Tobacco Use Status: Former Tobacco user Tobacco use type: Cigarette Cigarettes Per Day: 10 Years Smoked: 4 Smoked in Last 30 Days: No e-Cigarette/Vaping Use: Never Used Second Hand Smoke Exposure: No Use of substances other than those prescribed or required for medical reasons: No Advance Directives: Yes Advance Directives on File: Yes Advance Directives Date on File: 04/29/23 Do you have a plan to hurt others: No Plan service: No Current occupational status: disabled Current occupational exposures/hazards: No Cognitive needs: No Hearing needs: No Vision needs: No Meds Allergies Allergy/AdvReac Type Severity Reaction Status Date / Time Seasonal Allergies Allergy Intermediate Itchy Eyes Verified 08/23/25 23:21 Active Medications: Current Medications Azithromycin 500 mg/ Sodium (Chloride) 250 mls @ 125 mls/hr IV ONCE ONE Stop: 08/24/25 02:33 Last Admin: 08/24/25 01:42 Dose: 125 mls/hr Home Medications ?Medication ?Instructions ?Recorded ?Confirmed ?Last Taken ?Type simethicone 80 mg chewable tablet 80 mg PO TID PRN 08/11/23 11/14/23 Unknown History (Gas Relief 80 (simethicone)) Physical Exam Vital Signs and Narrative: Vital Signs: Last Vital Signs Temp 98.8 F 08/23/25 23:50 Pulse 65 08/24/25 00:44 Resp 16 08/24/25 00:44 BP 141/58 H 08/24/25 00:44 Pulse Ox 100 08/24/25 00:44 O2 Del Method Nasal Cannula 08/24/25 00:44 O2 Flow Rate 2 08/24/25 00:44 Oxygen Flow Rate 2 08/23/25 23:12 BMI result Body Mass Index 38.8 Gen: Appears be in no acute distress. On supplemental oxygen. Speaks in full sentences. HEENT: NCAT, Moist mucosa. Pulmonary: Coarse breath sounds CVS: Normal S1-S2 Abdomen: BS+, Soft, Nontender Extremities: Warm well perfused Neuro: Alert and awake. Results Labs 08/23/25 23:44 08/24/25 00:14 Labs: Laboratory Results - last 24 hr 08/23/25 08/24/25 08/24/25 23:44 00:14 01:51 MCV 91.9 MCH 27.8 MCHC 30.2 L RDW 13.5 Plt Count 255 MPV 10.9 Immature Gran % (Auto) 0.2 Neut % (Auto) 57.4 Lymph % (Auto) 27.5 [place] % (Auto) 7.4 Eos % (Auto) 6.6 H Baso % (Auto) 0.9 Lymph # (Auto) 2.4 [place] # (Auto) 0.7 Eos # (Auto) 0.6 H Baso # (Auto) 0.1 Abs Immat Gran (auto) 0.02 Absolute Neuts (auto) 5.1 Absolute Nucleated RBC 0.000 Nucleated RBC % (auto) 0.0 VBG pH 7.33 VBG pCO2 55 VBG pO2 68 VBG HCO3 29 H VBG O2 Saturation 91.0 VBG Base Excess 2.6 Anion Gap 15 Estim Creat Clear Calc 47.2 Estimated GFR 52 Random Glucose 160 H Lactic Acid 1.8 Calcium 9.6 Total Bilirubin 0.3 AST 20 ALT 15 Alkaline Phosphatase 86 Troponin I High Sens 5.2 C-Reactive Protein 0.57 H Total Protein 7.7 Albumin 4.5 Lipase 39 Influenza Type A (PCR) NEGATIVE Influenza Type B (PCR) NEGATIVE RSV RNA Qual (PCR) NEGATIVE SARS-CoV-2 RNA (RT-PCR) NEGATIVE Assessment and Plan (1) Asthma exacerbation: Qualifiers: Asthma persistence: unspecified Asthma severity: unspecified severity Qualified Code(s): J45.901 - Unspecified asthma with (acute) exacerbation Status: Acute Plan 83-year-old male with a past medical history of HTN, HLD, asthma/COPD, GERD, BPH presented to the hospital with a chief complaint of cough and shortness of breath. Admitted for following Acute hypoxic respiratory failure: Acute asthma/COPD exacerbation: Suspected pneumonia: Continue supplemental oxygen with a goal of oxygen saturation of 88-93% Ketamine nebulizations standing and p.r.n. Continue azithromycin, ceftriaxone Continue Solu-Medrol IV Trending pulse oximetry when ready for discharge Hypertension: Resume home metoprolol at a reduced dose. To be resumed on home dose eventually Diabetes: Hold home regimen. Kept on Lantus 30 units plus sliding scale. Monitor POC glucose and adjust insulins. Med reconciliation: Resume home medications once med rec completed by pharmacy in a.m. DVT prophylaxis: Lovenox Code status: Full code Quality Stroke Does the patient have a stroke diagnosis?: No VTE Prior VTE?: No VTE Risk Level:: Medical - moderate - high VTE Device Contraindication: Treatment Not Indicated VTE Drug Contraindication: N/A - Med Ordered
[2025-08-24 02:19] LABS: Appearance Urine Cloudy; Glucose Urine UA Negative (Negative); PH 8.0 (5.0-9.0); Specific Gravity - Urine 1.010 (1.005-1.025); UMIC TRIGGER UACC YES
[2025-08-24 02:24] LABS: UACC Culture Trigger YES
[2025-08-24 04:30] LABS: Hematocrit 39.0 % (37.0-47.0); Hemoglobin 11.4 g/dl (12.0-16.0); Imm Gran Abs Auto 0.03 X10*3/uL (0.00-0.03); Imm Gran Pct Auto 0.3 % (0.0-0.4); Lymphocytes Absolute Auto 1.9 X10*3/uL (1.2-4.9); MANUAL DIFF FLAG NO; Mean Corpuscular HGB Conc 29.2 g/dl (31.0-35.0); Mean Corpuscular Hemoglobin 27.0 pg (27.0-33.0); Mean Corpuscular Volume 92.2 fL (80.0-98.0); NRBC Abs Auto 0.000 X10*3/uL (0.0-0.012); NRBC Pct Auto 0.0 /100WBC (0.0-0.2); Platelet Count 271 X10*3/uL (160-400); Red Blood Count 4.23 X10*6/uL (4.20-5.50); White Blood Count 9.1 X10*3/uL (4.8-10.8)
[2025-08-24 05:40] LABS: Alanine Aminotransferase 14 U/L (0-31); Albumin Level 4.6 g/dL (3.5-5.0); Alkaline Phosphatase 87 U/L (39-117); Anion Gap 17 (12-20); Aspartate Amino Transferase 20 U/L (5-31); Blood Urea Nitrogen 15 mg/dL (9-16); Calcium 9.6 mg/dL (8.4-10.2); Carbon Dioxide 23 mmol/L (22-29); Chloride 107 mmol/L (96-108); Creatinine Clr Calc Pharmacy 49.0; Estimated Glomerular Filt Rate 55; Potassium 4.7 mmol/L (3.3-5.1); Sodium 142 mmol/L (135-145); Total Protein 8.0 g/dL (6.5-8.0)
[2025-08-24 07:09] LABS: Glucose, Whole Blood 203 mg/dL (60-115)
[2025-08-24] MEDS: Albuterol/Iprat 2.5/0.5MG 3 ML AMPUL.NEB INHALE ×4 (07:55→20:23)
--- NOTE | 2025-08-24 09:05 | PHA.MEDREC ---
Addendum entered by Pranav Carter RPh 08/24/25 10:24: MED REC REVIEWED BY [facility] Original Note: Pharmacy Consult ? Medication Reconciliation Pharmacy has completed the medication reconciliation. Spoke with pt, utilizing urology teacher and pt was a poor historian; had a med box list on hand I utilized to confirm most of med rec. Called and spoke with pt daughter (Trudy) and she was able to confirm pt eye drops (Brimonidine- Left eye BID & Dorzolamide- Both eyes BID), inhalers (Albuterol Inhaler- 2 puffs q4-6h prn & Albuterol Nebulizer- 3ml q4-6h prn) and pt Lantus- 22 units daily.
[2025-08-24] MEDS: 0.9 % Sodium Chloride Flush 3 ML SYRINGE IVFLUSH ×2 (09:15→17:42)
--- NOTE | 2025-08-24 09:16 | MHC.EDTECH ---
Patient repositioned and linen changed
--- NOTE | 2025-08-24 10:28 | MHC.CM.PN ---
E LIVES AT HOME WITH HCP/DAUGHTER, ELIECER (ON FILE AND VERIFIED) PER HCP, PATIENT HAS 50 HOURS OF COPYWRITER SERVICES, AND DOES NOT HAVE ANY VNA SERVICES. PATIENT HAS BEEN PRIMRAILY BED BOUND BUT THE YDO USE A WHEELCHAIR TO TRANSFER TO AND FROM BATHROOM. FAMILY IS CONCERNED ABOUT PATIENT'S PSYCHIATRIC MEDICATIONS ABILITY TO MANGE PATIENT SYMPTOMS; NAMELY RESTLESS AND HALLUCINATIONS. ELIECER IS OPEN TO STR VERSUS HOME WITH SERVICES WHAT EVER THE DOCTOR THINKS IS BEST . IMM DISCUSSED. COPY IN CHART. CM FOLLOWING.
[2025-08-24 13:38] LABS: Glucose, Whole Blood 182 mg/dL (60-115)
--- NOTE | 2025-08-24 14:37 | MHC.EDTECH ---
Patient changed and repositioned
--- NOTE | 2025-08-24 16:02 | HO.NURTONUR ---
Pt was biba from home for SOB x3days. Per daughter pt is confused and possibly hallucinating. PMH- HTN, HLD, DM, COPD, GERD, anxiety/depression. Pt is a/ox1 to person. Answers questions appropriately at times. Turkmen speaking only. Pt was 80% on RA, placed on 2LNC. Febrile. Delacruz cultured. Started on abx. Pt has purewick in place. 20gRAC. Needs assistance with eating. VSS.
--- NOTE | 2025-08-24 16:30 | MHC.EDTECH ---
pt dependently transferred to hospital bed, purewick in place, call hernandez within reach, bed alarm on d/t high fall risk
[2025-08-24 17:38] LABS: Glucose, Whole Blood 160 mg/dL (60-115)
--- NOTE | 2025-08-24 18:09 | PM.EVENT ---
Event Note Date of Service: 08/24/25 Event Note: The pt admitted to the hospital for acute hypoxic respiratory failure in the setting of COPD exacerbation and suspected superimposed pneumonia. Reviewed admitting HPI and agree with plan as listed there. Time Spent With Patient Time: Total time managing care of this patient today ____ minutes.
--- NOTE | 2025-08-24 19:40 | PC.NURSE ---
Assumed care of pt, presents to the ED for shortness of breath/cough x3 days, pt is afebrile, pt was 78% RA at home, pt is not on oxygen on home, pt is currently aaox3, nad, VSS, is on N/C 4L, pending admission bed,
[2025-08-24 20:45] LABS: Glucose, Whole Blood 220 mg/dL (60-115)
[2025-08-24] MEDS: traZODone HCL 25 MG HALFTAB PO (20:58)
[2025-08-24] MEDS: Dorzolamide HCl 2 % Ophth Sol 10 ML DRPBTL 1 DROP EYE-BOTH (21:01)
[2025-08-24] MEDS: Brimonidine Tartrate 0.2% Oph 5 ML BOTTLE 1 DROP EYE-LEFT (21:37)
[2025-08-24] MEDS: Insulin Glargine,Hum.rec.anlog 100 UNIT/ML 10 ML VIAL 30 UNIT SUBCUT (21:40)
[2025-08-25] VITALS (14 sets, daily range): BP systolic 128–165; BP diastolic 57–93; PULSE 79–130; RESP 16–24; TEMP 36–36.9; O2SAT 92–100
[2025-08-25] MEDS: Albuterol/Iprat 2.5/0.5MG 3 ML AMPUL.NEB INHALE (07:40)
[2025-08-25 07:51] LABS: Glucose, Whole Blood 181 mg/dL (60-115)
[2025-08-25] MEDS: 0.9 % Sodium Chloride Flush 3 ML SYRINGE IVFLUSH (08:02)
--- NOTE | 2025-08-25 08:26 | PC.NURSE ---
noticed pt tele HR up to 125-135. pt trembling and reporting back pain hospitalist notified
[2025-08-25] MEDS: traZODone HCL 25 MG HALFTAB PO ×2 (08:36→20:54)
[2025-08-25] MEDS: Ferrous Sulfate 324 MG TABLET.DR PO (08:40)
[2025-08-25] MEDS: Brimonidine Tartrate 0.2% Oph 5 ML BOTTLE 1 DROP EYE-LEFT ×2 (08:42→20:56)
[2025-08-25] MEDS: Dorzolamide HCl 2 % Ophth Sol 10 ML DRPBTL 1 DROP EYE-BOTH ×2 (08:42→20:56)
[2025-08-25 08:52] LABS: Chlamydia pneumoniae PCR Not Detected (Not Detect.); Coronavirus 229E PCR Not Detected (Not Detect.); Coronavirus HKU1 PCR Not Detected (Not Detect.); Coronavirus NL63 PCR Not Detected (Not Detect.); Coronavirus OC43 PCR Not Detected (Not Detect.); RSV PCR Not Detected (Not Detect.); Rhino/Enterovirus PCR Not Detected (Not Detect.)
[2025-08-25 08:59] LABS: Hematocrit 38.7 % (37.0-47.0); Hemoglobin 11.9 g/dl (12.0-16.0); Mean Corpuscular HGB Conc 30.7 g/dl (31.0-35.0); Mean Corpuscular Hemoglobin 27.2 pg (27.0-33.0); Mean Corpuscular Volume 88.6 fL (80.0-98.0); NRBC Abs Auto 0.000 X10*3/uL (0.0-0.012); NRBC Pct Auto 0.0 /100WBC (0.0-0.2); Platelet Count 321 X10*3/uL (160-400); Red Blood Count 4.37 X10*6/uL (4.20-5.50); White Blood Count 14.5 X10*3/uL (4.8-10.8)
[2025-08-25 09:00] LABS: Influenza A H1 PCR Not Detected (Not Detect.); Influenza A H1-2009 PCR Not Detected (Not Detect.); Influenza A H3 PCR Not Detected (Not Detect.); SARS-CoV-2 PCR Not Detected (Not Detect.)
[2025-08-25 09:34] LABS: Anion Gap 16 (12-20); Blood Urea Nitrogen 25 mg/dL (9-16); Calcium 10.0 mg/dL (8.4-10.2); Carbon Dioxide 23 mmol/L (22-29); Chloride 106 mmol/L (96-108); Creatinine Clr Calc Pharmacy 49.0; Estimated Glomerular Filt Rate 55; Potassium 4.3 mmol/L (3.3-5.1); Sodium 141 mmol/L (135-145)
--- NOTE | 2025-08-25 10:01 | PC.NURSE ---
pt does not want to eat breakfast. insulin w/meals held at this time
--- NOTE | 2025-08-25 10:22 | PC.NURSE ---
pt encouraged to eat some breakfast, ate some of her tray and drank juice. insulin given per SS
[2025-08-25 10:23] LABS: Glucose, Whole Blood 197 mg/dL (60-115)
[2025-08-25 12:48] LABS: Glucose, Whole Blood 166 mg/dL (60-115)
--- NOTE | 2025-08-25 12:48 | PC.NURSE ---
pt moved from ED bed 2 to overflow bed 1. report received from Kathya CHINO. insulin not given as first admin for insulin was administered late and pt did not eat lunch/ does not want to eat lunch. will recheck prior to dinner time as ordered. pt resting comfortably in hospital bed, wearing 2L O2 via NC. purewick in place, pt repositioned in bed. needs met, plan of care ongoing. call hernandez within reach.
--- NOTE | 2025-08-25 14:10 | HO.PM.IMPN ---
Subjective Subjective Date of Service: 08/25/25 Interval History: Pt has been tachycardic overnight, likely from DuoNebs; will switch to Xopenex Pt reports feels better with breathing and cough improved Denies chest pain or pressure No palpitations Review of Systems Review of Systems: Yes all other systems are reviewed and are negative Physical Exam Exam: Exam: General: Awake and alert to self and place, not to time or situation. Chronically ill appearing, obese. Resp: CTA bilaterally CVS: S1, S2, RRR GI: +BS, NT, no distention, obese Skin: Warm, dry Neuro: Cranial nerves II-XII grossly intact bilaterally. Motor grossly intact bilaterally. Musculoskeletal: Limited mobility due to body habitus and overall gross deconditioning Extremities: No pitting edema Psych: Calm, cooperative Vital Signs: Vital Signs: Last Vital Signs Temp 98.4 F 08/25/25 12:13 Pulse 94 08/25/25 12:13 Resp 24 H 08/25/25 12:13 BP 164/57 H 08/25/25 12:13 Pulse Ox 92 08/25/25 12:13 O2 Del Method Nasal Cannula 08/25/25 12:13 O2 Flow Rate 2 08/25/25 12:13 Oxygen Flow Rate 2 08/23/25 23:12 BMI result Body Mass Index 38.8 Objective Data Active Medications Acetaminophen (Acetaminophen 325 Mg Tablet) 650 mg PO Q6H PRN PRN Reason: Pain, Mild 1-3,fever,headache Amlodipine Besylate (Amlodipine Besylate 10 Mg Tablet) 10 mg PO BEDTIME [facility]; Protocol Last Admin: 08/24/25 20:54 Dose: 10 mg Documented By: CAMILLE Aripiprazole (Aripiprazole 20 Mg Tablet) 20 mg PO BEDTIME [facility] Last Admin: 08/24/25 21:36 Dose: 20 mg Documented By: CAMILLE Atorvastatin Calcium (Atorvastatin Calcium 40 Mg Tablet) 40 mg PO BEDTIME [facility] Last Admin: 08/24/25 20:57 Dose: 40 mg Documented By: CAMILLE Azithromycin (Azithromycin 500 Mg Tablet) 500 mg PO Q24H [facility] Last Admin: 08/25/25 01:31 Dose: 500 mg Documented By: CAMILLE Benzonatate (Benzonatate 100 Mg Capsule) 100 mg PO TID PRN PRN Reason: Cough Brimonidine Tartrate (Brimonidine Tartrate 0.2% Oph 5 Ml Bottle) 1 drop EYE-LEFT BID [facility] Last Admin: 08/25/25 08:42 Dose: 1 drop Documented By: JUAN CARLOS Calcium Carbonate (Calcium Carbonate 750 Mg Tab.Chew) 750 mg PO Q4H PRN PRN Reason: Heartburn Dextrose (Dextrose 50 % 25 Gm/50 Ml Syringe) 25 gm IVPUSH Q15M PRN; Protocol PRN Reason: per Hypoglycemia Standing Ord. Docusate Sodium (Docusate Sodium 100 Mg Capsule) 100 mg PO BEDTIME [facility] Last Admin: 08/24/25 20:59 Dose: 100 mg Documented By: CAMILLE Dorzolamide HCl (Dorzolamide Hcl 2 % Ophth Sangeeta 10 Ml Drpbtl) 1 drop EYE-BOTH BID [facility] Last Admin: 08/25/25 08:42 Dose: 1 drop Documented By: JUAN CARLOS Enoxaparin Sodium (Enoxaparin Sodium 40 Mg/0.4 Ml Syringe) 40 mg SUBCUT Q24H [facility] Last Admin: 08/25/25 01:30 Dose: 40 mg Documented By: CAMILLE Escitalopram Oxalate (Escitalopram Oxalate 10 Mg Tablet) 10 mg PO DAILY [facility] Last Admin: 08/25/25 08:36 Dose: 10 mg Documented By: JUAN CARLOS Ferrous Sulfate (Ferrous Sulfate 324 Mg Tablet.Dr) 324 mg PO DAILY [facility] Last Admin: 08/25/25 08:40 Dose: 324 mg Documented By: JUAN CARLOS Gabapentin (Gabapentin 100 Mg Capsule) 100 mg PO BID [facility] Last Admin: 08/25/25 08:36 Dose: 100 mg Documented By: JUAN CARLOS Glucose (Glucose Gel 15 Gm Gel..Gram.) 15 gm PO Q15M PRN; Protocol PRN Reason: per Hypoglycemia Standing Ord. Ceftriaxone Sodium 1 gm/ (Sodium Chloride) 50 mls @ 100 mls/hr IV Q24H [facility] Last Infusion: 08/25/25 02:35 Dose: Infused Documented By: CAMILLE Insulin Glargine (Insulin Glargine,Hum.Rec.Anlog 100 Unit/Ml 10 Ml Vial) 30 unit SUBCUT BEDTIME [facility] Last Admin: 08/24/25 21:40 Dose: 30 unit Documented By: CAMILLE Insulin Human Lispro (Insulin Lispro 100 Unit/Ml 3 Ml Vial) 0 unit SUBCUT QIDACHS [facility]; Protocol Last Admin: 08/25/25 12:48 Dose: Not Given Documented By: RAFFY Non-Admin Reason: See Note Levalbuterol HCl (Levalbuterol Hcl 1.25 Mg/3 Ml Vial.Neb) 1.25 mg INHALE RQ4H WHILE AWAKE [facility] Last Admin: 08/25/25 11:38 Dose: 1.25 mg Documented By: ROSARIO Lisinopril (Lisinopril 40 Mg Tablet) 40 mg PO DAILY [facility]; Protocol Last Admin: 08/25/25 08:40 Dose: 40 mg Documented By: JUAN CARLOS Loratadine (Loratadine 10 Mg Tablet) 10 mg PO DAILY [facility] Last Admin: 08/25/25 08:36 Dose: 10 mg Documented By: JUAN CARLOS Magnesium Hydroxide (Milk Of Magnesia 30 Ml Oral.Susp) 30 ml PO DAILY PRN PRN Reason: Constipation Melatonin (Melatonin 3 Mg Tablet) 6 mg PO BEDTIME PRN PRN Reason: Insomnia Last Admin: 08/24/25 20:59 Dose: 6 mg Documented By: CAMILLE Methylprednisolone Sodium Succinate (Methylprednisolone Sod Succ 40 Mg/Ml Vial) 40 mg IVPUSH BID [facility] Metoprolol Tartrate (Metoprolol Tartrate 50 Mg Tablet) 50 mg PO BID [facility]; Protocol Last Admin: 08/25/25 08:39 Dose: 50 mg Documented By: JUAN CARLOS Montelukast Sodium (Montelukast Sodium 10 Mg Tablet) 10 mg PO BEDTIME [facility] Last Admin: 08/24/25 20:58 Dose: 10 mg Documented By: CAMILLE Omeprazole (Omeprazole 20 Mg Capsule.Dr) 20 mg PO DAILY@0630 [facility] Last Admin: 08/25/25 06:08 Dose: 20 mg Documented By: COOPEEstee Sodium Chloride (0.9 % Sodium Chloride Flush 3 Ml Syringe) 3 ml IVFLUSH QSHIFT [facility] Last Admin: 08/25/25 08:02 Dose: 3 ml Documented By: JUAN CARLOS Topiramate (Topiramate 100 Mg Tablet) 100 mg PO BEDTIME [facility] Last Admin: 08/24/25 20:57 Dose: 100 mg Documented By: HO.N-MATTE Trazodone HCl (Trazodone Hcl 25 Mg Halftab) 25 mg PO BID [facility] Last Admin: 08/25/25 08:36 Dose: 25 mg Documented By: JUAN CARLOS Labs 08/25/25 08:28 08/25/25 08:28 Labs: Laboratory Results - last 24 hr 08/24/25 08/24/25 08/24/25 17:32 20:41 20:58 MCV MCH MCHC RDW Plt Count MPV Absolute Nucleated RBC Nucleated RBC % (auto) Anion Gap Estim Creat Clear Calc Estimated GFR POC Glucose 160 H 220 H Random Glucose Calcium Respiratory Panel Charles See Note Adenovirus (Rapid PCR) Not Detected B.pert (TEM-PCR) Not Detected B.parapertussis DNA PCR Not Detected C. pneumoniae DNA (PCR) Not Detected Coronavirus OC43 (PCR) Not Detected Coronavirus HKU1 (PCR) Not Detected Coronavirus 229E (PCR) Not Detected Coronavirus NL63 (PCR) Not Detected Human Metapneumovir PCR Not Detected Influenza A (RT-PCR) Not Detected Influenza A (H1) PCR Not Detected Influ A (H1/09) PCR Not Detected Influenza A (H3) PCR Not Detected Influenza B (RT-PCR) Not Detected M. pneumoniae (PCR) Not Detected Parainfluenza 1 (PCR) Not Detected Parainfluenza 2 (PCR) Not Detected Parainfluenza 3 (PCR) Not Detected Parainfluenza 4 (PCR) Not Detected RSV (PCR) Not Detected Entero/Rhino (PCR) Not Detected SARS-CoV-2 RNA (RT-PCR) Not Detected 08/25/25 08/25/25 08/25/25 07:45 08:28 10:18 MCV 88.6 MCH 27.2 MCHC 30.7 L RDW 13.6 Plt Count 321 MPV 11.1 Absolute Nucleated RBC 0.000 Nucleated RBC % (auto) 0.0 Anion Gap 16 Estim Creat Clear Calc 49.0 Estimated GFR 55 POC Glucose 181 H 197 H Random Glucose 204 H Calcium 10.0 Respiratory Panel Charles Adenovirus (Rapid PCR) B.pert (TEM-PCR) B.parapertussis DNA PCR C. pneumoniae DNA (PCR) Coronavirus OC43 (PCR) Coronavirus HKU1 (PCR) Coronavirus 229E (PCR) Coronavirus NL63 (PCR) Human Metapneumovir PCR Influenza A (RT-PCR) Influenza A (H1) PCR Influ A (H1/) PCR Influenza A (H3) PCR Influenza B (RT-PCR) M. pneumoniae (PCR) Parainfluenza 1 (PCR) Parainfluenza 2 (PCR) Parainfluenza 3 (PCR) Parainfluenza 4 (PCR) RSV (PCR) Entero/Rhino (PCR) SARS-CoV-2 RNA (RT-PCR) 08/25/25 12:45 MCV MCH MCHC RDW Plt Count MPV Absolute Nucleated RBC Nucleated RBC % (auto) Anion Gap Estim Creat Clear Calc Estimated GFR POC Glucose 166 H Random Glucose Calcium Respiratory Panel Charles Adenovirus (Rapid PCR) B.pert (TEM-PCR) B.parapertussis DNA PCR C. pneumoniae DNA (PCR) Coronavirus OC43 (PCR) Coronavirus HKU1 (PCR) Coronavirus 229E (PCR) Coronavirus NL63 (PCR) Human Metapneumovir PCR Influenza A (RT-PCR) Influenza A (H1) PCR Influ A (H1) PCR Influenza A (H3) PCR Influenza B (RT-PCR) M. pneumoniae (PCR) Parainfluenza 1 (PCR) Parainfluenza 2 (PCR) Parainfluenza 3 (PCR) Parainfluenza 4 (PCR) RSV (PCR) Entero/Rhino (PCR) SARS-CoV-2 RNA (RT-PCR) Microbiology Microbiology Results: Microbiology 08/24/25 Unknown Urine Culture - Final Urine clean catch - Clean Catch Midstream 08/24/25 00:14 Blood Culture - Preliminary Blood - Venous No growth after 24 hours. 08/24/25 00:14 Blood Culture - Preliminary Blood - Venous No growth after 24 hours. Assessment and Plan (1) Acute respiratory failure with hypoxia: Status: Acute (2) Asthma exacerbation: Status: Acute Plan 83-year-old male with a past medical history of HTN, HLD, asthma/COPD, GERD, BPH presented to the hospital with a chief complaint of cough and shortness of breath. Admitted for following Acute hypoxic respiratory failure: Acute asthma/COPD exacerbation: Suspected pneumonia: CXR shows mild right basilar atelectasis vs infiltrate Continue supplemental oxygen with a goal of oxygen saturation of 88-93% Duonebs switched to Xopenex due to tachycardia Continue azithromycin, ceftriaxone, started 08/24 Continue Solu-Medrol IV Trending pulse oximetry when ready for discharge Hypertension: Continue metoprolol, amlodipine, lisinopril Diabetes: Hold home regimen. Kept on Lantus 30 units plus sliding scale. Monitor POC glucose and adjust insulins. Med reconciliation: Resume home medications once med rec completed by pharmacy in a.m. GERD: continue PPI Dementia Continue citalopram, aripiprazole HLD Statin DVT prophylaxis: Lovenox Code status: Full code Pt requires continued hospitalization for treatment of acute hypoxic respiratory failure in the setting of asthma exacerbation and pneumonia in a chronically ill pt. Will attempt to wean off of supplemental oxygen and discharged home tomorrow. Quality Stroke Does the patient have a stroke diagnosis?: No VTE Prior VTE?: No VTE Risk Level:: Medical - moderate - high VTE Device Contraindication: Treatment Not Indicated VTE Drug Contraindication: N/A - Med Ordered
--- NOTE | 2025-08-25 16:15 | PC.NURSE ---
per daughter pt has become increasingly confused, hallucinating at home, worsening over the last two days.
[2025-08-25 16:25] LABS: Glucose, Whole Blood 161 mg/dL (60-115)
[2025-08-25 20:35] LABS: Glucose, Whole Blood 131 mg/dL (60-115)
[2025-08-25] MEDS: Insulin Glargine,Hum.rec.anlog 100 UNIT/ML 10 ML VIAL 30 UNIT SUBCUT (20:55)
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
[2025-08-26] VITALS (28 sets, daily range): BP systolic 111–158; BP diastolic 48–69; PULSE 53–110; RESP 11–25; TEMP 36–37.4; O2SAT 85–96; BMI 39.0
[2025-08-26] MEDS: 0.9 % Sodium Chloride Flush 3 ML SYRINGE IVFLUSH ×4 (01:22→20:22)
[2025-08-26 02:04] LABS: Glucose, Whole Blood 181 mg/dL (60-115)
--- NOTE | 2025-08-26 02:46 | PM.EVENT ---
Event Note Date of Service: 08/26/25 Event Note: pt just transferred from ED to S3. nurse noted pt is difficult to arouse, baseline is unknown. O2 sat 95%, POC 181, BP stable, temp 97.6, RR 26. RN tried removing O2 which dropped to 74% quickly so she was placed back on 1L. prior to seeing pt verbal order for continuous O2 was given. pt seen bedside with hydrogeologist and Dr Almanzar. she is arousable to sternal rub, will open eyes briefly and mumble words then back to sleep. no hx of sleep apnea on chart review. no sedating meds given recently. RT called bedside for ABG and breathing tx was pt is wheezing throughout. additional labs ordered including CBC, CMP, lactic, blood cultures x2. re-evaluated pt after breathing treatment, she was still very lethargic and wheezing. ABG resulted with respiratory acidosis and retaining O2. discussed with Dr Bright and ICU EMISSIONS REPAIR TECHNICIAN Ezekiel, pt transferred to ICU. Time Spent With Patient Time: Total time managing care of this patient today ____ minutes.
[2025-08-26 02:59] LABS: ABG HCO3 28 mmol/L (22-26); ABG O2 % Saturation 97.0 %
[2025-08-26 03:03] LABS: ABG HCO3 28 mmol/L (22-26); ABG O2 % Saturation 98.0 %
[2025-08-26 03:07] LABS: MANUAL DIFF FLAG NO
[2025-08-26 03:10] LABS: ABG Refer to POC result
[2025-08-26 03:10] LABS: Hematocrit 35.7 % (37.0-47.0); Hemoglobin 10.7 g/dl (12.0-16.0); Imm Gran Abs Auto 0.05 X10*3/uL (0.00-0.03); Imm Gran Pct Auto 0.4 % (0.0-0.4); Lymphocytes Absolute Auto 1.3 X10*3/uL (1.2-4.9); Mean Corpuscular HGB Conc 30.0 g/dl (31.0-35.0); Mean Corpuscular Hemoglobin 27.4 pg (27.0-33.0); Mean Corpuscular Volume 91.3 fL (80.0-98.0); NRBC Abs Auto 0.000 X10*3/uL (0.0-0.012); NRBC Pct Auto 0.0 /100WBC (0.0-0.2); Platelet Count 287 X10*3/uL (160-400); Red Blood Count 3.91 X10*6/uL (4.20-5.50); White Blood Count 13.3 X10*3/uL (4.8-10.8)
[2025-08-26 03:25] LABS: Alanine Aminotransferase 25 U/L (0-31); Albumin Level 4.3 g/dL (3.5-5.0); Alkaline Phosphatase 76 U/L (39-117); Anion Gap 13 (12-20); Aspartate Amino Transferase 35 U/L (5-31); Blood Urea Nitrogen 38 mg/dL (9-16); Calcium 9.6 mg/dL (8.4-10.2); Carbon Dioxide 26 mmol/L (22-29); Chloride 106 mmol/L (96-108); Creatinine Clr Calc Pharmacy 39.6; Estimated Glomerular Filt Rate 43; Potassium 4.8 mmol/L (3.3-5.1); Sodium 140 mmol/L (135-145); Total Protein 7.3 g/dL (6.5-8.0)
--- NOTE | 2025-08-26 04:05 | PC.NURSE ---
Pt admitted from the ED at 0200, pt was wheeled in on bed by Nursing Sup with her comment that the pt slept through the ride with O2 at 2L/min via NC. Went to see the pt right away, mental status was concerning, pt is hard to aroused, vitals was being taken by RIP AND GROOVE MACHINE OPERATOR, noted O2 sat at 95% at 2L, rest of vitals WNL, O2 put down to 1L and still at 95%. pt went to 80s when put to RA, O2 put back at 1L and she recovered right away to low 90s pt noted still to be very hard to aroused even after turning her side to side, shaking and sternal rubbing, pt just moans and barely flickering her eyelids with stimulation then drifts back to sleep, Kate Bay was notified at 0204. Both PA and came to the bedside later, freelance interpreter/translator was also paged to the bedside, STAT ABG , neb, solumedrol and labs were ordered, Pt woke up briefly with all the stimulation and prodding, with mumbled words, 3 RTs came to the bedside also, po Azihtromycin was held and changed to IV by Kate, O2 titrated down by RT to 0.5L, also. At 0400, ICU MD came to the bedside, while the comic book writer was giving med to other assigned pts, MD decided to take pt to ICU, RT came and brought down BIPAP machine and hooked the pt up, staffs wheeled pt down to ICU, report called as soon as RN was available.
--- NOTE | 2025-08-26 04:19 | W.PM.CCCN ---
History of Present Illness Data of Consult Service Date: 08/26/25 Requesting physician: Kate Bay Primary Care Provider: Jason Cooper CNP HPI Reason for consult: Unresponsive Patient is a 74-year-old female with a past medical history of COPD/asthma overlap syndrome, hypertension, hyperlipidemia, diabetes mellitus, obesity who presented to the emergency department on 08/24/2025 with shortness of breath. ?Admitted to hospital medicine for COPD exacerbation and pneumonia. ?Treated with Solu-Medrol, Topamax, ceftriaxone and azithromycin. Tonight, patient was transferred from [facility] to [facility], RN noted patient was not responding to sternal rub, opening eyes briefly but then falling back to sleep. ?Was 1 L of O2 satting 95%. ?ABG noted hypercapnic 7.25/64/105/28. Since admission patient noted to be satting 95-98% on 1liter. She is not on 02 at baseline. ?Decompensation due to oxygen induced hypercapnia. 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 Personal history of urinary (tract) infections Overactive bladder Hyperlipidemia, unspecified Anemia in chronic kidney disease Hypertensive chronic kidney disease with stage 1 through stage 4 chronic kidney disease, or unspecified chronic kidney disease Major depressive disorder, single episode, in full remission Unspecified dementia, unspecified severity, with mood disturbance Unspecified dementia, unspecified severity, with psychotic disturbance Sepsis Morbid obesity Abscess of left thigh Arthritis High cholesterol High blood pressure Asthma Diabetes Surgical History Surgical History Hx of colonoscopy Social History Social History Household Members: Family Household Members Other:: 0 Housing: Apartment Do you presently have visiting nurse or other home services: Yes (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 as per ED RN) Alcohol intake: unknown Patient Tobacco Use Status: Former Tobacco user Tobacco use type: Cigarette Cigarettes Per Day: 10 Years Smoked: 4 e-Cigarette/Vaping Use: Never Used Second Hand Smoke Exposure: No Advance Directives Date on File: 04/29/23 service: No Current occupational status: disabled Current occupational exposures/hazards: No Cognitive needs: No Hearing needs: No Vision needs: No Meds Allergies Allergy/AdvReac Type Severity Reaction Status Date / Time Seasonal Allergies Allergy Intermediate Itchy Eyes Verified 08/23/25 23:21 Active Medications: Current Medications Acetaminophen (Acetaminophen 325 Mg Tablet) 650 mg PO Q6H PRN PRN Reason: Pain, Mild 1-3,fever,headache Last Admin: 08/25/25 20:54 Dose: 650 mg Amlodipine Besylate (Amlodipine Besylate 10 Mg Tablet) 10 mg PO BEDTIME BELKIS; Protocol Last Admin: 08/25/25 22:24 Dose: 10 mg Aripiprazole (Aripiprazole 20 Mg Tablet) 20 mg PO BEDTIME BELKIS Last Admin: 08/25/25 22:24 Dose: 20 mg Atorvastatin Calcium (Atorvastatin Calcium 40 Mg Tablet) 40 mg PO BEDTIME [facility]KIS Last Admin: 08/25/25 20:53 Dose: 40 mg Azithromycin (Azithromycin 500 Mg Tablet) 500 mg PO Q24H [facility] On Hold: 08/26/25 03:00 Last Admin: 08/26/25 02:40 Dose: Not Given Benzonatate (Benzonatate 100 Mg Capsule) 100 mg PO TID PRN PRN Reason: Cough Brimonidine Tartrate (Brimonidine Tartrate 0.2% Oph 5 Ml Bottle) 1 drop EYE-LEFT BID BELKIS Last Admin: 08/25/25 20:56 Dose: 1 drop Calcium Carbonate (Calcium Carbonate 750 Mg Tab.Chew) 750 mg PO Q4H PRN PRN Reason: Heartburn Levalbuterol HCl 1.25 mg/ (Ipratropium [place] 0.5 mg) 0 mg INHALE RQ4H WHILE AWAKE BELKIS Dextrose (Dextrose 50 % 25 Gm/50 Ml Syringe) 25 gm IVPUSH Q15M PRN; Protocol PRN Reason: per Hypoglycemia Standing Ord. Docusate Sodium (Docusate Sodium 100 Mg Capsule) 100 mg PO BEDTIME BELKIS Last Admin: 08/25/25 20:53 Dose: 100 mg Dorzolamide HCl (Dorzolamide Hcl 2 % Ophth Sangeeta 10 Ml Drpbtl) 1 drop EYE-BOTH BID [facility]KIS Last Admin: 08/25/25 20:56 Dose: 1 drop Enoxaparin Sodium (Enoxaparin Sodium 40 Mg/0.4 Ml Syringe) 40 mg SUBCUT Q24H [facility] TO [facility] Last Admin: 08/26/25 01:21 Dose: 40 mg Escitalopram Oxalate (Escitalopram Oxalate 10 Mg Tablet) 10 mg PO DAILY [facility] Last Admin: 08/25/25 08:36 Dose: 10 mg Ferrous Sulfate (Ferrous Sulfate 324 Mg Tablet.Dr) 324 mg PO DAILY [facility] Last Admin: 08/25/25 08:40 Dose: 324 mg Gabapentin (Gabapentin 100 Mg Capsule) 100 mg PO BID [facility] Last Admin: 08/25/25 20:54 Dose: 100 mg Glucose (Glucose Gel 15 Gm Gel..Gram.) 15 gm PO Q15M PRN; Protocol PRN Reason: per Hypoglycemia Standing Ord. Ceftriaxone Sodium 1 gm/ (Sodium Chloride) 50 mls @ 100 mls/hr IV Q24H [facility] Last Infusion: 08/26/25 01:35 Dose: Infused Azithromycin 500 mg/ Sodium (Chloride) 250 mls @ 125 mls/hr IV Q24H [facility] Last Admin: 08/26/25 03:26 Dose: 125 mls/hr Insulin Glargine (Insulin Glargine,Hum.Rec.Anlog 100 Unit/Ml 10 Ml Vial) 30 unit SUBCUT BEDTIME [facility] Last Admin: 08/25/25 20:55 Dose: 30 unit Insulin Human Lispro (Insulin Lispro 100 Unit/Ml 3 Ml Vial) 0 unit SUBCUT QIDACHS [facility]; Protocol Last Admin: 08/25/25 20:55 Dose: Not Given Levalbuterol HCl (Levalbuterol Hcl 1.25 Mg/3 Ml Vial.Neb) 1.25 mg INHALE Q2H PRN PRN Reason: shortness or breath/wheezing Lisinopril (Lisinopril 40 Mg Tablet) 40 mg PO DAILY [facility]; Protocol Last Admin: 08/25/25 08:40 Dose: 40 mg Loratadine (Loratadine 10 Mg Tablet) 10 mg PO DAILY [facility] Last Admin: 08/25/25 08:36 Dose: 10 mg Magnesium Hydroxide (Milk Of Magnesia 30 Ml Oral.Susp) 30 ml PO DAILY PRN PRN Reason: Constipation Melatonin (Melatonin 3 Mg Tablet) 6 mg PO BEDTIME PRN PRN Reason: Insomnia Last Admin: 08/25/25 20:53 Dose: 6 mg Methylprednisolone Sodium Succinate (Methylprednisolone Sod Succ 40 Mg/Ml Vial) 40 mg IVPUSH BID [facility] Last Admin: 08/25/25 20:55 Dose: 40 mg Metoprolol Tartrate (Metoprolol Tartrate 50 Mg Tablet) 50 mg PO BID [facility]; Protocol Last Admin: 08/25/25 20:53 Dose: 50 mg Montelukast Sodium (Montelukast Sodium 10 Mg Tablet) 10 mg PO BEDTIME [facility] Last Admin: 08/25/25 20:55 Dose: 10 mg Omeprazole (Omeprazole 20 Mg Capsule.Dr) 20 mg PO DAILY@0630 [facility] Last Admin: 08/25/25 06:08 Dose: 20 mg Sodium Chloride (0.9 % Sodium Chloride Flush 3 Ml Syringe) 3 ml IVFLUSH QSHIFT [facility] Last Admin: 08/26/25 01:22 Dose: 3 ml Topiramate (Topiramate 100 Mg Tablet) 100 mg PO BEDTIME [facility] Last Admin: 08/25/25 20:54 Dose: 100 mg Trazodone HCl (Trazodone Hcl 25 Mg Halftab) 25 mg PO BID [facility] Last Admin: 08/25/25 20:54 Dose: 25 mg Home Medications ?Medication ?Instructions ?Recorded ?Confirmed ?Last Taken ?Type albuterol sulfate 2.5 mg/3 mL 2.5 mg inhalation Q6H PRN 08/24/25 08/24/25 Unknown History (0.083 %) solution for nebulization shortness of breath or wheezing albuterol sulfate 90 mcg/actuation 2 puff inhalation Q4H PRN 08/24/25 08/24/25 Unknown History aerosol inhaler shortness of breath or wheezing amlodipine 10 mg tablet 10 mg PO BEDTIME 08/24/25 08/24/25 08/23/25 History atorvastatin 40 mg tablet 40 mg PO BEDTIME 08/24/25 08/24/25 08/23/25 History brimonidine 0.2 % eye drops 1 drp ophthalmic-Left BID 08/24/25 08/24/25 08/23/25 History cetirizine 10 mg tablet 10 mg PO DAILY 08/24/25 08/24/25 08/23/25 History dorzolamide 2 % eye drops 1 drp ophthalmic (eye) BID 08/24/25 08/24/2525 History gabapentin 100 mg capsule 100 mg PO BID 08/24/25 08/24/25 08/23/25 History insulin glargine 100 unit/mL (3 22 unit subcut DAILY 08/24/25 08/24/25 08/23/25 History mL) subcutaneous pen (Lantus Solostar U-100 Insulin) montelukast 10 mg tablet 10 mg PO BEDTIME 08/24/25 08/24/25 08/23/25 History omeprazole 20 mg capsule,delayed 20 mg PO DAILY@0630 08/24/25 08/24/25 08/23/25 History release trazodone 50 mg tablet 25 mg PO BID 08/24/25 08/24/25 08/23/25 History Physical Exam Exam: Exam: ?General:? Obtunded, minimally responsive to painful stimuli. ?HEENT:? Head is normocephalic, atraumatic, pupils equal round reactive to light accommodation bilaterally.? Buccal mucosa is dry, Neck is supple ?Cardiac:? Clear S1-S2, no murmurs rubs or gallops. ?Pulmonary:? Expiratory wheezes bases. ?Abdomen:? ?Abdomen soft, non-tender, non-distended. Normal bowel sounds. No pulsatile mass. No hepatosplenomegaly. ?Musculoskeletal:? Moving all 4 extremities to painful stimuli ?Neurologic:? cranial nerves 2-12 are grossly intact.? No focal deficits noted.Motor strength as above.?? ?Skin:? BLE Vascular:? 2+ pulses upper and lower extremities distally.? Vital Signs: Vital Signs: Last Vital Signs Temp 97.6 F 08/26/25 02:32 Pulse 73 08/26/25 02:32 Resp 24 H 08/26/25 02:32 BP 146/59 H 08/26/25 01:50 Pulse Ox 95 08/26/25 02:32 O2 Del Method Nasal Cannula 08/26/25 02:32 O2 Flow Rate 1 08/26/25 02:32 Oxygen Flow Rate 2 08/23/25 23:12 BMI result Body Mass Index 39.0 Results Labs 08/26/25 03:01 08/26/25 03:01 Labs: Short CBC 08/25/25 08/26/25 Range/Units 08:28 03:01 WBC 14.5 H 13.3 H (4.8-10.8) X10*3/uL Hgb 11.9 L 10.7 L (12.0-16.0) g/dl Hct 38.7 35.7 L (37.0-47.0) % Plt Count 321 287 (160-400) X10*3/uL BMP 08/25/25 08/26/25 08:28 03:01 Sodium 141 140 Potassium 4.3 4.8 Chloride 106 106 Carbon Dioxide 23 26 BUN 25 H 38 H Creatinine 0.99 1.23 Calcium 10.0 9.6 Liver Function 08/26/25 Range/Units 03:01 Total Bilirubin 0.2 (0.0-1.0) mg/dL AST 35 H (5-31) U/L ALT 25 (0-31) U/L Alkaline Phosphatase 76 (39-117) U/L Albumin 4.3 (3.5-5.0) g/dL Microbiology Microbiology Results: Microbiology 08/24/25 00:14 Blood - Venous Blood Culture - Preliminary No growth after 48 hours. 08/24/25 00:14 Blood - Venous Blood Culture - Preliminary No growth after 48 hours. 08/24/25 Unknown Urine clean catch - Clean Catch Midstream Urine Culture - Final Assessment and Plan (1) Acute hypercapnic respiratory failure: Status: Acute (2) Asthma exacerbation: Qualifiers: Asthma persistence: unspecified Asthma severity: unspecified severity Qualified Code(s): J45.901 - Unspecified asthma with (acute) exacerbation Status: Acute (3) Acute exacerbation of chronic obstructive pulmonary disease: Status: Acute (4) Mental status alteration: Status: Acute Plan Neuro:? Obtunded: Due to hypercapnic respiratory failure. Should improve with BiPAP support Cardiac:?? Underlying history of hypertension: ?Continue hypertensive regime when able to take p.o. med. ? Pulmonary:? COPD exacerbation Pneumonia Acute hypercapnic respiratory failure Acute decompensation due to oxygen induced hypercapnia requiring BiPAP support. ?Continue current COPD exacerbation/pneumonia treatment. ?Continue ?systemic glucocorticoids, nebulized bronchodilators and antibiotics. ?Wean off BiPAP as tolerated. ?Keep 02 saturation 88-92%. Renal: no acute issues Endo:? Underlying diabetes mellitus: ?According to nursing staff she noted patient was having a hard time with dinner, concern with how well she swallowing. ?We will place NPO order. ?Speech evaluation in the morning GI:? ? no acute issues ID:?? suspected PNA: cont ceftriaxone and azithromycin. No evidence of septic shock Heme/Onc:? No acute issues. Psych:? No acute issues. Miscellaneous:? no acute issues prophylaxis: ? Lovenox CODE STATUS: FULL CODE confirmed with daughter Trudy Critical care time:? X 30 minutes of critical care time
[2025-08-26 04:36] LABS: Glucose, Whole Blood 169 mg/dL (60-115)
[2025-08-26 05:44] LABS: VBG HCO3 29 mmol/L (22-26); VBG O2 % Saturation 80.0 %
--- NOTE | 2025-08-26 06:02 | PC.NURSE ---
0400am Care assumed for patient in [id number]. Report received from Shay and Respiratory therapist at bedside. Pt presently on Bipap with improvement of mentation at 0545 am. Pt when repositioned spontaneously open eyes, followed commands to take deep breaths for lung assessment and nod yes to wanting a blanket for feeling cold. Bipap settings S/T 220/5 RR 24 21% with Tidal volumes 290-310. O2 sats 88-92% SR HR 58-60 on telemetry. RACHEL. Lower extremities trace pedal edema. Abdomen soft round BSx4 quadrants. Pure wick in place for urinary incontinence. cPt presently NPO with Swallow Evaluation pending.
[2025-08-26 06:17] LABS: Venous Blood Gas Refer to POC result
[2025-08-26 06:18] LABS: Glucose, Whole Blood 174 mg/dL (60-115)
[2025-08-26] MEDS: levalbuterol HCL 1.25 MG, Ipratropium Bromide 0.5 MG INHALE ×4 (07:36→19:25)
[2025-08-26] MEDS: Brimonidine Tartrate 0.2% Oph 5 ML BOTTLE 1 DROP EYE-LEFT ×2 (08:06→20:18)
[2025-08-26] MEDS: Dorzolamide HCl 2 % Ophth Sol 10 ML DRPBTL 1 DROP EYE-BOTH ×2 (08:06→20:18)
[2025-08-26] MEDS: Furosemide 40 MG/4 ML VIAL IVPUSH (09:25)
[2025-08-26 11:50] LABS: Glucose, Whole Blood 200 mg/dL (60-115)
[2025-08-26 12:12] LABS: VBG HCO3 28 mmol/L (22-26); VBG O2 % Saturation 95.0 %
[2025-08-26 12:13] LABS: Venous Blood Gas Refer to POC result
--- NOTE | 2025-08-26 13:34 | MHC.SL.SWA ---
Speech Pathologist Impression: Mild-moderate oropharyngeal dysphagia Risk of Aspiration Due to: COPD/Asthma exacerbation, Reduced cognition Dysphasia Diet Status: Recommend START diet of NDD1 (puree), THIN liquids with 1:1 feeding assistance Liquid Consistency and Strategies for Safe Swallow: Liquid Intake Recommendation: Thin Liquid Intake Strategies: Solid Food Consistency: Dietary Recommendations: Pureed (NDD1) Additional Modifications to Solid Foods: Oral Medication Intake: Crushed with Puree Please contact the pharmacy regarding appropriate crushable or liquid drug formulations that are available whenever modified delivery is recommended. Compensatory Strategies and Precautions to be Taken for Safe Swallow: Sit Upright Slow feeding rate Small sips/bites Alternate liquids/solids Remain upright after meal (30 minutes) Supervision While Eating and Drinking for Safe Swallow: Total Assistance (1:1) Foods to Avoid: Swallowing Recommended Treatments: Recommendation for Speech: Inpatient Speech Therapy Comment: Patient presents with mild-moderate oropharyngeal dysphagia. Swallow evaluation customer resolution specialist with assistance of medical reading specialist. Patient reports difficulties swallowing at home, reporting sensation of thing going the wrong way and a little bit of odynophagia. Patient with PMHx of dementia, noted inappropriate answers to questions at times. Reporting solids going sideways when she swallows. Patient trialed with thin liquids, puree, and ground (keila cracker crumbs in pudding). Patient with one episode of desaturation, able to main sats in 90 for remaining time; per RN baseline. Patient with timely swallow for thin liquids and pureed solids. Patient with slow/prolonged mastication of ground solids; noted slow AP transit. Patient with no overt s/sx of penetration/aspiration. Vocal quality weak, but not wet/gurgly at any point of evaluation. Patient NPO pending ATM MECHANIC evaluation. Recommend START diet of NDD1 (puree), THIN liquids with 1:1 feeding assistance. Medications CRUSHED in puree. MD, RN, and RD notified of recommendations via secure chat. ATM MECHANIC to continue to follow. Frequency/Duration: M-F Daily Date Range for Service Req: Timeline to reassess: Adult Live In Caregiver Clinican/Clinical Fellow: No Supervisory Statement: I have reviewed and agree with the student/clinical fellow's documentation: N/A Speech Language Pathologist: Louise Serna M.A., CCC-ATM MECHANIC
--- NOTE | 2025-08-26 15:24 | MHC.CM.PN ---
PT HAS BEEN DOWNGRADED TO MED TELE UNIT. CM WILL CONTINUE TO FOLLOW FOR ANY CHANGES TO DC PLAN.
[2025-08-26 16:06] LABS: Glucose, Whole Blood 187 mg/dL (60-115)
--- NOTE | 2025-08-26 18:41 | PC.NURSE ---
Pt. sinus tach, HR sustaining 120s-140s- MD Bethea notified.
[2025-08-26 20:31] LABS: Glucose, Whole Blood 285 mg/dL (60-115)
[2025-08-27] VITALS (10 sets, daily range): BP systolic 135–158; BP diastolic 48–88; PULSE 67–115; RESP 18–23; TEMP 36.4–37.1; O2SAT 91–100
--- NOTE | 2025-08-27 00:51 | PC.RT ---
Pt is refusing to stay on BiPAP
[2025-08-27 07:32] LABS: Glucose, Whole Blood 115 mg/dL (60-115)
[2025-08-27 07:56] LABS: MANUAL DIFF FLAG NO
[2025-08-27 07:59] LABS: Hematocrit 35.9 % (37.0-47.0); Hemoglobin 11.3 g/dl (12.0-16.0); Imm Gran Abs Auto 0.06 X10*3/uL (0.00-0.03); Imm Gran Pct Auto 0.5 % (0.0-0.4); Lymphocytes Absolute Auto 2.9 X10*3/uL (1.2-4.9); Mean Corpuscular HGB Conc 31.5 g/dl (31.0-35.0); Mean Corpuscular Hemoglobin 27.5 pg (27.0-33.0); Mean Corpuscular Volume 87.3 fL (80.0-98.0); NRBC Abs Auto 0.000 X10*3/uL (0.0-0.012); NRBC Pct Auto 0.0 /100WBC (0.0-0.2); Platelet Count 273 X10*3/uL (160-400); Red Blood Count 4.11 X10*6/uL (4.20-5.50); White Blood Count 12.5 X10*3/uL (4.8-10.8)
[2025-08-27 08:07] LABS: VBG HCO3 31 mmol/L (22-26); VBG O2 % Saturation 97.0 %
[2025-08-27 08:10] LABS: Venous Blood Gas Refer to POC result
[2025-08-27 08:19] LABS: Albumin Level 4.1 g/dL (3.5-5.0); Blood Urea Nitrogen 36 mg/dL (9-16); Calcium 9.4 mg/dL (8.4-10.2); Creatinine Clr Calc Pharmacy 44.6; Estimated Glomerular Filt Rate 49; Magnesium 1.9 mg/dL (1.6-2.6)
[2025-08-27 08:35] LABS: Anion Gap 13 (12-20); Carbon Dioxide 28 mmol/L (22-29); Chloride 107 mmol/L (96-108); Potassium 3.7 mmol/L (3.3-5.1); Sodium 144 mmol/L (135-145)
[2025-08-27] MEDS: Brimonidine Tartrate 0.2% Oph 5 ML BOTTLE 1 DROP EYE-LEFT ×2 (09:27→21:35)
[2025-08-27] MEDS: 0.9 % Sodium Chloride Flush 3 ML SYRINGE IVFLUSH ×3 (09:27→20:22)
[2025-08-27] MEDS: Dorzolamide HCl 2 % Ophth Sol 10 ML DRPBTL 1 DROP EYE-BOTH ×2 (09:27→21:35)
[2025-08-27] MEDS: Ferrous Sulfate 324 MG TABLET.DR PO (09:27)
[2025-08-27 11:25] LABS: Glucose, Whole Blood 188 mg/dL (60-115)
[2025-08-27] MEDS: levalbuterol HCL 1.25 MG, Ipratropium Bromide 0.5 MG INHALE ×3 (11:38→18:50)
[2025-08-27] MEDS: Sodium,Potassium Phosphates POWD.PACK 1 PACKET PO (12:42)
[2025-08-27 16:23] LABS: Glucose, Whole Blood 241 mg/dL (60-115)
--- NOTE | 2025-08-27 16:33 | HO.PM.IMPN ---
Subjective Subjective Date of Service: 08/27/25 Interval History: Downgraded yesterday from ICU after BiPAP support Seen and evaluated in her room where she is surrounded by family Pt awake, alert, and interacting well, answering appropriately Some wheezing, but no significant SOB Was unable to tolerate BiPAP last evening Review of Systems Review of Systems: Yes all other systems are reviewed and are negative Physical Exam Exam: Exam: General: Awake and alert to self and place, not to time or situation. Resp: Mild wheezing bilaterally CVS: S1, S2, RRR GI: +BS, NT, no distention, obese Skin: Warm, dry Neuro: Cranial nerves II-XII grossly intact bilaterally. Motor grossly intact bilaterally. Musculoskeletal: Limited mobility due to body habitus and overall gross deconditioning Extremities: No pitting edema Psych: Calm, cooperative Vital Signs: Vital Signs: Last Vital Signs Temp 98.2 F 08/27/25 15:01 Pulse 81 08/27/25 15:01 Resp 18 08/27/25 15:01 BP 145/66 H 08/27/25 15:01 Pulse Ox 91 L 08/27/25 15:01 O2 Del Method Room Air 08/27/25 15:01 O2 Flow Rate 1 08/26/25 02:32 FiO2 21 08/27/25 00:00 Oxygen Flow Rate 2 08/23/25 23:12 BMI result Body Mass Index 39.0 Objective Data Active Medications Acetaminophen (Acetaminophen 325 Mg Tablet) 650 mg PO Q6H PRN PRN Reason: Pain, Mild 1-3,fever,headache Last Admin: 08/27/25 09:26 Dose: 650 mg Documented By: ORI Amlodipine Besylate (Amlodipine Besylate 10 Mg Tablet) 10 mg PO BEDTIME BELKIS; Protocol Last Admin: 08/26/25 20:18 Dose: 10 mg Documented By: JENNIFER Aripiprazole (Aripiprazole 20 Mg Tablet) 20 mg PO BEDTIME [facility]KIS Last Admin: 08/26/25 20:18 Dose: 20 mg Documented By: JENNIFER Brimonidine Tartrate (Brimonidine Tartrate 0.2% Oph 5 Ml Bottle) 1 drop EYE-LEFT BID [facility]IS Last Admin: 08/27/25 09:27 Dose: 1 drop Documented By: ORI Calcium Carbonate (Calcium Carbonate 750 Mg Tab.Chew) 750 mg PO Q4H PRN PRN Reason: Heartburn Levalbuterol HCl 1.25 mg/ (Ipratropium [place] 0.5 mg) 0 mg INHALE RQ4H WHILE AWAKE [facility] Last Admin: 08/27/25 14:55 Dose: 1.75 dose Documented By: STAN Dextrose (Dextrose 50 % 25 Gm/50 Ml Syringe) 25 gm IVPUSH Q15M PRN; Protocol PRN Reason: per Hypoglycemia Standing Ord. Docusate Sodium (Docusate Sodium 100 Mg Capsule) 100 mg PO BEDTIME [facility] Last Admin: 08/26/25 20:18 Dose: 100 mg Documented By: JENNIFER Dorzolamide HCl (Dorzolamide Hcl 2 % Ophth Sangeeta 10 Ml Drpbtl) 1 drop EYE-BOTH BID [facility] Last Admin: 08/27/25 09:27 Dose: 1 drop Documented By: ORI Enoxaparin Sodium (Enoxaparin Sodium 40 Mg/0.4 Ml Syringe) 40 mg SUBCUT Q24H [facility] Last Admin: 08/27/25 02:25 Dose: 40 mg Documented By: JENNIFER Ferrous Sulfate (Ferrous Sulfate 324 Mg Tablet.Dr) 324 mg PO DAILY [facility] Last Admin: 08/27/25 09:27 Dose: 324 mg Documented By: ORI Glucose (Glucose Gel 15 Gm Gel..Gram.) 15 gm PO Q15M PRN; Protocol PRN Reason: per Hypoglycemia Standing Ord. Insulin Human Lispro (Insulin Lispro 100 Unit/Ml 3 Ml Vial) 0 unit SUBCUT QIDACHS [facility]; Protocol Last Admin: 08/27/25 12:42 Dose: 2 unit Documented By: ORI Levalbuterol HCl (Levalbuterol Hcl 1.25 Mg/3 Ml Vial.Neb) 1.25 mg INHALE Q2H PRN PRN Reason: shortness or breath/wheezing Lisinopril (Lisinopril 40 Mg Tablet) 40 mg PO DAILY [facility]; Protocol Last Admin: 08/27/25 09:33 Dose: 40 mg Documented By: ORI Magnesium Hydroxide (Milk Of Magnesia 30 Ml Oral.Susp) 30 ml PO DAILY PRN PRN Reason: Constipation Melatonin (Melatonin 3 Mg Tablet) 6 mg PO BEDTIME PRN PRN Reason: Insomnia Last Admin: 08/25/25 20:53 Dose: 6 mg Documented By: MAXIMUS Comments: pt requested to help fall asleep Metoprolol Tartrate (Metoprolol Tartrate 50 Mg Tablet) 50 mg PO BID [facility]; Protocol Last Admin: 08/27/25 09:27 Dose: 50 mg Documented By: ORI Omeprazole (Omeprazole 20 Mg Capsule.) 20 mg PO DAILY@0630 [facility] Last Admin: 08/27/25 05:33 Dose: 20 mg Documented By: JENNIFER Sodium Chloride (0.9 % Sodium Chloride Flush 3 Ml Syringe) 3 ml IVFLUSH QSHIFT [facility] Last Admin: 08/27/25 09:27 Dose: 3 ml Documented By: ORI Topiramate (Topiramate 100 Mg Tablet) 100 mg PO BEDTIME [facility] Last Admin: 08/26/25 20:18 Dose: 100 mg Documented By: JENNIFER Labs 08/27/25 07:51 08/27/25 07:51 Labs: Laboratory Results - last 24 hr 08/26/25 08/27/25 08/27/25 20:27 07:26 07:51 MCV 87.3 MCH 27.5 MCHC 31.5 RDW 13.5 Plt Count 273 MPV 10.8 Immature Gran % (Auto) 0.5 H Neut % (Auto) 66.9 Lymph % (Auto) 23.5 [place] % (Auto) 8.7 Eos % (Auto) 0.2 Baso % (Auto) 0.2 Lymph # (Auto) 2.9 [place] # (Auto) 1.1 Eos # (Auto) 0.0 Baso # (Auto) 0.0 Abs Immat Gran (auto) 0.06 H Absolute Neuts (auto) 8.4 H Absolute Nucleated RBC 0.000 Nucleated RBC % (auto) 0.0 VBG pH VBG pCO2 VBG pO2 VBG HCO3 VBG O2 Saturation VBG Base Excess Anion Gap 13 Estim Creat Clear Calc 44.6 Estimated GFR 49 POC Glucose 285 H 115 Random Glucose 114 Calcium 9.4 Phosphorus 2.3 L Magnesium 1.9 Albumin 4.1 08/27/25 08/27/25 08/27/25 07:58 11:16 16:19 MCV MCH MCHC RDW Plt Count MPV Immature Gran % (Auto) Neut % (Auto) Lymph % (Auto) [place] % (Auto) Eos % (Auto) Baso % (Auto) Lymph # (Auto) [place] # (Auto) Eos # (Auto) Baso # (Auto) Abs Immat Gran (auto) Absolute Neuts (auto) Absolute Nucleated RBC Nucleated RBC % (auto) VBG pH 7.48 H VBG pCO2 41 VBG pO2 79 VBG HCO3 31 H VBG O2 Saturation 97.0 VBG Base Excess 7.2 Anion Gap Estim Creat Clear Calc Estimated GFR POC Glucose 188 H 241 H Random Glucose Calcium Phosphorus Magnesium Albumin Microbiology Microbiology Results: Microbiology 08/26/25 03:01 Blood Culture - Preliminary Blood - Venous No growth after 24 hours. 08/26/25 03:01 Blood Culture - Preliminary Blood - Venous No growth after 24 hours. Assessment and Plan (1) Acute respiratory failure with hypoxia: Status: Acute (2) Asthma exacerbation: Status: Acute Plan 83-year-old male with a past medical history of HTN, HLD, asthma/COPD, GERD, BPH presented to the hospital with a chief complaint of cough and shortness of breath. Admitted for following Acute encephalopathy Pt with episode of acute confusion during the night of 08/26, was responding to sternal rub Found to be hypercapnic likely secondary to induced hypoventilation Transferred to the ICU a short period for BiPAP support 08/26 Pt with dementia and confusion at baseline, currently mentation back to baseline Acute hypoxic respiratory failure from acute asthma exacerbation with suspected underlying pneumonia CXR shows mild right basilar atelectasis vs infiltrate Duonebs switched to Xopenex due to tachycardia Continue azithromycin, ceftriaxone, started 08/24 Solu-medrol x1 more dose today Pt has been weaned off of supplemental oxygen Hypertension: Continue metoprolol, amlodipine, lisinopril Diabetes: Hold home regimen. Kept on Lantus 30 units plus sliding scale. Monitor POC glucose and adjust insulins. Med reconciliation: Resume home medications once med rec completed by pharmacy in a.m. GERD: continue PPI Dementia Continue citalopram, aripiprazole HLD Statin Obesity class 2 Pt with BMI 39.0 Pt chronically bed-bound, has not walked in the past 3-4 years Comes from home where she lives with family DVT prophylaxis: Lovenox Code status: Full code Pt requires continued hospitalization for treatment of acute hypoxic respiratory failure in the setting of asthma exacerbation and pneumonia in a chronically ill pt. Will attempt to wean off of supplemental oxygen and discharged home tomorrow. Quality Stroke Does the patient have a stroke diagnosis?: No VTE Prior VTE?: No VTE Risk Level:: Medical - moderate - high VTE Device Contraindication: Treatment Not Indicated VTE Drug Contraindication: N/A - Med Ordered
[2025-08-27 20:15] LABS: Glucose, Whole Blood 325 mg/dL (60-115)
[2025-08-28 03:12] VITALS: BP 166/78; PULSE 95; RESP 22; TEMP 36.5; O2SAT 95
[2025-08-28] MEDS: levalbuterol HCL 1.25 MG, Ipratropium Bromide 0.5 MG INHALE ×2 (07:38→11:01)
[2025-08-28 07:41] VITALS: PULSE 74; RESP 20; O2SAT 94
[2025-08-28 07:45] LABS: Glucose, Whole Blood 147 mg/dL (60-115)
[2025-08-28] MEDS: 0.9 % Sodium Chloride Flush 3 ML SYRINGE IVFLUSH (07:52)
[2025-08-28 08:00] VITALS: BP 145/66; PULSE 89; RESP 18; TEMP 36.7; O2SAT 94
[2025-08-28] MEDS: Ferrous Sulfate 324 MG TABLET.DR PO (08:04)
[2025-08-28] MEDS: Dorzolamide HCl 2 % Ophth Sol 10 ML DRPBTL 1 DROP EYE-BOTH (08:28)
[2025-08-28] MEDS: Brimonidine Tartrate 0.2% Oph 5 ML BOTTLE 1 DROP EYE-LEFT (08:28)
[2025-08-28 08:38] LABS: Hematocrit 37.0 % (37.0-47.0); Hemoglobin 11.5 g/dl (12.0-16.0); Mean Corpuscular HGB Conc 31.1 g/dl (31.0-35.0); Mean Corpuscular Hemoglobin 27.2 pg (27.0-33.0); Mean Corpuscular Volume 87.5 fL (80.0-98.0); NRBC Abs Auto 0.000 X10*3/uL (0.0-0.012); NRBC Pct Auto 0.0 /100WBC (0.0-0.2); Platelet Count 272 X10*3/uL (160-400); Red Blood Count 4.23 X10*6/uL (4.20-5.50); White Blood Count 9.7 X10*3/uL (4.8-10.8)
[2025-08-28 09:06] LABS: Anion Gap 12 (12-20); Blood Urea Nitrogen 36 mg/dL (9-16); Calcium 9.2 mg/dL (8.4-10.2); Carbon Dioxide 26 mmol/L (22-29); Chloride 110 mmol/L (96-108); Creatinine Clr Calc Pharmacy 50.2; Estimated Glomerular Filt Rate 56; Potassium 3.8 mmol/L (3.3-5.1); Sodium 144 mmol/L (135-145)
[2025-08-28 11:04] VITALS: PULSE 76; RESP 18; O2SAT 95
[2025-08-28 11:55] LABS: Glucose, Whole Blood 142 mg/dL (60-115)
[2025-08-28 12:00] VITALS: BP 145/66; PULSE 80; RESP 18; TEMP 36.7; O2SAT 93
--- NOTE | 2025-08-28 13:10 | MHC.CM.PN ---
CM MET WITH PT AND FAMILY AT BEDSIDE WITH A FACTORY LAY OUT ENGINEER THEY UNDERSTAND PT WILL DC HOME TODAY WITH RESUMPTION OF [facility] THEY REPORT THE PT WAS RECENTLY ASSIGNED TO A NEW PCP, BUT HAS NOT SEEN THEM YET PTS ADDRESS IS INCORRECT IN THE CHART, THE CORRECT ADDRESS IS [address] [place] [address] YENNY MCKENNA David TRANSPORT BOOKED FOR 1600 PER FAMILY REQUEST
--- NOTE | 2025-08-28 13:49 | P.DS_ITS ---
DS: Providers Provider Date of admission: 08/24/25 02:13 Date of discharge: 08/28/25 Primary care physician: Jason Cooper CNP DS: Diagnosis Discharge Diagnosis (1) Acute respiratory failure with hypoxia: Status: Acute (2) Asthma exacerbation: Status: Acute DS: Summary Hospital Course Hospital Course: From admission HPI: Date of Service: 08/24/25 Chief Complaint: Shortness of breath 74-year-old female with a past medical history of HTN, HLD, dm, obesity, COPD, asthma, chronic pain syndrome, GERD, anemia, anxiety, depression; presented to the hospital today with a chief complaint of shortness of breath. Reportedly patient has been having shortness of breath for about 3 days. Associated cough and sputum production. Denies any sick contacts. Denies any fevers. Denies any GI or symptoms. Review of all other systems is negative except mentioned above ER course: Per ER team, EMS noted that patient was saturating 78%; has diminished breath sounds; given nebulizations; methylprednisone; the ER patient was to be short of breath. Chest x-ray showed no acute cardiopulmonary process. Placed on supplemental oxygen with improvement in oxygenation. Chest x-ray showed atelectasis versus infiltration. Hospital course: Pt is admitted to the hospital for acute hypoxic respiratory failure in setting of asthma/COPD overlap syndrome exacerbation with superimposed pneumonia. Pt was treated with IV steroids, IV antibiotics, bronchodilator therapies, and placed on supplemental oxygen which she is not on at home. Hospital course was complicated by episode of acute metabolic encephalopathy likely secondary to oxygen induced hypercapnia. Pt was placed on BiPAP and briefly transferred to ICU. Patient's mentation soon improved and she was transferred back to the hospital floor where she was taken off of supplemental oxygen and thereafter maintained good oxygen saturation. Pt was seen and evaluated by respiratory therapy who recommended AVAPS BiPAP at night, and arrangements were made for pt to receive this for medical supplier in the near future once authorized by insurance. Pt was not evaluated by Physical therapy as she has been chronically bed-bound for the past 3-4 years and is less not a candidate for short-term rehab. At time of discharge pt was no longer requiring supplemental oxygen and her breathing and mentation back to baseline. She will be discharged on azithromycin 500 mg daily x3 days, cefuroxime 500 mg b.i.d. x3 days, and prednisone 40 mg daily x3 days. Pt should resume all other home medications. Time Attestation Discharge Coordination Time (in mins): 37 Quality: Safe Use of Opioids Does Pt have an Active Cancer Diagnosis on the Problem List?: No Quality: Stroke Does the patient have a stroke diagnosis?: No Physical Exam Exam: Exam: General: Awake and alert to self and place, not to time or situation. Resp: Lungs CTA CVS: S1, S2, RRR GI: +BS, NT, no distention, obese Skin: Warm, dry Neuro: Cranial nerves II-XII grossly intact bilaterally. Motor grossly intact bilaterally. Musculoskeletal: Limited mobility due to body habitus and overall gross deconditioning Extremities: No pitting edema Psych: Calm, cooperative Vital Signs: Vital Signs: Last Vital Signs Temp 98.1 F 08/28/25 12:00 Pulse 80 08/28/25 12:00 Resp 18 08/28/25 12:00 BP 145/66 H 08/28/25 12:00 Pulse Ox 93 08/28/25 12:00 O2 Del Method Room Air 08/28/25 12:00 O2 Flow Rate 1 08/26/25 02:32 FiO2 21 08/27/25 00:00 Oxygen Flow Rate 2 08/23/25 23:12 BMI result Body Mass Index 39.0 DS: Data Data Completed and Pending Labs on day of discharge: Laboratory Results - last 24 hr 08/27/25 08/27/25 08/28/25 16:19 20:03 07:33 WBC RBC Hgb Hct MCV MCH MCHC RDW Plt Count MPV Absolute Nucleated RBC Nucleated RBC % (auto) Sodium Potassium Chloride Carbon Dioxide Anion Gap BUN Creatinine Estim Creat Clear Calc Estimated GFR POC Glucose 241 H 325 H 147 H Random Glucose Calcium 08/28/25 08/28/25 08:06 11:44 WBC 9.7 RBC 4.23 Hgb 11.5 L Hct 37.0 MCV 87.5 MCH 27.2 MCHC 31.1 RDW 13.7 Plt Count 272 MPV 11.4 Absolute Nucleated RBC 0.000 Nucleated RBC % (auto) 0.0 Sodium 144 Potassium 3.8 Chloride 110 H Carbon Dioxide 26 Anion Gap 12 BUN 36 H Creatinine 0.97 Estim Creat Clear Calc 50.2 Estimated GFR 56 POC Glucose 142 H Random Glucose 131 H Calcium 9.2 Preliminary micro results at discharge 08/26/25 03:01 Blood Culture - Preliminary Blood - Venous No growth after 48 hours. 08/26/25 03:01 Blood Culture - Preliminary Blood - Venous No growth after 48 hours. 08/24/25 00:14 Blood Culture - Preliminary Blood - Venous No growth after 48 hours. 08/24/25 00:14 Blood Culture - Preliminary Blood - Venous No growth after 48 hours. Discharge Plan Discharge Anticipated Discharge Date/Time: 08/28/25 13:52 Patient Disposition: Home Health Service Discharge Diagnosis: Acute hypoxic respiratory failure in the setting of asthma exacerbation with pneumonia Referrals: Jason Cooper CNP [Primary Care Provider, Internal Medicine] - 1 Week Discharge Medications: New azithromycin 500 mg tablet 500 mg PO DAILY Qty: 3 0RF Rx Instructions: Take one tablet daily for the next three days, from 08/29-08/31 prednisone 20 mg tablet 40 mg PO DAILY Qty: 6 0RF Rx Instructions: Take 40mg (2 tablets) daily for the next three days, from 08/29-08/31 cefuroxime axetil 500 mg tablet 500 mg PO Q12H Qty: 7 0RF Rx Instructions: Take 1 tablet twice a day with food for the next 3 days, starting the evening of 08/28 and ending the evening of 08/31 Continued (DME) miscellaneous medical supply [facility] [place] See Rx Instructions .ROUTE .MEDSUPPLY Qty: 270 3RF Rx Instructions: Pampers Adult Diapers XL, 3 times a day, As directed, 90 days (DME) miscellaneous medical supply [facility] [place] See Rx Instructions .ROUTE .MEDSUPPLY Qty: 2 3RF Rx Instructions: Nitrile Gloves, Medium, 2 boxes per month, As directed, 30 days (DME) miscellaneous medical supply [facility] [place] See Rx Instructions .ROUTE .MEDSUPPLY Qty: 4 3RF Rx Instructions: Sanitary Wipes, As directed, 30 days ferrous sulfate 325 mg (65 mg iron) tablet 325 mg PO DAILY Qty: 90 3RF lisinopril 40 mg tablet 40 mg PO DAILY 90 Days Qty: 90 3RF acetaminophen 325 mg capsule 650 mg PO Q6H PRN (Reason: pain) Qty: 60 1RF citalopram 20 mg tablet 20 mg PO DAILY 30 Days Qty: 30 3RF aripiprazole 20 mg tablet 20 mg PO BEDTIME Qty: 90 0RF metoprolol tartrate 50 mg tablet 50 mg PO BID Qty: 60 2RF topiramate 100 mg tablet 100 mg PO BEDTIME 30 Days Qty: 30 3RF melatonin 3 mg tablet 6 mg PO BEDTIME 30 Days Qty: 60 0RF docusate sodium 100 mg capsule 100 mg PO BEDTIME Qty: 90 2RF atorvastatin 40 mg tablet 40 mg PO BEDTIME cetirizine 10 mg tablet 10 mg PO DAILY brimonidine 0.2 % drops 1 drp ophthalmic-Left BID omeprazole 20 mg capsule,delayed release(DR/EC) 20 mg PO DAILY@0630 dorzolamide 2 % drops 1 drp ophthalmic (eye) BID gabapentin 100 mg capsule 100 mg PO BID trazodone 50 mg tablet 25 mg PO BID amlodipine 10 mg tablet 10 mg PO BEDTIME montelukast 10 mg tablet 10 mg PO BEDTIME insulin glargine [Lantus Solostar U-100 Insulin] 100 unit/mL (3 mL) insulin pen 22 unit subcut DAILY albuterol sulfate 2.5 mg /3 mL (0.083 %) solution for nebulization 2.5 mg inhalation Q6H PRN (Reason: shortness of breath or wheezing) albuterol sulfate 90 mcg/actuation HFA aerosol inhaler 2 puff inhalation Q4H PRN (Reason: shortness of breath or wheezing) (DME) pen needle, diabetic [BD Ultra-Fine Micro Pen Needle] 32 gauge x 1/4 needle See Rx Instructions .MEDSUPPLY Qty: 100 4RF Rx Instructions: Use with glargine pen metformin 850 mg tablet 850 mg PO BIDWMEAL 90 Days Qty: 180 1RF (DME) blood-glucose meter [FreeStyle Lite Meter] Kit See Rx Instructions .ROUTE .MEDSUPPLY Qty: 1 0RF Rx Instructions: As directed (DME) FreeStyle Lite Strips Strip See Rx Instructions .ROUTE .MEDSUPPLY Qty: 100 12RF Rx Instructions: As directed 2-3 times daily (DME) lancets [FreeStyle Lancets] 28 gauge misc See Rx Instructions .ROUTE .MEDSUPPLY Qty: 100 12RF Rx Instructions: As directed bs checks 2-3 times daily Discharge Orders: Discharge Order (Routine); Ordered 08/28/25 Ordered By: Sona Tavarez Activity on Discharge: As tolerated Stand Alone Forms: Patient Portal Discharge page Print Language: Korean Care Plan Goals: Note from Respiratory Therapy concerning BiBAP at night: We have discussed the need for Astral non-invasive ventilation with patient Margy Mulligan. Due to the most recent ABG shows consistent elevated pco2 of 62 despite wearing BiPAP at a setting of 20/5 rate 15 each evening. Without the appropriate NIV mode specifically AVAPS- the patient faces a significantly increased risk of mortality and a substantially higher likelihood of hospital readmission. Patients with severe hypercapnic COPD who continue to exhibit persistent hypercapnia (PaCO2 >52 mmHg) despite adequate adherence to standard BIPAP therapy should be considered for advanced BiPAP modes. AVAPS delivers volume-assured ventilation by automatically adjusting pressure support to compensate for changes in lung mechanics, mask leak, and patient effort- capabilities not available in standard BiPAP devices. Patient requires alarms and back up rate due to this elsewhere and life threatening disease. Health Concerns: Acute hypoxic respiratory failure Asthma/COPD overlap exacerbation Community-acquired pneumonia Hypercapnia Altered mental status Plan of Treatment: You were admitted to the hospital for acute hypoxic respiratory failure in the setting of asthma/COPD overlap exacerbation with superimposed pneumonia. You were treated with supplemental oxygen, bronchodilator therapy, IV steroids, and IV antibiotics. Hospital course was complicated by episode of acute altered mental status if you are found to be retaining CO2. You were briefly admitted to the ICU for BiPAP support and then transferred back to the hospital floor after your mentation improved. You were taken off of supplemental oxygen and maintained good oxygen saturation. You were seen and evaluated by respiratory therapy who recommended wearing advanced BiPAP BiPAP with volume assured ventilation to prevent CO2 retention. Given that you has been chronically bed- bound for the past 3-4 years, you were not a candidate for short-term rehab. At time of discharge you were no longer requiring supplemental oxygen and your breathing and mentation has improved back to baseline. You will be discharged on oral antibiotics and steroids. -- take azithromycin 500 mg daily for the next 3 days, starting 08/29 and ending 08/31 -- take cefuroxime 500 mg twice a day with food for the next 3 days, starting the evening of 08/28 in any the evening of 08/31 -- take prednisone 40 mg once daily for the next 3 days, from 08/29-08/31 -- Respiratory recommends AVAPS (average volume assured pressure support) BiPAP at night. A medical supplier has been contacted and will work with your insurance to arrange for device to be brought to your house sometime in the near future -- resume all of your other home medications Assessment: See discharge summary Patient Instructions: Chronic Lung Disease and Infection Prevention (DC)
[2025-08-28 15:55] VITALS: BP 141/61; PULSE 94; RESP 16; TEMP 36.9; O2SAT 94
[2025-08-28 16:41] LABS: Glucose, Whole Blood 184 mg/dL (60-115)
== END 2025-08-28 17:05 | disposition home health service (06) | DRG 193 ==
LOC: HO.ED 08-24 02:27 → HO.EDOVER 08-24 02:51 → HO.IMC 08-25 07:17 → HO.EDOVER 08-25 07:31 → HO.S3 08-25 23:29 → HO.ICU 08-26 04:32 → HO.IMC 08-26 15:42 → HO.S3 08-27 13:49
PROVIDERS: Internal Medicine Pulmonary Disease; Physician Assistant; Registered Nurse Community Health; Admitting Provider Hospitalist; Emergency Provider Emergency Medicine; PCP Nurse Practitioner Family; Visit Provider Student in an Organized Health Care Education/Training Program
DX: J18.9 Pneumonia, unspecified organism (principal); J96.01 Acute respiratory failure with hypoxia; J96.02 Acute respiratory failure with hypercapnia; J44.0 Chronic obstructive pulmonary disease with (acute) lower respiratory infection; J45.901 Unspecified asthma with (acute) exacerbation; J98.11 Atelectasis; G93.40 Encephalopathy, unspecified; J44.1 Chronic obstructive pulmonary disease with (acute) exacerbation; I10 Essential (primary) hypertension; K21.9 Gastro-esophageal reflux disease without esophagitis; E78.5 Hyperlipidemia, unspecified; E66.812 Obesity, class 2; Z68.39 Body mass index [BMI] 39.0-39.9, adult; F03.90 Unspecified dementia, unspecified severity, without behavioral disturbance, psychotic disturbance, mood disturbance, and anxiety; E11.9 Type 2 diabetes mellitus without complications; Z74.01 Bed confinement status; Z20.822 Contact with and (suspected) exposure to COVID-19; Z87.891 Personal history of nicotine dependence; Z79.4 Long term (current) use of insulin; Z79.84 Long term (current) use of oral hypoglycemic drugs; Z79.899 Other long term (current) drug therapy
CPT/HCPCS: 36415; 36600; 71045; 80048; 80053; 81001; 82040; 82803; 82947; 83605; 83690; 83735; 84100; 84484; 85025; 85027; 86140; 87040; 87086; 87633; 87637; 92610; 93005; 94640; 94660; 99285; J0456; J0696; J1650; J1938; J2919

== ENCOUNTER → 2025-08-23 23:22 | Outpatient (BNV) | payer OTHER, SELFPAY | PROVIDERS: Admitting Provider Hospitalist; Emergency Provider Emergency Medicine; PCP Nurse Practitioner Family; Visit Provider Internal Medicine Cardiovascular Disease | DX: I25.2 Old myocardial infarction (principal) | CPT/HCPCS: 93010 ==

== ENCOUNTER → 2025-08-23 23:55 | Outpatient (BNV) | payer OTHER, SELFPAY | PROVIDERS: Emergency Provider Emergency Medicine; PCP Nurse Practitioner Family; Visit Provider Radiology Diagnostic Radiology | DX: R06.02 Shortness of breath (principal) | CPT/HCPCS: 71045 ==

== ENCOUNTER → 2025-08-24 02:13 | Outpatient (BNV) | payer OTHER, SELFPAY | PROVIDERS: Admitting Provider Hospitalist; Emergency Provider Emergency Medicine; PCP Nurse Practitioner Family; Visit Provider Student in an Organized Health Care Education/Training Program | DX: J96.01 Acute respiratory failure with hypoxia (principal); J45.901 Unspecified asthma with (acute) exacerbation | CPT/HCPCS: 99222; 99232; 99239; 99499 ==

== ENCOUNTER → 2025-08-24 02:13 | Outpatient (BNV) | payer OTHER, SELFPAY | PROVIDERS: Admitting Provider Hospitalist; Emergency Provider Emergency Medicine; PCP Nurse Practitioner Family; Visit Provider Registered Nurse Community Health | DX: J44.1 Chronic obstructive pulmonary disease with (acute) exacerbation (principal); J96.02 Acute respiratory failure with hypercapnia; J45.901 Unspecified asthma with (acute) exacerbation; R41.82 Altered mental status, unspecified | CPT/HCPCS: 99291 ==